=== PATIENT | male | born 1950 | race Caucasian/White ===

== ENCOUNTER → 2016-08-29 | Outpatient (CLI) | payer MEDICARE | END | disposition home or self-care (01) | LOC: MW.CHFP 08:54 | PROVIDERS: ATTEND Emergency Medicine | DX: Z51.81 Encounter for therapeutic drug level monitoring (principal); I73.9 Peripheral vascular disease, unspecified; Z79.01 Long term (current) use of anticoagulants | CPT/HCPCS: 36415; 85610 ==

== ENCOUNTER → 2016-08-31 | Outpatient (CLI) | payer MEDICARE | END | disposition home or self-care (01) | LOC: MW.CHFP 08:29 | PROVIDERS: ATTEND Emergency Medicine | DX: Z51.81 Encounter for therapeutic drug level monitoring (principal); I73.9 Peripheral vascular disease, unspecified; Z79.01 Long term (current) use of anticoagulants | CPT/HCPCS: 36415; 85610 ==

== ENCOUNTER → 2016-09-03 | Outpatient (CLI) | payer MEDICARE | END | disposition home or self-care (01) | LOC: MW.CHFP 08:58 | PROVIDERS: ATTEND Emergency Medicine | DX: Z51.81 Encounter for therapeutic drug level monitoring (principal); I73.9 Peripheral vascular disease, unspecified; Z79.01 Long term (current) use of anticoagulants | CPT/HCPCS: 36415; 85610 ==

== ENCOUNTER → 2016-09-04 | Outpatient (CLI) | payer MEDICARE | LOC: MW.CHNEURO 08:00 | PROVIDERS: ATTEND Psychiatry & Neurology Neuromuscular Medicine | DX: G61.81 Chronic inflammatory demyelinating polyneuritis (principal) | CPT/HCPCS: 99205 ==

== ENCOUNTER → 2016-09-10 | Outpatient (CLI) | payer MEDICARE | END | disposition home or self-care (01) | LOC: MW.CHFP 08:32 | PROVIDERS: ATTEND Emergency Medicine | DX: Z51.81 Encounter for therapeutic drug level monitoring (principal); I73.9 Peripheral vascular disease, unspecified; Z79.01 Long term (current) use of anticoagulants | CPT/HCPCS: 36415; 85610 ==

== ENCOUNTER → 2016-09-14 | Outpatient (CLI) | payer MEDICARE | LOC: MW.CHFP 08:00 | PROVIDERS: ATTEND Emergency Medicine | DX: I10 Essential (primary) hypertension (principal); Z95.4 Presence of other heart-valve replacement | CPT/HCPCS: G0463 ==

== ENCOUNTER → 2016-09-27 | Outpatient (CLI) | payer MEDICARE | LOC: MW.CHFP 08:51 | PROVIDERS: ATTEND Emergency Medicine | DX: Z51.81 Encounter for therapeutic drug level monitoring (principal); I73.9 Peripheral vascular disease, unspecified; Z79.01 Long term (current) use of anticoagulants; Z95.4 Presence of other heart-valve replacement | CPT/HCPCS: 36415; 85610 ==

== ENCOUNTER → 2016-10-11 | Outpatient (CLI) | payer MEDICARE, OTHER | LOC: MW.CHFP 13:31 | PROVIDERS: ATTEND Emergency Medicine | DX: Z51.81 Encounter for therapeutic drug level monitoring (principal); I73.9 Peripheral vascular disease, unspecified; Z79.01 Long term (current) use of anticoagulants; Z95.4 Presence of other heart-valve replacement | CPT/HCPCS: 36415; 85610 ==

== ENCOUNTER → 2016-10-15 | Outpatient (CLI) | payer MEDICARE, OTHER ==
[2016-10-15 11:42] LABS: CHLORIDE,CL 106 mmol/L (98-110); SODIUM,NA 140 mmol/L (136-146)
== END ==
LOC: MW.CHFP 10:59
PROVIDERS: ATTEND Emergency Medicine
DX: I10 Essential (primary) hypertension (principal); Z79.01 Long term (current) use of anticoagulants; Z95.4 Presence of other heart-valve replacement; J34.89 Other specified disorders of nose and nasal sinuses
CPT/HCPCS: 36415; 80048; 85027; G0463

== ENCOUNTER 2016-10-28 16:15 | Emergency (ER) | payer MEDICARE, OTHER ==
[2016-10-28] MEDS ORDERED: Sodium Chloride 0.9% 1,000 ML IV ONE ×2 (16:33→19:30)
--- NOTE | 2016-10-28 16:41 | EDM.PDOC ---
ED HPI GENERAL MEDICAL PROBLEM - General Chief Complaint: Abdominal Pain Stated Complaint: PT HAS STOMACH PAINS Time Seen by Provider: 10/28/16 16:20 Source of Information: Reports: Patient History Limitations: Reports: No Limitations - History of Present Illness INITIAL COMMENTS - FREE TEXT/NARRATIVE: HISTORY AND PHYSICAL: History of present illness: [Patient comes to the emergency room complaining of lower abdominal pain. He has not had a bowel movement in 4 days and he feels constipated. He usually has a bowel movement daily. He took 2 Dulcolax last night and 2 ex-lax this morning with no results. His abdominal pain is across his entire low abdomen and right flank. He denies fever and chills. He's had no chest pain, shortness of breath or difficulty breathing. No vomiting but he feels nauseous from time to time. His abdomen feels full and crampy. Denies burning with urination and blood in his urine. Symptoms have gradually worsened over the past 24 hours. Has passed a small amount of gas this morning. Has a history of COPD, mitral valve replacement in August 2016 at [facility]. Follows regularly with Dr. Allen. Takes coumadin daily for valve replacement, but has not yet taken his dose today. ] Review of systems: As per history of present illness and below otherwise all systems reviewed and negative. Past medical history: As per history of present illness and as reviewed below otherwise noncontributory. Surgical history: As per history of present illness and as reviewed below otherwise noncontributory. Social history: No reported history of drug or alcohol abuse. Family history: As per history of present illness and as reviewed below otherwise noncontributory. Physical exam: HEENT: Atraumatic, normocephalic. Oral mucous membranes are pink and moist. Throat is clear. Neck is supple no lymphadenopathy. Lungs: Clear to auscultation, breath sounds equal bilaterally. Heart: S1S2, regular rate and rhythm. Abdomen: Bowel sounds are noromactive throughout. Abdomen is not distended, but feels hard. Generalized tenderness throughout, worse to R flank and low abdomen. Soft, nondistended, nontender. Negative for masses, guarding, rebound, organomegaly. Right flank is tender with percussion. Genitourinary: Deferred. Rectal: Deferred. Skin: Ashen and fernandez in color. Extremities: Atraumatic, negative for cyanosis and edema to feet or lower legs. Neurovascular unremarkable. Neuro: Awake, alert, oriented. Motor and sensory unremarkable throughout. Exam nonfocal. Diagnostics: [CBC, CMP, UA, abdominal x-ray, CT abd and pelvis, INR] Therapeutics: [1 L normal saline, Morphine 2mg IV] Impression: [small bowel obstruction] Plan: [Contacted Dr. Alba Ellis about small bowel obstruction noted on CT. She agrees to come to the emergency room and evaluate the patient. Due to patient's anti-coagulation status, Dr. Ellis recommends that patient be referred to [facility] for further evaluation and intervention. One episode of vomiting while in the ER. INR is therapeutic at 2.7. Dr. Mathis at [facility] agrees to accept patient in transfer. Patient is in agreement with today's plan. ] Definitive disposition and diagnosis as appropriate pending reevaluation and review of above. Abdominal Pain Score (Numeric/FACES): 10 - Related Data Allergies Allergy/AdvReac Type Severity Reaction Status Date / Time influenza virus vaccine, Allergy Muscle Verified 10/28/16 16:24 specific Weakness [Influenza Virus Vacc,Specific] Home Meds: Home Meds Albuterol Sulfate [Albuterol Sulfate HFA] 1 inhalation IH Q4H PRN 12/02/13 [ History] Aspirin [Sussy Chewable Aspirin] 81 mg PO DAILY 12/02/13 [History] traZODone 100 mg PO BEDTIME 12/02/13 [History] Tiotropium [Spiriva HandiHaler] 1 inhalation IH ASDIRECTED 03/01/14 [History] Bisacodyl [Dulcolax] 5 mg PO DAILY PRN 10/28/16 [History] Cholecalciferol (Vitamin D3) [D-2000] 2,000 unit PO DAILY 10/28/16 [History] Methadone 30 mg PO TID PRN 10/28/16 [History] Metoprolol Succinate 25 mg PO DAILY 10/28/16 [History] Minocycline [Minocin] 200 mg PO BIDAC 10/28/16 [History] Omeprazole 20 mg PO DAILY 10/28/16 [History] Sildenafil Citrate [Sildenafil] 20 mg PO ASDIRECTED 10/28/16 [History] Warfarin [Coumadin] 5 mg PO DAILY 10/28/16 [History] atorvaSTATin [Lipitor] 40 mg PO BEDTIME 10/28/16 [History] Past Medical History Cardiovascular History: Reports: Hypertension Respiratory History: Reports: COPD Other Respiratory History: Home oxygen at night at 2lp Other Gastrointestinal History: constipation Musculoskeletal History: Reports: Arthritis - Infectious Disease History Infectious Disease History: Reports: Chicken Pox - Past Surgical History Other Cardiovascular Surgeries/Procedures: Aortiv valve replacement Social & Family History - Family History Family Medical History: Noncontributory - Tobacco Use Smoking Status *Q: Former Smoker Years of Tobacco use: 40 Used Tobacco, but Quit: Yes Month Tobacco Last Used: "years ago" Second Hand Smoke Exposure: No - Caffeine Use Caffeine Use: Reports: Coffee Caffeine Use Comment: 1cup/day - Alcohol Use Days Per Week of Alcohol Use: 0 Number of Drinks Per Day: 0 Total Drinks Per Week: 0 - Recreational Drug Use Recreational Drug Use: No Drug Use in Last 12 Months: No ED ROS GENERAL - Review of Systems Review Of Systems: ROS reveals no pertinent complaints other than HPI. ED EXAM, GI/ABD - Physical Exam Exam: See Below Course - Vital Signs Last Recorded V/S: Last Vital Signs Temp 97.7 F 10/28/16 20:09 Pulse 74 10/28/16 20:09 Resp 18 10/28/16 20:09 BP 177/88 H 10/28/16 20:09 Pulse Ox 94 L 10/28/16 20:09 - Orders/Labs/Meds Labs: Laboratory Tests 10/28/16 10/28/16 10/28/16 Range/Units 16:40 16:40 16:40 WBC 9.74 (4.0-11.0) K/uL RBC 4.87 (4.50-5.90) M/uL Hgb 14.3 (13.0-17.0) g/dL Hct 43.4 (38.0-50.0) % MCV 89.1 (80.0-98.0) fL MCH 29.4 (27.0-32.0) pg MCHC 32.9 (31.0-37.0) g/dL RDW Std Deviation 44.3 (28.0-62.0) fl RDW Coeff of Yury 14 (11.0-15.0) % Plt Count 117 L (150-400) K/uL MPV 9.20 (7.40-12.00) fL Neut % (Auto) 71.1 (48.0-80.0) % Lymph % (Auto) 19.4 (16.0-40.0) % Eddy % (Auto) 8.3 (0.0-15.0) % Eos % (Auto) 1.1 (0.0-7.0) % Baso % (Auto) 0.1 (0.0-1.5) % Neut # (Auto) 6.9 H (1.4-5.7) K/uL Lymph # (Auto) 1.9 (0.6-2.4) K/uL Eddy # (Auto) 0.8 (0.0-0.8) K/uL Eos # (Auto) 0.1 (0.0-0.7) K/uL Baso # (Auto) 0.0 (0.0-0.1) K/uL Nucleated RBC % 0.0 /100WBC Nucleated RBCs # 0 K/uL INR (0.86-1.11) Lactate (0.20-2.00) mmol/L Sodium 138 (136-146) mmol/L Potassium 4.3 (3.5-5.1) mmol/L Chloride 103 (98-110) mmol/L Carbon Dioxide 26 (21-31) mmol/L BUN 25 H (6.0-23.0) mg/dL Creatinine 1.1 (0.6-1.5) mg/dL Est Cr Clr Drug Dosing 64.84 mL/min Estimated GFR (MDRD) > 60.0 ml/min Glucose 141 H (60-110) mg/dL Calcium 9.3 (8.8-10.8) mg/dL Total Bilirubin 0.4 (0.1-1.5) mg/dL AST 27 (5-40) IU/L ALT 26 (8-54) IU/L Alkaline Phosphatase 78 (40-150) Total Protein 6.4 (6.0-8.0) g/dL Albumin 3.7 (3.4-4.8) g/dL Globulin 2.7 (2.0-3.5) g/dL Albumin/Globulin Ratio 1.4 (1.3-2.8) Urine Color YELLOW Urine Appearance CLEAR Urine pH 5.5 (5.0-8.0) Ur Specific [place] 1.010 (1.001-1.035) Urine Protein NEGATIVE (NEGATIVE) mg/dL Urine Glucose (UA) NEGATIVE (NEGATIVE) mg/dL Urine Ketones NEGATIVE (NEGATIVE) mg/dL Urine Occult Blood SMALL H (NEGATIVE) Urine Nitrite NEGATIVE (NEGATIVE) Urine Bilirubin NEGATIVE (NEGATIVE) Urine Urobilinogen 0.2 (<2.0) EU/dL Ur Leukocyte Esterase NEGATIVE (NEGATIVE) Urine RBC 0-2 (0-2/HPF) Urine WBC 0-1 (0-5/HPF) Ur Epithelial Cells RARE (NONE-FEW) Urine Bacteria RARE (NEGATIVE) 10/28/16 10/28/16 Range/Units 16:40 18:36 WBC (4.0-11.0) K/uL RBC (4.50-5.90) M/uL Hgb (13.0-17.0) g/dL Hct (38.0-50.0) % MCV (80.0-98.0) fL MCH (27.0-32.0) pg MCHC (31.0-37.0) g/dL RDW Std Deviation (28.0-62.0) fl RDW Coeff of Yury (11.0-15.0) % Plt Count (150-400) K/uL MPV (7.40-12.00) fL Neut % (Auto) (48.0-80.0) % Lymph % (Auto) (16.0-40.0) % Eddy % (Auto) (0.0-15.0) % Eos % (Auto) (0.0-7.0) % Baso % (Auto) (0.0-1.5) % Neut # (Auto) (1.4-5.7) K/uL Lymph # (Auto) (0.6-2.4) K/uL Eddy # (Auto) (0.0-0.8) K/uL Eos # (Auto) (0.0-0.7) K/uL Baso # (Auto) (0.0-0.1) K/uL Nucleated RBC % /100WBC Nucleated RBCs # K/uL INR 2.70 H (0.86-1.11) Lactate 1.0 (0.20-2.00) mmol/L Sodium (136-146) mmol/L Potassium (3.5-5.1) mmol/L Chloride (98-110) mmol/L Carbon Dioxide (21-31) mmol/L BUN (6.0-23.0) mg/dL Creatinine (0.6-1.5) mg/dL Est Cr Clr Drug Dosing mL/min Estimated GFR (MDRD) ml/min Glucose (60-110) mg/dL Calcium (8.8-10.8) mg/dL Total Bilirubin (0.1-1.5) mg/dL AST (5-40) IU/L ALT (8-54) IU/L Alkaline Phosphatase (40-150) Total Protein (6.0-8.0) g/dL Albumin (3.4-4.8) g/dL Globulin (2.0-3.5) g/dL Albumin/Globulin Ratio (1.3-2.8) Urine Color Urine Appearance Urine pH (5.0-8.0) Ur Specific [place]iku (1.001-1.035) Urine Protein (NEGATIVE) mg/dL Urine Glucose (UA) (NEGATIVE) mg/dL Urine Ketones (NEGATIVE) mg/dL Urine Occult Blood (NEGATIVE) Urine Nitrite (NEGATIVE) Urine Bilirubin (NEGATIVE) Urine Urobilinogen (<2.0) EU/dL Ur Leukocyte Esterase (NEGATIVE) Urine RBC (0-2/HPF) Urine WBC (0-5/HPF) Ur Epithelial Cells (NONE-FEW) Urine Bacteria (NEGATIVE) Meds: Medications Discontinued Medications Generic Name Dose Route Start Last Admin Trade Name Freq PRN Reason Stop Dose Admin Sodium Chloride 1,000 mls @ 999 mls/hr 10/28/16 16:33 10/28/16 16:44 Normal Saline IV 10/28/16 17:33 999 mls/hr STAT ONE Administration Sodium Chloride 1,000 mls @ 125 mls/hr 10/28/16 19:30 10/28/16 19:48 Normal Saline IV 10/29/16 03:29 125 mls/hr STAT ONE Administration Morphine Sulfate 2 mg 10/28/16 17:35 10/28/16 17:43 Morphine IVPUSH 10/28/16 17:36 2 mg ONETIME ONE Administration Morphine Sulfate 4 mg 10/28/16 19:45 10/28/16 19:50 Morphine IVPUSH 10/28/16 19:46 4 mg ONETIME ONE Administration Departure - Departure Time of Disposition: 19:45 Disposition: DC/Tfer to Acute Hospital 02 Condition: fair Clinical Impression: Small bowel obstruction - Discharge Information Referrals: PCP,None [Primary Care Provider] - Forms: ED Department Discharge
[2016-10-28 17:11] LABS: CHLORIDE,CL 103 mmol/L (98-110); SODIUM,NA 138 mmol/L (136-146)
[2016-10-28] MEDS ORDERED: Morphine 2 MG/ML Syringe IVPUSH ONE ×2 (17:35→19:45)
--- NOTE | 2016-10-28 19:05 | PCM.CONS ---
H&P History of Present Illness - General Date of Service: 10/28/16 Admit Problem/Dx: small bowel obstruction Source of Information: Patient History Limitations: Reports: No Limitations - History of Present Illness Initial Comments - Free Text/Narative: Patient is a 66 yo male with COPD, mitral valve replacement 2 months ago currently on coumadin, open abdominal aorta replacement and multiple bypass procedures on the right leg that presents with four days of progressively worsening abdominal pain. Today he developed nausea and vomiting. He denies ever having an issue like this in the past. He denies fevers, chills. He hasnt had a BM in 4 days. He had a CT of the abdomen that shows a small bowel obstruction with a transition point in the mid-portion of the bowel. Associated Symptoms: Reports: Loss of Appetite, Malaise, Nausea/Vomiting, Shortness of Breath Abdominal Pain Score (Numeric/FACES): 10 - Related Data Allergies/Adverse Reactions: Allergies Allergy/AdvReac Type Severity Reaction Status Date / Time influenza virus vaccine, Allergy Muscle Verified 10/28/16 16:24 specific Weakness [Influenza Virus Vacc,Specific] Home Medications: Home Meds Albuterol Sulfate [Albuterol Sulfate HFA] 1 inhalation IH Q4H PRN 12/02/13 [ History] Aspirin [Sussy Chewable Aspirin] 81 mg PO DAILY 12/02/13 [History] traZODone 100 mg PO BEDTIME 12/02/13 [History] Tiotropium [Spiriva HandiHaler] 1 inhalation IH ASDIRECTED 03/01/14 [History] Bisacodyl [Dulcolax] 5 mg PO DAILY PRN 10/28/16 [History] Cholecalciferol (Vitamin D3) [D-2000] 2,000 unit PO DAILY 10/28/16 [History] Methadone 30 mg PO TID PRN 10/28/16 [History] Metoprolol Succinate 25 mg PO DAILY 10/28/16 [History] Minocycline [Minocin] 200 mg PO BIDAC 10/28/16 [History] Omeprazole 20 mg PO DAILY 10/28/16 [History] Sildenafil Citrate [Sildenafil] 20 mg PO ASDIRECTED 10/28/16 [History] Warfarin [Coumadin] 5 mg PO DAILY 10/28/16 [History] atorvaSTATin [Lipitor] 40 mg PO BEDTIME 05/14/17 [History] Past Medical History HEENT History: Reports: None Cardiovascular History: Reports: Bypass, Heart Valve Replacement, Hypertension Respiratory History: Reports: COPD, Pneumothorax Other Respiratory History: Home oxygen at night at 2lp Gastrointestinal History: Reports: GERD Other Gastrointestinal History: constipation Musculoskeletal History: Reports: Arthritis Other Musculoskeletal History: 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 Neurological History: Reports: None Hematologic History: Reports: Anticoagulation Therapy - Infectious Disease History Infectious Disease History: Reports: Chicken Pox - Past Surgical History Cardiovascular Surgical History: Reports: AAA repair, Valve Replacement, Vascular Surgery Other Cardiovascular Surgeries/Procedures: Aortic valve replacement Social & Family History - Family History Family Medical History: Noncontributory - Tobacco Use Smoking Status *Q: Former Smoker Years of Tobacco use: 40 Used Tobacco, but Quit: Yes Month Tobacco Last Used: "years ago" Second Hand Smoke Exposure: No - Caffeine Use Caffeine Use: Reports: Coffee Caffeine Use Comment: 1cup/day - Alcohol Use Days Per Week of Alcohol Use: 0 Number of Drinks Per Day: 0 Total Drinks Per Week: 0 - Recreational Drug Use Recreational Drug Use: No Drug Use in Last 12 Months: No H&P Review of Systems - Review of Systems: Review Of Systems: See Below General: Reports: Malaise, Weakness, Fatigue, Decreased Appetite HEENT: Reports: No Symptoms Pulmonary: Reports: Shortness of Breath Cardiovascular: Reports: No Symptoms Gastrointestinal: Reports: Abdominal Pain, Anorexia, Decreased Appetite, Nausea , Vomiting Genitourinary: Reports: No Symptoms Musculoskeletal: Reports: No Symptoms Skin: Reports: No Symptoms Psychiatric: Reports: No Symptoms Neurological: Reports: No Symptoms Exam - Exam Exam: See Below - Vital Signs Vital Signs: Last Vital Signs Temp 36.7 C 10/28/16 16:20 Pulse 79 10/28/16 16:20 Resp 21 H 10/28/16 16:20 BP 170/79 H 10/28/16 16:20 Pulse Ox 95 10/28/16 16:20 Weight: 69.4 kg - Exam General: Alert, Oriented, Mild Distress, Other (Patient appears ashen ) HEENT: Conjunctiva Clear, Hearing Intact, Mucosa Moist & [place], Nares Patent, Pupils Equal, Pupils Reactive Lungs: Clear to Auscultation, Normal Respiratory Effort Cardiovascular: Regular Rate, Regular Rhythm Abdomen: Soft, Distention (mild-moderate), Other (No abdominal pain with palpation. Well healed midline incision from previous abdominal aortic replacement and bypasses) Skin: Warm, Dry, Intact Neurological: Cranial Nerves Intact Neuro Extensive - Mental Status: Alert, Oriented x3, Normal Mood/Affect Psychiatric: Alert, Normal Affect, Normal Mood - Patient Data Lab Results last 24 hrs: Laboratory Results - last 24 hr 10/28/16 10/28/16 10/28/16 Range/Units 16:40 16:40 16:40 WBC 9.74 (4.0-11.0) K/uL RBC 4.87 (4.50-5.90) M/uL Hgb 14.3 (13.0-17.0) g/dL Hct 43.4 (38.0-50.0) % MCV 89.1 (80.0-98.0) fL MCH 29.4 (27.0-32.0) pg MCHC 32.9 (31.0-37.0) g/dL RDW Std Deviation 44.3 (28.0-62.0) fl RDW Coeff of Yury 14 (11.0-15.0) % Plt Count 117 L (150-400) K/uL MPV 9.20 (7.40-12.00) fL Neut % (Auto) 71.1 (48.0-80.0) % Lymph % (Auto) 19.4 (16.0-40.0) % [place] % (Auto) 8.3 (0.0-15.0) % Eos % (Auto) 1.1 (0.0-7.0) % Baso % (Auto) 0.1 (0.0-1.5) % Neut # (Auto) 6.9 H (1.4-5.7) K/uL Lymph # (Auto) 1.9 (0.6-2.4) K/uL [place] # (Auto) 0.8 (0.0-0.8) K/uL Eos # (Auto) 0.1 (0.0-0.7) K/uL Baso # (Auto) 0.0 (0.0-0.1) K/uL Nucleated RBC % 0.0 /100WBC Nucleated RBCs # 0 K/uL Lactate (0.20-2.00) mmol/L Sodium 138 (136-146) mmol/L Potassium 4.3 (3.5-5.1) mmol/L Chloride 103 (98-110) mmol/L Carbon Dioxide 26 (21-31) mmol/L BUN 25 H (6.0-23.0) mg/dL Creatinine 1.1 (0.6-1.5) mg/dL Est Cr Clr Drug Dosing 64.84 mL/min Estimated GFR (MDRD) > 60.0 ml/min Glucose 141 H (60-110) mg/dL Calcium 9.3 (8.8-10.8) mg/dL Total Bilirubin 0.4 (0.1-1.5) mg/dL AST 27 (5-40) IU/L ALT 26 (8-54) IU/L Alkaline Phosphatase 78 (40-150) Total Protein 6.4 (6.0-8.0) g/dL Albumin 3.7 (3.4-4.8) g/dL Globulin 2.7 (2.0-3.5) g/dL Albumin/Globulin Ratio 1.4 (1.3-2.8) Urine Color YELLOW Urine Appearance CLEAR Urine pH 5.5 (5.0-8.0) Ur Specific [place] 1.010 (1.001-1.035) Urine Protein NEGATIVE (NEGATIVE) mg/dL Urine Glucose (UA) NEGATIVE (NEGATIVE) mg/dL Urine Ketones NEGATIVE (NEGATIVE) mg/dL Urine Occult Blood SMALL H (NEGATIVE) Urine Nitrite NEGATIVE (NEGATIVE) Urine Bilirubin NEGATIVE (NEGATIVE) Urine Urobilinogen 0.2 (<2.0) EU/dL Ur Leukocyte Esterase NEGATIVE (NEGATIVE) Urine RBC 0-2 (0-2/HPF) Urine WBC 0-1 (0-5/HPF) Ur Epithelial Cells RARE (NONE-FEW) Urine Bacteria RARE (NEGATIVE) 10/28/16 Range/Units 18:36 WBC (4.0-11.0) K/uL RBC (4.50-5.90) M/uL Hgb (13.0-17.0) g/dL Hct (38.0-50.0) % MCV (80.0-98.0) fL MCH (27.0-32.0) pg MCHC (31.0-37.0) g/dL RDW Std Deviation (28.0-62.0) fl RDW Coeff of Yury (11.0-15.0) % Plt Count (150-400) K/uL MPV (7.40-12.00) fL Neut % (Auto) (48.0-80.0) % Lymph % (Auto) (16.0-40.0) % [place] % (Auto) (0.0-15.0) % Eos % (Auto) (0.0-7.0) % Baso % (Auto) (0.0-1.5) % Neut # (Auto) (1.4-5.7) K/uL Lymph # (Auto) (0.6-2.4) K/uL [place] # (Auto) (0.0-0.8) K/uL Eos # (Auto) (0.0-0.7) K/uL Baso # (Auto) (0.0-0.1) K/uL Nucleated RBC % /100WBC Nucleated RBCs # K/uL Lactate 1.0 (0.20-2.00) mmol/L Sodium (136-146) mmol/L Potassium (3.5-5.1) mmol/L Chloride (98-110) mmol/L Carbon Dioxide (21-31) mmol/L BUN (6.0-23.0) mg/dL Creatinine (0.6-1.5) mg/dL Est Cr Clr Drug Dosing mL/min Estimated GFR (MDRD) ml/min Glucose (60-110) mg/dL Calcium (8.8-10.8) mg/dL Total Bilirubin (0.1-1.5) mg/dL AST (5-40) IU/L ALT (8-54) IU/L Alkaline Phosphatase (40-150) Total Protein (6.0-8.0) g/dL Albumin (3.4-4.8) g/dL Globulin (2.0-3.5) g/dL Albumin/Globulin Ratio (1.3-2.8) Urine Color Urine Appearance Urine pH (5.0-8.0) Ur Specific [place] (1.001-1.035) Urine Protein (NEGATIVE) mg/dL Urine Glucose (UA) (NEGATIVE) mg/dL Urine Ketones (NEGATIVE) mg/dL Urine Occult Blood (NEGATIVE) Urine Nitrite (NEGATIVE) Urine Bilirubin (NEGATIVE) Urine Urobilinogen (<2.0) EU/dL Ur Leukocyte Esterase (NEGATIVE) Urine RBC (0-2/HPF) Urine WBC (0-5/HPF) Ur Epithelial Cells (NONE-FEW) Urine Bacteria (NEGATIVE) Result Diagrams: 10/28/16 16:40 10/28/16 16:40 Consult PN Assessment/Plan Procedures: Procedures ASSAY OF CREATININE (06/08/15) CARDIAC REHAB/MONITOR (10/12/16) CHEST X-RAY 2VW FRONTAL&LATL (05/21/16) CINE/VID X-RAY THROAT/ESOPH (02/01/14) COMPLETE CBC AUTOMATED (05/21/16) COMPLETE CBC W/AUTO DIFF WBC (11/09/15) CT ANGIO ABDOMINAL ARTERIES (11/11/15) CT THORAX W/O DYE (01/06/16) EGD BIOPSY SINGLE/MULTIPLE (03/03/14) ELECTRICAL STIMULATION (11/02/13) ELECTROCARDIOGRAM TRACING (11/17/13) EVALUATION OF WHEEZING (02/08/15) EXTREMITY STUDY (11/09/15) LIPID PANEL (08/02/14) LOWER EXTREMITY STUDY (11/09/15) METABOLIC PANEL TOTAL CA (11/09/15) MOTION FLUOROSCOPY/SWALLOW (02/01/14) MRI JOINT UPR EXTREM W/O DYE (01/05/14) MRI NECK SPINE W/O DYE (09/16/13) OFFICE/OUTPATIENT VISIT EST (01/13/15) OFFICE/OUTPATIENT VISIT EST (03/15/14) OFFICE/OUTPATIENT VISIT EST (10/22/13) PPSV23 VACC 2 YRS+ SUBQ/IM (01/13/15) PROTHROMBIN TIME (10/11/16) PT EVALUATION (11/02/13) RBC SED RATE AUTOMATED (05/21/16) ROUTINE VENIPUNCTURE (10/11/16) SHOULDER ARTHROSCOPY/SURGERY (12/03/13) THERAPEUTIC EXERCISES (11/02/13) TISSUE EXAM BY PATHOLOGIST (03/03/14) URINALYSIS AUTO W/SCOPE (11/17/13) URINALYSIS NONAUTO W/SCOPE (12/16/14) X-RAY EXAM OF SHOULDER (12/16/13) (1) Small bowel obstruction SNOMED Code(s): 353687697 Code(s): K56.69 - OTHER INTESTINAL OBSTRUCTION Current Visit: Yes Problem List Initiated/Reviewed/Updated: Yes Plan: The patient needs to be transferred to a facility with more resources given his recent valve replacement, anticoagulation therapy and moderate COPD for close monitoring and possible surgery. Should he need surgery he will need to have his coumadin reversed and may need ICU services afterwards given his multiple medical issues. In the meantime, he should have an NG tube placed for gastric decompression, be NPO, and be resuscitated with IV fluids. I discussed this with the patient and his . He does have a history of abdominal surgery and may have intra-abdominal adhesions which could be the cause of his bowel obstruction. He may be able to be managed non-operatively but given the complexity of his medical issues, he should be monitored and managed at a facility that would be able to perform his surgery.
[2016-10-28 20:11] VITALS: BP 177/88
--- NOTE | 2016-10-29 17:56 | CR ---
EXAM DATE: 10/28/16 PATIENT'S AGE: 66 Patient: ISRAEL BATRES Facility: [place], [place] Site . Site : 1950 Study: XRay Abdomen [id number] 4:59:33 PM Ordering Physician: Doctor Avila Final Report: INDICATION: Abdominal pain. TECHNIQUE: Upright and supine views of the abdomen IMPRESSION : Dilated small bowel loops with air-fluid levels on the upright view. Bowel obstruction should be considered. CT scan of the abdomen pelvis is suggested for further evaluation. Moderate to large amount of stool in the right colon. The colon appears decompressed. No free intraperitoneal air. TAVR prosthesis. Lumbar disc degeneration. Dictated by Nick Thompson MD @ Oct 28 2016 5:28PM (Electronic Signature) Report Signed by Proxy. HESHAM
--- NOTE | 2016-10-29 17:58 | CT ---
EXAM DATE: 10/28/16 PATIENT'S AGE: 66 Patient: ISRAEL BATRES Facility: [place], [place] Site . Site : 1950 Study: CT Abdomen/Pelvis [id number]/2017 5:59:46 PM Ordering Physician: Doctor Avila Final Report: INDICATION: Abdominal pain TECHNIQUE: IV contrast-enhanced CT abdomen and pelvis. COMPARISON: Abdomen x-ray same date. FINDINGS: Dilated fluid-filled small bowel with transition point in the mid abdomen image 42 of series 203, consistent with small bowel obstruction. Small amount of free fluid. No free air. Liver, spleen, pancreas and are normal. There are bilateral adrenal nodules measuring 1.9 cm on the right and 0.9 cm on the left. While these do not technically meet the density criteria on this contrast-enhanced exam, they are most likely adenomas. There is mild diverticulosis without diverticulitis. Numerous bilateral nonobstructing renal stones. Aortobifemoral grafts. IMPRESSION: 1. Small-bowel obstruction. 2. Bilateral nephrolithiasis. 3. Bilateral adrenal nodules, probably adenomas. Consider adrenal protocol CT for confirmation. PLEASE NOTE THAT ALL CT SCANS AT THIS FACILITY USE DOSE MODULATION, ITERATIVE RECONSTRUCTION, AND/OR WEIGHT-BASED DOSING WHEN APPROPRIATE TO REDUCE RADIATION TO LOW REASONABLY ACHIEVABLE. Dictated by Ariel Dick MD @ 10/28/2016 6:25:43 PM Dictated by: Ariel Dick MD @ 10/28/2016 18:25:56 (Electronic Signature) Report Signed by Proxy. HESHAM
== END 2016-10-28 20:10 ==
LOC: MW.ED 16:15
DX: K56.69 Other intestinal obstruction (principal); I10 Essential (primary) hypertension; J44.9 Chronic obstructive pulmonary disease, unspecified; K59.00 Constipation, unspecified; Z88.8 Allergy status to other drugs, medicaments and biological substances; Z79.82 Long term (current) use of aspirin; Z79.01 Long term (current) use of anticoagulants; Z79.899 Other long term (current) drug therapy; M19.90 Unspecified osteoarthritis, unspecified site; Z87.891 Personal history of nicotine dependence
CPT/HCPCS: 36415; 74020; 74177; 80053; 81001; 83605; 85025; 85610; 96361; 96374; 96376; 99285; J2270; J7040

== ENCOUNTER → 2016-11-08 | Outpatient (CLI) | payer MEDICARE, OTHER | LOC: MW.CHFP 08:00 | PROVIDERS: ATTEND Student in an Organized Health Care Education/Training Program | DX: Z51.81 Encounter for therapeutic drug level monitoring (principal); Z79.01 Long term (current) use of anticoagulants; Z95.2 Presence of prosthetic heart valve | CPT/HCPCS: 85610; 99211 ==

== ENCOUNTER 2017-10-09 07:22 | Emergency (ER) | payer MEDICARE, OTHER ==
[2017-10-09] MEDS ORDERED: Sodium Chloride 0.9% 10 ML Syringe FLUSH PRN (07:42)
[2017-10-09] MEDS ORDERED: Ketorolac 30 MG/ML SDV IVPUSH ONE (07:42)
[2017-10-09] MEDS ORDERED: Sodium Chloride 0.9% 2.5 ML Syringe FLUSH PRN (07:42)
--- NOTE | 2017-10-09 07:47 | EDM.PDOC ---
ED HPI GENERAL MEDICAL PROBLEM - General Chief Complaint: Neck Problem Stated Complaint: SEVERE NECK PAIN Time Seen by Provider: 10/09/17 07:31 - History of Present Illness INITIAL COMMENTS - FREE TEXT/NARRATIVE: HISTORY AND PHYSICAL: History of present illness: The patient is a 67-year-old male who follows in our family practice clinic and has a long-standing history of chronic neck pain due to injury many years ago from trauma and underwent surgery at that time and follows with Dr. Allen for pain management for which she takes methadone, and who presents this morning with onset of right-sided neck pain and deltoid pain that started last evening. Patient said he did not do anything strenuous or different but that the pain started last evening and he placed heat on it but did not take any new medications for the pain. The patient put the heat on it but said it did not make it better and only and the patient thinks that this is more muscular but it has accelerated and it is not getting better. He is taken nonsteroidals in the past but nothing recently and he has no numbness or weakness in his right upper extremity but says that the pain originates in the back of his neck and radiates to the right deltoid area. The patient says he feels like his shoulders rise without his control due to the discomfort. He has no upper back pain no left-sided shoulder pain and no headache per se the pain is worse with movements and there is no chest pain shortness of breath or other systemic complaints. He has no diminished use of his right upper extremity. The patient has a harsh cough in the ED which he states is not new or different and that it is secondary to his COPD Review of systems: As per history of present illness and below otherwise all systems reviewed and negative. Past medical history: As per history of present illness and as reviewed below otherwise noncontributory. Surgical history: As per history of present illness and as reviewed below otherwise noncontributory. Social history: No reported history of drug or alcohol abuse. Family history: As per history of present illness and as reviewed below otherwise noncontributory. Physical exam: General: Well-developed well-nourished man who looks older than stated age and vital signs were noted by me HEENT: Atraumatic, normocephalic, negative for conjunctival pallor or scleral icterus, mucous membranes moist, throat clear, neck supple, nontender, trachea midline. Lungs: Coarse breath sounds throughout without work of breathing breath sounds equal bilaterally, chest nontender. Heart: S1S2, regular, rate and rhythm no overt murmurs Abdomen: Soft, nondistended, nontender. NABS Negative for costovertebral tenderness. Pelvis: Stable nontender. Genitourinary: Deferred. Rectal: Deferred. Extremities: Atraumatic, negative for cords or calf pain. Neurovascular unremarkable. Full range of motion without defects or deficits. There is tenderness when I palpate the need of the deltoid muscle on the right but there is no soft tissue swelling. Neuro: Awake, alert, oriented. Cranial nerves II through XII unremarkable. Cerebellum unremarkable. Motor and sensory unremarkable throughout. Exam nonfocal. 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 Neck and back: There are no midline step-offs tenderness or defects of the bony mid back but there is reproducible tenderness in the strap muscles of the neck bilaterally right greater than left and the patient tends to pull his shoulders up and punched in last I encouraged him to relax. There is no specific trapezius tenderness. Diagnostics: CT scan of the C-spine Therapeutics: Toradol Norflex Patient's repeat blood pressure was 131/53. He is drowsy and resting comfortably and he says he did not sleep much last night so he is pleased with this. At 8:55 AM I did discuss this case with Dr. Allen his primary care physician. He recommends putting the patient on an anti-inflammatory as well as oxycodone 10 mg every 6 hrs when necessary and a Medrol pack after we review the CT scan. He said he will follow him in the clinic and refer him further if the pain persists. Patient and are aware of this discussion and are comfortable with this care plan. I've advised him on reasons to return to the ED. Impression: Acute neck pain with history of chronic neck pain, multilevel disc disease and chronic bony changes Definitive disposition and diagnosis as appropriate pending reevaluation and review of above. neck Pain Score (Numeric/FACES): 10 - Related Data Allergies Allergy/AdvReac Type Severity Reaction Status Date / Time influenza virus vaccine, Allergy Muscle Verified 10/09/17 07:27 specific Weakness [Influenza Virus Vacc,Specific] Home Meds: Home Meds Albuterol Sulfate [Albuterol Sulfate HFA] 1 inhalation IH Q4H PRN 12/02/13 [ History] Aspirin [Sussy Chewable Aspirin] 81 mg PO DAILY 12/02/13 [History] traZODone 100 mg PO BEDTIME 12/02/13 [History] Tiotropium [Spiriva HandiHaler] 1 inhalation IH ASDIRECTED 03/01/14 [History] Cholecalciferol (Vitamin D3) [D-2000] 2,000 unit PO DAILY 10/28/16 [History] Methadone 30 mg PO TID PRN 10/28/16 [History] Metoprolol Succinate 25 mg PO DAILY 10/28/16 [History] Sildenafil Citrate [Sildenafil] 20 mg PO ASDIRECTED 10/28/16 [History] atorvaSTATin [Lipitor] 40 mg PO BEDTIME 10/28/16 [History] Apixaban [Eliquis] 5 mg PO DAILY 10/09/17 [History] Past Medical History HEENT History: Reports: None Cardiovascular History: Reports: Hypertension Respiratory History: Reports: COPD Other Respiratory History: Home oxygen at night at 2lp Gastrointestinal History: Reports: GERD Other Gastrointestinal History: constipation Musculoskeletal History: Reports: Arthritis Other Musculoskeletal History: 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 Neurological History: Reports: None Hematologic History: Reports: Anticoagulation Therapy - Infectious Disease History Infectious Disease History: Reports: Chicken Pox - Past Surgical History Cardiovascular Surgical History: Reports: AAA Repair, Valve Replacement, Vascular Surgery Social & Family History - Family History Family Medical History: Noncontributory - Tobacco Use Smoking Status *Q: Never Smoker Years of Tobacco use: 40 Used Tobacco, but Quit: Yes Month/Year Tobacco Last Used: "years ago" Second Hand Smoke Exposure: No - Caffeine Use Caffeine Use: Reports: Coffee Caffeine Use Comment: 1cup/day - Alcohol Use Days Per Week of Alcohol Use: 0 Number of Drinks Per Day: 0 Total Drinks Per Week: 0 - Recreational Drug Use Recreational Drug Use: No Drug Use in Last 12 Months: No ED ROS GENERAL - Review of Systems Review Of Systems: ROS reveals no pertinent complaints other than HPI. ED EXAM, GENERAL - Physical Exam Exam: See Below (See dictation) Course - Vital Signs Last Recorded V/S: Last Vital Signs Temp 36.8 C 10/09/17 07:25 Pulse 88 10/09/17 07:25 Resp 20 10/09/17 07:25 BP 187/132 H 10/09/17 07:25 Pulse Ox 93 L 10/09/17 07:25 - Orders/Labs/Meds Orders: Active Orders 24 hr Category Date Time Status Cervical Spine wo Cont [CT] Stat Exams 10/09/17 07:42 Taken Sodium Chloride 0.9% [Saline Flush] Med 10/09/17 07:42 Active 10 ml FLUSH ASDIRECTED PRN Sodium Chloride 0.9% [Saline Flush] Med 10/09/17 07:42 Active 2.5 ml FLUSH ASDIRECTED PRN Saline Lock Insert [OM.PC] Stat Oth 10/09/17 07:42 Ordered Medication Orders Sodium Chloride (Saline Flush) 10 ml FLUSH ASDIRECTED PRN PRN Reason: Keep Vein Open Sodium Chloride (Saline Flush) 2.5 ml FLUSH ASDIRECTED PRN PRN Reason: Keep Vein Open Meds: Medications Generic Name Dose Route Start Last Admin Trade Name Freq PRN Reason Stop Dose Admin Sodium Chloride 10 ml 10/09/17 07:42 Saline Flush FLUSH ASDIRECTED PRN Keep Vein Open Sodium Chloride 2.5 ml 10/09/17 07:42 Saline Flush FLUSH ASDIRECTED PRN Keep Vein Open Discontinued Medications Generic Name Dose Route Start Last Admin Trade Name Freq PRN Reason Stop Dose Admin Ketorolac Tromethamine 30 mg 10/09/17 07:42 10/09/17 07:50 Toradol IVPUSH 10/09/17 07:43 30 mg ONETIME ONE Administration Orphenadrine Citrate 60 mg 10/09/17 07:42 10/09/17 07:51 Norflex IM 10/09/17 07:43 60 mg ONETIME ONE Administration Departure - Departure Time of Disposition: 09:08 Disposition: Home, Self-Care 01 Condition: Good Clinical Impression: Acute neck pain, Cervical disc disease - Discharge Information Referrals: Blake Allen MD [Primary Care Provider] - Forms: ED Department Discharge Additional Instructions: The following information is given to patients seen in the emergency department who are being discharged to home. This information is to outline your options for follow-up care. We provide all patients seen in our emergency department with a follow-up referral. The need for follow-up, as well as the timing and circumstances, are variable depending upon the specifics of your emergency department visit. If you don't have a primary care physician on staff, we will provide you with a referral. We always advise you to contact your personal physician following an emergency department visit to inform them of the circumstance of the visit and for follow-up with them and/or the need for any referrals to a consulting specialist. The emergency department will also refer you to a specialist when appropriate. This referral assures that you have the opportunity for followup care with a specialist. All of these measure are taken in an effort to provide you with optimal care, which includes your followup. Under all circumstances we always encourage you to contact your private physician who remains a resource for coordinating your care. When calling for followup care, please make the office aware that this follow-up is from your recent emergency room visit. If for any reason you are refused follow-up, please contact the [facility] emergency department at and ask to speak to the emergency department charge nurse. [facility] Primary care- [place] [address] Rest and take all medications as prescribed. Please contact Dr. Allen in the clinic and schedule a follow-up appointment as we discussed and return to ER as needed and as discussed - My Orders Last 24 Hours: My Active Orders 10/09/17 07:42 Cervical Spine wo Cont [CT] Stat Sodium Chloride 0.9% [Saline Flush] 10 ml FLUSH ASDIRECTED PRN Sodium Chloride 0.9% [Saline Flush] 2.5 ml FLUSH ASDIRECTED PRN Saline Lock Insert [OM.PC] Stat - Assessment/Plan Last 24 Hours: My Active Orders 10/09/17 07:42 Cervical Spine wo Cont [CT] Stat Sodium Chloride 0.9% [Saline Flush] 10 ml FLUSH ASDIRECTED PRN Sodium Chloride 0.9% [Saline Flush] 2.5 ml FLUSH ASDIRECTED PRN Saline Lock Insert [OM.PC] Stat
[2017-10-09] MEDS ORDERED: methylPREDNISolone Sodium Succinate 125 MG/2 ML SDV IVPUSH ONE (09:10)
[2017-10-09 09:11] VITALS: BP 131/53
--- NOTE | 2017-10-09 12:49 | CT ---
EXAM DATE: 10/09/17 PATIENT'S AGE: 67 Patient: ISRAEL BATRES Facility: [place], [place] Site . Site : 1950 Study: CT Spine Cervical [id number] 8:13:49 AM Ordering Physician: Joe Palmer Final Report: Indication: Neck pain, prior neck injury/surgery. Denies recent treatment. Technique: Noncontrast axial CT of the cervical spine with coronal and sagittal reformats are provided. Comparison: No prior studies available for comparison at this institution. Findings: Cervical lordosis is maintained. There is 3 mm retrolisthesis of C4 on C5. Anterior plate and screws are noted at C4 -C7. Mature osseous fusion at C5-6 and potential mature osseous bridging at C6-7. Lucency adjacent to the right C4 anterior screw is concerning for loosening. There is pseudoarthrosis of C4-5 with endplate sclerotic changes. No evidence of hardware fracture. No prevertebral or paraspinal soft tissue swelling. There is a prominent anterior osteophyte at C2-C3 and at C4 anterior to the hardware. C2-3: Mild disc bulge. Mild left facet arthropathy. No spinal canal stenosis or neural foraminal narrowing. C3-4: Mild disc bulge with discal calcifications. Moderate left facet arthropathy results in severe narrowing of the left neural foramen with possible impingement of the left C4 nerve. The right neural foramen is patent. C4-5: Severe disc height loss, endplate sclerotic changes, right greater than left, and retrolisthesis with endplate ridging result in no significant spinal canal stenosis. Mild right neural foramen narrowing. C5-6: Postsurgical changes. No spinal canal stenosis or neural foramina narrowing. C6-7: Postoperative changes. No spinal canal stenosis or neural from narrowing. C7-T1: No spinal canal stenosis or neural foramina narrowing. T1-2: No spinal canal stenosis or neural foraminal narrowing. Bilateral emphysema. Carotid and vertebrobasilar atherosclerosis. Mild mucosal thickening in the right maxillary sinus. The mastoid air cells are clear. Impression: 1. Postsurgical changes consistent with C4-C7 ACDF. Mature osseous fusion at C5- 6 and potential mature osseous bridging at C6-7. Lucency adjacent to the right C4 anterior screw is concerning for loosening. There is pseudoarthrosis of C4- 5. 2. Severe left neural foraminal narrowing with probable impingement of the left C4 nerve due to predominantly facet osteophytes. 4. Bilateral emphysema. Carotid and vertebrobasilar atherosclerosis. Please note that all CT scans at this facility use dose modulation, iterative reconstruction, and/or weight-based dosing when appropriate to reduce radiation dose to as low as reasonably achievable. Dictated by Abraham Boyd MD @ Oct 09 2017 8:25AM (Electronic Signature) Report Signed by Proxy. MTDD
== END 2017-10-09 09:28 | disposition home or self-care (01) ==
LOC: MW.ED 07:22
DX: M50.90 Cervical disc disorder, unspecified, unspecified cervical region (principal); I10 Essential (primary) hypertension; Z88.7 Allergy status to serum and vaccine; Z79.82 Long term (current) use of aspirin; Z79.899 Other long term (current) drug therapy; Z87.891 Personal history of nicotine dependence
CPT/HCPCS: 72125; 96372; 96374; 96375; 99284; J1885; J2360; J2930; 99283

== ENCOUNTER 2018-10-29 17:20 | Observation (INO) | payer MEDICARE ==
[2018-10-29] MEDS ORDERED: Albuterol/Ipratropium 3.0-0.5 MG/3 ML Neb Soln ONE (17:23)
[2018-10-29] MEDS ORDERED: methylPREDNISolone Sodium Succinate 125 MG/2 ML SDV IVPUSH ONE (17:24)
[2018-10-29] MEDS ORDERED: Albuterol/Ipratropium 3.0-0.5 MG/3 ML Neb Soln NEB ONE ×2 (17:24→17:25)
--- NOTE | 2018-10-29 17:31 | EDM.PDOC ---
ED HPI GENERAL MEDICAL PROBLEM - General Chief Complaint: Respiratory Problem Stated Complaint: TROUBLE BREATHING Time Seen by Provider: 10/29/18 17:23 Source of Information: Reports: Patient History Limitations: Reports: No Limitations - History of Present Illness INITIAL COMMENTS - FREE TEXT/NARRATIVE: HISTORY AND PHYSICAL: History of present illness: Patient is a 68-year-old male who presents to the emergency room with complaints of shortness of breath. He does have a long-standing history of COPD and does use home oxygen as needed. He states this morning he had increased shortness of breath did not feel that his oxygen was alleviating his symptoms. Patient denies any fever, chills, headache, change in vision, syncope or near syncope. Denies any chest pain, back pain or cough. Denies any abdominal pain, nausea, vomiting, diarrhea, constipation or dysuria. Has not noted any blood in urine or stool. Patient has been eating and drinking appropriately. Review of systems: As per history of present illness and below otherwise all systems reviewed and negative. Past medical history: As per history of present illness and as reviewed below otherwise noncontributory. Surgical history: As per history of present illness and as reviewed below otherwise noncontributory. Social history: See social history for further information Family history: As per history of present illness and as reviewed below otherwise noncontributory. Physical exam: General: Well-developed and well-nourished 68-year-old male. Alert and oriented. Nontoxic appearing with mild respiratory distress. HEENT: Atraumatic, normocephalic, pupils equal and reactive bilaterally, negative for conjunctival pallor or scleral icterus, mucous membranes moist, TMs normal bilaterally, throat clear, neck supple, nontender, trachea midline. No drooling or trismus noted. No meningeal signs. No hot potato voice noted. Lungs: Labored breathing. Coarse rhonchi anterior upper lobes bilaterally, poor air exchange and diminished in bases bilaterally, breath sounds equal bilaterally, chest nontender. Heart: S1S2, regular rate and rhythm without overt murmur, tachycardic Abdomen: Soft, nondistended, nontender. Negative for masses or hepatosplenomegaly. Negative for costovertebral tenderness. Pelvis: Stable nontender. Genitourinary: Deferred. Rectal: Deferred. Skin: Intact, warm, dry. No lesions or rashes noted. Extremities: Atraumatic, moves all extremities per self without difficulty or deficits, negative for cords or calf pain. Neurovascular unremarkable. Neuro: Awake, alert, oriented. Cranial nerves II through XII unremarkable. Cerebellum unremarkable. Motor and sensory unremarkable throughout. Exam nonfocal. Notes: Upon arrival the patient's oxygen saturation was 75-78% on room air. He states he was using oxygen approximately one hour prior to arrival. RT at bedside giving duo nebs and supplemental oxygenation Oxygen saturation is now up to 89-91% on 3 L per nasal cannula. Lung sounds appears that they have opened up after the duo nebs. We'll continue to monitor. Patient was placed on BiPAP help improve her respiratory status. He is tolerating this well and feels comfort with this. Oxygen sat is 96%. Chest x-ray shows stable mild pulmonary fibroids consistent with history of COPD. due to the patient's oxygen saturation, low-grade temperature and lung sounds are did give him Rocephin. Patient is agreeable to admission. Dr. Chandra was consulted on this patient. He is agreeable to keeping this patient for observation and further management. Diagnostics: CBC, CMP, chest x-ray, EKG, blood cultures 2, lactate, ABG, BNP Therapeutics: Duo Neb, Solu-Medrol Impression: COPD exacerbation Plan: Observation admission with telemetry Definitive disposition and diagnosis as appropriate pending reevaluation and review of above. headache Pain Score (Numeric/FACES): 10 - Related Data Allergies Allergy/AdvReac Type Severity Reaction Status Date / Time influenza virus vaccine, Allergy Muscle Verified 10/09/17 07:27 specific Weakness [Influenza Virus Vacc,Specific] Home Meds: Home Meds Albuterol Sulfate [Albuterol Sulfate HFA] 1 inhalation IH Q4H PRN 12/02/13 [ History] Aspirin [Sussy Chewable Aspirin] 81 mg PO DAILY 12/02/13 [History] traZODone 100 mg PO BEDTIME 12/02/13 [History] Tiotropium [Spiriva HandiHaler] 1 inhalation IH ASDIRECTED 03/01/14 [History] Cholecalciferol (Vitamin D3) [D-2000] 2,000 unit PO DAILY 10/28/16 [History] Methadone 40 mg PO TID PRN 10/28/16 [History] Metoprolol Succinate 25 mg PO DAILY 10/28/16 [History] Sildenafil Citrate [Sildenafil] 20 mg PO ASDIRECTED 10/28/16 [History] atorvaSTATin [Lipitor] 40 mg PO BEDTIME 10/28/16 [History] Past Medical History HEENT History: Reports: None Cardiovascular History: Reports: Hypertension Respiratory History: Reports: COPD Other Respiratory History: Home oxygen at night at 2lp Gastrointestinal History: Reports: GERD Other Gastrointestinal History: constipation Musculoskeletal History: Reports: Arthritis Other Musculoskeletal History: 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 Neurological History: Reports: None Hematologic History: Reports: Anticoagulation Therapy - Infectious Disease History Infectious Disease History: Reports: Chicken Pox - Past Surgical History Cardiovascular Surgical History: Reports: AAA Repair, Valve Replacement, Vascular Surgery Social & Family History - Family History Family Medical History: Noncontributory - Caffeine Use Caffeine Use: Reports: Coffee Caffeine Use Comment: 1cup/day ED ROS GENERAL - Review of Systems Review Of Systems: ROS reveals no pertinent complaints other than HPI. ED EXAM, GENERAL - Physical Exam Exam: See Below (See dictation) Course - Vital Signs Last Recorded V/S: Last Vital Signs Temp 99.6 F 10/29/18 17:28 Pulse 113 H 10/29/18 17:28 Resp 26 H 10/29/18 17:28 BP 179/90 H 10/29/18 17:28 Pulse Ox 78 L 10/29/18 17:28 - Orders/Labs/Meds Orders: Active Orders 24 hr Category Date Time Status Admission Status [Patient Status] [ADT] Stat ADT 10/29/18 18:34 Active EKG Documentation Completion [RC] STAT Care 10/29/18 17:24 Active RT Aerosol Therapy [RC] ASDIRECTED Care 10/29/18 17:24 Active RT Aerosol Therapy [RC] ASDIRECTED Care 10/29/18 17:25 Active B-TYPE NATRIURETIC PEPTIDE,BNP [CHEM] Stat Lab 10/29/18 17:24 Received CULTURE BLOOD [BC] Stat Lab 10/29/18 17:33 Received CULTURE BLOOD [BC] Stat Lab 10/29/18 17:45 Received Blood Culture x2 Reflex Set [OM.PC] Stat Oth 10/29/18 17:24 Ordered Labs: Laboratory Tests 10/29/18 10/29/18 10/29/18 Range/Units 17:24 17:24 17:24 WBC 15.69 H (4.0-11.0) K/uL RBC 5.78 (4.50-5.90) M/uL Hgb 16.5 (13.0-17.0) g/dL Hct 50.3 H (38.0-50.0) % MCV 87.0 (80.0-98.0) fL MCH 28.5 (27.0-32.0) pg MCHC 32.8 (31.0-37.0) g/dL RDW Std Deviation 48.4 (28.0-62.0) fl RDW Coeff of [place] 15 (11.0-15.0) % Plt Count 119 L (150-400) K/uL MPV 9.10 (7.40-12.00) fL Neut % (Auto) 81.3 H (48.0-80.0) % Lymph % (Auto) 12.8 L (16.0-40.0) % [place] % (Auto) 5.0 (0.0-15.0) % Eos % (Auto) 0.8 (0.0-7.0) % Baso % (Auto) 0.1 (0.0-1.5) % Neut # (Auto) 12.8 H (1.4-5.7) K/uL Lymph # (Auto) 2.0 (0.6-2.4) K/uL [place] # (Auto) 0.8 (0.0-0.8) K/uL Eos # (Auto) 0.1 (0.0-0.7) K/uL Baso # (Auto) 0.0 (0.0-0.1) K/uL Nucleated RBC % 0.0 /100WBC Nucleated RBCs # 0 K/uL ABG pH (7.35-7.45) ABG pCO2 (35-45) mmHG ABG pO2 (75-100) mmHG ABG HCO3 (22-26) mEq/L ABG Total CO2 ABG Base Excess (-2.0-2.0) Lactate 1.9 (0.20-2.00) mmol/L Sodium 140 (136-148) mmol/L Potassium 4.4 (3.5-5.1) mmol/L Chloride 101 (98-107) mmol/L Carbon Dioxide 28.2 (21.0-32.0) mmol/L BUN 22 H (7.0-18.0) mg/dL Creatinine 1.1 (0.8-1.3) mg/dL Est Cr Clr Drug Dosing 65.56 mL/min Estimated GFR (MDRD) > 60.0 ml/min Glucose 145 H (74-106) mg/dL Calcium 8.5 (8.5-10.1) mg/dL Total Bilirubin 0.6 (0.2-1.0) mg/dL AST 21 (15-37) IU/L ALT 35 (14-63) IU/L Alkaline Phosphatase 86 (46-116) U/L Total Protein 7.0 (6.4-8.2) g/dL Albumin 4.0 (3.4-5.0) g/dL Globulin 3.0 (2.6-4.0) g/dL Albumin/Globulin Ratio 1.3 (0.9-1.6) 10/29/18 Range/Units 17:40 WBC (4.0-11.0) K/uL RBC (4.50-5.90) M/uL Hgb (13.0-17.0) g/dL Hct (38.0-50.0) % MCV (80.0-98.0) fL MCH (27.0-32.0) pg MCHC (31.0-37.0) g/dL RDW Std Deviation (28.0-62.0) fl RDW Coeff of [place] (11.0-15.0) % Plt Count (150-400) K/uL MPV (7.40-12.00) fL Neut % (Auto) (48.0-80.0) % Lymph % (Auto) (16.0-40.0) % [place] % (Auto) (0.0-15.0) % Eos % (Auto) (0.0-7.0) % Baso % (Auto) (0.0-1.5) % Neut # (Auto) (1.4-5.7) K/uL Lymph # (Auto) (0.6-2.4) K/uL [place] # (Auto) (0.0-0.8) K/uL Eos # (Auto) (0.0-0.7) K/uL Baso # (Auto) (0.0-0.1) K/uL Nucleated RBC % /100WBC Nucleated RBCs # K/uL ABG pH 7.394 (7.35-7.45) ABG pCO2 44 (35-45) mmHG ABG pO2 68 L (75-100) mmHG ABG HCO3 27 H (22-26) mEq/L ABG Total CO2 23.6 ABG Base Excess 1.6 (-2.0-2.0) Lactate (0.20-2.00) mmol/L Sodium (136-148) mmol/L Potassium (3.5-5.1) mmol/L Chloride (98-107) mmol/L Carbon Dioxide (21.0-32.0) mmol/L BUN (7.0-18.0) mg/dL Creatinine (0.8-1.3) mg/dL Est Cr Clr Drug Dosing mL/min Estimated GFR (MDRD) ml/min Glucose (74-106) mg/dL Calcium (8.5-10.1) mg/dL Total Bilirubin (0.2-1.0) mg/dL AST (15-37) IU/L ALT (14-63) IU/L Alkaline Phosphatase (46-116) U/L Total Protein (6.4-8.2) g/dL Albumin (3.4-5.0) g/dL Globulin (2.6-4.0) g/dL Albumin/Globulin Ratio (0.9-1.6) Meds: Medications Discontinued Medications Generic Name Dose Route Start Last Admin Trade Name Freq PRN Reason Stop Dose Admin Albuterol/Ipratropium 3 ml 10/29/18 17:24 10/29/18 17:32 Duoneb 3.0-0.5 Mg/3 Ml NEB 10/29/18 17:25 3 ml ONETIME ONE Administration Albuterol/Ipratropium 3 ml 10/29/18 17:25 10/29/18 17:32 Duoneb 3.0-0.5 Mg/3 Ml NEB 10/29/18 17:26 3 ml ONETIME ONE Administration Albuterol/Ipratropium Confirm 10/29/18 17:23 10/29/18 17:32 Duoneb 3.0-0.5 Mg/3 Ml Administered 10/29/18 17:24 Not Given Dose 3 ml .ROUTE .STK-MED ONE Ceftriaxone Sodium/Dextrose 1 50 mls @ 100 mls/hr 10/29/18 17:46 10/29/18 18: 01 gm/ Premix IV 10/29/18 18:15 100 mls/hr ONETIME ONE Administration Methylprednisolone Sodium Succinate 125 mg 10/29/18 17:24 10/29/18 17:32 Solu-Medrol IVPUSH 10/29/18 17:25 125 mg ONETIME ONE Administration Departure - Departure Time of Disposition: 18:34 Disposition: Refer to Observation Clinical Impression: COPD with acute exacerbation - Discharge Information Referrals: PCP,Unknown [Primary Care Provider] - Forms: ED Department Discharge - My Orders Last 24 Hours: My Active Orders 10/29/18 17:24 EKG Documentation Completion [RC] STAT RT Aerosol Therapy [RC] ASDIRECTED B-TYPE NATRIURETIC PEPTIDE,BNP [CHEM] Stat Blood Culture x2 Reflex Set [OM.PC] Stat 10/29/18 17:25 RT Aerosol Therapy [RC] ASDIRECTED 10/29/18 17:33 CULTURE BLOOD [BC] Stat 10/29/18 17:45 CULTURE BLOOD [BC] Stat 10/29/18 18:34 Admission Status [Patient Status] [ADT] Stat - Assessment/Plan Last 24 Hours: My Active Orders 10/29/18 17:24 EKG Documentation Completion [RC] STAT RT Aerosol Therapy [RC] ASDIRECTED B-TYPE NATRIURETIC PEPTIDE,BNP [CHEM] Stat Blood Culture x2 Reflex Set [OM.PC] Stat 10/29/18 17:25 RT Aerosol Therapy [RC] ASDIRECTED 10/29/18 17:33 CULTURE BLOOD [BC] Stat 10/29/18 17:45 CULTURE BLOOD [BC] Stat 10/29/18 18:34 Admission Status [Patient Status] [ADT] Stat
[2018-10-29] MEDS ORDERED: cefTRIAXone 1 GM in Premix Bag 1 BAG IV ONE (17:46)
[2018-10-29 18:23] LABS: CHLORIDE,CL 101 mmol/L (98-107); SODIUM,NA 140 mmol/L (136-148)
--- NOTE | 2018-10-29 18:32 | CR ---
HISTORY: Shortness of breath. History of COPD. COMPARISON: 07/28/2018 FINDINGS: A portable erect AP view of the chest was obtained at 1803 hours. There continues to be mild prominence of interstitial markings consistent with mild pulmonary fibrosis consistent with the history of COPD. The heart remains normal in size. The T AVR is again seen. The mediastinum is normal in appearance. There is no change in a metallic plate from anterior cervical fusion. IMPRESSION: No active disease seen in the chest. Stable mild pulmonary fibrosis consistent with history of COPD. Dictated by Rob Lane MD @ Oct 29 2018 6:29PM Signed by Dr. Rob Lane @ Oct 29 2018 6:31PM
[2018-10-29] MEDS ORDERED: Methadone 10 MG Tab PO PRN (18:50)
[2018-10-29] MEDS ORDERED: Temazepam 15 MG Cap PO PRN (18:51)
[2018-10-29] MEDS ORDERED: Morphine 10 MG/ML Syringe IVPUSH PRN (18:51)
[2018-10-29] MEDS ORDERED: Acetaminophen 325 MG Tab PO PRN (18:51)
[2018-10-29] MEDS ORDERED: Docusate Sodium 100 MG Cap PO PRN (18:51)
[2018-10-29] MEDS ORDERED: Albuterol/Ipratropium 3.0-0.5 MG/3 ML Neb Soln NEB PRN (18:51)
--- NOTE | 2018-10-29 18:59 | PCM.HP ---
H&P History of Present Illness - General Date of Service: 10/29/18 Admit Problem/Dx: Admission Diagnosis/Problem Admission Diagnosis/Problem Chronic obstructive pulmonary disease Source of Information: Patient, Family History Limitations: Reports: No Limitations - History of Present Illness Initial Comments - Free Text/Narative: The patient is a 68-year-old gentleman who presented to the emergency department primarily concerned with severe shortness of breath. Patient has a known history of COPD and he had been found home walking around when suddenly he felt like he was in respiratory distress. The patient said that he felt somewhat feverish earlier but this is resolved. Patient has denied any sputum production with his cough. He is also denied any chest pain. The patient had been well up until today. Patient has been hospitalized previously for respiratory issues. Onset of Symptoms: Reports: Sudden Duration of Symptoms: Reports: Hour(s):, Getting Worse Quality: Reports: Dull Severity: Moderate Improves with: Reports: None Worsens with: Reports: None Context: Denies: Sick Contact Associated Symptoms: Reports: Shortness of Breath headache Pain Score (Numeric/FACES): 10 - Related Data Allergies/Adverse Reactions: Allergies Allergy/AdvReac Type Severity Reaction Status Date / Time influenza virus vaccine, Allergy Muscle Verified 10/09/17 07:27 specific Weakness [Influenza Virus Vacc,Specific] Home Medications: Home Meds Albuterol Sulfate [Albuterol Sulfate HFA] 1 inhalation IH Q4H PRN 12/02/13 [ History] Aspirin [Sussy Chewable Aspirin] 81 mg PO DAILY 12/02/13 [History] traZODone 100 mg PO BEDTIME 12/02/13 [History] Tiotropium [Spiriva HandiHaler] 1 inhalation IH ASDIRECTED 03/01/14 [History] Cholecalciferol (Vitamin D3) [D-2000] 2,000 unit PO DAILY 10/28/16 [History] Methadone 40 mg PO TID PRN 10/28/16 [History] Metoprolol Succinate 25 mg PO DAILY 10/28/16 [History] Sildenafil Citrate [Sildenafil] 20 mg PO ASDIRECTED 10/28/16 [History] atorvaSTATin [Lipitor] 40 mg PO BEDTIME 10/28/16 [History] Past Medical History HEENT History: Reports: None Cardiovascular History: Reports: Hypertension Respiratory History: Reports: COPD Other Respiratory History: Home oxygen at night at 2lp Gastrointestinal History: Reports: GERD Other Gastrointestinal History: constipation Genitourinary History: Reports: None Musculoskeletal History: Reports: Arthritis Other Musculoskeletal History: 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) Psychiatric History: Reports: None Endocrine/Metabolic History: Reports: None Hematologic History: Reports: Anticoagulation Therapy Immunologic History: Reports: None - Infectious Disease History Infectious Disease History: Reports: Chicken Pox - Past Surgical History Cardiovascular Surgical History: Reports: AAA Repair, Valve Replacement, Vascular Surgery Social & Family History - Family History Family Medical History: Noncontributory - Tobacco Use Smoking Status *Q: Never Smoker - Caffeine Use Caffeine Use: Reports: Coffee Caffeine Use Comment: 1cup/day - Recreational Drug Use Recreational Drug Use: No - Living Situation & Occupation Living situation: Reports: , with Spouse Occupation: Retired H&P Review of Systems - Review of Systems: Review Of Systems: See Below General: Reports: No Symptoms HEENT: Reports: No Symptoms Pulmonary: Reports: Shortness of Breath, Wheezing Cardiovascular: Reports: No Symptoms Gastrointestinal: Reports: No Symptoms Genitourinary: Reports: No Symptoms Musculoskeletal: Reports: No Symptoms Skin: Reports: No Symptoms Psychiatric: Reports: No Symptoms Neurological: Reports: No Symptoms Hematologic/Lymphatic: Reports: No Symptoms Immunologic: Reports: No Symptoms Exam - Exam Exam: See Below - Vital Signs Vital Signs: Last Vital Signs Temp 37.6 C 10/29/18 17:28 Pulse 113 H 10/29/18 17:28 Resp 26 H 10/29/18 17:28 BP 179/90 H 10/29/18 17:28 Pulse Ox 78 L 10/29/18 17:28 Weight: 72.121 kg - Exam Quality Assessment: Supplemental Oxygen General: Alert, Oriented, Cooperative, Mild Distress HEENT: Conjunctiva Clear, EACs Clear, EOMI, Nares Patent, Pupils Equal, PERRLA. No: Mucosa Moist & [place] (dry) Neck: Supple, Trachea Midline Lungs: Decreased Breath Sounds, Crackles. No: Normal Respiratory Effort Cardiovascular: Regular Rate, Regular Rhythm GI/Abdominal Exam: Normal Bowel Sounds, Soft, No Distention Back Exam: Normal Inspection Extremities: Normal Inspection, Normal Range of Motion Skin: Warm, Dry, Intact Neurological: No: Strength Equal Bilateral (Weak lower extremities) Neuro Extensive - Mental Status: Alert, Oriented x3 Psychiatric: Alert, Normal Affect, Normal Mood - Patient Data Lab Results Last 24 hrs: Laboratory Results - last 24 hr 10/29/18 10/29/18 10/29/18 Range/Units 17:24 17:24 17:24 WBC 15.69 H (4.0-11.0) K/uL RBC 5.78 (4.50-5.90) M/uL Hgb 16.5 (13.0-17.0) g/dL Hct 50.3 H (38.0-50.0) % MCV 87.0 (80.0-98.0) fL MCH 28.5 (27.0-32.0) pg MCHC 32.8 (31.0-37.0) g/dL RDW Std Deviation 48.4 (28.0-62.0) fl RDW Coeff of Yury 15 (11.0-15.0) % Plt Count 119 L (150-400) K/uL MPV 9.10 (7.40-12.00) fL Neut % (Auto) 81.3 H (48.0-80.0) % Lymph % (Auto) 12.8 L (16.0-40.0) % [place] % (Auto) 5.0 (0.0-15.0) % Eos % (Auto) 0.8 (0.0-7.0) % Baso % (Auto) 0.1 (0.0-1.5) % Neut # (Auto) 12.8 H (1.4-5.7) K/uL Lymph # (Auto) 2.0 (0.6-2.4) K/uL [place] # (Auto) 0.8 (0.0-0.8) K/uL Eos # (Auto) 0.1 (0.0-0.7) K/uL Baso # (Auto) 0.0 (0.0-0.1) K/uL Nucleated RBC % 0.0 /100WBC Nucleated RBCs # 0 K/uL ABG pH (7.35-7.45) ABG pCO2 (35-45) mmHG ABG pO2 (75-100) mmHG ABG HCO3 (22-26) mEq/L ABG Total CO2 ABG Base Excess (-2.0-2.0) Lactate 1.9 (0.20-2.00) mmol/L Sodium 140 (136-148) mmol/L Potassium 4.4 (3.5-5.1) mmol/L Chloride 101 (98-107) mmol/L Carbon Dioxide 28.2 (21.0-32.0) mmol/L BUN 22 H (7.0-18.0) mg/dL Creatinine 1.1 (0.8-1.3) mg/dL Est Cr Clr Drug Dosing 65.56 mL/min Estimated GFR (MDRD) > 60.0 ml/min Glucose 145 H (74-106) mg/dL Calcium 8.5 (8.5-10.1) mg/dL Total Bilirubin 0.6 (0.2-1.0) mg/dL AST 21 (15-37) IU/L ALT 35 (14-63) IU/L Alkaline Phosphatase 86 (46-116) U/L B-Natriuretic Peptide (<100) PG/ML Total Protein 7.0 (6.4-8.2) g/dL Albumin 4.0 (3.4-5.0) g/dL Globulin 3.0 (2.6-4.0) g/dL Albumin/Globulin Ratio 1.3 (0.9-1.6) 10/29/18 10/29/18 Range/Units 17:24 17:40 WBC (4.0-11.0) K/uL RBC (4.50-5.90) M/uL Hgb (13.0-17.0) g/dL Hct (38.0-50.0) % MCV (80.0-98.0) fL MCH (27.0-32.0) pg MCHC (31.0-37.0) g/dL RDW Std Deviation (28.0-62.0) fl RDW Coeff of Yury (11.0-15.0) % Plt Count (150-400) K/uL MPV (7.40-12.00) fL Neut % (Auto) (48.0-80.0) % Lymph % (Auto) (16.0-40.0) % [place] % (Auto) (0.0-15.0) % Eos % (Auto) (0.0-7.0) % Baso % (Auto) (0.0-1.5) % Neut # (Auto) (1.4-5.7) K/uL Lymph # (Auto) (0.6-2.4) K/uL [place] # (Auto) (0.0-0.8) K/uL Eos # (Auto) (0.0-0.7) K/uL Baso # (Auto) (0.0-0.1) K/uL Nucleated RBC % /100WBC Nucleated RBCs # K/uL ABG pH 7.394 (7.35-7.45) ABG pCO2 44 (35-45) mmHG ABG pO2 68 L (75-100) mmHG ABG HCO3 27 H (22-26) mEq/L ABG Total CO2 23.6 ABG Base Excess 1.6 (-2.0-2.0) Lactate (0.20-2.00) mmol/L Sodium (136-148) mmol/L Potassium (3.5-5.1) mmol/L Chloride (98-107) mmol/L Carbon Dioxide (21.0-32.0) mmol/L BUN (7.0-18.0) mg/dL Creatinine (0.8-1.3) mg/dL Est Cr Clr Drug Dosing mL/min Estimated GFR (MDRD) ml/min Glucose (74-106) mg/dL Calcium (8.5-10.1) mg/dL Total Bilirubin (0.2-1.0) mg/dL AST (15-37) IU/L ALT (14-63) IU/L Alkaline Phosphatase (46-116) U/L B-Natriuretic Peptide 23 (<100) PG/ML Total Protein (6.4-8.2) g/dL Albumin (3.4-5.0) g/dL Globulin (2.6-4.0) g/dL Albumin/Globulin Ratio (0.9-1.6) Result Diagrams: 10/30/18 05:37 10/30/18 05:37 - Problem List (1) Acute and chronic respiratory failure SNOMED Code(s): 42713750 ICD Code: J96.20 - ACUTE AND CHR RESP FAILURE, UNSP W HYPOXIA OR HYPERCAPNIA Status: Acute Priority: High Current Visit: Yes Qualifiers: Respiratory failure complication: hypoxia Qualified Code(s): J96.21 - Acute and chronic respiratory failure with hypoxia (2) COPD with acute exacerbation SNOMED Code(s): 757639323 ICD Code: J44.1 - CHRONIC OBSTRUCTIVE PULMONARY DISEASE W (ACUTE) EXACERBATION Status: Acute Priority: High Current Visit: Yes (3) Hypoxemia SNOMED Code(s): 623478971 ICD Code: R09.02 - HYPOXEMIA Status: Acute Priority: High Current Visit : Yes (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 Priority: Medium Current Visit: Yes Problem List Initiated/Reviewed/Updated: Yes Orders Last 24hrs: Active Orders 24 hr Category Date Time Status Admission Status [Patient Status] [ADT] Stat ADT 10/29/18 18:34 Active EKG Documentation Completion [RC] STAT Care 10/29/18 17:24 Active Oxygen Therapy [RC] PRN Care 10/29/18 18:52 Active RT Aerosol Therapy [RC] ASDIRECTED Care 10/29/18 17:24 Active RT Aerosol Therapy [RC] ASDIRECTED Care 10/29/18 17:25 Active RT Aerosol Therapy [RC] ASDIRECTED Care 10/29/18 18:54 Active Up ad Dariela [RC] ASDIRECTED Care 10/29/18 18:51 Active VTE/DVT Education [RC] PER UNIT ROUTINE Care 10/29/18 18:52 Active Vital Signs [RC] Q4H Care 10/29/18 18:52 Active Heart Healthy Diet [DIET] Diet 10/29/18 Breakfast Active CBC WITH AUTO DIFF [HEME] AM Lab 10/30/18 05:11 Ordered COMPREHENSIVE METABOLIC PN,CMP [CHEM] AM Lab 10/30/18 05:11 Ordered CULTURE BLOOD [BC] Stat Lab 10/29/18 17:33 Received CULTURE BLOOD [BC] Stat Lab 10/29/18 17:45 Received Acetaminophen [Tylenol] Med 10/29/18 18:51 Active 650 mg PO Q4H PRN Albuterol/Ipratropium [DuoNeb 3.0-0.5 MG/3 ML] Med 10/29/18 18:51 Active 3 ml NEB Q4HRRT PRN Azithromycin [Zithromax] 500 mg Med 10/30/18 09:00 Active Sodium Chloride 0.9% [Normal Saline] 250 ml IV Q24H Docusate Sodium [Colace] Med 10/29/18 18:51 Active 100 mg PO BID PRN Enoxaparin [Lovenox] Med 10/29/18 19:00 Active 30 mg SUBCUT Q24H Methadone Med 10/29/18 18:50 Active 40 mg PO TID PRN Metoprolol Succinate [Toprol XL] Med 10/30/18 09:00 Active 25 mg PO DAILY Morphine Med 10/29/18 18:51 Active 2 mg IVPUSH Q2H PRN Temazepam [Restoril] Med 10/29/18 18:51 Active 15 mg PO BEDTIME PRN Tiotropium [Spiriva HandiHaler] Med 10/29/18 19:00 Pending DOSE mcg INH ASDIRECTED atorvaSTATin [Lipitor] Med 10/29/18 21:00 Active 40 mg PO BEDTIME methylPREDNISolone Sod Succ [Solu-MEDROL] Med 10/30/18 02:00 Active 125 mg IVPUSH Q8H traZODone HCl [Trazodone HCl] Med 10/29/18 21:00 Active 100 mg PO BEDTIME Blood Culture x2 Reflex Set [OM.PC] Stat Oth 10/29/18 17:24 Ordered Resuscitation Status Routine Resus Stat 10/29/18 18:51 Ordered Medication Orders Acetaminophen (Tylenol) 650 mg PO Q4H PRN PRN Reason: Pain (Mild 1-3)/fever Albuterol/Ipratropium (Duoneb 3.0-0.5 Mg/3 Ml) 3 ml NEB Q4HRRT PRN PRN Reason: Shortness Of Breath/wheezing Atorvastatin Calcium (Lipitor) 40 mg PO BEDTIME KEVIN Docusate Sodium (Colace) 100 mg PO BID PRN PRN Reason: Constipation Enoxaparin Sodium (Lovenox) 30 mg SUBCUT Q24H KEVIN Azithromycin 500 mg/ Sodium (Chloride) 250 mls @ 250 mls/hr IV Q24H KEVIN Methadone HCl (Methadone) 40 mg PO TID PRN PRN Reason: Pain Methylprednisolone Sodium Succinate (Solu-Medrol) 125 mg IVPUSH Q8H KEVIN Metoprolol Succinate (Toprol Xl) 25 mg PO DAILY KEVIN Morphine Sulfate (Morphine) 2 mg IVPUSH Q2H PRN PRN Reason: Pain (severe 7-10) Stop: 10/30/18 18:53 Temazepam (Restoril) 15 mg PO BEDTIME PRN PRN Reason: Sleep Tiotropium [place] (Spiriva Handihaler) mcg INH ASDIRECTED KEVIN Trazodone HCl (Trazodone Hcl) 100 mg PO BEDTIME [facility] Assessment/Plan Comment:: The patient is a 68-year-old gentleman who had been admitted to hospital under observation secondary to respiratory distress. The patient initially had been on BiPAP however his oxygen saturations were around 99% and this was discontinued in favor of a nasal cannula. I recommended that the patient be kept on oxygen support to help keep his oxygen saturations between 90 and 92%. I have also ordered SVNs every 4 hours when necessary shortness of breath as per respiratory therapy. Also, the patient will be provided azithromycin 500 mg IV daily and Solu-Medrol 125 mg IV every 8 hours. The patient also has a long- standing history of Guillain-Salas however, he is able to ambulate with assistance. He'll be kept on DVT prophylaxis with the use of Lovenox 30 mg subcutaneous every 24 hours. Patient will also have a heart healthy diet as tolerated. The patient will be kept on telemetry for now. The patient should be appropriate for discharge in 1-2 days.
[2018-10-29] MEDS ORDERED: TIOTROPIUM 18 MCG INH SCH (19:00)
[2018-10-29] MEDS ORDERED: Enoxaparin 30 MG/0.3 ML Syringe SUBCUT SCH (19:00)
[2018-10-29] MEDS ORDERED: atorvaSTATin 40 MG Tab PO SCH (21:00)
[2018-10-29] MEDS ORDERED: traZODone 50 MG Tab PO SCH (21:00)
[2018-10-30] MEDS: methylPREDNISolone Sodium Succinate 125 MG/2 ML SDV IVPUSH SCH ×2 (02:56→10:14)
[2018-10-30 06:10] LABS: CHLORIDE,CL 102 mmol/L (98-107); SODIUM,NA 137 mmol/L (136-148)
[2018-10-30] MEDS ORDERED: Metoprolol Succinate 25 MG Tab.ER PO SCH (09:00)
[2018-10-30] MEDS ORDERED: Azithromycin 500 MG in Sodium Chloride 0.9% 250 ML IV SCH ×4 (09:00)
--- NOTE | 2018-10-30 11:18 | PCM.DCSUM1 ---
<Ambrosio Iyer - Last Filed: 10/30/18 11:14> Discharge Summary - Hospital Course Free Text/Narrative:: Admission date: 10/29/2018 Discharge date: 10/30/2018 Admission diagnosis: #1. COPD exacerbation #2. Acute hypoxic respiratory failure #3. History of COPD, chronic pain, Guillain-Berkeley Discharge diagnosis: #1. COPD exacerbation #2. Acute hypoxic respiratory failure #3. History of COPD, chronic pain, Guillain-Berkeley Hospital course: 68M presented to the ER with severe shortness of breath and the history above admitted for management of COPD exacerbation. He was initially on BiPAP which was titrated off quickly and back to o2 via NC. He felt comfortable at the time of discharge. Will go home on Prednisone, Azithromycin, and Protonix for GI Prophylaxis given high risk of bleed. Follow up with PCP. - Discharge Data Discharge Date: 10/30/18 Discharge Disposition: Home, Self-Care 01 Condition: Stable - Patient Instructions Diet: Usual Diet as Tolerated Activity: As Tolerated Notify Provider of: Fever, Increased Pain, Nausea and/or Vomiting - Discharge Plan Prescriptions/Med Rec: Azithromycin 500 mg PO DAILY 3 Days #3 tablet Pantoprazole Sodium [Protonix] 40 mg PO DAILY 4 Days #4 tablet. predniSONE [Prednisone] 40 mg PO DAILY 4 Days #8 tablet Home Medications: Home Meds Albuterol Sulfate [Albuterol Sulfate HFA] 1 inhalation IH Q4H PRN 12/02/13 [ History] Aspirin [Sussy Chewable Aspirin] 81 mg PO DAILY 12/02/13 [History] traZODone 100 mg PO BEDTIME 12/02/13 [History] Tiotropium [Spiriva HandiHaler] 1 inhalation IH ASDIRECTED 03/01/14 [History] Cholecalciferol (Vitamin D3) [D3-2000] 2,000 unit PO DAILY 10/28/16 [History] Methadone 40 mg PO TID PRN 10/28/16 [History] Metoprolol Succinate 25 mg PO DAILY 10/28/16 [History] Sildenafil Citrate [Sildenafil] 20 mg PO ASDIRECTED 10/28/16 [History] atorvaSTATin [Lipitor] 40 mg PO BEDTIME 10/28/16 [History] Azithromycin 500 mg PO DAILY 3 Days #3 tablet 10/30/18 [Rx] Pantoprazole Sodium [Protonix] 40 mg PO DAILY 4 Days #4 tablet. 10/30/18 [Rx] predniSONE [Prednisone] 40 mg PO DAILY 4 Days #8 tablet 10/30/18 [Rx] Patient Handouts: Chronic Obstructive Pulmonary Disease Exacerbation, Easy-to- Read, Azithromycin tablets, Pantoprazole tablets, Prednisone tablets Referrals: Blake Allen MD [Physician] - 11/17/18 2:45 pm PCP,Unknown [Primary Care Provider] - - Discharge Summary/Plan Comment DC Time >30 min.: No - Patient Data Vitals - Most Recent: Last Vital Signs Temp 36.3 C 10/30/18 07:37 Pulse 91 10/30/18 08:44 Resp 18 10/30/18 07:37 BP 159/61 H 10/30/18 08:44 Pulse Ox 95 10/30/18 07:37 Weight - Most Recent: 72.121 kg I&O - Last 24 hours: Intake & Output 10/29/18 10/30/18 10/30/18 22:59 06:59 14:59 Intake Total 400 250 Output Total 225 Balance 175 250 Lab Results - Last 24 hrs: Laboratory Results - last 24 hr 10/29/18 10/29/18 10/29/18 Range/Units 17:24 17:24 17:24 WBC 15.69 H (4.0-11.0) K/uL RBC 5.78 (4.50-5.90) M/uL Hgb 16.5 (13.0-17.0) g/dL Hct 50.3 H (38.0-50.0) % MCV 87.0 (80.0-98.0) fL MCH 28.5 (27.0-32.0) pg MCHC 32.8 (31.0-37.0) g/dL RDW Std Deviation 48.4 (28.0-62.0) fl RDW Coeff of Yury 15 (11.0-15.0) % Plt Count 119 L (150-400) K/uL MPV 9.10 (7.40-12.00) fL Neut % (Auto) 81.3 H (48.0-80.0) % Lymph % (Auto) 12.8 L (16.0-40.0) % [place] % (Auto) 5.0 (0.0-15.0) % Eos % (Auto) 0.8 (0.0-7.0) % Baso % (Auto) 0.1 (0.0-1.5) % Neut # (Auto) 12.8 H (1.4-5.7) K/uL Lymph # (Auto) 2.0 (0.6-2.4) K/uL [place] # (Auto) 0.8 (0.0-0.8) K/uL Eos # (Auto) 0.1 (0.0-0.7) K/uL Baso # (Auto) 0.0 (0.0-0.1) K/uL Nucleated RBC % 0.0 /100WBC Nucleated RBCs # 0 K/uL ABG pH (7.35-7.45) ABG pCO2 (35-45) mmHG ABG pO2 (75-100) mmHG ABG HCO3 (22-26) mEq/L ABG Total CO2 ABG Base Excess (-2.0-2.0) Lactate 1.9 (0.20-2.00) mmol/L Sodium 140 (136-148) mmol/L Potassium 4.4 (3.5-5.1) mmol/L Chloride 101 (98-107) mmol/L Carbon Dioxide 28.2 (21.0-32.0) mmol/L BUN 22 H (7.0-18.0) mg/dL Creatinine 1.1 (0.8-1.3) mg/dL Est Cr Clr Drug Dosing 65.56 mL/min Estimated GFR (MDRD) > 60.0 ml/min Glucose 145 H (74-106) mg/dL Calcium 8.5 (8.5-10.1) mg/dL Total Bilirubin 0.6 (0.2-1.0) mg/dL AST 21 (15-37) IU/L ALT 35 (14-63) IU/L Alkaline Phosphatase 86 (46-116) U/L B-Natriuretic Peptide (<100) PG/ML Total Protein 7.0 (6.4-8.2) g/dL Albumin 4.0 (3.4-5.0) g/dL Globulin 3.0 (2.6-4.0) g/dL Albumin/Globulin Ratio 1.3 (0.9-1.6) 0510/29/18 10/30/18 Range/Units 17:24 17:40 05:37 WBC 18.60 H (4.0-11.0) K/uL RBC 4.90 (4.50-5.90) M/uL Hgb 14.5 (13.0-17.0) g/dL Hct 42.2 (38.0-50.0) % MCV 86.1 (80.0-98.0) fL MCH 29.6 (27.0-32.0) pg MCHC 34.4 (31.0-37.0) g/dL RDW Std Deviation 47.4 (28.0-62.0) fl RDW Coeff of Yury 15 (11.0-15.0) % Plt Count 104 L (150-400) K/uL MPV 8.90 (7.40-12.00) fL Neut % (Auto) 94.3 H (48.0-80.0) % Lymph % (Auto) 3.2 L (16.0-40.0) % [place] % (Auto) 2.4 (0.0-15.0) % Eos % (Auto) 0.0 (0.0-7.0) % Baso % (Auto) 0.1 (0.0-1.5) % Neut # (Auto) 17.6 H (1.4-5.7) K/uL Lymph # (Auto) 0.6 (0.6-2.4) K/uL [place] # (Auto) 0.4 (0.0-0.8) K/uL Eos # (Auto) 0.0 (0.0-0.7) K/uL Baso # (Auto) 0.0 (0.0-0.1) K/uL Nucleated RBC % 0.0 /100WBC Nucleated RBCs # 0 K/uL ABG pH 7.394 (7.35-7.45) ABG pCO2 44 (35-45) mmHG ABG pO2 68 L (75-100) mmHG ABG HCO3 27 H (22-26) mEq/L ABG Total CO2 23.6 ABG Base Excess 1.6 (-2.0-2.0) Lactate (0.20-2.00) mmol/L Sodium (136-148) mmol/L Potassium (3.5-5.1) mmol/L Chloride (98-107) mmol/L Carbon Dioxide (21.0-32.0) mmol/L BUN (7.0-18.0) mg/dL Creatinine (0.8-1.3) mg/dL Est Cr Clr Drug Dosing mL/min Estimated GFR (MDRD) ml/min Glucose (74-106) mg/dL Calcium (8.5-10.1) mg/dL Total Bilirubin (0.2-1.0) mg/dL AST (15-37) IU/L ALT (14-63) IU/L Alkaline Phosphatase (46-116) U/L B-Natriuretic Peptide 23 (<100) PG/ML Total Protein (6.4-8.2) g/dL Albumin (3.4-5.0) g/dL Globulin (2.6-4.0) g/dL Albumin/Globulin Ratio (0.9-1.6) /16/19 Range/Units 05:37 WBC (4.0-11.0) K/uL RBC (4.50-5.90) M/uL Hgb (13.0-17.0) g/dL Hct (38.0-50.0) % MCV (80.0-98.0) fL MCH (27.0-32.0) pg MCHC (31.0-37.0) g/dL RDW Std Deviation (28.0-62.0) fl RDW Coeff of Yury (11.0-15.0) % Plt Count (150-400) K/uL MPV (7.40-12.00) fL Neut % (Auto) (48.0-80.0) % Lymph % (Auto) (16.0-40.0) % [place] % (Auto) (0.0-15.0) % Eos % (Auto) (0.0-7.0) % Baso % (Auto) (0.0-1.5) % Neut # (Auto) (1.4-5.7) K/uL Lymph # (Auto) (0.6-2.4) K/uL [place] # (Auto) (0.0-0.8) K/uL Eos # (Auto) (0.0-0.7) K/uL Baso # (Auto) (0.0-0.1) K/uL Nucleated RBC % /100WBC Nucleated RBCs # K/uL ABG pH (7.35-7.45) ABG pCO2 (35-45) mmHG ABG pO2 (75-100) mmHG ABG HCO3 (22-26) mEq/L ABG Total CO2 ABG Base Excess (-2.0-2.0) Lactate (0.20-2.00) mmol/L Sodium 137 (136-148) mmol/L Potassium 4.2 (3.5-5.1) mmol/L Chloride 102 (98-107) mmol/L Carbon Dioxide 27.4 (21.0-32.0) mmol/L BUN 28 H (7.0-18.0) mg/dL Creatinine 1.2 (0.8-1.3) mg/dL Est Cr Clr Drug Dosing 59.50 mL/min Estimated GFR (MDRD) > 60.0 ml/min Glucose 173 H (74-106) mg/dL Calcium 8.3 L (8.5-10.1) mg/dL Total Bilirubin 0.8 (0.2-1.0) mg/dL AST 13 L (15-37) IU/L ALT 25 (14-63) IU/L Alkaline Phosphatase 56 (46-116) U/L B-Natriuretic Peptide (<100) PG/ML Total Protein 6.5 (6.4-8.2) g/dL Albumin 3.3 L (3.4-5.0) g/dL Globulin 3.2 (2.6-4.0) g/dL Albumin/Globulin Ratio 1.0 (0.9-1.6) Med Orders - Current: Current Medications Acetaminophen (Tylenol) 650 mg PO Q4H PRN PRN Reason: Pain (Mild 1-3)/fever Albuterol/Ipratropium (Duoneb 3.0-0.5 Mg/3 Ml) 3 ml NEB Q4HRRT PRN PRN Reason: Shortness Of Breath/wheezing Atorvastatin Calcium (Lipitor) 40 mg PO BEDTIME [facility] Last Admin: 10/29/18 20:20 Dose: 40 mg Docusate Sodium (Colace) 100 mg PO BID PRN PRN Reason: Constipation Enoxaparin Sodium (Lovenox) 30 mg SUBCUT Q24H [facility] Last Admin: 10/29/18 20:00 Dose: 30 mg Azithromycin 500 mg/ Sodium (Chloride) 250 mls @ 250 mls/hr IV Q24H [facility] Last Admin: 10/30/18 10:14 Dose: 250 mls/hr Methadone HCl (Methadone) 20 mg PO DAILY [facility] Methylprednisolone Sodium Succinate (Solu-Medrol) 125 mg IVPUSH Q8H [facility] Last Admin: 10/30/18 10:14 Dose: 125 mg Metoprolol Succinate (Toprol Xl) 25 mg PO DAILY [facility] Last Admin: 10/30/18 08:44 Dose: 25 mg Morphine Sulfate (Morphine) 2 mg IVPUSH Q2H PRN PRN Reason: Pain (severe 7-10) Stop: 10/30/18 18:53 Last Admin: 10/29/18 21:35 Dose: 2 mg Tiotropium Inhaler (18 Mcg [Spiriva]) 2 each INH ASDIRECTED [facility] Temazepam (Restoril) 15 mg PO BEDTIME PRN PRN Reason: Sleep Trazodone HCl (Trazodone) 100 mg PO BEDTIME [facility] Last Admin: 10/29/18 20:21 Dose: 100 mg Discontinued Medications Albuterol/Ipratropium (Duoneb 3.0-0.5 Mg/3 Ml) 3 ml NEB ONETIME ONE Stop: 10/29/18 17:25 Last Admin: 10/29/18 17:32 Dose: 3 ml Albuterol/Ipratropium (Duoneb 3.0-0.5 Mg/3 Ml) 3 ml NEB ONETIME ONE Stop: 10/29/18 17:26 Last Admin: 10/29/18 17:32 Dose: 3 ml Albuterol/Ipratropium (Duoneb 3.0-0.5 Mg/3 Ml) Confirm Administered Dose 3 ml .ROUTE .STK-MED ONE Stop: 10/29/18 17:24 Last Admin: 10/29/18 17:32 Dose: Not Given Ceftriaxone Sodium/Dextrose 1 (gm/ Premix) 50 mls @ 100 mls/hr IV ONETIME ONE Stop: 10/29/18 18:15 Last Admin: 10/29/18 18:01 Dose: 100 mls/hr Azithromycin 500 mg/ Sodium (Chloride) 250 mls @ 250 mls/hr IV Q24H [facility] Methadone HCl (Methadone) 40 mg PO TID PRN PRN Reason: Pain Last Admin: 10/30/18 07:42 Dose: 20 mg Methylprednisolone Sodium Succinate (Solu-Medrol) 125 mg IVPUSH ONETIME ONE Stop: 10/29/18 17:25 Last Admin: 10/29/18 17:32 Dose: 125 mg <Brennon Chandra - Last Filed: 10/30/18 16:59> Discharge Summary - Hospital Course HPI Initial Comments: I have seen and examined to patient independently of veterinary medical officer, Ambrosio Iyer MD. I have discussed the case for care of this patient with him. I have reviewed and approve of the plan of care as outlined by veterinary medical officer.. Please see orders. - Discharge Diagnosis/Problem(s) (1) Acute and chronic respiratory failure SNOMED Code(s): 81833760 ICD Code: J96.20 - ACUTE AND CHR RESP FAILURE, UNSP W HYPOXIA OR HYPERCAPNIA Status: Acute Priority: High Qualifiers: Respiratory failure complication: hypoxia Qualified Code(s): J96.21 - Acute and chronic respiratory failure with hypoxia (2) COPD with acute exacerbation SNOMED Code(s): 641972292 ICD Code: J44.1 - CHRONIC OBSTRUCTIVE PULMONARY DISEASE W (ACUTE) EXACERBATION Status: Acute Priority: High (3) Hypoxemia SNOMED Code(s): 394613407 ICD Code: R09.02 - HYPOXEMIA Status: Acute Priority: High (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 Priority: Medium - Patient Data Vitals - Most Recent: Last Vital Signs Temp 36.6 C 10/30/18 11:37 Pulse 89 10/30/18 11:37 Resp 18 10/30/18 11:37 BP 139/50 L 10/30/18 11:37 Pulse Ox 94 L 10/30/18 11:37 I&O - Last 24 hours: Intake & Output 10/30/18 10/30/18 10/30/18 06:59 14:59 22:59 Intake Total 400 1630 Output Total 225 350 Balance 175 1280 Lab Results - Last 24 hrs: Laboratory Results - last 24 hr 10/29/18 10/29/18 10/29/18 Range/Units 17:24 17:24 17:24 WBC 15.69 H (4.0-11.0) K/uL RBC 5.78 (4.50-5.90) M/uL Hgb 16.5 (13.0-17.0) g/dL Hct 50.3 H (38.0-50.0) % MCV 87.0 (80.0-98.0) fL MCH 28.5 (27.0-32.0) pg MCHC 32.8 (31.0-37.0) g/dL RDW Std Deviation 48.4 (28.0-62.0) fl RDW Coeff of Yury 15 (11.0-15.0) % Plt Count 119 L (150-400) K/uL MPV 9.10 (7.40-12.00) fL Neut % (Auto) 81.3 H (48.0-80.0) % Lymph % (Auto) 12.8 L (16.0-40.0) % [place] % (Auto) 5.0 (0.0-15.0) % Eos % (Auto) 0.8 (0.0-7.0) % Baso % (Auto) 0.1 (0.0-1.5) % Neut # (Auto) 12.8 H (1.4-5.7) K/uL Lymph # (Auto) 2.0 (0.6-2.4) K/uL [place] # (Auto) 0.8 (0.0-0.8) K/uL Eos # (Auto) 0.1 (0.0-0.7) K/uL Baso # (Auto) 0.0 (0.0-0.1) K/uL Nucleated RBC % 0.0 /100WBC Nucleated RBCs # 0 K/uL ABG pH (7.35-7.45) ABG pCO2 (35-45) mmHG ABG pO2 (75-100) mmHG ABG HCO3 (22-26) mEq/L ABG Total CO2 ABG Base Excess (-2.0-2.0) Lactate 1.9 (0.20-2.00) mmol/L Sodium 140 (136-148) mmol/L Potassium 4.4 (3.5-5.1) mmol/L Chloride 101 (98-107) mmol/L Carbon Dioxide 28.2 (21.0-32.0) mmol/L BUN 22 H (7.0-18.0) mg/dL Creatinine 1.1 (0.8-1.3) mg/dL Est Cr Clr Drug Dosing 65.56 mL/min Estimated GFR (MDRD) > 60.0 ml/min Glucose 145 H (74-106) mg/dL Calcium 8.5 (8.5-10.1) mg/dL Total Bilirubin 0.6 (0.2-1.0) mg/dL AST 21 (15-37) IU/L ALT 35 (14-63) IU/L Alkaline Phosphatase 86 (46-116) U/L B-Natriuretic Peptide (<100) PG/ML Total Protein 7.0 (6.4-8.2) g/dL Albumin 4.0 (3.4-5.0) g/dL Globulin 3.0 (2.6-4.0) g/dL Albumin/Globulin Ratio 1.3 (0.9-1.6) 10/29/18 10/29/18 10/30/18 Range/Units 17:24 17:40 05:37 WBC 18.60 H (4.0-11.0) K/uL RBC 4.90 (4.50-5.90) M/uL Hgb 14.5 (13.0-17.0) g/dL Hct 42.2 (38.0-50.0) % MCV 86.1 (80.0-98.0) fL MCH 29.6 (27.0-32.0) pg MCHC 34.4 (31.0-37.0) g/dL RDW Std Deviation 47.4 (28.0-62.0) fl RDW Coeff of Yury 15 (11.0-15.0) % Plt Count 104 L (150-400) K/uL MPV 8.90 (7.40-12.00) fL Neut % (Auto) 94.3 H (48.0-80.0) % Lymph % (Auto) 3.2 L (16.0-40.0) % [place] % (Auto) 2.4 (0.0-15.0) % Eos % (Auto) 0.0 (0.0-7.0) % Baso % (Auto) 0.1 (0.0-1.5) % Neut # (Auto) 17.6 H (1.4-5.7) K/uL Lymph # (Auto) 0.6 (0.6-2.4) K/uL [place] # (Auto) 0.4 (0.0-0.8) K/uL Eos # (Auto) 0.0 (0.0-0.7) K/uL Baso # (Auto) 0.0 (0.0-0.1) K/uL Nucleated RBC % 0.0 /100WBC Nucleated RBCs # 0 K/uL ABG pH 7.394 (7.35-7.45) ABG pCO2 44 (35-45) mmHG ABG pO2 68 L (75-100) mmHG ABG HCO3 27 H (22-26) mEq/L ABG Total CO2 23.6 ABG Base Excess 1.6 (-2.0-2.0) Lactate (0.20-2.00) mmol/L Sodium (136-148) mmol/L Potassium (3.5-5.1) mmol/L Chloride (98-107) mmol/L Carbon Dioxide (21.0-32.0) mmol/L BUN (7.0-18.0) mg/dL Creatinine (0.8-1.3) mg/dL Est Cr Clr Drug Dosing mL/min Estimated GFR (MDRD) ml/min Glucose (74-106) mg/dL Calcium (8.5-10.1) mg/dL Total Bilirubin (0.2-1.0) mg/dL AST (15-37) IU/L ALT (14-63) IU/L Alkaline Phosphatase (46-116) U/L B-Natriuretic Peptide 23 (<100) PG/ML Total Protein (6.4-8.2) g/dL Albumin (3.4-5.0) g/dL Globulin (2.6-4.0) g/dL Albumin/Globulin Ratio (0.9-1.6) 10/30/18 Range/Units 05:37 WBC (4.0-11.0) K/uL RBC (4.50-5.90) M/uL Hgb (13.0-17.0) g/dL Hct (38.0-50.0) % MCV (80.0-98.0) fL MCH (27.0-32.0) pg MCHC (31.0-37.0) g/dL RDW Std Deviation (28.0-62.0) fl RDW Coeff of Yury (11.0-15.0) % Plt Count (150-400) K/uL MPV (7.40-12.00) fL Neut % (Auto) (48.0-80.0) % Lymph % (Auto) (16.0-40.0) % [place] % (Auto) (0.0-15.0) % Eos % (Auto) (0.0-7.0) % Baso % (Auto) (0.0-1.5) % Neut # (Auto) (1.4-5.7) K/uL Lymph # (Auto) (0.6-2.4) K/uL [place] # (Auto) (0.0-0.8) K/uL Eos # (Auto) (0.0-0.7) K/uL Baso # (Auto) (0.0-0.1) K/uL Nucleated RBC % /100WBC Nucleated RBCs # K/uL ABG pH (7.35-7.45) ABG pCO2 (35-45) mmHG ABG pO2 (75-100) mmHG ABG HCO3 (22-26) mEq/L ABG Total CO2 ABG Base Excess (-2.0-2.0) Lactate (0.20-2.00) mmol/L Sodium 137 (136-148) mmol/L Potassium 4.2 (3.5-5.1) mmol/L Chloride 102 (98-107) mmol/L Carbon Dioxide 27.4 (21.0-32.0) mmol/L BUN 28 H (7.0-18.0) mg/dL Creatinine 1.2 (0.8-1.3) mg/dL Est Cr Clr Drug Dosing 59.50 mL/min Estimated GFR (MDRD) > 60.0 ml/min Glucose 173 H (74-106) mg/dL Calcium 8.3 L (8.5-10.1) mg/dL Total Bilirubin 0.8 (0.2-1.0) mg/dL AST 13 L (15-37) IU/L ALT 25 (14-63) IU/L Alkaline Phosphatase 56 (46-116) U/L B-Natriuretic Peptide (<100) PG/ML Total Protein 6.5 (6.4-8.2) g/dL Albumin 3.3 L (3.4-5.0) g/dL Globulin 3.2 (2.6-4.0) g/dL Albumin/Globulin Ratio 1.0 (0.9-1.6) Med Orders - Current: Current Medications Discontinued Medications Acetaminophen (Tylenol) 650 mg PO Q4H PRN PRN Reason: Pain (Mild 1-3)/fever Albuterol/Ipratropium (Duoneb 3.0-0.5 Mg/3 Ml) 3 ml NEB ONETIME ONE Stop: 10/29/18 17:25 Last Admin: 10/29/18 17:32 Dose: 3 ml Albuterol/Ipratropium (Duoneb 3.0-0.5 Mg/3 Ml) 3 ml NEB ONETIME ONE Stop: 10/29/18 17:26 Last Admin: 10/29/18 17:32 Dose: 3 ml Albuterol/Ipratropium (Duoneb 3.0-0.5 Mg/3 Ml) Confirm Administered Dose 3 ml .ROUTE .STK-MED ONE Stop: 10/29/18 17:24 Last Admin: 10/29/18 17:32 Dose: Not Given Albuterol/Ipratropium (Duoneb 3.0-0.5 Mg/3 Ml) 3 ml NEB Q4HRRT PRN PRN Reason: Shortness Of Breath/wheezing Atorvastatin Calcium (Lipitor) 40 mg PO BEDTIME [facility] Last Admin: 10/29/18 20:20 Dose: 40 mg Docusate Sodium (Colace) 100 mg PO BID PRN PRN Reason: Constipation Enoxaparin Sodium (Lovenox) 30 mg SUBCUT Q24H [facility] Last Admin: 10/29/18 20:00 Dose: 30 mg Ceftriaxone Sodium/Dextrose 1 (gm/ Premix) 50 mls @ 100 mls/hr IV ONETIME ONE Stop: 10/29/18 18:15 Last Admin: 10/29/18 18:01 Dose: 100 mls/hr Azithromycin 500 mg/ Sodium (Chloride) 250 mls @ 250 mls/hr IV Q24H [facility] Azithromycin 500 mg/ Sodium (Chloride) 250 mls @ 250 mls/hr IV Q24H [facility] Last Admin: 10/30/18 10:14 Dose: 250 mls/hr Methadone HCl (Methadone) 40 mg PO TID PRN PRN Reason: Pain Last Admin: 10/30/18 07:42 Dose: 20 mg Methadone HCl (Methadone) 20 mg PO DAILY [facility] Methadone HCl (Methadone) 10 mg PO BID@1200,2100 [facility] Last Admin: 10/30/18 12:07 Dose: Not Given Methylprednisolone Sodium Succinate (Solu-Medrol) 125 mg IVPUSH ONETIME ONE Stop: 10/29/18 17:25 Last Admin: 10/29/18 17:32 Dose: 125 mg Methylprednisolone Sodium Succinate (Solu-Medrol) 125 mg IVPUSH Q8H [facility] Last Admin: 10/30/18 10:14 Dose: 125 mg Metoprolol Succinate (Toprol Xl) 25 mg PO DAILY [facility] Last Admin: 10/30/18 08:44 Dose: 25 mg Morphine Sulfate (Morphine) 2 mg IVPUSH Q2H PRN PRN Reason: Pain (severe 7-10) Stop: 10/30/18 18:53 Last Admin: 10/29/18 21:35 Dose: 2 mg Tiotropium Inhaler (18 Mcg [Spiriva]) 2 each INH ASDIRECTED [facility] Temazepam (Restoril) 15 mg PO BEDTIME PRN PRN Reason: Sleep Trazodone HCl (Trazodone) 100 mg PO BEDTIME [facility] Last Admin: 10/29/18 20:21 Dose: 100 mg
[2018-10-30] MEDS: Methadone 10 MG Tab PO SCH ×2 (11:51→12:07)
[2018-10-30 12:49] VITALS: BP 139/50
--- NOTE | 2018-10-30 14:14 | CR ---
EXAMINATION: Abdomen HISTORY: Pain COMPARISON: CT dated 02/18/2018 TECHNIQUE: AP and upright views of the abdomen FINDINGS: There is no free air under the diaphragm. Mild infiltrate noted within the left lung base. There is a small amount of stool and gas within the colon without evidence of obstruction. Small calcifications project over the kidneys. No organomegaly. Degenerative changes noted within the lumbar spine. IMPRESSION: 1. Mild left basilar infiltrate. 2. Nonobstructing nephrolithiasis.
[2018-10-31] MEDS ORDERED: Methadone 10 MG Tab PO SCH (09:00)
== END 2018-10-30 12:50 | disposition home or self-care (01) ==
LOC: MW.ED 17:20 → MW.MS 19:02
PROVIDERS: ADMIT Internal Medicine; ATTEND Internal Medicine
DX: J44.1 Chronic obstructive pulmonary disease with (acute) exacerbation (principal); J96.21 Acute and chronic respiratory failure with hypoxia; I10 Essential (primary) hypertension; G61.0 Guillain-Barre syndrome; Z88.7 Allergy status to serum and vaccine; Z99.81 Dependence on supplemental oxygen; Z79.82 Long term (current) use of aspirin; Z79.899 Other long term (current) drug therapy
CPT/HCPCS: 36415; 36600; 71045; 74019; 80053; 82803; 83605; 83880; 85025; 87040; 93005; 96365; 96375; 99285; A4217; A9270; J0456; J0696; J1650; J2270; J2930; J7050; 96372; 96376; 99284; G0378; J7620-GY

== ENCOUNTER 2018-12-20 23:35 | Inpatient (IN) | payer MEDICARE ==
[2018-12-20] MEDS ORDERED: Albuterol/Ipratropium 3.0-0.5 MG/3 ML Neb Soln ONE ×2 (23:38→23:48)
[2018-12-20] MEDS ORDERED: methylPREDNISolone Sodium Succinate 125 MG/2 ML SDV ONE (23:39)
[2018-12-20] MEDS ORDERED: Sodium Chloride 0.9% 500 ML IV SCH (23:45)
[2018-12-20] MEDS ORDERED: Albuterol/Ipratropium 3.0-0.5 MG/3 ML Neb Soln NEB ONE ×2 (23:47→23:48)
[2018-12-20] MEDS ORDERED: Sodium Chloride 0.9% 2.5 ML Syringe FLUSH PRN (23:47)
[2018-12-20] MEDS ORDERED: methylPREDNISolone Sodium Succinate 125 MG/2 ML SDV IVPUSH ONE (23:47)
[2018-12-20] MEDS ORDERED: Sodium Chloride 0.9% 10 ML Syringe FLUSH PRN (23:47)
--- NOTE | 2018-12-20 23:53 | EDM.PDOC ---
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 He was treated with Zithromax steroids and nebulizer treatments and went home and according to the he was on antibiotics for at least 3 weeks and he was not improving so his primary care physician Dr. Allen has just recently changed his antibiotics. It sounds as if he was discharged from the hospital in October on Zithromax and then changed to Levaquin and is now on a cephalosporin that the cannot recall the name of. Today the patient had a good day and went to [place] with his to do some errands and visit family and had a completely normal day without any new shortness of breath cough or fevers. This evening he had some more muscle twitching and cramping, which she has on a routine basis due to his chronic pain and chronic E Lillian a sequela and this evening he exacerbated his shortness of breath. EMS was called and they did not give a nebulizer treatment but they did note an axillary temperature of 101.2. No meds were given. Says he was unaware that he had a fever. 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 He also has a history of a bowel obstruction and abdominal surgeries. According to the Dr. Allen has been working with him to wean him off his chronic pain meds and he is currently on methadone for that. The patient underwent an outpatient CT of the chest on December 12 which I reviewed which revealed diffuse emphysematous changes but multi-focal airspace opacities consistent with pneumonia seen in the lingular segment the left lung base and the right lung base.. The patient presents to me grunting and making noises saying that his chronic pain has been activated and he also feels short of breath. He was unaware that he had a fever. Earlier today he drank normally and has no abdominal complaints such as pain nausea or vomiting and no diarrhea. He says that he has a cough but it is not necessarily productive. He does not have chest pain per se but says that he has pain all over. The patient has a long-standing history of smoking and still continues to smoke Review of systems: As per history of present illness and below otherwise all systems reviewed and negative. Past medical history: As per history of present illness and as reviewed below otherwise noncontributory. Surgical history: As per history of present illness and as reviewed below otherwise noncontributory. Social history: No reported history of drug or alcohol abuse. Family history: As per history of present illness and as reviewed below otherwise noncontributory. Physical exam: General: Well-developed well-nourished thin man who is nontoxic and is grunting but able to answer questions in short shallow breaths. Vital signs are noted by me including a temperature of 104.1 rectally. Please note that the O2 sat of 89 % was on room air and not on his usual 3 L of oxygen. HEENT: Atraumatic, normocephalic, pupils reactive, negative for conjunctival pallor or scleral icterus, mucous membranes tacky, throat clear, neck supple, nontender, trachea midline. Lungs: Coarse breath sounds and rhonchi throughout with wheezing and diminished breath sounds at the bases with visible work of breathing and breathlessness, breath sounds equal bilaterally, chest nontender. Heart: S1S2, regular rhythm and tachycardic rate of my evaluation and a murmur cannot be appreciated but due to the pulmonary sounds it is difficult to appreciate on my exam Abdomen: Soft, nondistended, nontender. There is some tympany but no rebound or guarding and bowel sounds are slightly hypoactive Negative for masses or hepatosplenomegaly. Negative for costovertebral tenderness. Pelvis: Stable nontender. Genitourinary: Deferred. Rectal: Deferred. Extremities: Atraumatic, negative for cords or calf pain. Neurovascular unremarkable. No pedal edema or leg asymmetry Neuro: Awake, alert, oriented. Cranial nerves II through XII unremarkable. Cerebellum unremarkable. Motor and sensory unremarkable throughout. Exam nonfocal. Skin: No overt rashes or lesions and turgor is normal, there is no diaphoresis and patient's overall color looks good and he is not pale Diagnostics: EKG chest x-ray CBC CMP lactic acid UA urine culture blood cultures Therapeutics: IV O2 monitor IV fluids Tylenol per rectum duo neb Solu-Medrol morphine BiPAP Toradol Ativan The CT scan of the chest that was performed on December 12 was reviewed by me and results are as above. There was a small nonloculated left pleural effusion and there was no evidence of any central pulmonary emboli. There is scarring present in the left upper lobe and right middle lobe and there was some debris in the intrathoracic trachea. 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 There was some mediastinal adenopathy as well. After the second duo neb the patient is still quite agitated and worked up about his respiratory situation although he is moving air better and even says he feels like he is moving air better but his chronic pain is kicking and as it is unclear if the pain for the shortness of breath is what is most concerning to him. We will place him on BiPAP and respiratory therapy is now at bedside and I will give him some morphine. 0030: Patient currently is on BiPAP and is not doing very well with tolerating it and is very anxious but is communicating more and much more talkative than on arrival. He was on BiPAP on his last admission and seemed to do well per the notes. I've given him some morphine and I will now give him Ativan. I discussed with the and the patient that if he cannot relax enough to let us continue to titrate medications to get him to a comfortable place that we will need to intubate him and transfer him and both he and the says that they do not want that to happen. The patient is a full code. Case was discussed with Dr. Johnson who would like the patient to receive vancomycin and Zosyn and is aware that if the patient continues to not tolerate the BiPAP we will perform an ABG to evaluate need for intubation. He has been tachycardic with his level of agitation which started with the straight catheter for the urinalysis. He is able to be redirected and says that he does have issues with anxiety and pain control. We will continue to work with him to get him comfortable on the BiPAP and plan on ICU admission. 0045: After the Ativan the patient is relaxing significantly and is able to tolerate the BiPAP. He has been appropriate and conversational and answering questions appropriately throughout his entire ED stay and is mentating well. At this point I will not do an ABG as he is tolerating the BiPAP well ,has diminished work of breathing and is continuing to mentate and hold his sats. Critical care time excluding procedures:31min Impression: Acute on chronic respiratory distress, COPD exacerbation, persistent multilobar pneumonia Definitive disposition and diagnosis as appropriate pending reevaluation and review of above. generalized body ache Pain Score (Numeric/FACES): 10 - Related Data Allergies Allergy/AdvReac Type Severity Reaction Status Date / Time influenza virus vaccine, Allergy Muscle Verified 12/20/18 23:53 specific Weakness [Influenza Virus Vacc,Specific] Home Meds: Home Meds Albuterol Sulfate [Albuterol Sulfate HFA] 1 inhalation IH Q4H PRN 12/02/13 [ History] Aspirin [Sussy Chewable Aspirin] 81 mg PO DAILY 12/02/13 [History] traZODone 100 mg PO BEDTIME 12/02/13 [History] Tiotropium [Spiriva HandiHaler] 1 inhalation IH ASDIRECTED 03/01/14 [History] Methadone 30 mg PO TID PRN 10/28/16 [History] Metoprolol Succinate 25 mg PO DAILY 10/28/16 [History] Sildenafil Citrate [Sildenafil] 20 mg PO ASDIRECTED 10/28/16 [History] atorvaSTATin [Lipitor] 40 mg PO BEDTIME 10/28/16 [History] predniSONE [Prednisone] 40 mg PO DAILY 4 Days #8 tablet 10/30/18 [Rx] Past Medical History HEENT History: Reports: None Cardiovascular History: Reports: Hypertension Respiratory History: Reports: COPD Other Respiratory History: Home oxygen at night at 2lp Gastrointestinal History: Reports: GERD Other Gastrointestinal History: constipation Genitourinary History: Reports: None Musculoskeletal History: Reports: Arthritis Other Musculoskeletal History: 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 Neurological History: Reports: Other (See Below) (Guillain-Alton) Psychiatric History: Reports: None Endocrine/Metabolic History: Reports: None Hematologic History: Reports: Anticoagulation Therapy Immunologic History: Reports: None - Infectious Disease History Infectious Disease History: Reports: Chicken Pox - Past Surgical History Cardiovascular Surgical History: Reports: AAA Repair, Valve Replacement, Vascular Surgery Social & Family History - Family History Family Medical History: Noncontributory - Caffeine Use Caffeine Use: Reports: Coffee Caffeine Use Comment: 1cup/day - Living Situation & Occupation Living situation: Reports: , with Spouse Occupation: Retired ED ROS GENERAL - Review of Systems Review Of Systems: ROS reveals no pertinent complaints other than HPI. ED EXAM, GENERAL - Physical Exam Exam: See Below (See dictation) Course - Vital Signs Last Recorded V/S: Last Vital Signs Temp 40.1 C H 12/20/18 23:58 Pulse 150 H 12/21/18 00:26 Resp 34 H 12/20/18 23:35 BP 170/109 H 12/21/18 00:26 Pulse Ox 96 12/21/18 00:26 - Orders/Labs/Meds Orders: Active Orders 24 hr Category Date Time Status Patient Status [ADT] Stat ADT 12/21/18 00:39 Active Cardiac Monitoring [RC] . DIRECTED Care 12/20/18 23:46 Active EKG Documentation Completion [RC] STAT Care 12/20/18 23:46 Active Oxygen Therapy, ED [RC] ASDIRECTED Care 12/20/18 23:46 Active Pulse Oximetry [RC] ASDIRECTED Care 12/20/18 23:46 Active RT Aerosol Therapy [RC] ASDIRECTED Care 12/20/18 23:47 Active RT Aerosol Therapy [RC] ASDIRECTED Care 12/20/18 23:48 Active RT BiPAP/CPAP [RC] ASDIRECTED Care 12/21/18 00:01 Active CULTURE BLOOD [BC] Stat Lab 12/20/18 23:43 Received CULTURE BLOOD [BC] Stat Lab 12/20/18 23:49 Received CULTURE URINE [RM] Stat Lab 12/20/18 00:13 Received Piperacillin/Tazobactam [Piperacil-Tazobact] 3.375 gm Med 12/21/18 00:33 Active Sodium Chloride 0.9% [Normal Saline] 50 ml IV ONETIME Sodium Chloride 0.9% [Normal Saline] 500 ml Med 12/20/18 23:45 Active IV STAT Sodium Chloride 0.9% [Saline Flush] Med 12/20/18 23:47 Active 10 ml FLUSH ASDIRECTED PRN Sodium Chloride 0.9% [Saline Flush] Med 12/20/18 23:47 Active 2.5 ml FLUSH ASDIRECTED PRN Vancomycin [Vancocin] 1 gm Med 12/21/18 00:33 Active Sodium Chloride 0.9% [Normal Saline] 250 ml IV ONETIME Blood Culture x2 Reflex Set [OM.PC] Stat Ot 12/20/18 23:47 Ordered Saline Lock Insert [OM.PC] Stat Ot 12/20/18 23:46 Ordered Medication Orders Sodium Chloride (Normal Saline) 500 mls @ 999 mls/hr IV STAT [facility] Last Admin: 12/20/18 23:56 Dose: 999 mls/hr Piperacillin Sod/Tazobactam (Sod 3.375 gm/ Sodium Chloride) 50 mls @ 100 mls/ hr IV ONETIME ONE Stop: 12/21/18 01:02 Last Admin: 12/21/18 00:39 Dose: 100 mls/hr Vancomycin HCl 1 gm/ Sodium (Chloride) 250 mls @ 250 mls/hr IV ONETIME ONE Stop: 12/21/18 01:32 Sodium Chloride (Saline Flush) 10 ml FLUSH ASDIRECTED PRN PRN Reason: Keep Vein Open Sodium Chloride (Saline Flush) 2.5 ml FLUSH ASDIRECTED PRN PRN Reason: Keep Vein Open Labs: Laboratory Tests 12/20/18 12/20/18 12/20/18 Range/Units 00:13 23:43 23:43 WBC 13.96 H (4.0-11.0) K/uL RBC 5.71 (4.50-5.90) M/uL Hgb 15.1 (13.0-17.0) g/dL Hct 47.2 (38.0-50.0) % MCV 82.7 (80.0-98.0) fL MCH 26.4 L (27.0-32.0) pg MCHC 32.0 (31.0-37.0) g/dL RDW Std Deviation 44.8 (28.0-62.0) fl RDW Coeff of Yury 15 (11.0-15.0) % Plt Count 174 (150-400) K/uL MPV 8.90 (7.40-12.00) fL Neut % (Auto) 89.4 H (48.0-80.0) % Lymph % (Auto) 5.7 L (16.0-40.0) % [place] % (Auto) 4.3 (0.0-15.0) % Eos % (Auto) 0.5 (0.0-7.0) % Baso % (Auto) 0.1 (0.0-1.5) % Neut # (Auto) 12.5 H (1.4-5.7) K/uL Lymph # (Auto) 0.8 (0.6-2.4) K/uL [place] # (Auto) 0.6 (0.0-0.8) K/uL Eos # (Auto) 0.1 (0.0-0.7) K/uL Baso # (Auto) 0.0 (0.0-0.1) K/uL Nucleated RBC % 0.0 /100WBC Nucleated RBCs # 0 K/uL Lactate (0.20-2.00) mmol/L Sodium 135 L (136-148) mmol/L Potassium 4.2 (3.5-5.1) mmol/L Chloride 102 (98-107) mmol/L Carbon Dioxide 27.9 (21.0-32.0) mmol/L BUN 14 (7.0-18.0) mg/dL Creatinine 1.1 (0.8-1.3) mg/dL Est Cr Clr Drug Dosing TNP Estimated GFR (MDRD) > 60.0 ml/min Glucose 101 (74-106) mg/dL Calcium 8.1 L (8.5-10.1) mg/dL Total Bilirubin 0.4 (0.2-1.0) mg/dL AST 35 (15-37) IU/L ALT 33 (14-63) IU/L Alkaline Phosphatase 69 (46-116) U/L Total Protein 6.9 (6.4-8.2) g/dL Albumin 3.4 (3.4-5.0) g/dL Globulin 3.5 (2.6-4.0) g/dL Albumin/Globulin Ratio 1.0 (0.9-1.6) Urine Color YELLOW Urine Appearance CLEAR Urine pH 6.0 (5.0-8.0) Ur Specific Sunflower 1.020 (1.001-1.035) Urine Protein NEGATIVE (NEGATIVE) mg/dL Urine Glucose (UA) NEGATIVE (NEGATIVE) mg/dL Urine Ketones NEGATIVE (NEGATIVE) mg/dL Urine Occult Blood NEGATIVE (NEGATIVE) Urine Nitrite NEGATIVE (NEGATIVE) Urine Bilirubin NEGATIVE (NEGATIVE) Urine Urobilinogen 0.2 (<2.0) EU/dL Ur Leukocyte Esterase NEGATIVE (NEGATIVE) Urine RBC 0-1 (0-2/HPF) Urine WBC 0-1 (0-5/HPF) Ur Epithelial Cells RARE (NONE-FEW) Urine Bacteria RARE (NEGATIVE) 12/20/18 Range/Units 23:43 WBC (4.0-11.0) K/uL RBC (4.50-5.90) M/uL Hgb (13.0-17.0) g/dL Hct (38.0-50.0) % MCV (80.0-98.0) fL MCH (27.0-32.0) pg MCHC (31.0-37.0) g/dL RDW Std Deviation (28.0-62.0) fl RDW Coeff of Yury (11.0-15.0) % Plt Count (150-400) K/uL MPV (7.40-12.00) fL Neut % (Auto) (48.0-80.0) % Lymph % (Auto) (16.0-40.0) % [place] % (Auto) (0.0-15.0) % Eos % (Auto) (0.0-7.0) % Baso % (Auto) (0.0-1.5) % Neut # (Auto) (1.4-5.7) K/uL Lymph # (Auto) (0.6-2.4) K/uL [place] # (Auto) (0.0-0.8) K/uL Eos # (Auto) (0.0-0.7) K/uL Baso # (Auto) (0.0-0.1) K/uL Nucleated RBC % /100WBC Nucleated RBCs # K/uL Lactate 1.1 (0.20-2.00) mmol/L Sodium (136-148) mmol/L Potassium (3.5-5.1) mmol/L Chloride (98-107) mmol/L Carbon Dioxide (21.0-32.0) mmol/L BUN (7.0-18.0) mg/dL Creatinine (0.8-1.3) mg/dL Est Cr Clr Drug Dosing Estimated GFR (MDRD) ml/min Glucose (74-106) mg/dL Calcium (8.5-10.1) mg/dL Total Bilirubin (0.2-1.0) mg/dL AST (15-37) IU/L ALT (14-63) IU/L Alkaline Phosphatase (46-116) U/L Total Protein (6.4-8.2) g/dL Albumin (3.4-5.0) g/dL Globulin (2.6-4.0) g/dL Albumin/Globulin Ratio (0.9-1.6) Urine Color Urine Appearance Urine pH (5.0-8.0) Ur Specific Sunflower (1.001-1.035) Urine Protein (NEGATIVE) mg/dL Urine Glucose (UA) (NEGATIVE) mg/dL Urine Ketones (NEGATIVE) mg/dL Urine Occult Blood (NEGATIVE) Urine Nitrite (NEGATIVE) Urine Bilirubin (NEGATIVE) Urine Urobilinogen (<2.0) EU/dL Ur Leukocyte Esterase (NEGATIVE) Urine RBC (0-2/HPF) Urine WBC (0-5/HPF) Ur Epithelial Cells (NONE-FEW) Urine Bacteria (NEGATIVE) Meds: Medications Generic Name Dose Route Start Last Admin Trade Name Freq PRN Reason Stop Dose Admin Sodium Chloride 500 mls @ 999 mls/hr 12/20/18 23:45 12/20/18 23:56 Normal Saline IV 999 mls/hr STAT KEVIN Administration Piperacillin Sod/Tazobactam 50 mls @ 100 mls/hr 12/21/18 00:33 12/21/18 00:39 Sod 3.375 gm/ Sodium Chloride IV 12/21/18 01:02 100 mls/hr ONETIME ONE Administration Vancomycin HCl 1 gm/ Sodium 250 mls @ 250 mls/hr 12/21/18 00:33 Chloride IV 12/21/18 01:32 ONETIME ONE Sodium Chloride 10 ml 12/20/18 23:47 Saline Flush FLUSH ASDIRECTED PRN Keep Vein Open Sodium Chloride 2.5 ml 12/20/18 23:47 Saline Flush FLUSH ASDIRECTED PRN Keep Vein Open Discontinued Medications Generic Name Dose Route Start Last Admin Trade Name Freq PRN Reason Stop Dose Admin Acetaminophen Confirm 12/20/18 23:54 12/21/18 00:05 Tylenol Administered 12/20/18 23:55 Not Given Dose 1,300 mg .ROUTE .STK-MED ONE Acetaminophen 1,000 mg 12/20/18 23:54 12/20/18 23:58 Tylenol RECTAL 12/20/18 23:55 1,000 mg NOW ONE Administration Albuterol/Ipratropium Confirm 12/20/18 23:38 12/20/18 23:59 Duoneb 3.0-0.5 Mg/3 Ml Administered 12/20/18 23:39 Not Given Dose 3 ml .ROUTE .STK-MED ONE Albuterol/Ipratropium 3 ml 12/20/18 23:47 12/20/18 23:40 Duoneb 3.0-0.5 Mg/3 Ml NEB 12/20/18 23:48 3 ml ONETIME ONE Administration Albuterol/Ipratropium 3 ml 12/20/18 23:48 12/20/18 23:35 Duoneb 3.0-0.5 Mg/3 Ml NEB 12/20/18 23:49 3 ml ONETIME ONE Administration Albuterol/Ipratropium Confirm 12/20/18 23:48 12/21/18 00:00 Duoneb 3.0-0.5 Mg/3 Ml Administered 12/20/18 23:49 Not Given Dose 3 ml .ROUTE .STK-MED ONE Ketorolac Tromethamine 30 mg 12/21/18 00:01 12/21/18 00:04 Toradol IVPUSH 12/21/18 00:02 30 mg ONETIME ONE Administration Ketorolac Tromethamine Confirm 12/21/18 00:02 12/21/18 00:05 Toradol Administered 12/21/18 00:03 Not Given Dose 30 mg .ROUTE .STK-MED ONE Lorazepam 1 mg 12/21/18 00:32 12/21/18 00:36 Ativan IVPUSH 12/21/18 00:33 1 mg ONETIME ONE Administration Methylprednisolone Sodium Succinate Confirm 12/20/18 23:39 12/20/18 23:59 Solu-Medrol Administered 12/20/18 23:40 Not Given Dose 125 mg .ROUTE .STK-MED ONE Methylprednisolone Sodium Succinate 125 mg 12/20/18 23:47 12/20/18 23:56 Solu-Medrol IVPUSH 12/20/18 23:48 125 mg ONETIME ONE Administration Morphine Sulfate 2 mg 12/21/18 00:15 12/21/18 00:19 Morphine IVPUSH 12/21/18 00:16 2 mg ONETIME ONE Administration Departure - Departure Time of Disposition: 00:42 Disposition: Admitted As Inpatient 66 Condition: Fair Clinical Impression: Acute respiratory distress, COPD with acute exacerbation Pneumonia Qualifiers: Pneumonia type: due to unspecified organism Laterality: unspecified laterality Lung location: unspecified part of lung Qualified Code(s): J18.9 - Pneumonia, unspecified organism - Discharge Information Referrals: Blake Allen MD [Primary Care Provider] - Forms: ED Department Discharge - My Orders Last 24 Hours: My Active Orders 12/20/18 00:13 CULTURE URINE [RM] Stat 12/20/18 23:43 CULTURE BLOOD [BC] Stat 12/20/18 23:45 Sodium Chloride 0.9% [Normal Saline] 500 ml IV STAT 12/20/18 23:46 Cardiac Monitoring [RC] . DIRECTED EKG Documentation Completion [RC] STAT Oxygen Therapy, ED [RC] ASDIRECTED Pulse Oximetry [RC] ASDIRECTED Saline Lock Insert [OM.PC] Stat 12/20/18 23:47 RT Aerosol Therapy [RC] ASDIRECTED Sodium Chloride 0.9% [Saline Flush] 10 ml FLUSH ASDIRECTED PRN Sodium Chloride 0.9% [Saline Flush] 2.5 ml FLUSH ASDIRECTED PRN Blood Culture x2 Reflex Set [OM.PC] Stat 12/20/18 23:48 RT Aerosol Therapy [RC] ASDIRECTED 12/20/18 23:49 CULTURE BLOOD [BC] Stat 12/21/18 00:01 RT BiPAP/CPAP [RC] ASDIRECTED 12/21/18 00:33 Piperacillin/Tazobactam [Piperacil-Tazobact] 3.375 gm Sodium Chloride 0.9% [ Normal Saline] 50 ml IV ONETIME Vancomycin [Vancocin] 1 gm Sodium Chloride 0.9% [Normal Saline] 250 ml IV ONETIME 12/21/18 00:39 Patient Status [ADT] Stat - Assessment/Plan Last 24 Hours: My Active Orders 12/20/18 00:13 CULTURE URINE [RM] Stat 12/20/18 23:43 CULTURE BLOOD [BC] Stat 12/20/18 23:45 Sodium Chloride 0.9% [Normal Saline] 500 ml IV STAT 12/20/18 23:46 Cardiac Monitoring [RC] . DIRECTED EKG Documentation Completion [RC] STAT Oxygen Therapy, ED [RC] ASDIRECTED Pulse Oximetry [RC] ASDIRECTED Saline Lock Insert [OM.PC] Stat 12/20/18 23:47 RT Aerosol Therapy [RC] ASDIRECTED Sodium Chloride 0.9% [Saline Flush] 10 ml FLUSH ASDIRECTED PRN Sodium Chloride 0.9% [Saline Flush] 2.5 ml FLUSH ASDIRECTED PRN Blood Culture x2 Reflex Set [OM.PC] Stat 12/20/18 23:48 RT Aerosol Therapy [RC] ASDIRECTED 12/20/18 23:49 CULTURE BLOOD [BC] Stat 12/21/18 00:01 RT BiPAP/CPAP [RC] ASDIRECTED 12/21/18 00:33 Piperacillin/Tazobactam [Piperacil-Tazobact] 3.375 gm Sodium Chloride 0.9% [ Normal Saline] 50 ml IV ONETIME Vancomycin [Vancocin] 1 gm Sodium Chloride 0.9% [Normal Saline] 250 ml IV ONETIME 12/21/18 00:39 Patient Status [ADT] Stat
[2018-12-20] MEDS ORDERED: Acetaminophen 650 MG Supp ONE (23:54)
[2018-12-20] MEDS ORDERED: Acetaminophen 650 MG Supp RECTAL ONE (23:54)
[2018-12-21] MEDS ORDERED: Ketorolac 30 MG/ML SDV IVPUSH ONE (00:01)
[2018-12-21] MEDS ORDERED: Ketorolac 30 MG/ML SDV ONE (00:02)
[2018-12-21] MEDS ORDERED: Morphine 2 MG/ML Syringe IVPUSH ONE (00:15)
[2018-12-21] MEDS ORDERED: LORazepam 2 MG/ML SDV IVPUSH ONE (00:32)
[2018-12-21 00:33] LABS: CHLORIDE,CL 102 mmol/L (98-107); SODIUM,NA 135 mmol/L (136-148)
[2018-12-21] MEDS ORDERED: Piperacillin/Tazobactam 3.375 GM in Sodium Chloride 0.9% 50 ML IV ONE (00:33)
--- NOTE | 2018-12-21 00:37 | CR ---
Indication: Shortness of breath, fever Technique: Chest 1 view Comparison: December 10, 2018 Findings/Impression: Stable cardiac size. Persistent patchy opacities at the bilateral lung bases, left greater than right, concerning for infection. Emphysema. No pneumothorax or significant effusion. No acute osseous abnormality. Dictated by Berenice Santoro MD @ Dec 21 2018 12:34AM Signed by Dr. Berenice Santoro @ Dec 21 2018 12:36AM
[2018-12-21] MEDS ORDERED: Albuterol/Ipratropium 3.0-0.5 MG/3 ML Neb Soln NEB PRN (03:22)
[2018-12-21] MEDS ORDERED: Pantoprazole 40 MG Vial IV SCH (03:30)
--- NOTE | 2018-12-21 03:31 | PCM.HP ---
H&P History of Present Illness - General Date of Service: 12/21/18 Admit Problem/Dx: Admission Diagnosis/Problem Admission Diagnosis/Problem Acute respiratory distress - History of Present Illness Initial Comments - Free Text/Narative: 68 yo male with pmh of oxygen dependent COPD, Guillain-Sipsey, on methadone for chronic pain who present to the ED with complaints of fever and increasing muscle pain. Patient was admitted in October for multilobar pneumonia and has been on multiple courses of antibiotics since for treatment of bacterial pneumonia. He reports a persistent productive cough. He was noted to have a temp of 101 at home. In the ED he was noted to be in distress and satting 89% on RA. CXR reported bibasilar pneumonia. It was uncertain if his distress was coming from shortness of breath or pain. He was placed on BIPAP and given Solumedrol, duonebs, ativan and morphine. generalized body ache Pain Score (Numeric/FACES): 10 - Related Data Allergies/Adverse Reactions: Allergies Allergy/AdvReac Type Severity Reaction Status Date / Time influenza virus vaccine, Allergy Muscle Verified 12/21/18 07:09 specific Weakness [Influenza Virus Vacc,Specific] Home Medications: Home Meds Albuterol Sulfate [Albuterol Sulfate HFA] 1 inhalation IH Q4H PRN 12/02/13 [ History] Aspirin [Sussy Chewable Aspirin] 81 mg PO DAILY 12/02/13 [History] traZODone 100 mg PO BEDTIME 12/02/13 [History] Tiotropium [Spiriva HandiHaler] 1 inhalation IH ASDIRECTED 03/01/14 [History] Methadone 10 mg PO TID PRN MDD 40 10/28/16 [History] Metoprolol Succinate 25 mg PO DAILY 10/28/16 [History] Sildenafil Citrate [Sildenafil] 20 mg PO ASDIRECTED 10/28/16 [History] atorvaSTATin [Lipitor] 40 mg PO BEDTIME 10/28/16 [History] predniSONE [Prednisone] 40 mg PO DAILY 4 Days #8 tablet 10/30/18 [Rx] Cefdinir [Omnicef] 300 mg PO BID 12/21/18 [History] Cholecalciferol (Vitamin D3) [Vitamin D3] 2,000 unit PO DAILY 12/21/18 [History] Patient's Own Medication [Ptom] 1 each PO BID 12/21/18 [History] Past Medical History HEENT History: Reports: None Cardiovascular History: Reports: Hypertension Respiratory History: Reports: COPD Other Respiratory History: Home oxygen at night at 3lpm Gastrointestinal History: Reports: GERD Other Gastrointestinal History: constipation Genitourinary History: Reports: None Musculoskeletal History: Reports: Arthritis Other Musculoskeletal History: 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 Neurological History: Reports: Other (See Below) Psychiatric History: Reports: None Endocrine/Metabolic History: Reports: None Hematologic History: Reports: Anticoagulation Therapy Immunologic History: Reports: None - Infectious Disease History Infectious Disease History: Reports: Chicken Pox - Past Surgical History Cardiovascular Surgical History: Reports: AAA Repair, Valve Replacement, Vascular Surgery Social & Family History - Family History Family Medical History: Noncontributory - Tobacco Use Smoking Status *Q: Never Smoker Used Tobacco, but Quit: Yes Month/Year Tobacco Last Used: 7 - Caffeine Use Caffeine Use: Reports: Coffee Caffeine Use Comment: 1cup/day - Recreational Drug Use Recreational Drug Use: No - Living Situation & Occupation Living situation: Reports: , with Spouse Occupation: Retired H&P Review of Systems - Review of Systems: Review Of Systems: ROS reveals no pertinent complaints other than HPI. Exam - Exam Exam: See Below - Vital Signs Vital Signs: Last Vital Signs Temp 38.6 C H 12/21/18 02:10 Pulse 108 H 12/21/18 02:10 Resp 12 12/21/18 02:10 BP 131/63 12/21/18 02:10 Pulse Ox 99 12/21/18 02:10 Weight: 68.266 kg - Exam General: Alert HEENT: Mucosa Moist & [place] Neck: Supple Lungs: Clear to Auscultation, Decreased Breath Sounds Cardiovascular: Regular Rate, Regular Rhythm GI/Abdominal Exam: Soft, Non-Tender Extremities: Non-Tender, No Pedal Edema Skin: Warm, Dry, Intact - Patient Data Lab Results Last 24 hrs: Laboratory Results - last 24 hr 12/20/18 12/20/18 12/20/18 Range/Units 00:13 23:43 23:43 WBC 13.96 H (4.0-11.0) K/uL RBC 5.71 (4.50-5.90) M/uL Hgb 15.1 (13.0-17.0) g/dL Hct 47.2 (38.0-50.0) % MCV 82.7 (80.0-98.0) fL MCH 26.4 L (27.0-32.0) pg MCHC 32.0 (31.0-37.0) g/dL RDW Std Deviation 44.8 (28.0-62.0) fl RDW Coeff of Yury 15 (11.0-15.0) % Plt Count 174 (150-400) K/uL MPV 8.90 (7.40-12.00) fL Neut % (Auto) 89.4 H (48.0-80.0) % Lymph % (Auto) 5.7 L (16.0-40.0) % [place] % (Auto) 4.3 (0.0-15.0) % Eos % (Auto) 0.5 (0.0-7.0) % Baso % (Auto) 0.1 (0.0-1.5) % Neut # (Auto) 12.5 H (1.4-5.7) K/uL Lymph # (Auto) 0.8 (0.6-2.4) K/uL [place] # (Auto) 0.6 (0.0-0.8) K/uL Eos # (Auto) 0.1 (0.0-0.7) K/uL Baso # (Auto) 0.0 (0.0-0.1) K/uL Nucleated RBC % 0.0 /100WBC Nucleated RBCs # 0 K/uL ABG pH (7.35-7.45) ABG pCO2 (35-45) mmHG ABG pO2 (75-100) mmHG ABG HCO3 (22-26) mEq/L ABG Total CO2 ABG Base Excess (-2.0-2.0) Lactate (0.20-2.00) mmol/L Sodium 135 L (136-148) mmol/L Potassium 4.2 (3.5-5.1) mmol/L Chloride 102 (98-107) mmol/L Carbon Dioxide 27.9 (21.0-32.0) mmol/L BUN 14 (7.0-18.0) mg/dL Creatinine 1.1 (0.8-1.3) mg/dL Est Cr Clr Drug Dosing TNP Estimated GFR (MDRD) > 60.0 ml/min Glucose 101 (74-106) mg/dL Calcium 8.1 L (8.5-10.1) mg/dL Total Bilirubin 0.4 (0.2-1.0) mg/dL AST 35 (15-37) IU/L ALT 33 (14-63) IU/L Alkaline Phosphatase 69 (46-116) U/L Total Protein 6.9 (6.4-8.2) g/dL Albumin 3.4 (3.4-5.0) g/dL Globulin 3.5 (2.6-4.0) g/dL Albumin/Globulin Ratio 1.0 (0.9-1.6) Urine Color YELLOW Urine Appearance CLEAR Urine pH 6.0 (5.0-8.0) Ur Specific [place] 1.020 (1.001-1.035) Urine Protein NEGATIVE (NEGATIVE) mg/dL Urine Glucose (UA) NEGATIVE (NEGATIVE) mg/dL Urine Ketones NEGATIVE (NEGATIVE) mg/dL Urine Occult Blood NEGATIVE (NEGATIVE) Urine Nitrite NEGATIVE (NEGATIVE) Urine Bilirubin NEGATIVE (NEGATIVE) Urine Urobilinogen 0.2 (<2.0) EU/dL Ur Leukocyte Esterase NEGATIVE (NEGATIVE) Urine RBC 0-1 (0-2/HPF) Urine WBC 0-1 (0-5/HPF) Ur Epithelial Cells RARE (NONE-FEW) Urine Bacteria RARE (NEGATIVE) 12/20/18 12/21/18 Range/Units 23:43 03:03 WBC (4.0-11.0) K/uL RBC (4.50-5.90) M/uL Hgb (13.0-17.0) g/dL Hct (38.0-50.0) % MCV (80.0-98.0) fL MCH (27.0-32.0) pg MCHC (31.0-37.0) g/dL RDW Std Deviation (28.0-62.0) fl RDW Coeff of [place]ury (11.0-15.0) % Plt Count (150-400) K/uL MPV (7.40-12.00) fL Neut % (Auto) (48.0-80.0) % Lymph % (Auto) (16.0-40.0) % [place] % (Auto) (0.0-15.0) % Eos % (Auto) (0.0-7.0) % Baso % (Auto) (0.0-1.5) % Neut # (Auto) (1.4-5.7) K/uL Lymph # (Auto) (0.6-2.4) K/uL [place] # (Auto) (0.0-0.8) K/uL Eos # (Auto) (0.0-0.7) K/uL Baso # (Auto) (0.0-0.1) K/uL Nucleated RBC % /100WBC Nucleated RBCs # K/uL ABG pH 7.405 (7.35-7.45) ABG pCO2 40 (35-45) mmHG ABG pO2 100 (75-100) mmHG ABG HCO3 25 (22-26) mEq/L ABG Total CO2 22.3 ABG Base Excess 0.4 (-2.0-2.0) Lactate 1.1 (0.20-2.00) mmol/L Sodium (136-148) mmol/L Potassium (3.5-5.1) mmol/L Chloride (98-107) mmol/L Carbon Dioxide (21.0-32.0) mmol/L BUN (7.0-18.0) mg/dL Creatinine (0.8-1.3) mg/dL Est Cr Clr Drug Dosing Estimated GFR (MDRD) ml/min Glucose (74-106) mg/dL Calcium (8.5-10.1) mg/dL Total Bilirubin (0.2-1.0) mg/dL AST (15-37) IU/L ALT (14-63) IU/L Alkaline Phosphatase (46-116) U/L Total Protein (6.4-8.2) g/dL Albumin (3.4-5.0) g/dL Globulin (2.6-4.0) g/dL Albumin/Globulin Ratio (0.9-1.6) Urine Color Urine Appearance Urine pH (5.0-8.0) Ur Specific [place] (1.001-1.035) Urine Protein (NEGATIVE) mg/dL Urine Glucose (UA) (NEGATIVE) mg/dL Urine Ketones (NEGATIVE) mg/dL Urine Occult Blood (NEGATIVE) Urine Nitrite (NEGATIVE) Urine Bilirubin (NEGATIVE) Urine Urobilinogen (<2.0) EU/dL Ur Leukocyte Esterase (NEGATIVE) Urine RBC (0-2/HPF) Urine WBC (0-5/HPF) Ur Epithelial Cells (NONE-FEW) Urine Bacteria (NEGATIVE) Result Diagrams: 12/21/18 05:47 12/21/18 05:47 Problem List Initiated/Reviewed/Updated: Yes Orders Last 24hrs: Active Orders 24 hr Category Date Time Status Patient Status [ADT] Stat ADT 12/21/18 00:39 Active Antiembolic Devices [RC] PER UNIT ROUTINE Care 12/21/18 03:26 Ordered EKG Documentation Completion [RC] STAT Care 12/20/18 23:46 Active Oxygen Therapy [RC] PRN Care 12/21/18 03:24 Ordered Oxygen Therapy, ED [RC] ASDIRECTED Care 12/20/18 23:46 Active Pulse Oximetry [RC] ASDIRECTED Care 12/20/18 23:46 Active RT Aerosol Therapy [RC] ASDIRECTED Care 12/20/18 23:47 Active RT Aerosol Therapy [RC] ASDIRECTED Care 12/20/18 23:48 Active RT Aerosol Therapy [RC] ASDIRECTED Care 12/21/18 03:22 Ordered RT BiPAP/CPAP [RC] ASDIRECTED Care 12/21/18 00:01 Active Up ad Dariela [RC] ASDIRECTED Care 12/21/18 03:24 Ordered VTE/DVT Education [RC] PER UNIT ROUTINE Care 12/21/18 03:24 Ordered Vital Signs [RC] Q4H Care 12/21/18 03:24 Ordered Regular Diet [DIET] Diet 12/21/18 Breakfast Ordered BASIC METABOLIC PANEL,BMP [CHEM] AM Lab 12/21/18 05:11 Ordered BASIC METABOLIC PANEL,BMP [CHEM] AM Lab 12/22/18 05:11 Ordered CBC WITH AUTO DIFF [HEME] AM Lab 12/21/18 05:11 Ordered CBC WITH AUTO DIFF [HEME] AM Lab 12/22/18 05:11 Ordered CULTURE BLOOD [BC] Stat Lab 12/20/18 23:43 Received CULTURE BLOOD [BC] Stat Lab 12/20/18 23:49 Received Albuterol/Ipratropium [DuoNeb 3.0-0.5 MG/3 ML] Med 12/21/18 03:22 Ordered 3 ml NEB Q2H PRN Albuterol/Ipratropium [DuoNeb 3.0-0.5 MG/3 ML] Med 12/21/18 06:00 Ordered 3 ml NEB Q6HRRT Aspirin Med 12/21/18 09:00 Ordered 81 mg PO DAILY Heparin Sodium Med 12/21/18 03:30 Ordered 5,000 units SUBCUT Q8H Levofloxacin/Dextrose 5%-Water [Levaquin in D5W 750 MG/ Med 12/21/18 03:30 Ordered 150 ML] 750 mg Premix Bag 1 bag IV Q24H Methadone Med 12/21/18 03:20 Ordered 10 mg PO TID PRN Metoprolol Succinate [Toprol XL] Med 12/21/18 09:00 Ordered 25 mg PO DAILY Pantoprazole [ProTONIX IV] Med 12/21/18 03:30 Ordered 40 mg IV Q24H Pharmacy to Dose - Vancomycin Med 12/21/18 03:30 Ordered 1 dose .XX ASDIRECTED Piperacillin/Tazobactam [Piperacil-Tazobact] 4.5 gm Med 12/21/18 07:00 Ordered Sodium Chloride 0.9% [Normal Saline] 100 ml IV Q6H Sodium Chloride 0.9% [Normal Saline] 500 ml Med 12/20/18 23:45 Active IV STAT Sodium Chloride 0.9% [Saline Flush] Med 12/20/18 23:47 Active 10 ml FLUSH ASDIRECTED PRN Sodium Chloride 0.9% [Saline Flush] Med 12/20/18 23:47 Active 2.5 ml FLUSH ASDIRECTED PRN atorvaSTATin [Lipitor] Med 12/21/18 21:00 Ordered 40 mg PO BEDTIME methylPREDNISolone Sod Succ [Solu-MEDROL] Med 12/21/18 08:00 Ordered 80 mg IVPUSH Q8H traZODone HCl [Trazodone HCl] Med 12/21/18 03:20 Ordered 100 mg PO BEDTIME Blood Culture x2 Reflex Set [OM.PC] Stat Oth 12/20/18 23:47 Ordered Saline Lock Insert [OM.PC] Stat Oth 12/20/18 23:46 Ordered Sequential Compression Device [OM.PC] Per Unit Routine Oth 12/21/18 03:25 Ordered Resuscitation Status Routine Resus Stat 12/21/18 03:24 Ordered Medication Orders Albuterol/Ipratropium (Duoneb 3.0-0.5 Mg/3 Ml) 3 ml NEB Q2H PRN PRN Reason: Wheezing Albuterol/Ipratropium (Duoneb 3.0-0.5 Mg/3 Ml) 3 ml NEB Q6HRRT KEVIN Aspirin (Aspirin) 81 mg PO DAILY KEVIN Atorvastatin Calcium (Lipitor) 40 mg PO BEDTIME KEVIN Sodium Chloride (Normal Saline) 500 mls @ 999 mls/hr IV STAT KEVIN Last Admin: 12/20/18 23:56 Dose: 999 mls/hr Levofloxacin/Dextrose 750 mg/ (Premix) 150 mls @ 100 mls/hr IV Q24H KEVIN Piperacillin Sod/Tazobactam (Sod 4.5 gm/ Sodium Chloride) 100 mls @ 100 mls/hr IV Q6H KEVIN Methadone HCl (Methadone) 10 mg PO TID PRN PRN Reason: Pain Methylprednisolone Sodium Succinate (Solu-Medrol) 80 mg IVPUSH Q8H KEVIN Metoprolol Succinate (Toprol Xl) 25 mg PO DAILY KEVIN Sodium Chloride (Saline Flush) 10 ml FLUSH ASDIRECTED PRN PRN Reason: Keep Vein Open Sodium Chloride (Saline Flush) 2.5 ml FLUSH ASDIRECTED PRN PRN Reason: Keep Vein Open Trazodone HCl (Trazodone Hcl) 100 mg PO BEDTIME KEVIN Vancomycin HCl (Pharmacy To Dose - Vancomycin) 1 dose .XX ASDIRECTED [facility] Assessment/Plan Comment:: 68 yo male admitted for acute respiratory failure and pneumonia Respiratory failure: will keep on BIPAP overnight Pneumonia: will treat for suspected gram negative shahida infection with broad spectrum antibiotics considering his multiple use of antibiotics without resolution. COPD: on solumedrol and duonebs Chronic pain: on methadone
[2018-12-21] MEDS ORDERED: Pantoprazole 40 MG in Sodium Chloride 0.9% 10 ML IVPUSH SCH (04:15)
[2018-12-21] MEDS: Levofloxacin/Dextrose 5%-Water 750 MG in Premix Bag 1 BAG IV SCH (04:32)
[2018-12-21] MEDS: Heparin Sodium 5,000 Units/ML Vial SUBCUT SCH ×3 (05:47→18:35)
[2018-12-21 06:23] LABS: CHLORIDE,CL 103 mmol/L (98-107); SODIUM,NA 137 mmol/L (136-148)
[2018-12-21] MEDS: Albuterol/Ipratropium 3.0-0.5 MG/3 ML Neb Soln NEB SCH ×4 (06:27→23:44)
[2018-12-21] MEDS: Piperacillin/Tazobactam 4.5 GM in Sodium Chloride 0.9% 100 ML IV SCH ×4 (07:14→23:46)
[2018-12-21] MEDS: Pantoprazole 40 MG in Sodium Chloride 0.9% 10 ML IVPUSH SCH (08:12)
[2018-12-21] MEDS: methylPREDNISolone Sodium Succinate 40 MG/1 ML SDV IVPUSH SCH ×3 (08:12→23:44)
[2018-12-21] MEDS: Aspirin 81 MG Tab.Chew PO SCH (08:13)
[2018-12-21] MEDS: Methadone 10 MG Tab PO PRN ×2 (08:13→18:08)
[2018-12-21] MEDS: Metoprolol Succinate 25 MG Tab.ER PO SCH (08:13)
[2018-12-21] MEDS ORDERED: Methadone 10 MG Tab PO ONE (09:27)
--- NOTE | 2018-12-21 11:24 | PCM.PN ---
- General Info Date of Service: 12/21/18 - Review of Systems Systems Review Comment:: has productive cough, feeling better, no fevers, - Patient Data Vitals - Most Recent: Last Vital Signs Temp 36.6 C 12/21/18 07:47 Pulse 73 12/21/18 11:00 Resp 9 L 12/21/18 11:00 BP 118/57 L 12/21/18 11:00 Pulse Ox 93 L 12/21/18 11:00 Weight - Most Recent: 68.266 kg I&O - Last 24 Hours: Intake & Output 12/20/18 12/21/18 12/21/18 22:59 06:59 14:59 Intake Total 400 450 Output Total 175 100 Balance 225 350 Lab Results Last 24 Hours: Laboratory Results - last 24 hr 12/20/18 12/20/18 12/20/18 Range/Units 00:13 23:43 23:43 WBC 13.96 H (4.0-11.0) K/uL RBC 5.71 (4.50-5.90) M/uL Hgb 15.1 (13.0-17.0) g/dL Hct 47.2 (38.0-50.0) % MCV 82.7 (80.0-98.0) fL MCH 26.4 L (27.0-32.0) pg MCHC 32.0 (31.0-37.0) g/dL RDW Std Deviation 44.8 (28.0-62.0) fl RDW Coeff of [place] 15 (11.0-15.0) % Plt Count 174 (150-400) K/uL MPV 8.90 (7.40-12.00) fL Neut % (Auto) 89.4 H (48.0-80.0) % Lymph % (Auto) 5.7 L (16.0-40.0) % [place] % (Auto) 4.3 (0.0-15.0) % Eos % (Auto) 0.5 (0.0-7.0) % Baso % (Auto) 0.1 (0.0-1.5) % Neut # (Auto) 12.5 H (1.4-5.7) K/uL Lymph # (Auto) 0.8 (0.6-2.4) K/uL [place] # (Auto) 0.6 (0.0-0.8) K/uL Eos # (Auto) 0.1 (0.0-0.7) K/uL Baso # (Auto) 0.0 (0.0-0.1) K/uL Nucleated RBC % 0.0 /100WBC Nucleated RBCs # 0 K/uL ABG pH (7.35-7.45) ABG pCO2 (35-45) mmHG ABG pO2 (75-100) mmHG ABG HCO3 (22-26) mEq/L ABG Total CO2 ABG Base Excess (-2.0-2.0) Lactate (0.20-2.00) mmol/L Sodium 135 L (136-148) mmol/L Potassium 4.2 (3.5-5.1) mmol/L Chloride 102 (98-107) mmol/L Carbon Dioxide 27.9 (21.0-32.0) mmol/L BUN 14 (7.0-18.0) mg/dL Creatinine 1.1 (0.8-1.3) mg/dL Est Cr Clr Drug Dosing TNP Estimated GFR (MDRD) > 60.0 ml/min Glucose 101 (74-106) mg/dL Calcium 8.1 L (8.5-10.1) mg/dL Total Bilirubin 0.4 (0.2-1.0) mg/dL AST 35 (15-37) IU/L ALT 33 (14-63) IU/L Alkaline Phosphatase 69 (46-116) U/L Total Protein 6.9 (6.4-8.2) g/dL Albumin 3.4 (3.4-5.0) g/dL Globulin 3.5 (2.6-4.0) g/dL Albumin/Globulin Ratio 1.0 (0.9-1.6) Urine Color YELLOW Urine Appearance CLEAR Urine pH 6.0 (5.0-8.0) Ur Specific [place] 1.020 (1.001-1.035) Urine Protein NEGATIVE (NEGATIVE) mg/dL Urine Glucose (UA) NEGATIVE (NEGATIVE) mg/dL Urine Ketones NEGATIVE (NEGATIVE) mg/dL Urine Occult Blood NEGATIVE (NEGATIVE) Urine Nitrite NEGATIVE (NEGATIVE) Urine Bilirubin NEGATIVE (NEGATIVE) Urine Urobilinogen 0.2 (<2.0) EU/dL Ur Leukocyte Esterase NEGATIVE (NEGATIVE) Urine RBC 0-1 (0-2/HPF) Urine WBC 0-1 (0-5/HPF) Ur Epithelial Cells RARE (NONE-FEW) Urine Bacteria RARE (NEGATIVE) 12/20/18 12/21/18 12/21/18 Range/Units 23:43 03:03 05:47 WBC 18.61 H (4.0-11.0) K/uL RBC 5.40 (4.50-5.90) M/uL Hgb 14.1 (13.0-17.0) g/dL Hct 44.6 (38.0-50.0) % MCV 82.6 (80.0-98.0) fL MCH 26.1 L (27.0-32.0) pg MCHC 31.6 (31.0-37.0) g/dL RDW Std Deviation 44.9 (28.0-62.0) fl RDW Coeff of [place] 15 (11.0-15.0) % Plt Count 159 (150-400) K/uL MPV 9.10 (7.40-12.00) fL Neut % (Auto) 95.3 H (48.0-80.0) % Lymph % (Auto) 1.9 L (16.0-40.0) % [place] % (Auto) 2.8 (0.0-15.0) % Eos % (Auto) 0.0 (0.0-7.0) % Baso % (Auto) 0.0 (0.0-1.5) % Neut # (Auto) 17.7 H (1.4-5.7) K/uL Lymph # (Auto) 0.4 L (0.6-2.4) K/uL [place] # (Auto) 0.5 (0.0-0.8) K/uL Eos # (Auto) 0.0 (0.0-0.7) K/uL Baso # (Auto) 0.0 (0.0-0.1) K/uL Nucleated RBC % 0.0 /100WBC Nucleated RBCs # 0 K/uL ABG pH 7.405 (7.35-7.45) ABG pCO2 40 (35-45) mmHG ABG pO2 100 (75-100) mmHG ABG HCO3 25 (22-26) mEq/L ABG Total CO2 22.3 ABG Base Excess 0.4 (-2.0-2.0) Lactate 1.1 (0.20-2.00) mmol/L Sodium (136-148) mmol/L Potassium (3.5-5.1) mmol/L Chloride (98-107) mmol/L Carbon Dioxide (21.0-32.0) mmol/L BUN (7.0-18.0) mg/dL Creatinine (0.8-1.3) mg/dL Est Cr Clr Drug Dosing Estimated GFR (MDRD) ml/min Glucose (74-106) mg/dL Calcium (8.5-10.1) mg/dL Total Bilirubin (0.2-1.0) mg/dL AST (15-37) IU/L ALT (14-63) IU/L Alkaline Phosphatase (46-116) U/L Total Protein (6.4-8.2) g/dL Albumin (3.4-5.0) g/dL Globulin (2.6-4.0) g/dL Albumin/Globulin Ratio (0.9-1.6) Urine Color Urine Appearance Urine pH (5.0-8.0) Ur Specific [place] (1.001-1.035) Urine Protein (NEGATIVE) mg/dL Urine Glucose (UA) (NEGATIVE) mg/dL Urine Ketones (NEGATIVE) mg/dL Urine Occult Blood (NEGATIVE) Urine Nitrite (NEGATIVE) Urine Bilirubin (NEGATIVE) Urine Urobilinogen (<2.0) EU/dL Ur Leukocyte Esterase (NEGATIVE) Urine RBC (0-2/HPF) Urine WBC (0-5/HPF) Ur Epithelial Cells (NONE-FEW) Urine Bacteria (NEGATIVE) 12/21/18 Range/Units 05:47 WBC (4.0-11.0) K/uL RBC (4.50-5.90) M/uL Hgb (13.0-17.0) g/dL Hct (38.0-50.0) % MCV (80.0-98.0) fL MCH (27.0-32.0) pg MCHC (31.0-37.0) g/dL RDW Std Deviation (28.0-62.0) fl RDW Coeff of [place] (11.0-15.0) % Plt Count (150-400) K/uL MPV (7.40-12.00) fL Neut % (Auto) (48.0-80.0) % Lymph % (Auto) (16.0-40.0) % [place] % (Auto) (0.0-15.0) % Eos % (Auto) (0.0-7.0) % Baso % (Auto) (0.0-1.5) % Neut # (Auto) (1.4-5.7) K/uL Lymph # (Auto) (0.6-2.4) K/uL [place] # (Auto) (0.0-0.8) K/uL Eos # (Auto) (0.0-0.7) K/uL Baso # (Auto) (0.0-0.1) K/uL Nucleated RBC % /100WBC Nucleated RBCs # K/uL ABG pH (7.35-7.45) ABG pCO2 (35-45) mmHG ABG pO2 (75-100) mmHG ABG HCO3 (22-26) mEq/L ABG Total CO2 ABG Base Excess (-2.0-2.0) Lactate (0.20-2.00) mmol/L Sodium 137 (136-148) mmol/L Potassium 4.3 (3.5-5.1) mmol/L Chloride 103 (98-107) mmol/L Carbon Dioxide 25.7 (21.0-32.0) mmol/L BUN 16 (7.0-18.0) mg/dL Creatinine 1.2 (0.8-1.3) mg/dL Est Cr Clr Drug Dosing 56.89 Estimated GFR (MDRD) > 60.0 ml/min Glucose 186 H (74-106) mg/dL Calcium 7.8 L (8.5-10.1) mg/dL Total Bilirubin (0.2-1.0) mg/dL AST (15-37) IU/L ALT (14-63) IU/L Alkaline Phosphatase (46-116) U/L Total Protein (6.4-8.2) g/dL Albumin (3.4-5.0) g/dL Globulin (2.6-4.0) g/dL Albumin/Globulin Ratio (0.9-1.6) Urine Color Urine Appearance Urine pH (5.0-8.0) Ur Specific [place] (1.001-1.035) Urine Protein (NEGATIVE) mg/dL Urine Glucose (UA) (NEGATIVE) mg/dL Urine Ketones (NEGATIVE) mg/dL Urine Occult Blood (NEGATIVE) Urine Nitrite (NEGATIVE) Urine Bilirubin (NEGATIVE) Urine Urobilinogen (<2.0) EU/dL Ur Leukocyte Esterase (NEGATIVE) Urine RBC (0-2/HPF) Urine WBC (0-5/HPF) Ur Epithelial Cells (NONE-FEW) Urine Bacteria (NEGATIVE) Med Orders - Current: Current Medications Albuterol/Ipratropium (Duoneb 3.0-0.5 Mg/3 Ml) 3 ml NEB Q2H PRN PRN Reason: Wheezing Albuterol/Ipratropium (Duoneb 3.0-0.5 Mg/3 Ml) 3 ml NEB Q6HRRT [facility] Last Admin: 12/21/18 06:27 Dose: 3 ml Aspirin (Aspirin) 81 mg PO DAILY [facility] Last Admin: 12/21/18 08:13 Dose: 81 mg Atorvastatin Calcium (Lipitor) 40 mg PO BEDTIME [facility] Heparin Sodium (Porcine) (Heparin Sodium) 5,000 units SUBCUT Q8H [facility] Last Admin: 12/21/18 11:22 Dose: 5,000 units Sodium Chloride (Normal Saline) 500 mls @ 999 mls/hr IV STAT [facility] Last Admin: 12/20/18 23:56 Dose: 999 mls/hr Levofloxacin/Dextrose 750 mg/ (Premix) 150 mls @ 100 mls/hr IV Q24H [facility] Last Admin: 12/21/18 04:32 Dose: 100 mls/hr Piperacillin Sod/Tazobactam (Sod 4.5 gm/ Sodium Chloride) 100 mls @ 100 mls/hr IV Q6H [facility] Last Admin: 12/21/18 11:22 Dose: 100 mls/hr Pantoprazole Sodium 40 mg/ (Sodium Chloride) 10 mls @ 1 mls/hr IVPUSH Q24H [facility] Last Admin: 12/21/18 08:12 Dose: 1 mls/hr Vancomycin HCl 1 gm/ Sodium (Chloride) 250 mls @ 166.667 mls/hr IV Q12H [facility] Methadone HCl (Methadone) 10 mg PO TID PRN PRN Reason: Pain Last Admin: 12/21/18 08:13 Dose: 10 mg Methylprednisolone Sodium Succinate (Solu-Medrol) 80 mg IVPUSH Q8H [facility] Last Admin: 12/21/18 08:12 Dose: 80 mg Metoprolol Succinate (Toprol Xl) 25 mg PO DAILY [facility] Last Admin: 12/21/18 08:13 Dose: 25 mg Sodium Chloride (Saline Flush) 10 ml FLUSH ASDIRECTED PRN PRN Reason: Keep Vein Open Sodium Chloride (Saline Flush) 2.5 ml FLUSH ASDIRECTED PRN PRN Reason: Keep Vein Open Trazodone HCl (Trazodone Hcl) 100 mg PO BEDTIME [facility] Last Admin: 12/21/18 04:38 Dose: Not Given Vancomycin HCl (Pharmacy To Dose - Vancomycin) 1 dose .XX ASDIRECTED [facility] Discontinued Medications Acetaminophen (Tylenol) Confirm Administered Dose 1,300 mg .ROUTE .STK-MED ONE Stop: 12/20/18 23:55 Last Admin: 12/21/18 00:05 Dose: Not Given Acetaminophen (Tylenol) 1,000 mg RECTAL NOW ONE Stop: 12/20/18 23:55 Last Admin: 12/20/18 23:58 Dose: 1,000 mg Albuterol/Ipratropium (Duoneb 3.0-0.5 Mg/3 Ml) Confirm Administered Dose 3 ml .ROUTE .STK-MED ONE Stop: 12/20/18 23:39 Last Admin: 12/20/18 23:59 Dose: Not Given Albuterol/Ipratropium (Duoneb 3.0-0.5 Mg/3 Ml) 3 ml NEB ONETIME ONE Stop: 12/20/18 23:48 Last Admin: 12/20/18 23:40 Dose: 3 ml Albuterol/Ipratropium (Duoneb 3.0-0.5 Mg/3 Ml) 3 ml NEB ONETIME ONE Stop: 12/20/18 23:49 Last Admin: 12/20/18 23:35 Dose: 3 ml Albuterol/Ipratropium (Duoneb 3.0-0.5 Mg/3 Ml) Confirm Administered Dose 3 ml .ROUTE .STK-MED ONE Stop: 12/20/18 23:49 Last Admin: 12/21/18 00:00 Dose: Not Given Piperacillin Sod/Tazobactam (Sod 3.375 gm/ Sodium Chloride) 50 mls @ 100 mls/ hr IV ONETIME ONE Stop: 12/21/18 01:02 Last Admin: 12/21/18 00:39 Dose: 100 mls/hr Vancomycin HCl 1 gm/ Sodium (Chloride) 250 mls @ 250 mls/hr IV ONETIME ONE Stop: 12/21/18 01:32 Last Admin: 12/21/18 01:33 Dose: 250 mls/hr Pantoprazole Sodium 40 mg/ (Sodium Chloride) 10 mls @ 1 mls/hr IVPUSH Q24H [facility] Last Admin: 12/21/18 05:31 Dose: Not Given Ketorolac Tromethamine (Toradol) 30 mg IVPUSH ONETIME ONE Stop: 12/21/18 00:02 Last Admin: 12/21/18 00:04 Dose: 30 mg Ketorolac Tromethamine (Toradol) Confirm Administered Dose 30 mg .ROUTE .STK- MED ONE Stop: 12/21/18 00:03 Last Admin: 12/21/18 00:05 Dose: Not Given Lorazepam (Ativan) 1 mg IVPUSH ONETIME ONE Stop: 12/21/18 00:33 Last Admin: 12/21/18 00:36 Dose: 1 mg Methadone HCl (Methadone) 10 mg PO NOW ONE Stop: 12/21/18 09:28 Last Admin: 12/21/18 09:36 Dose: 10 mg Methylprednisolone Sodium Succinate (Solu-Medrol) Confirm Administered Dose 125 mg .ROUTE .STK-MED ONE Stop: 12/20/18 23:40 Last Admin: 12/20/18 23:59 Dose: Not Given Methylprednisolone Sodium Succinate (Solu-Medrol) 125 mg IVPUSH ONETIME ONE Stop: 12/20/18 23:48 Last Admin: 12/20/18 23:56 Dose: 125 mg Morphine Sulfate (Morphine) 2 mg IVPUSH ONETIME ONE Stop: 12/21/18 00:16 Last Admin: 12/21/18 00:19 Dose: 2 mg - Exam General: Alert, Oriented Neck: Supple Lungs: Normal Respiratory Effort, Rhonchi GI/Abdominal Exam: Normal Bowel Sounds, Soft, Non-Tender Extremities: No Pedal Edema Skin: Warm, Dry, Intact Neurological: No New Focal Deficit - Problem List Review Problem List Initiated/Reviewed/Updated: Yes - My Orders Last 24 Hours: My Active Orders 12/21/18 03:20 Methadone 10 mg PO TID PRN traZODone HCl [Trazodone HCl] 100 mg PO BEDTIME 12/21/18 03:22 Albuterol/Ipratropium [DuoNeb 3.0-0.5 MG/3 ML] 3 ml NEB Q2H PRN 12/21/18 03:24 Oxygen Therapy [RC] PRN Up ad Dariela [RC] ASDIRECTED VTE/DVT Education [RC] PER UNIT ROUTINE Vital Signs [RC] Q1H Resuscitation Status Routine 12/21/18 03:25 Sequential Compression Device [OM.PC] Per Unit Routine 12/21/18 03:26 Antiembolic Devices [RC] PER UNIT ROUTINE 12/21/18 03:30 Heparin Sodium 5,000 units SUBCUT Q8H Pharmacy to Dose - Vancomycin 1 dose .XX ASDIRECTED 12/21/18 04:00 Levofloxacin/Dextrose 5%-Water [Levaquin in D5W 750 MG/150 ML] 750 mg Premix Bag 1 bag IV Q24H 12/21/18 06:00 Albuterol/Ipratropium [DuoNeb 3.0-0.5 MG/3 ML] 3 ml NEB Q6HRRT Piperacillin/Tazobactam [Piperacil-Tazobact] 4.5 gm Sodium Chloride 0.9% [ Normal Saline] 100 ml IV Q6H 12/21/18 08:00 Pantoprazole [ProTONIX IV] 40 mg Sodium Chloride 0.9% [Normal Saline] 10 ml IVPUSH Q24H methylPREDNISolone Sod Succ [Solu-MEDROL] 80 mg IVPUSH Q8H 12/21/18 09:00 Aspirin 81 mg PO DAILY Metoprolol Succinate [Toprol XL] 25 mg PO DAILY 12/21/18 11:05 CULTURE SPUTUM + SMEAR [RM] Routine 12/21/18 13:00 Vancomycin 1 gm Sodium Chloride 0.9% [Normal Saline] 250 ml IV Q12H 12/21/18 21:00 atorvaSTATin [Lipitor] 40 mg PO BEDTIME 12/21/18 Breakfast Regular Diet [DIET] 12/22/18 05:11 BASIC METABOLIC PANEL,BMP [CHEM] AM CBC WITH AUTO DIFF [HEME] AM - Plan Plan:: 68 yo male admitted for acute respiratory failure and pneumonia Respiratory failure: weaned off bipap, no on NC Pneumonia: continue vancomycin, zosyn, levaquin COPD: on solumedrol and duonebs Chronic pain: on methadone
[2018-12-21] MEDS ORDERED: Vancomycin 1 GM SDV ONE (12:33)
[2018-12-21] MEDS ORDERED: Methadone Oral Concentrate 10 MG/1 ML ML 30 ML Bottle PO PRN (19:00)
[2018-12-21] MEDS: atorvaSTATin 40 MG Tab PO SCH (22:03)
[2018-12-21] MEDS: traZODone 50 MG Tab PO SCH (22:16)
[2018-12-22] MEDS: Levofloxacin/Dextrose 5%-Water 750 MG in Premix Bag 1 BAG IV SCH (04:48)
[2018-12-22] MEDS: Heparin Sodium 5,000 Units/ML Vial SUBCUT SCH ×3 (04:56→19:15)
[2018-12-22] MEDS: Albuterol/Ipratropium 3.0-0.5 MG/3 ML Neb Soln NEB SCH ×3 (05:44→18:24)
[2018-12-22 06:13] LABS: CHLORIDE,CL 106 mmol/L (98-107); SODIUM,NA 140 mmol/L (136-148)
[2018-12-22] MEDS: Piperacillin/Tazobactam 4.5 GM in Sodium Chloride 0.9% 100 ML IV SCH ×3 (06:32→18:10)
[2018-12-22] MEDS: Aspirin 81 MG Tab.Chew PO SCH (08:04)
[2018-12-22] MEDS: Pantoprazole 40 MG in Sodium Chloride 0.9% 10 ML IVPUSH SCH (08:04)
[2018-12-22] MEDS: Metoprolol Succinate 25 MG Tab.ER PO SCH (08:04)
[2018-12-22] MEDS: methylPREDNISolone Sodium Succinate 40 MG/1 ML SDV IVPUSH SCH (08:04)
[2018-12-22] MEDS: Methadone 10 MG Tab PO SCH (08:05)
[2018-12-22] MEDS ORDERED: Sodium Chloride 0.9% Inhalation Soln 3 ML Neb INH PRN (08:11)
--- NOTE | 2018-12-22 08:16 | PCM.PN ---
- General Info Date of Service: 12/22/18 - Review of Systems Systems Review Comment:: feeling a little better, reports thick mucous that is difficult to cough up - Patient Data Vitals - Most Recent: Last Vital Signs Temp 36.3 C 12/22/18 04:00 Pulse 89 12/22/18 08:04 Resp 11 L 12/22/18 07:00 BP 125/54 L 12/22/18 08:04 Pulse Ox 88 L 12/22/18 07:00 Weight - Most Recent: 68.266 kg I&O - Last 24 Hours: Intake & Output 12/21/18 12/22/18 12/22/18 22:59 06:59 14:59 Intake Total 350 Output Total 1350 Balance 350 -1350 Lab Results Last 24 Hours: Laboratory Results - last 24 hr 12/22/18 12/22/18 Range/Units 05:45 05:45 WBC 13.82 H (4.0-11.0) K/uL RBC 5.07 (4.50-5.90) M/uL Hgb 13.3 (13.0-17.0) g/dL Hct 41.7 (38.0-50.0) % MCV 82.2 (80.0-98.0) fL MCH 26.2 L (27.0-32.0) pg MCHC 31.9 (31.0-37.0) g/dL RDW Std Deviation 45.1 (28.0-62.0) fl RDW Coeff of [place] 15 (11.0-15.0) % Plt Count 153 (150-400) K/uL MPV 9.50 (7.40-12.00) fL Neut % (Auto) 94.4 H (48.0-80.0) % Lymph % (Auto) 3.8 L (16.0-40.0) % [place] % (Auto) 1.8 (0.0-15.0) % Eos % (Auto) 0.0 (0.0-7.0) % Baso % (Auto) 0.0 (0.0-1.5) % Neut # (Auto) 13.0 H (1.4-5.7) K/uL Lymph # (Auto) 0.5 L (0.6-2.4) K/uL [place] # (Auto) 0.3 (0.0-0.8) K/uL Eos # (Auto) 0.0 (0.0-0.7) K/uL Baso # (Auto) 0.0 (0.0-0.1) K/uL Nucleated RBC % 0.0 /100WBC Nucleated RBCs # 0 K/uL Sodium 140 (136-148) mmol/L Potassium 4.0 (3.5-5.1) mmol/L Chloride 106 (98-107) mmol/L Carbon Dioxide 24.8 (21.0-32.0) mmol/L BUN 21 H (7.0-18.0) mg/dL Creatinine 1.0 (0.8-1.3) mg/dL Est Cr Clr Drug Dosing 68.27 mL/min Estimated GFR (MDRD) > 60.0 ml/min Glucose 178 H (74-106) mg/dL Calcium 8.5 (8.5-10.1) mg/dL Jose Daniel Results Last 24 Hours: Microbiology 12/20/18 23:49 Aerobic Blood Culture - Preliminary Blood - Venous - Lab Draw NO GROWTH AFTER 1 DAY Anaerobic Blood Culture - Preliminary NO GROWTH AFTER 1 DAY 12/20/18 23:43 Aerobic Blood Culture - Preliminary Blood - Venous NO GROWTH AFTER 1 DAY Anaerobic Blood Culture - Preliminary NO GROWTH AFTER 1 DAY 12/21/18 11:05 Gram Stain - Preliminary Sputum - Expectorated Med Orders - Current: Current Medications Albuterol/Ipratropium (Duoneb 3.0-0.5 Mg/3 Ml) 3 ml NEB Q2H PRN PRN Reason: Wheezing Albuterol/Ipratropium (Duoneb 3.0-0.5 Mg/3 Ml) 3 ml NEB Q6HRRT [facility] Last Admin: 12/22/18 05:44 Dose: 3 ml Aspirin (Aspirin) 81 mg PO DAILY [facility] Last Admin: 12/22/18 08:04 Dose: 81 mg Atorvastatin Calcium (Lipitor) 40 mg PO BEDTIME [facility] Last Admin: 12/21/18 22:03 Dose: 40 mg Heparin Sodium (Porcine) (Heparin Sodium) 5,000 units SUBCUT Q8H [facility] Last Admin: 12/22/18 04:56 Dose: 5,000 units Sodium Chloride (Normal Saline) 500 mls @ 999 mls/hr IV STAT [facility] Last Admin: 12/20/18 23:56 Dose: 999 mls/hr Levofloxacin/Dextrose 750 mg/ (Premix) 150 mls @ 100 mls/hr IV Q24H [facility] Last Admin: 12/22/18 04:48 Dose: 100 mls/hr Piperacillin Sod/Tazobactam (Sod 4.5 gm/ Sodium Chloride) 100 mls @ 100 mls/hr IV Q6H [facility] Last Admin: 12/22/18 06:32 Dose: 100 mls/hr Pantoprazole Sodium 40 mg/ (Sodium Chloride) 10 mls @ 1 mls/hr IVPUSH Q24H [facility] Last Admin: 12/22/18 08:04 Dose: 1 mls/hr Vancomycin HCl 1 gm/ Sodium (Chloride) 250 mls @ 166.667 mls/hr IV Q12H [facility] Last Admin: 12/22/18 00:53 Dose: 166.667 mls/hr Methadone HCl (Methadone Intensol) 10 mg PO BID PRN PRN Reason: Pain Methadone HCl (Methadone) 20 mg PO DAILY [facility] Last Admin: 12/22/18 08:05 Dose: 20 mg Methylprednisolone Sodium Succinate (Solu-Medrol) 80 mg IVPUSH DAILY [facility] Metoprolol Succinate (Toprol Xl) 25 mg PO DAILY [facility] Last Admin: 12/22/18 08:04 Dose: 25 mg Non-Formulary Medication (Patient's Own Medication) 1 each PO BID [facility] Sodium Chloride (Saline Flush) 10 ml FLUSH ASDIRECTED PRN PRN Reason: Keep Vein Open Sodium Chloride (Saline Flush) 2.5 ml FLUSH ASDIRECTED PRN PRN Reason: Keep Vein Open Sodium Chloride (Sodium Chloride 0.9%) 3 ml INH ASDIRECTED PRN PRN Reason: Shortness of Breath Trazodone HCl (Trazodone) 100 mg PO BEDTIME [facility] Last Admin: 12/21/18 22:16 Dose: 100 mg Vancomycin HCl (Pharmacy To Dose - Vancomycin) 1 dose .XX ASDIRECTED [facility] Discontinued Medications Acetaminophen (Tylenol) Confirm Administered Dose 1,300 mg .ROUTE .STK-MED ONE Stop: 12/20/18 23:55 Last Admin: 12/21/18 00:05 Dose: Not Given Acetaminophen (Tylenol) 1,000 mg RECTAL NOW ONE Stop: 12/20/18 23:55 Last Admin: 12/20/18 23:58 Dose: 1,000 mg Albuterol/Ipratropium (Duoneb 3.0-0.5 Mg/3 Ml) Confirm Administered Dose 3 ml .ROUTE .STK-MED ONE Stop: 12/20/18 23:39 Last Admin: 12/20/18 23:59 Dose: Not Given Albuterol/Ipratropium (Duoneb 3.0-0.5 Mg/3 Ml) 3 ml NEB ONETIME ONE Stop: 12/20/18 23:48 Last Admin: 12/20/18 23:40 Dose: 3 ml Albuterol/Ipratropium (Duoneb 3.0-0.5 Mg/3 Ml) 3 ml NEB ONETIME ONE Stop: 12/20/18 23:49 Last Admin: 12/20/18 23:35 Dose: 3 ml Albuterol/Ipratropium (Duoneb 3.0-0.5 Mg/3 Ml) Confirm Administered Dose 3 ml .ROUTE .STK-MED ONE Stop: 12/20/18 23:49 Last Admin: 12/21/18 00:00 Dose: Not Given Piperacillin Sod/Tazobactam (Sod 3.375 gm/ Sodium Chloride) 50 mls @ 100 mls/ hr IV ONETIME ONE Stop: 12/21/18 01:02 Last Admin: 12/21/18 00:39 Dose: 100 mls/hr Vancomycin HCl 1 gm/ Sodium (Chloride) 250 mls @ 250 mls/hr IV ONETIME ONE Stop: 12/21/18 01:32 Last Admin: 12/21/18 01:33 Dose: 250 mls/hr Pantoprazole Sodium 40 mg/ (Sodium Chloride) 10 mls @ 1 mls/hr IVPUSH Q24H [facility] Last Admin: 12/21/18 05:31 Dose: Not Given Vancomycin HCl 1 gm/ Sodium (Chloride) 250 mls @ 166.667 mls/hr IV Q12H [facility] Ketorolac Tromethamine (Toradol) 30 mg IVPUSH ONETIME ONE Stop: 12/21/18 00:02 Last Admin: 12/21/18 00:04 Dose: 30 mg Ketorolac Tromethamine (Toradol) Confirm Administered Dose 30 mg .ROUTE .STK- MED ONE Stop: 12/21/18 00:03 Last Admin: 12/21/18 00:05 Dose: Not Given Lorazepam (Ativan) 1 mg IVPUSH ONETIME ONE Stop: 12/21/18 00:33 Last Admin: 12/21/18 00:36 Dose: 1 mg Methadone HCl (Methadone) 10 mg PO TID PRN PRN Reason: Pain Last Admin: 12/21/18 18:08 Dose: 10 mg Methadone HCl (Methadone) 10 mg PO NOW ONE Stop: 12/21/18 09:28 Last Admin: 12/21/18 09:36 Dose: 10 mg Methylprednisolone Sodium Succinate (Solu-Medrol) Confirm Administered Dose 125 mg .ROUTE .STK-MED ONE Stop: 12/20/18 23:40 Last Admin: 12/20/18 23:59 Dose: Not Given Methylprednisolone Sodium Succinate (Solu-Medrol) 125 mg IVPUSH ONETIME ONE Stop: 12/20/18 23:48 Last Admin: 12/20/18 23:56 Dose: 125 mg Methylprednisolone Sodium Succinate (Solu-Medrol) 80 mg IVPUSH Q8H [facility] Last Admin: 12/22/18 08:04 Dose: 80 mg Morphine Sulfate (Morphine) 2 mg IVPUSH ONETIME ONE Stop: 12/21/18 00:16 Last Admin: 12/21/18 00:19 Dose: 2 mg Trazodone HCl (Trazodone Hcl) 100 mg PO BEDTIME [facility] Last Admin: 12/21/18 22:34 Dose: Not Given Trazodone HCl (Trazodone) 100 mg PO BEDTIME [facility]EVIN Vancomycin HCl (Vancomycin) Confirm Administered Dose 1 gm .ROUTE .STK-MED ONE Stop: 12/21/18 12:34 Last Admin: 12/21/18 13:07 Dose: Not Given - Exam General: Alert, Oriented Neck: Supple Lungs: Rhonchi, Wheezing Cardiovascular: Regular Rate, Regular Rhythm GI/Abdominal Exam: Soft, Non-Tender, No Distention Extremities: Non-Tender, No Pedal Edema Skin: Warm, Dry, Intact - Problem List Review Problem List Initiated/Reviewed/Updated: Yes - My Orders Last 24 Hours: My Active Orders 12/21/18 08:00 Pantoprazole [ProTONIX IV] 40 mg Sodium Chloride 0.9% [Normal Saline] 10 ml IVPUSH Q24H 12/21/18 09:00 Aspirin 81 mg PO DAILY Metoprolol Succinate [Toprol XL] 25 mg PO DAILY 12/21/18 11:05 CULTURE SPUTUM + SMEAR [RM] Routine 12/21/18 13:00 Vancomycin 1 gm Sodium Chloride 0.9% [Normal Saline] 250 ml IV Q12H 12/21/18 19:00 Methadone [methadone Intensol] 10 mg PO BID PRN 12/21/18 21:00 Patient's Own Medication 1 each PO BID atorvaSTATin [Lipitor] 40 mg PO BEDTIME 12/21/18 22:00 traZODone 100 mg PO BEDTIME 12/22/18 08:11 Sodium Chloride 0.9% 3 ml INH ASDIRECTED PRN 12/22/18 08:12 Chest Physiotherapy [RT Chest Physiotherapy] [RC] ASDIRECTED 12/22/18 08:14 Transfer Patient (Change bed) [ADT] Routine 12/22/18 09:00 Methadone 20 mg PO DAILY methylPREDNISolone Sod Succ [Solu-MEDROL] 80 mg IVPUSH DAILY 12/23/18 05:11 BASIC METABOLIC PANEL,BMP [CHEM] AM CBC WITH AUTO DIFF [HEME] AM 12/24/18 05:11 BASIC METABOLIC PANEL,BMP [CHEM] AM CBC WITH AUTO DIFF [HEME] AM - Plan Plan:: 68 yo male admitted for acute respiratory failure and pneumonia Pneumonia: continue vancomycin, zosyn, levaquin, will place on saline nebs and chest PT COPD: on solumedrol 80 mg daily and duonebs Chronic pain: on methadone
[2018-12-22] MEDS ORDERED: Levofloxacin 500 MG Tab PO SCH (08:30)
[2018-12-22] MEDS ORDERED: methylPREDNISolone Sodium Succinate 40 MG/1 ML SDV IVPUSH SCH (09:00)
[2018-12-22] MEDS: PROBIOTICS PO SCH ×2 (10:19→21:13)
[2018-12-22] MEDS: Methadone 10 MG Tab PO PRN ×2 (12:52→23:03)
[2018-12-22] MEDS ORDERED: traZODone 50 MG Tab PO SCH (21:00)
[2018-12-22] MEDS: atorvaSTATin 40 MG Tab PO SCH (21:09)
[2018-12-22] MEDS: traZODone 50 MG Tab PO SCH (23:02)
[2018-12-23] MEDS: Piperacillin/Tazobactam 4.5 GM in Sodium Chloride 0.9% 100 ML IV SCH ×4 (00:09→18:20)
[2018-12-23] MEDS: Albuterol/Ipratropium 3.0-0.5 MG/3 ML Neb Soln NEB SCH ×4 (00:09→17:38)
[2018-12-23] MEDS: Heparin Sodium 5,000 Units/ML Vial SUBCUT SCH ×3 (04:39→19:43)
[2018-12-23] MEDS: Levofloxacin 500 MG Tab PO SCH (04:39)
[2018-12-23 06:29] LABS: CHLORIDE,CL 107 mmol/L (98-107); SODIUM,NA 142 mmol/L (136-148)
[2018-12-23] MEDS: predniSONE 20 MG Tab PO SCH (08:45)
[2018-12-23] MEDS: Methadone 10 MG Tab PO SCH (08:46)
[2018-12-23] MEDS: Aspirin 81 MG Tab.Chew PO SCH (08:49)
[2018-12-23] MEDS: PROBIOTICS PO SCH ×2 (08:49→20:48)
[2018-12-23] MEDS: Metoprolol Succinate 25 MG Tab.ER PO SCH (08:49)
[2018-12-23] MEDS: Pantoprazole 40 MG in Sodium Chloride 0.9% 10 ML IVPUSH SCH (08:51)
--- NOTE | 2018-12-23 11:35 | PCM.PN ---
- General Info Date of Service: 12/23/18 - Review of Systems Systems Review Comment:: feeling better, reports thick mucous - Patient Data Vitals - Most Recent: Last Vital Signs Temp 36.7 C 12/23/18 08:00 Pulse 83 12/23/18 08:49 Resp 14 12/23/18 08:00 BP 150/65 H 12/23/18 08:49 Pulse Ox 93 L 12/23/18 08:00 Weight - Most Recent: 68.266 kg I&O - Last 24 Hours: Intake & Output 12/22/18 12/23/18 12/23/18 22:59 06:59 14:59 Intake Total 480 600 480 Output Total 0 Balance 480 600 480 Lab Results Last 24 Hours: Laboratory Results - last 24 hr 12/22/18 12/23/18 12/23/18 Range/Units 12:34 05:50 05:50 WBC 15.57 H (4.0-11.0) K/uL RBC 5.00 (4.50-5.90) M/uL Hgb 12.8 L (13.0-17.0) g/dL Hct 41.8 (38.0-50.0) % MCV 83.6 (80.0-98.0) fL MCH 25.6 L (27.0-32.0) pg MCHC 30.6 L (31.0-37.0) g/dL RDW Std Deviation 46.5 (28.0-62.0) fl RDW Coeff of Yury 15 (11.0-15.0) % Plt Count 169 (150-400) K/uL MPV 9.20 (7.40-12.00) fL Neut % (Auto) 88.0 H (48.0-80.0) % Lymph % (Auto) 6.2 L (16.0-40.0) % [place] % (Auto) 5.8 (0.0-15.0) % Eos % (Auto) 0.0 (0.0-7.0) % Baso % (Auto) 0.0 (0.0-1.5) % Neut # (Auto) 13.7 H (1.4-5.7) K/uL Lymph # (Auto) 1.0 (0.6-2.4) K/uL [place] # (Auto) 0.9 H (0.0-0.8) K/uL Eos # (Auto) 0.0 (0.0-0.7) K/uL Baso # (Auto) 0.0 (0.0-0.1) K/uL Nucleated RBC % 0.0 /100WBC Nucleated RBCs # 0 K/uL Sodium 142 (136-148) mmol/L Potassium 4.6 (3.5-5.1) mmol/L Chloride 107 (98-107) mmol/L Carbon Dioxide 28.7 (21.0-32.0) mmol/L BUN 19 H (7.0-18.0) mg/dL Creatinine 1.0 (0.8-1.3) mg/dL Est Cr Clr Drug Dosing 68.27 mL/min Estimated GFR (MDRD) > 60.0 ml/min Glucose 130 H (74-106) mg/dL Calcium 8.5 (8.5-10.1) mg/dL Vancomycin Trough 8.1 (5.0-10.0) ug/mL Jose Daniel Results Last 24 Hours: Microbiology 12/20/18 00:13 Urine Culture - Final Urine, Clean Catch MIXED HAIR <1000 CFU/ML 12/20/18 23:49 Aerobic Blood Culture - Preliminary Blood - Venous - Lab Draw NO GROWTH AFTER 2 DAYS Anaerobic Blood Culture - Preliminary NO GROWTH AFTER 2 DAYS 12/20/18 23:43 Aerobic Blood Culture - Preliminary Blood - Venous NO GROWTH AFTER 2 DAYS Anaerobic Blood Culture - Preliminary NO GROWTH AFTER 2 DAYS 12/21/18 11:05 Gram Stain - Preliminary Sputum - Expectorated Med Orders - Current: Current Medications Albuterol/Ipratropium (Duoneb 3.0-0.5 Mg/3 Ml) 3 ml NEB Q2H PRN PRN Reason: Wheezing Albuterol/Ipratropium (Duoneb 3.0-0.5 Mg/3 Ml) 3 ml NEB Q6HRRT [facility] Last Admin: 12/23/18 11:08 Dose: 3 ml Aspirin (Aspirin) 81 mg PO DAILY [facility] Last Admin: 12/23/18 08:49 Dose: 81 mg Atorvastatin Calcium (Lipitor) 40 mg PO BEDTIME [facility] Last Admin: 12/22/18 21:09 Dose: 40 mg Heparin Sodium (Porcine) (Heparin Sodium) 5,000 units SUBCUT Q8H [facility] Last Admin: 12/23/18 04:39 Dose: 5,000 units Sodium Chloride (Normal Saline) 500 mls @ 999 mls/hr IV STAT [facility] Last Admin: 12/20/18 23:56 Dose: 999 mls/hr Piperacillin Sod/Tazobactam (Sod 4.5 gm/ Sodium Chloride) 100 mls @ 100 mls/hr IV Q6H [facility] Last Admin: 12/23/18 06:09 Dose: 100 mls/hr Pantoprazole Sodium 40 mg/ (Sodium Chloride) 10 mls @ 1 mls/hr IVPUSH Q24H [facility] Last Admin: 12/23/18 08:51 Dose: 1 mls/hr Vancomycin HCl 1 gm/ Sodium (Chloride) 250 mls @ 166.667 mls/hr IV Q8H [facility] Last Admin: 12/23/18 04:40 Dose: 166.667 mls/hr Levofloxacin (Levaquin) 500 mg PO Q24H [facility] Last Admin: 12/23/18 04:39 Dose: 500 mg Methadone HCl (Methadone) 20 mg PO DAILY [facility] Last Admin: 12/23/18 08:46 Dose: 20 mg Methadone HCl (Methadone) 10 mg PO BID PRN PRN Reason: Pain Last Admin: 12/22/18 23:03 Dose: 10 mg Metoprolol Succinate (Toprol Xl) 25 mg PO DAILY [facility] Last Admin: 12/23/18 08:49 Dose: 25 mg Probiotics 40 (Billion Cfu) 1 each PO DAILY [facility] Last Admin: 12/23/18 08:49 Dose: 1 each Probiotics 30 (Billion) 1 each PO BEDTIME [facility] Last Admin: 12/22/18 21:13 Dose: 1 each Prednisone (Prednisone) 40 mg PO WITHBREAKFAST [facility] Last Admin: 12/23/18 08:45 Dose: 40 mg Sodium Chloride (Saline Flush) 10 ml FLUSH ASDIRECTED PRN PRN Reason: Keep Vein Open Sodium Chloride (Saline Flush) 2.5 ml FLUSH ASDIRECTED PRN PRN Reason: Keep Vein Open Sodium Chloride (Sodium Chloride 0.9%) 3 ml INH ASDIRECTED PRN PRN Reason: Shortness of Breath Trazodone HCl (Trazodone) 100 mg PO BEDTIME [facility] Last Admin: 12/22/18 23:02 Dose: 100 mg Vancomycin HCl (Pharmacy To Dose - Vancomycin) 1 dose .XX ASDIRECTED KEVIN Discontinued Medications Acetaminophen (Tylenol) Confirm Administered Dose 1,300 mg .ROUTE .STK-MED ONE Stop: 12/20/18 23:55 Last Admin: 12/21/18 00:05 Dose: Not Given Acetaminophen (Tylenol) 1,000 mg RECTAL NOW ONE Stop: 12/20/18 23:55 Last Admin: 12/20/18 23:58 Dose: 1,000 mg Albuterol/Ipratropium (Duoneb 3.0-0.5 Mg/3 Ml) Confirm Administered Dose 3 ml .ROUTE .STK-MED ONE Stop: 12/20/18 23:39 Last Admin: 12/20/18 23:59 Dose: Not Given Albuterol/Ipratropium (Duoneb 3.0-0.5 Mg/3 Ml) 3 ml NEB ONETIME ONE Stop: 12/20/18 23:48 Last Admin: 12/20/18 23:40 Dose: 3 ml Albuterol/Ipratropium (Duoneb 3.0-0.5 Mg/3 Ml) 3 ml NEB ONETIME ONE Stop: 12/20/18 23:49 Last Admin: 12/20/18 23:35 Dose: 3 ml Albuterol/Ipratropium (Duoneb 3.0-0.5 Mg/3 Ml) Confirm Administered Dose 3 ml .ROUTE .STK-MED ONE Stop: 12/20/18 23:49 Last Admin: 12/21/18 00:00 Dose: Not Given Piperacillin Sod/Tazobactam (Sod 3.375 gm/ Sodium Chloride) 50 mls @ 100 mls/ hr IV ONETIME ONE Stop: 12/21/18 01:02 Last Admin: 12/21/18 00:39 Dose: 100 mls/hr Vancomycin HCl 1 gm/ Sodium (Chloride) 250 mls @ 250 mls/hr IV ONETIME ONE Stop: 12/21/18 01:32 Last Admin: 12/21/18 01:33 Dose: 250 mls/hr Levofloxacin/Dextrose 750 mg/ (Premix) 150 mls @ 100 mls/hr IV Q24H [facility] Last Admin: 12/22/18 04:48 Dose: 100 mls/hr Pantoprazole Sodium 40 mg/ (Sodium Chloride) 10 mls @ 1 mls/hr IVPUSH Q24H [facility] Last Admin: 12/21/18 05:31 Dose: Not Given Vancomycin HCl 1 gm/ Sodium (Chloride) 250 mls @ 166.667 mls/hr IV Q12H [facility] Vancomycin HCl 1 gm/ Sodium (Chloride) 250 mls @ 166.667 mls/hr IV Q12H [facility] Last Admin: 12/22/18 13:31 Dose: 166.667 mls/hr Ketorolac Tromethamine (Toradol) 30 mg IVPUSH ONETIME ONE Stop: 12/21/18 00:02 Last Admin: 12/21/18 00:04 Dose: 30 mg Ketorolac Tromethamine (Toradol) Confirm Administered Dose 30 mg .ROUTE .STK- MED ONE Stop: 12/21/18 00:03 Last Admin: 12/21/18 00:05 Dose: Not Given Levofloxacin (Levaquin) 500 mg PO Q24H [facility] Last Admin: 12/22/18 10:44 Dose: Not Given Lorazepam (Ativan) 1 mg IVPUSH ONETIME ONE Stop: 12/21/18 00:33 Last Admin: 12/21/18 00:36 Dose: 1 mg Methadone HCl (Methadone) 10 mg PO TID PRN PRN Reason: Pain Last Admin: 12/21/18 18:08 Dose: 10 mg Methadone HCl (Methadone) 10 mg PO NOW ONE Stop: 12/21/18 09:28 Last Admin: 12/21/18 09:36 Dose: 10 mg Methylprednisolone Sodium Succinate (Solu-Medrol) Confirm Administered Dose 125 mg .ROUTE .STK-MED ONE Stop: 12/20/18 23:40 Last Admin: 12/20/18 23:59 Dose: Not Given Methylprednisolone Sodium Succinate (Solu-Medrol) 125 mg IVPUSH ONETIME ONE Stop: 12/20/18 23:48 Last Admin: 12/20/18 23:56 Dose: 125 mg Methylprednisolone Sodium Succinate (Solu-Medrol) 80 mg IVPUSH Q8H [facility] Last Admin: 12/22/18 08:04 Dose: 80 mg Methylprednisolone Sodium Succinate (Solu-Medrol) 80 mg IVPUSH DAILY [facility] Morphine Sulfate (Morphine) 2 mg IVPUSH ONETIME ONE Stop: 12/21/18 00:16 Last Admin: 12/21/18 00:19 Dose: 2 mg Trazodone HCl (Trazodone Hcl) 100 mg PO BEDTIME [facility] Last Admin: 12/21/18 22:34 Dose: Not Given Trazodone HCl (Trazodone) 100 mg PO BEDTIME [facility] Vancomycin HCl (Vancomycin) Confirm Administered Dose 1 gm .ROUTE .STK-MED ONE Stop: 12/21/18 12:34 Last Admin: 12/21/18 13:07 Dose: Not Given - Problem List Review Problem List Initiated/Reviewed/Updated: Yes - My Orders Last 24 Hours: My Active Orders 12/22/18 11:45 Overnight Pulse Oximetry [RC] Click to Edit Pulse Oximetry Continuous Monitoring [OM.PC] Routine 12/22/18 12:29 Methadone 10 mg PO BID PRN 12/22/18 21:00 Vancomycin 1 gm Sodium Chloride 0.9% [Normal Saline] 250 ml IV Q8H 12/23/18 12:30 VANCOMYCIN TROUGH [CHEM] Routine 12/24/18 05:11 BASIC METABOLIC PANEL,BMP [CHEM] AM CBC WITH AUTO DIFF [HEME] AM - Plan Plan:: 68 yo male admitted for acute respiratory failure and pneumonia Pneumonia: on broad spectrum antibiotics due to failure of multiple antibiotics , on saline nebs and chest PT. awaiting culture results COPD: on prednisone and duonebs Chronic pain: on methadone
[2018-12-23] MEDS: Docusate Sodium 100 MG Cap PO PRN (12:52)
[2018-12-23] MEDS: Methadone 10 MG Tab PO PRN ×2 (14:27→22:28)
[2018-12-23] MEDS: atorvaSTATin 40 MG Tab PO SCH (20:48)
[2018-12-23] MEDS: traZODone 50 MG Tab PO SCH (22:27)
[2018-12-24] MEDS: Albuterol/Ipratropium 3.0-0.5 MG/3 ML Neb Soln NEB SCH ×4 (00:22→18:05)
[2018-12-24] MEDS: Piperacillin/Tazobactam 4.5 GM in Sodium Chloride 0.9% 100 ML IV SCH ×4 (00:22→18:48)
[2018-12-24] MEDS: Docusate Sodium 100 MG Cap PO PRN ×2 (00:28→20:39)
[2018-12-24] MEDS: Levofloxacin 500 MG Tab PO SCH (04:39)
[2018-12-24] MEDS: Heparin Sodium 5,000 Units/ML Vial SUBCUT SCH ×3 (04:40→18:50)
[2018-12-24 05:40] LABS: CHLORIDE,CL 105 mmol/L (98-107); SODIUM,NA 141 mmol/L (136-148)
[2018-12-24] MEDS: predniSONE 20 MG Tab PO SCH (08:34)
[2018-12-24] MEDS: Methadone 10 MG Tab PO SCH (08:35)
[2018-12-24] MEDS: Aspirin 81 MG Tab.Chew PO SCH (08:35)
[2018-12-24] MEDS: Metoprolol Succinate 25 MG Tab.ER PO SCH (09:08)
[2018-12-24] MEDS: PROBIOTICS PO SCH ×2 (09:09→20:40)
[2018-12-24] MEDS: Pantoprazole 40 MG in Sodium Chloride 0.9% 10 ML IVPUSH SCH (09:27)
--- NOTE | 2018-12-24 11:45 | PCM.PN ---
- General Info Date of Service: 12/24/18 - Review of Systems Systems Review Comment:: patient reports thick sticky sputum, he is having shortness of breath with walking, He desats with exertion. does not feel ready for discharge. - Patient Data Vitals - Most Recent: Last Vital Signs Temp 36.3 C 12/24/18 08:00 Pulse 78 12/24/18 09:08 Resp 13 12/24/18 08:00 BP 140/80 12/24/18 09:08 Pulse Ox 92 L 12/24/18 08:00 Weight - Most Recent: 68.266 kg I&O - Last 24 Hours: Intake & Output 12/23/18 12/24/18 12/24/18 22:59 06:59 14:59 Intake Total 2170 1640 360 Output Total 925 2125 Balance 1245 -485 360 Lab Results Last 24 Hours: Laboratory Results - last 24 hr 12/23/18 12/24/18 12/24/18 Range/Units 12:33 04:53 04:53 WBC 13.62 H (4.0-11.0) K/uL RBC 5.04 (4.50-5.90) M/uL Hgb 12.9 L (13.0-17.0) g/dL Hct 41.7 (38.0-50.0) % MCV 82.7 (80.0-98.0) fL MCH 25.6 L (27.0-32.0) pg MCHC 30.9 L (31.0-37.0) g/dL RDW Std Deviation 45.7 (28.0-62.0) fl RDW Coeff of Yury 15 (11.0-15.0) % Plt Count 183 (150-400) K/uL MPV 9.50 (7.40-12.00) fL Neut % (Auto) 80.9 H (48.0-80.0) % Lymph % (Auto) 12.3 L (16.0-40.0) % [place] % (Auto) 6.8 (0.0-15.0) % Eos % (Auto) 0.0 (0.0-7.0) % Baso % (Auto) 0.0 (0.0-1.5) % Neut # (Auto) 11.0 H (1.4-5.7) K/uL Lymph # (Auto) 1.7 (0.6-2.4) K/uL [place] # (Auto) 0.9 H (0.0-0.8) K/uL Eos # (Auto) 0.0 (0.0-0.7) K/uL Baso # (Auto) 0.0 (0.0-0.1) K/uL Nucleated RBC % 0.0 /100WBC Nucleated RBCs # 0 K/uL Sodium 141 (136-148) mmol/L Potassium 3.9 (3.5-5.1) mmol/L Chloride 105 (98-107) mmol/L Carbon Dioxide 30.5 (21.0-32.0) mmol/L BUN 19 H (7.0-18.0) mg/dL Creatinine 1.0 (0.8-1.3) mg/dL Est Cr Clr Drug Dosing 68.27 mL/min Estimated GFR (MDRD) > 60.0 ml/min Glucose 114 H (74-106) mg/dL Calcium 8.6 (8.5-10.1) mg/dL Vancomycin Trough 15.7 H (5.0-10.0) ug/mL Jose Daniel Results Last 24 Hours: Microbiology 12/20/18 23:49 Aerobic Blood Culture - Preliminary Blood - Venous - Lab Draw NO GROWTH AFTER 3 DAYS Anaerobic Blood Culture - Preliminary NO GROWTH AFTER 3 DAYS 12/20/18 23:43 Aerobic Blood Culture - Preliminary Blood - Venous NO GROWTH AFTER 3 DAYS Anaerobic Blood Culture - Preliminary NO GROWTH AFTER 3 DAYS 12/21/18 11:05 Gram Stain - Final Sputum - Expectorated Sputum Culture - Final Normal Respiratory Tayla Yeast 12/20/18 00:13 Urine Culture - Final Urine, Clean Catch MIXED TAYLA <1000 CFU/ML Med Orders - Current: Current Medications Albuterol/Ipratropium (Duoneb 3.0-0.5 Mg/3 Ml) 3 ml NEB Q2H PRN PRN Reason: Wheezing Albuterol/Ipratropium (Duoneb 3.0-0.5 Mg/3 Ml) 3 ml NEB Q6HRRT [facility] Last Admin: 12/24/18 11:28 Dose: 3 ml Aspirin (Aspirin) 81 mg PO DAILY [facility] Last Admin: 12/24/18 08:35 Dose: 81 mg Atorvastatin Calcium (Lipitor) 40 mg PO BEDTIME [facility] Last Admin: 12/23/18 20:48 Dose: 40 mg Docusate Sodium (Colace) 100 mg PO BID PRN PRN Reason: Constipation Last Admin: 12/24/18 00:28 Dose: 100 mg Heparin Sodium (Porcine) (Heparin Sodium) 5,000 units SUBCUT Q8H [facility] Last Admin: 12/24/18 04:40 Dose: 5,000 units Sodium Chloride (Normal Saline) 500 mls @ 999 mls/hr IV STAT [facility] Last Admin: 12/20/18 23:56 Dose: 999 mls/hr Piperacillin Sod/Tazobactam (Sod 4.5 gm/ Sodium Chloride) 100 mls @ 100 mls/hr IV Q6H [facility] Last Admin: 12/24/18 05:56 Dose: 100 mls/hr Pantoprazole Sodium 40 mg/ (Sodium Chloride) 10 mls @ 1 mls/hr IVPUSH Q24H [facility] Last Admin: 12/24/18 09:27 Dose: 1 mls/hr Levofloxacin (Levaquin) 500 mg PO Q24H [facility] Last Admin: 12/24/18 04:39 Dose: 500 mg Methadone HCl (Methadone) 20 mg PO DAILY [facility] Last Admin: 12/24/18 08:35 Dose: 20 mg Methadone HCl (Methadone) 10 mg PO BID PRN PRN Reason: Pain Last Admin: 12/23/18 22:28 Dose: 10 mg Metoprolol Succinate (Toprol Xl) 25 mg PO DAILY [facility] Last Admin: 12/24/18 09:08 Dose: 25 mg Probiotics 40 (Billion Cfu) 1 each PO DAILY [facility] Last Admin: 12/24/18 09:09 Dose: 1 each Probiotics 30 (Billion) 1 each PO BEDTIME [facility] Last Admin: 12/23/18 20:48 Dose: 1 each Prednisone (Prednisone) 40 mg PO WITHBREAKFAST [facility] Last Admin: 12/24/18 08:34 Dose: 40 mg Sodium Chloride (Saline Flush) 10 ml FLUSH ASDIRECTED PRN PRN Reason: Keep Vein Open Sodium Chloride (Saline Flush) 2.5 ml FLUSH ASDIRECTED PRN PRN Reason: Keep Vein Open Sodium Chloride (Sodium Chloride 0.9%) 3 ml INH ASDIRECTED PRN PRN Reason: Shortness of Breath Trazodone HCl (Trazodone) 100 mg PO BEDTIME [facility] Last Admin: 12/23/18 22:27 Dose: 100 mg Vancomycin HCl (Pharmacy To Dose - Vancomycin) 1 dose .XX ASDIRECTED [facility] Discontinued Medications Acetaminophen (Tylenol) Confirm Administered Dose 1,300 mg .ROUTE .STK-MED ONE Stop: 12/20/18 23:55 Last Admin: 12/21/18 00:05 Dose: Not Given Acetaminophen (Tylenol) 1,000 mg RECTAL NOW ONE Stop: 12/20/18 23:55 Last Admin: 12/20/18 23:58 Dose: 1,000 mg Albuterol/Ipratropium (Duoneb 3.0-0.5 Mg/3 Ml) Confirm Administered Dose 3 ml .ROUTE .STK-MED ONE Stop: 12/20/18 23:39 Last Admin: 12/20/18 23:59 Dose: Not Given Albuterol/Ipratropium (Duoneb 3.0-0.5 Mg/3 Ml) 3 ml NEB ONETIME ONE Stop: 12/20/18 23:48 Last Admin: 12/20/18 23:40 Dose: 3 ml Albuterol/Ipratropium (Duoneb 3.0-0.5 Mg/3 Ml) 3 ml NEB ONETIME ONE Stop: 12/20/18 23:49 Last Admin: 12/20/18 23:35 Dose: 3 ml Albuterol/Ipratropium (Duoneb 3.0-0.5 Mg/3 Ml) Confirm Administered Dose 3 ml .ROUTE .STK-MED ONE Stop: 12/20/18 23:49 Last Admin: 12/21/18 00:00 Dose: Not Given Piperacillin Sod/Tazobactam (Sod 3.375 gm/ Sodium Chloride) 50 mls @ 100 mls/ hr IV ONETIME ONE Stop: 12/21/18 01:02 Last Admin: 12/21/18 00:39 Dose: 100 mls/hr Vancomycin HCl 1 gm/ Sodium (Chloride) 250 mls @ 250 mls/hr IV ONETIME ONE Stop: 12/21/18 01:32 Last Admin: 12/21/18 01:33 Dose: 250 mls/hr Levofloxacin/Dextrose 750 mg/ (Premix) 150 mls @ 100 mls/hr IV Q24H [facility] Last Admin: 12/22/18 04:48 Dose: 100 mls/hr Pantoprazole Sodium 40 mg/ (Sodium Chloride) 10 mls @ 1 mls/hr IVPUSH Q24H [facility] Last Admin: 12/21/18 05:31 Dose: Not Given Vancomycin HCl 1 gm/ Sodium (Chloride) 250 mls @ 166.667 mls/hr IV Q12H [facility] Vancomycin HCl 1 gm/ Sodium (Chloride) 250 mls @ 166.667 mls/hr IV Q12H [facility] Last Admin: 12/22/18 13:31 Dose: 166.667 mls/hr Vancomycin HCl 1 gm/ Sodium (Chloride) 250 mls @ 166.667 mls/hr IV Q8H [facility] Last Admin: 12/24/18 04:39 Dose: 166.667 mls/hr Ketorolac Tromethamine (Toradol) 30 mg IVPUSH ONETIME ONE Stop: 12/21/18 00:02 Last Admin: 12/21/18 00:04 Dose: 30 mg Ketorolac Tromethamine (Toradol) Confirm Administered Dose 30 mg .ROUTE .STK- MED ONE Stop: 12/21/18 00:03 Last Admin: 12/21/18 00:05 Dose: Not Given Levofloxacin (Levaquin) 500 mg PO Q24H [facility] Last Admin: 12/22/18 10:44 Dose: Not Given Lorazepam (Ativan) 1 mg IVPUSH ONETIME ONE Stop: 12/21/18 00:33 Last Admin: 12/21/18 00:36 Dose: 1 mg Methadone HCl (Methadone) 10 mg PO TID PRN PRN Reason: Pain Last Admin: 12/21/18 18:08 Dose: 10 mg Methadone HCl (Methadone) 10 mg PO NOW ONE Stop: 12/21/18 09:28 Last Admin: 12/21/18 09:36 Dose: 10 mg Methylprednisolone Sodium Succinate (Solu-Medrol) Confirm Administered Dose 125 mg .ROUTE .STK-MED ONE Stop: 12/20/18 23:40 Last Admin: 12/20/18 23:59 Dose: Not Given Methylprednisolone Sodium Succinate (Solu-Medrol) 125 mg IVPUSH ONETIME ONE Stop: 12/20/18 23:48 Last Admin: 12/20/18 23:56 Dose: 125 mg Methylprednisolone Sodium Succinate (Solu-Medrol) 80 mg IVPUSH Q8H [facility] Last Admin: 12/22/18 08:04 Dose: 80 mg Methylprednisolone Sodium Succinate (Solu-Medrol) 80 mg IVPUSH DAILY [facility] Morphine Sulfate (Morphine) 2 mg IVPUSH ONETIME ONE Stop: 12/21/18 00:16 Last Admin: 12/21/18 00:19 Dose: 2 mg Trazodone HCl (Trazodone Hcl) 100 mg PO BEDTIME [facility] Last Admin: 12/21/18 22:34 Dose: Not Given Trazodone HCl (Trazodone) 100 mg PO BEDTIME [facility] Vancomycin HCl (Vancomycin) Confirm Administered Dose 1 gm .ROUTE .STK-MED ONE Stop: 12/21/18 12:34 Last Admin: 12/21/18 13:07 Dose: Not Given - Exam General: Alert, Oriented Lungs: Normal Respiratory Effort, Rhonchi Cardiovascular: Regular Rate, Regular Rhythm Extremities: Non-Tender, No Pedal Edema Skin: Warm, Dry, Intact - Problem List Review Problem List Initiated/Reviewed/Updated: Yes - My Orders Last 24 Hours: My Active Orders 12/23/18 11:41 Docusate Sodium [Colace] 100 mg PO BID PRN 12/25/18 05:11 BASIC METABOLIC PANEL,BMP [CHEM] AM CBC WITH AUTO DIFF [HEME] AM - Plan Plan:: 68 yo male admitted for acute respiratory failure and pneumonia Pneumonia: on broad spectrum antibiotics due to failure of multiple antibiotics , on saline nebs and chest PT. cultures growing normal respiratory tayla, will d/c vancomycin COPD: on prednisone and duonebs Chronic pain: on methadone
[2018-12-24] MEDS: atorvaSTATin 40 MG Tab PO SCH (20:39)
[2018-12-24] MEDS: Methadone 10 MG Tab PO PRN (21:33)
[2018-12-24] MEDS: traZODone 50 MG Tab PO SCH (21:34)
[2018-12-25] MEDS: Piperacillin/Tazobactam 4.5 GM in Sodium Chloride 0.9% 100 ML IV SCH ×3 (00:46→11:38)
[2018-12-25] MEDS: Albuterol/Ipratropium 3.0-0.5 MG/3 ML Neb Soln NEB SCH ×3 (00:46→11:44)
[2018-12-25] MEDS: Levofloxacin 500 MG Tab PO SCH (04:09)
[2018-12-25] MEDS: Heparin Sodium 5,000 Units/ML Vial SUBCUT SCH ×2 (04:09→11:48)
[2018-12-25 06:07] LABS: CHLORIDE,CL 103 mmol/L (98-107); SODIUM,NA 140 mmol/L (136-148)
[2018-12-25] MEDS: predniSONE 20 MG Tab PO SCH (08:15)
[2018-12-25] MEDS: Metoprolol Succinate 25 MG Tab.ER PO SCH (08:16)
[2018-12-25] MEDS: Methadone 10 MG Tab PO SCH (08:16)
[2018-12-25] MEDS: Aspirin 81 MG Tab.Chew PO SCH (08:20)
[2018-12-25] MEDS: PROBIOTICS PO SCH (08:21)
[2018-12-25] MEDS: Pantoprazole 40 MG in Sodium Chloride 0.9% 10 ML IVPUSH SCH (08:34)
--- NOTE | 2018-12-25 10:55 | PCM.DCSUM1 ---
Discharge Summary - Discharge Data Discharge Date: 12/25/18 Discharge Disposition: Home, Self-Care 01 Condition: Stable - Patient Summary/Data Hospital Course: 68 yo male with pmh of oxygen dependent COPD, [place], on methadone for chronic pain who was admitted for pneumonia. 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 He present to the ED with complaints of fever and increasing muscle pain. He was noted to have a temp of 101 at home. In the ED he was noted to be in distress and satting 89% on RA. CXR showed bibasilar pneumonia. It was uncertain if his distress was coming from shortness of breath or exacerbation of his pain. He was placed on BIPAP and given Solumedrol, duonebs, ativan and morphine. He was treated with broad spectrum antibiotics for treatment of possible gram negative [place] respiratory infection with Zosyn, Levaquin and vancomycin. He was given solumedrol and duonebs for COPD exacerbation. He was weaned off BIPAP after the first night. He continued IV antibiotics for five days. Sputum cultures grew out normal respiratory tayla. He was discharged home with Levaquin and prednisone taper. He is to follow up with Dr. Allen. - Discharge Plan Prescriptions/Med Rec: levoFLOXacin [Levaquin] 500 mg PO Q24H #7 tablet predniSONE See Taper PO WITHBREAKFAST #15 tablet Home Medications: Home Meds Albuterol Sulfate [Albuterol Sulfate HFA] 1 inhalation IH Q4H PRN 12/02/13 [ History] Aspirin [Sussy Chewable Aspirin] 81 mg PO DAILY 12/02/13 [History] traZODone 100 mg PO BEDTIME 12/02/13 [History] Tiotropium [Spiriva HandiHaler] 1 inhalation IH ASDIRECTED 03/01/14 [History] Methadone 10 mg PO TID PRN MDD 40 10/28/16 [History] Metoprolol Succinate 25 mg PO DAILY 10/28/16 [History] Sildenafil Citrate [Sildenafil] 20 mg PO ASDIRECTED 10/28/16 [History] atorvaSTATin [Lipitor] 40 mg PO BEDTIME 10/28/16 [History] Albuterol Sulfate [Albuterol Sulfate Hfa] 1 puff IH Q4H PRN 12/21/18 [History] Cefdinir [Omnicef] 300 mg PO BID 12/21/18 [History] Cholecalciferol (Vitamin D3) [Vitamin D3] 2,000 unit PO DAILY 12/21/18 [History] Patient's Own Medication [Ptom] 1 each PO BID 12/21/18 [History] Tiotropium [place] [Spiriva Respimat] 4 gm IH BID 12/21/18 [History] levoFLOXacin [Levaquin] 500 mg PO Q24H #7 tablet 12/25/18 [Rx] predniSONE See Taper PO WITHBREAKFAST #15 tablet 12/25/18 [Rx] Patient Handouts: Chronic Obstructive Pulmonary Disease Exacerbation, Acute Respiratory Distress Syndrome, Adult, Community-Acquired Pneumonia, Adult Referrals: [facility] [Outside] Blake Allen MD [Primary Care Provider] - 01/06/19 4:00 pm - Discharge Summary/Plan Comment DC Time >30 min.: No - Patient Data Vitals - Most Recent: Last Vital Signs Temp 36.8 C 12/25/18 08:00 Pulse 79 12/25/18 08:16 Resp 18 12/25/18 08:00 BP 165/83 H 12/25/18 08:16 Pulse Ox 90 L 12/25/18 07:23 Weight - Most Recent: 68.266 kg I&O - Last 24 hours: Intake & Output 12/24/18 12/25/18 12/25/18 22:59 06:59 14:59 Intake Total 1740 1100 Output Total 1225 1525 Balance 515 -425 Lab Results - Last 24 hrs: Laboratory Results - last 24 hr 12/25/18 12/25/18 Range/Units 05:15 05:15 WBC 11.00 (4.0-11.0) K/uL RBC 5.27 (4.50-5.90) M/uL Hgb 13.7 (13.0-17.0) g/dL Hct 42.9 (38.0-50.0) % MCV 81.4 (80.0-98.0) fL MCH 26.0 L (27.0-32.0) pg MCHC 31.9 (31.0-37.0) g/dL RDW Std Deviation 44.5 (28.0-62.0) fl RDW Coeff of [place]ury 15 (11.0-15.0) % Plt Count 179 (150-400) K/uL MPV 9.90 (7.40-12.00) fL Neut % (Auto) 71.1 (48.0-80.0) % Lymph % (Auto) 19.1 (16.0-40.0) % [place] % (Auto) 9.2 (0.0-15.0) % Eos % (Auto) 0.6 (0.0-7.0) % Baso % (Auto) 0.0 (0.0-1.5) % Neut # (Auto) 7.8 H (1.4-5.7) K/uL Lymph # (Auto) 2.1 (0.6-2.4) K/uL [place] # (Auto) 1.0 H (0.0-0.8) K/uL Eos # (Auto) 0.1 (0.0-0.7) K/uL Baso # (Auto) 0.0 (0.0-0.1) K/uL Nucleated RBC % 0.0 /100WBC Nucleated RBCs # 0 K/uL Sodium 140 (136-148) mmol/L Potassium 3.8 (3.5-5.1) mmol/L Chloride 103 (98-107) mmol/L Carbon Dioxide 31.5 (21.0-32.0) mmol/L BUN 19 H (7.0-18.0) mg/dL Creatinine 0.9 (0.8-1.3) mg/dL Est Cr Clr Drug Dosing 75.85 mL/min Estimated GFR (MDRD) > 60.0 ml/min Glucose 95 (74-106) mg/dL Calcium 8.5 (8.5-10.1) mg/dL PATIENCE Results - Last 24 hrs: Microbiology 12/20/18 23:49 Aerobic Blood Culture - Preliminary Blood - Venous - Lab Draw NO GROWTH AFTER 4 DAYS Anaerobic Blood Culture - Preliminary NO GROWTH AFTER 4 DAYS 12/20/18 23:43 Aerobic Blood Culture - Preliminary Blood - Venous NO GROWTH AFTER 4 DAYS Anaerobic Blood Culture - Preliminary NO GROWTH AFTER 4 DAYS Med Orders - Current: Current Medications Albuterol/Ipratropium (Duoneb 3.0-0.5 Mg/3 Ml) 3 ml NEB Q2H PRN PRN Reason: Wheezing Albuterol/Ipratropium (Duoneb 3.0-0.5 Mg/3 Ml) 3 ml NEB Q6HRRT [facility] Last Admin: 12/25/18 06:11 Dose: 3 ml Aspirin (Aspirin) 81 mg PO DAILY [facility] Last Admin: 12/25/18 08:20 Dose: 81 mg Atorvastatin Calcium (Lipitor) 40 mg PO BEDTIME [facility] Last Admin: 12/24/18 20:39 Dose: 40 mg Docusate Sodium (Colace) 100 mg PO BID PRN PRN Reason: Constipation Last Admin: 12/24/18 20:39 Dose: 100 mg Heparin Sodium (Porcine) (Heparin Sodium) 5,000 units SUBCUT Q8H [facility] Last Admin: 12/25/18 04:09 Dose: 5,000 units Sodium Chloride (Normal Saline) 500 mls @ 999 mls/hr IV STAT [facility] Last Admin: 12/20/18 23:56 Dose: 999 mls/hr Piperacillin Sod/Tazobactam (Sod 4.5 gm/ Sodium Chloride) 100 mls @ 100 mls/hr IV Q6H [facility] Last Admin: 12/25/18 05:51 Dose: 100 mls/hr Pantoprazole Sodium 40 mg/ (Sodium Chloride) 10 mls @ 1 mls/hr IVPUSH Q24H [facility] Last Admin: 12/25/18 08:34 Dose: 1 mls/hr Levofloxacin (Levaquin) 500 mg PO Q24H [facility] Last Admin: 12/25/18 04:09 Dose: 500 mg Methadone HCl (Methadone) 20 mg PO DAILY [facility] Last Admin: 12/25/18 08:16 Dose: 20 mg Methadone HCl (Methadone) 10 mg PO BID PRN PRN Reason: Pain Last Admin: 12/24/18 21:33 Dose: 10 mg Metoprolol Succinate (Toprol Xl) 25 mg PO DAILY [facility] Last Admin: 12/25/18 08:16 Dose: 25 mg Probiotics 40 (Billion Cfu) 1 each PO DAILY [facility] Last Admin: 12/25/18 08:21 Dose: 1 each Probiotics 30 (Billion) 1 each PO BEDTIME [facility] Last Admin: 12/24/18 20:40 Dose: 1 each Prednisone (Prednisone) 40 mg PO WITHBREAKFAST [facility] Last Admin: 12/25/18 08:15 Dose: 40 mg Sodium Chloride (Saline Flush) 10 ml FLUSH ASDIRECTED PRN PRN Reason: Keep Vein Open Sodium Chloride (Saline Flush) 2.5 ml FLUSH ASDIRECTED PRN PRN Reason: Keep Vein Open Sodium Chloride (Sodium Chloride 0.9%) 3 ml INH ASDIRECTED PRN PRN Reason: Shortness of Breath Trazodone HCl (Trazodone) 100 mg PO BEDTIME KEVIN Last Admin: 12/24/18 21:34 Dose: 100 mg Vancomycin HCl (Pharmacy To Dose - Vancomycin) 1 dose .XX ASDIRECTED KEVIN Discontinued Medications Acetaminophen (Tylenol) Confirm Administered Dose 1,300 mg .ROUTE .STK-MED ONE Stop: 12/20/18 23:55 Last Admin: 12/21/18 00:05 Dose: Not Given Acetaminophen (Tylenol) 1,000 mg RECTAL NOW ONE Stop: 12/20/18 23:55 Last Admin: 12/20/18 23:58 Dose: 1,000 mg Albuterol/Ipratropium (Duoneb 3.0-0.5 Mg/3 Ml) Confirm Administered Dose 3 ml .ROUTE .STK-MED ONE Stop: 12/20/18 23:39 Last Admin: 12/20/18 23:59 Dose: Not Given Albuterol/Ipratropium (Duoneb 3.0-0.5 Mg/3 Ml) 3 ml NEB ONETIME ONE Stop: 12/20/18 23:48 Last Admin: 12/20/18 23:40 Dose: 3 ml Albuterol/Ipratropium (Duoneb 3.0-0.5 Mg/3 Ml) 3 ml NEB ONETIME ONE Stop: 12/20/18 23:49 Last Admin: 12/20/18 23:35 Dose: 3 ml Albuterol/Ipratropium (Duoneb 3.0-0.5 Mg/3 Ml) Confirm Administered Dose 3 ml .ROUTE .STK-MED ONE Stop: 12/20/18 23:49 Last Admin: 12/21/18 00:00 Dose: Not Given Piperacillin Sod/Tazobactam (Sod 3.375 gm/ Sodium Chloride) 50 mls @ 100 mls/ hr IV ONETIME ONE Stop: 12/21/18 01:02 Last Admin: 12/21/18 00:39 Dose: 100 mls/hr Vancomycin HCl 1 gm/ Sodium (Chloride) 250 mls @ 250 mls/hr IV ONETIME ONE Stop: 12/21/18 01:32 Last Admin: 12/21/18 01:33 Dose: 250 mls/hr Levofloxacin/Dextrose 750 mg/ (Premix) 150 mls @ 100 mls/hr IV Q24H [facility] Last Admin: 12/22/18 04:48 Dose: 100 mls/hr Pantoprazole Sodium 40 mg/ (Sodium Chloride) 10 mls @ 1 mls/hr IVPUSH Q24H [facility] Last Admin: 12/21/18 05:31 Dose: Not Given Vancomycin HCl 1 gm/ Sodium (Chloride) 250 mls @ 166.667 mls/hr IV Q12H [facility] Vancomycin HCl 1 gm/ Sodium (Chloride) 250 mls @ 166.667 mls/hr IV Q12H [facility] Last Admin: 12/22/18 13:31 Dose: 166.667 mls/hr Vancomycin HCl 1 gm/ Sodium (Chloride) 250 mls @ 166.667 mls/hr IV Q8H [facility] Last Admin: 12/24/18 04:39 Dose: 166.667 mls/hr Ketorolac Tromethamine (Toradol) 30 mg IVPUSH ONETIME ONE Stop: 12/21/18 00:02 Last Admin: 12/21/18 00:04 Dose: 30 mg Ketorolac Tromethamine (Toradol) Confirm Administered Dose 30 mg .ROUTE .STK- MED ONE Stop: 12/21/18 00:03 Last Admin: 12/21/18 00:05 Dose: Not Given Levofloxacin (Levaquin) 500 mg PO Q24H [facility] Last Admin: 12/22/18 10:44 Dose: Not Given Lorazepam (Ativan) 1 mg IVPUSH ONETIME ONE Stop: 12/21/18 00:33 Last Admin: 12/21/18 00:36 Dose: 1 mg Methadone HCl (Methadone) 10 mg PO TID PRN PRN Reason: Pain Last Admin: 12/21/18 18:08 Dose: 10 mg Methadone HCl (Methadone) 10 mg PO NOW ONE Stop: 12/21/18 09:28 Last Admin: 12/21/18 09:36 Dose: 10 mg Methylprednisolone Sodium Succinate (Solu-Medrol) Confirm Administered Dose 125 mg .ROUTE .STK-MED ONE Stop: 12/20/18 23:40 Last Admin: 12/20/18 23:59 Dose: Not Given Methylprednisolone Sodium Succinate (Solu-Medrol) 125 mg IVPUSH ONETIME ONE Stop: 12/20/18 23:48 Last Admin: 12/20/18 23:56 Dose: 125 mg Methylprednisolone Sodium Succinate (Solu-Medrol) 80 mg IVPUSH Q8H [facility] Last Admin: 12/22/18 08:04 Dose: 80 mg Methylprednisolone Sodium Succinate (Solu-Medrol) 80 mg IVPUSH DAILY [facility] Morphine Sulfate (Morphine) 2 mg IVPUSH ONETIME ONE Stop: 12/21/18 00:16 Last Admin: 12/21/18 00:19 Dose: 2 mg Trazodone HCl (Trazodone Hcl) 100 mg PO BEDTIME [facility] Last Admin: 12/21/18 22:34 Dose: Not Given Trazodone HCl (Trazodone) 100 mg PO BEDTIME [facility] Vancomycin HCl (Vancomycin) Confirm Administered Dose 1 gm .ROUTE .STK-MED ONE Stop: 12/21/18 12:34 Last Admin: 12/21/18 13:07 Dose: Not Given
[2018-12-25 11:31] VITALS: BP 131/86
== END 2018-12-25 12:35 | disposition home or self-care (01) | DRG 193 ==
LOC: MW.ED 23:35 → MW.ICU 12-21 00:56 → MW.MS 12-22 13:13
PROVIDERS: ADMIT Internal Medicine; ATTEND Internal Medicine
PROC: 5A09357 Assistance with Respiratory Ventilation, Less than 24 Consecutive Hours, Continuous Positive Airway Pressure (ICD-10-PCS; principal; 2018-12-21)
DX: J18.9 Pneumonia, unspecified organism (principal); J96.00 Acute respiratory failure, unspecified whether with hypoxia or hypercapnia; J44.0 Chronic obstructive pulmonary disease with (acute) lower respiratory infection; J44.1 Chronic obstructive pulmonary disease with (acute) exacerbation; G89.29 Other chronic pain; Z87.01 Personal history of pneumonia (recurrent); K59.00 Constipation, unspecified; Z99.81 Dependence on supplemental oxygen; Z95.3 Presence of xenogenic heart valve; R06.03 Acute respiratory distress; I10 Essential (primary) hypertension; K21.9 Gastro-esophageal reflux disease without esophagitis; M19.90 Unspecified osteoarthritis, unspecified site; Z95.2 Presence of prosthetic heart valve; Z79.82 Long term (current) use of aspirin; Z79.899 Other long term (current) drug therapy; Z88.7 Allergy status to serum and vaccine
CPT/HCPCS: 36415; 71045; 80053; 81001; 83605; 85025; 87040 ×2; 87086; 93005; 94640; 96361; 96365; 96375 ×2; 99285; A9270; J1885; J2060; J2270; J2543; J2930; J7040; J7050; 36600; 80048; 80202; 82803; 87070; 87205; 94667; 94668; 99291; A4217; C9113; J1644; J1956; J2920; J3370; J7030; J7620-GY

== ENCOUNTER 2018-12-27 20:32 | Observation (INO) | payer MEDICARE ==
[2018-12-27] MEDS ORDERED: Sodium Chloride 0.9% 10 ML Syringe FLUSH PRN (20:57)
[2018-12-27] MEDS ORDERED: Sodium Chloride 0.9% 2.5 ML Syringe FLUSH PRN (20:57)
--- NOTE | 2018-12-27 21:02 | EDM.PDOC ---
ED HPI GENERAL MEDICAL PROBLEM - General Chief Complaint: Abdominal Pain Stated Complaint: PT HAS STOMACH PAINS Time Seen by Provider: 12/27/18 21:02 Source of Information: Reports: Patient History Limitations: Reports: No Limitations - History of Present Illness INITIAL COMMENTS - FREE TEXT/NARRATIVE: HISTORY AND PHYSICAL: History of present illness: Patient is a 68-year-old male here with complaint of abdominal pain. He was recently discharged 3 days ago from the hospital for pneumonia. He states it started at 3 this afternoon. He had a large nonbloody bowel movement this afternoon, prior to this he hadn't had a bowel movement for 1 week. He states he had a couple episodes of vomiting today. He denies fevers or chills. Patient states that he has a history of bowel obstruction 2 years ago after having surgery on his abdominal aorta. He states it feels similar to this. He is currently taking levaquin and cefdinir for pneumonia. Review of systems: As per history of present illness and below otherwise all systems reviewed and negative. Past medical history: As per history of present illness and as reviewed below otherwise noncontributory. Surgical history: As per history of present illness and as reviewed below otherwise noncontributory. Social history: No reported history of drug or alcohol abuse. Family history: As per history of present illness and as reviewed below otherwise noncontributory. Physical exam: General: Patient sitting comfortably in no acute distress and nontoxic appearing HEENT: Atraumatic, normocephalic, pupils reactive, negative for conjunctival pallor or scleral icterus, mucous membranes moist, throat clear, neck supple, nontender, trachea midline. No meningeal signs. Lungs: Clear to auscultation, breath sounds equal bilaterally, chest nontender. Heart: S1S2, regular, negative for clicks, rubs, or overt murmur. Abdomen: Mild diffuse abdominal tenderness to palpation, mostly epigastric. Soft , nondistended. Negative for masses or hepatosplenomegaly. Negative for costovertebral tenderness. No rigidity, rebound, guarding. Pelvis: Stable nontender. Genitourinary: Deferred. Rectal: Deferred. Extremities: Atraumatic, negative for cords or calf pain. Neurovascular unremarkable. Neuro: Awake, alert, oriented. Cranial nerves II through XII unremarkable. Cerebellum unremarkable. Motor and sensory unremarkable throughout. Exam nonfocal. Notes: Diagnostics: CBC, CMP, lactate, blood culture x 2, CT abdomen/pelvis Therapeutics: 1L NS IV 1g Vanc IV Prescriptions: Impression: Pneumonia Plan: Discussed with Dr. Johnson, patient will be admitted to observation Definitive disposition and diagnosis as appropriate pending reevaluation and review of above. Lower Abdomen Pain Score (Numeric/FACES): 9 - Related Data Allergies Allergy/AdvReac Type Severity Reaction Status Date / Time influenza virus vaccine, Allergy Muscle Verified 12/27/18 20:42 specific Weakness [Influenza Virus Vacc,Specific] Home Meds: Home Meds Albuterol Sulfate [Albuterol Sulfate HFA] 1 inhalation IH Q4H PRN 12/02/13 [ History] Aspirin [Sussy Chewable Aspirin] 81 mg PO DAILY 12/02/13 [History] traZODone 100 mg PO BEDTIME 12/02/13 [History] Tiotropium [Spiriva HandiHaler] 1 inhalation IH ASDIRECTED 03/01/14 [History] Methadone 10 mg PO TID PRN MDD 40 10/28/16 [History] Metoprolol Succinate 25 mg PO DAILY 10/28/16 [History] Sildenafil Citrate [Sildenafil] 20 mg PO ASDIRECTED 10/28/16 [History] atorvaSTATin [Lipitor] 40 mg PO BEDTIME 10/28/16 [History] Albuterol Sulfate [Albuterol Sulfate Hfa] 1 puff IH Q4H PRN 12/21/18 [History] Cefdinir [Omnicef] 300 mg PO BID 12/21/18 [History] Cholecalciferol (Vitamin D3) [Vitamin D3] 2,000 unit PO DAILY 12/21/18 [History] Patient's Own Medication [Ptom] 1 each PO BID 12/21/18 [History] Tiotropium [place] [Spiriva Respimat] 4 gm IH BID 12/21/18 [History] levoFLOXacin [Levaquin] 500 mg PO Q24H #7 tablet 12/25/18 [Rx] predniSONE See Taper PO WITHBREAKFAST #15 tablet 12/25/18 [Rx] Past Medical History HEENT History: Reports: None Cardiovascular History: Reports: Hypertension Respiratory History: Reports: COPD Other Respiratory History: Home oxygen at night at 3lpm Gastrointestinal History: Reports: Bowel Obstruction, GERD Other Gastrointestinal History: constipation Genitourinary History: Reports: None Musculoskeletal History: Reports: Arthritis Other Musculoskeletal History: 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 - Caffeine Use Caffeine Use: Reports: Coffee Caffeine Use Comment: 1cup/day - Recreational Drug Use Recreational Drug Use: No - Living Situation & Occupation Living situation: Reports: , with Spouse Occupation: Retired ED ROS GENERAL - Review of Systems Review Of Systems: ROS reveals no pertinent complaints other than HPI. ED EXAM, GI/ABD - Physical Exam Exam: See Below (see dictation) Course - Vital Signs Last Recorded V/S: Last Vital Signs Temp 96.9 F 12/27/18 20:36 Pulse 83 12/27/18 22:25 Resp 20 12/27/18 22:25 BP 132/72 12/27/18 22:25 Pulse Ox 94 L 12/27/18 22:25 - Orders/Labs/Meds Orders: Active Orders 24 hr Category Date Time Status Oxygen Therapy Adult [Oxygen Therapy, ED] [RC] Care 12/27/18 22:16 Active ASDIRECTED CULTURE BLOOD [BC] Stat Lab 12/27/18 21:18 Received CULTURE BLOOD [BC] Stat Lab 12/27/18 21:28 Received Sodium Chloride 0.9% [Saline Flush] Med 12/27/18 20:57 Active 10 ml FLUSH ASDIRECTED PRN Sodium Chloride 0.9% [Saline Flush] Med 12/27/18 20:57 Active 2.5 ml FLUSH ASDIRECTED PRN Blood Culture x2 Reflex Set [OM.PC] Stat Oth 12/27/18 21:10 Ordered Saline Lock Insert [OM.PC] Stat Oth 12/27/18 20:57 Ordered Medication Orders Sodium Chloride (Saline Flush) 10 ml FLUSH ASDIRECTED PRN PRN Reason: Keep Vein Open Sodium Chloride (Saline Flush) 2.5 ml FLUSH ASDIRECTED PRN PRN Reason: Keep Vein Open Labs: Laboratory Tests 12/27/18 12/27/18 12/27/18 Range/Units 20:55 20:55 20:55 WBC 20.35 H (4.0-11.0) K/uL RBC 6.36 H (4.50-5.90) M/uL Hgb 16.8 (13.0-17.0) g/dL Hct 51.1 H (38.0-50.0) % MCV 80.3 (80.0-98.0) fL MCH 26.4 L (27.0-32.0) pg MCHC 32.9 (31.0-37.0) g/dL RDW Std Deviation 43.9 (28.0-62.0) fl RDW Coeff of [place] 15 (11.0-15.0) % Plt Count 233 (150-400) K/uL MPV 9.50 (7.40-12.00) fL Neut % (Auto) 82.7 H (48.0-80.0) % Lymph % (Auto) 6.5 L (16.0-40.0) % [place] % (Auto) 9.6 (0.0-15.0) % Eos % (Auto) 1.2 (0.0-7.0) % Baso % (Auto) 0.0 (0.0-1.5) % Neut # (Auto) 16.8 H (1.4-5.7) K/uL Lymph # (Auto) 1.3 (0.6-2.4) K/uL [place] # (Auto) 2.0 H (0.0-0.8) K/uL Eos # (Auto) 0.2 (0.0-0.7) K/uL Baso # (Auto) 0.0 (0.0-0.1) K/uL Nucleated RBC % 0.0 /100WBC Nucleated RBCs # 0 K/uL Lactate 1.2 (0.20-2.00) mmol/L Sodium 137 (136-148) mmol/L Potassium 4.1 (3.5-5.1) mmol/L Chloride 101 (98-107) mmol/L Carbon Dioxide 23.1 (21.0-32.0) mmol/L BUN 28 H (7.0-18.0) mg/dL Creatinine 1.0 (0.8-1.3) mg/dL Est Cr Clr Drug Dosing 69.40 mL/min Estimated GFR (MDRD) > 60.0 ml/min Glucose 131 H (74-106) mg/dL Calcium 9.0 (8.5-10.1) mg/dL Total Bilirubin 0.5 (0.2-1.0) mg/dL AST 27 (15-37) IU/L ALT 55 (14-63) IU/L Alkaline Phosphatase 58 (46-116) U/L Total Protein 7.5 (6.4-8.2) g/dL Albumin 3.2 L (3.4-5.0) g/dL Globulin 4.3 H (2.6-4.0) g/dL Albumin/Globulin Ratio 0.7 L (0.9-1.6) Urine Color Urine Appearance Urine pH (5.0-8.0) Ur Specific [place] (1.001-1.035) Urine Protein (NEGATIVE) mg/dL Urine Glucose (UA) (NEGATIVE) mg/dL Urine Ketones (NEGATIVE) mg/dL Urine Occult Blood (NEGATIVE) Urine Nitrite (NEGATIVE) Urine Bilirubin (NEGATIVE) Urine Ictotest Urine Urobilinogen (<2.0) EU/dL Ur Leukocyte Esterase (NEGATIVE) Urine RBC (0-2/HPF) Urine WBC (0-5/HPF) Ur Epithelial Cells (NONE-FEW) Urine Bacteria (NEGATIVE) 12/27/18 Range/Units 21:05 WBC (4.0-11.0) K/uL RBC (4.50-5.90) M/uL Hgb (13.0-17.0) g/dL Hct (38.0-50.0) % MCV (80.0-98.0) fL MCH (27.0-32.0) pg MCHC (31.0-37.0) g/dL RDW Std Deviation (28.0-62.0) fl RDW Coeff of [place] (11.0-15.0) % Plt Count (150-400) K/uL MPV (7.40-12.00) fL Neut % (Auto) (48.0-80.0) % Lymph % (Auto) (16.0-40.0) % [place] % (Auto) (0.0-15.0) % Eos % (Auto) (0.0-7.0) % Baso % (Auto) (0.0-1.5) % Neut # (Auto) (1.4-5.7) K/uL Lymph # (Auto) (0.6-2.4) K/uL [place] # (Auto) (0.0-0.8) K/uL Eos # (Auto) (0.0-0.7) K/uL Baso # (Auto) (0.0-0.1) K/uL Nucleated RBC % /100WBC Nucleated RBCs # K/uL Lactate (0.20-2.00) mmol/L Sodium (136-148) mmol/L Potassium (3.5-5.1) mmol/L Chloride (98-107) mmol/L Carbon Dioxide (21.0-32.0) mmol/L BUN (7.0-18.0) mg/dL Creatinine (0.8-1.3) mg/dL Est Cr Clr Drug Dosing mL/min Estimated GFR (MDRD) ml/min Glucose (74-106) mg/dL Calcium (8.5-10.1) mg/dL Total Bilirubin (0.2-1.0) mg/dL AST (15-37) IU/L ALT (14-63) IU/L Alkaline Phosphatase (46-116) U/L Total Protein (6.4-8.2) g/dL Albumin (3.4-5.0) g/dL Globulin (2.6-4.0) g/dL Albumin/Globulin Ratio (0.9-1.6) Urine Color YELLOW Urine Appearance CLEAR Urine pH 5.5 (5.0-8.0) Ur Specific [place] >= 1.030 (1.001-1.035) Urine Protein TRACE H (NEGATIVE) mg/dL Urine Glucose (UA) NEGATIVE (NEGATIVE) mg/dL Urine Ketones NEGATIVE (NEGATIVE) mg/dL Urine Occult Blood NEGATIVE (NEGATIVE) Urine Nitrite NEGATIVE (NEGATIVE) Urine Bilirubin SMALL H (NEGATIVE) Urine Ictotest NEGATIVE Urine Urobilinogen 0.2 (<2.0) EU/dL Ur Leukocyte Esterase NEGATIVE (NEGATIVE) Urine RBC 0-1 (0-2/HPF) Urine WBC 0-1 (0-5/HPF) Ur Epithelial Cells RARE (NONE-FEW) Urine Bacteria RARE (NEGATIVE) Meds: Medications Generic Name Dose Route Start Last Admin Trade Name Freq PRN Reason Stop Dose Admin Sodium Chloride 10 ml 12/27/18 20:57 Saline Flush FLUSH ASDIRECTED PRN Keep Vein Open Sodium Chloride 2.5 ml 12/27/18 20:57 Saline Flush FLUSH ASDIRECTED PRN Keep Vein Open Discontinued Medications Generic Name Dose Route Start Last Admin Trade Name Freq PRN Reason Stop Dose Admin Sodium Chloride 1,000 mls @ 999 mls/hr 12/27/18 21:58 12/27/18 22:24 Normal Saline IV 12/27/18 22:58 999 mls/hr STAT ONE Administration Iopamidol 100 ml 12/27/18 22:00 12/27/18 22:10 [id number] (76%) IVPUSH 12/27/18 22:01 100 ml ONETIME ONE Administration Departure - Departure Time of Disposition: 23:23 Disposition: Home, Self-Care 01 Condition: Good Clinical Impression: Pneumonia Qualifiers: Pneumonia type: due to unspecified organism Laterality: unspecified laterality Lung location: unspecified part of lung Qualified Code(s): J18.9 - Pneumonia, unspecified organism - Discharge Information Referrals: PCP,None [Primary Care Provider] - Forms: ED Department Discharge - My Orders Last 24 Hours: My Active Orders 12/27/18 20:57 Sodium Chloride 0.9% [Saline Flush] 10 ml FLUSH ASDIRECTED PRN Sodium Chloride 0.9% [Saline Flush] 2.5 ml FLUSH ASDIRECTED PRN Saline Lock Insert [OM.PC] Stat 12/27/18 21:10 Blood Culture x2 Reflex Set [OM.PC] Stat 12/27/18 21:18 CULTURE BLOOD [BC] Stat 12/27/18 21:28 CULTURE BLOOD [BC] Stat 12/27/18 22:16 Oxygen Therapy Adult [Oxygen Therapy, ED] [RC] ASDIRECTED - Assessment/Plan Last 24 Hours: My Active Orders 12/27/18 20:57 Sodium Chloride 0.9% [Saline Flush] 10 ml FLUSH ASDIRECTED PRN Sodium Chloride 0.9% [Saline Flush] 2.5 ml FLUSH ASDIRECTED PRN Saline Lock Insert [OM.PC] Stat 12/27/18 21:10 Blood Culture x2 Reflex Set [OM.PC] Stat 12/27/18 21:18 CULTURE BLOOD [BC] Stat 12/27/18 21:28 CULTURE BLOOD [BC] Stat 12/27/18 22:16 Oxygen Therapy Adult [Oxygen Therapy, ED] [RC] ASDIRECTED
[2018-12-27 21:49] LABS: CHLORIDE,CL 101 mmol/L (98-107); SODIUM,NA 137 mmol/L (136-148)
[2018-12-27] MEDS ORDERED: Sodium Chloride 0.9% 1,000 ML IV ONE (21:58)
[2018-12-27] MEDS ORDERED: Iopamidol 755 Mg/ML 100 ML Bottle IVPUSH ONE (22:00)
--- NOTE | 2018-12-27 23:10 | CT ---
INDICATION: Abdominal pain. COMPARISON: 02/18/2018 TECHNIQUE: CT examination of the abdomen and pelvis was performed with the uneventful intravenous administration of 100 cc of Isovue 370 while 3 mm thick axial sections were obtained from the lung bases through the pubic symphysis. Oral contrast was not administered. Please note that all CT scans at this facility use dose modulation, iterative reconstruction, and/or weight-based dosing when appropriate to reduce radiation dose to as low as reasonably achievable. FINDINGS: In the abdomen, the liver, spleen, and pancreas are normal in appearance. There is no change in a low-density 2.1 x 1.4 centimeter right adrenal nodule consistent with an adrenal adenoma. There is no change in minimal nodular fullness of the medial limb of the left adrenal gland consistent with another adrenal adenoma. Again seen is a nonobstructive 5 millimeter calculus in the upper pole of the right kidney. Again seen are several linear calcifications in the left renal hilum which may be vascular calcifications. The gallbladder is normal in appearance. 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 There is no sign of retroperitoneal mass or adenopathy. The stomach, loops of small bowel, and colon in the abdomen are normal in appearance. There is a moderate amount of fluid in the right colon which is nonspecific. There is normally formed fecal material in the left colon. In the pelvis, the appendix is normal in appearance with no sign of inflammatory process. There is no change in mild sigmoid diverticulosis without evidence of diverticulitis. The loops of small bowel and colon in the pelvis are otherwise normal in appearance. The prostate is mildly enlarged, measuring 4.8 centimeters in diameter, slightly increased in size compared to the previous study where it measured 4.4 centimeters. The urinary bladder is normal in appearance. There is no sign of pelvic or inguinal mass or adenopathy. There is new moderate patchy infiltrate in the left lower lobe and the inferior left lingula, along with new mild patchy infiltrate in the posterior right lung base involving both the right middle and lower lobes. These could be areas of either pneumonia or aspiration. Atelectasis seems less likely. The osseous structures are normal in appearance for the patient`s age. IMPRESSION: New moderate patchy infiltrates in the left lower lobe and the inferior left lingula, as well as new mild patchy infiltrates in the inferior portions of the right middle and lower lobes. Findings suggestive of pneumonia versus aspiration. CT of the abdomen shows no change in mild nephrolithiasis. No change in right greater than left adrenal adenomas. CT of the pelvis shows no change in mild sigmoid diverticulosis with no sign of diverticulitis. Increased mild enlargement of the prostate. Please note that all CT scans at this facility use dose modulation, iterative reconstruction, and/or weight-based dosing when appropriate to reduce radiation dose to as low as reasonably achievable. Dictated by Rob Lane MD @ Dec 27 2018 10:52PM Signed by Dr. Rob Lane @ Dec 27 2018 11:08PM
[2018-12-27] MEDS ORDERED: Vancomycin 1 GM SDV ONE (23:48)
[2018-12-28] MEDS ORDERED: Methadone 10 MG Tab PO PRN ×2 (01:44→12:00)
[2018-12-28] MEDS: Piperacillin/Tazobactam 3.375 GM in Sodium Chloride 0.9% 50 ML IV SCH ×4 (03:59→22:55)
[2018-12-28] MEDS: Albuterol/Ipratropium 3.0-0.5 MG/3 ML Neb Soln NEB SCH ×4 (06:12→23:06)
[2018-12-28 06:30] LABS: CHLORIDE,CL 104 mmol/L (98-107); SODIUM,NA 137 mmol/L (136-148)
[2018-12-28] MEDS ORDERED: Methadone 10 MG Tab PO ONE ×2 (07:56→08:01)
[2018-12-28] MEDS ORDERED: Methadone 10 MG Tab PO SCH (09:00)
[2018-12-28] MEDS: Methadone 10 MG Tab PO SCH ×3 (10:07→20:56)
--- NOTE | 2018-12-28 10:08 | PCM.HP ---
H&P History of Present Illness - General Date of Service: 12/28/18 Admit Problem/Dx: Admission Diagnosis/Problem Admission Diagnosis/Problem Pneumonia - History of Present Illness Initial Comments - Free Text/Narative: 68 yo male with pmh of oxygen dependent COPD,vascular disease, with chronic pain on methadone who presented with 6 hours of abdominal pain. Patient reported he felt like he swallowed a hot foot ball. He felt bloated with a burning sensation of he epigastrium. At this time he also became short of breath and started to wheeze. In the ED they performed an CT scan of the abdomen which did not report any acute abdominal disease. The scan did report bilateral infiltrates. He was discharged three days ago after received five days of IV antibiotics for pneumonia with COPD exacerbation. He was discharged on Levaquin and Cefdinir as he has been struggling with productive cough since October and has been on several courses of antibiotics. He reported he was doing well until his shortness of breath came on suddenly with his abdominal pain. His abdominal pain and shortness of breath have resolved once arrival to medical floor. Lower Abdomen Pain Score (Numeric/FACES): 3 Generalized Pain Score (Numeric/FACES): 7 - Related Data Allergies/Adverse Reactions: Allergies Allergy/AdvReac Type Severity Reaction Status Date / Time influenza virus vaccine, Allergy Muscle Verified 12/28/18 01:03 specific Weakness [Influenza Virus Vacc,Specific] Home Medications: Home Meds Albuterol Sulfate [Albuterol Sulfate HFA] 1 inhalation IH Q4H PRN 12/02/13 [ History] Aspirin [Sussy Chewable Aspirin] 81 mg PO DAILY 12/02/13 [History] traZODone 100 mg PO BEDTIME 12/02/13 [History] Tiotropium [Spiriva HandiHaler] 1 inhalation IH ASDIRECTED PRN 03/01/14 [History ] Methadone 10 mg PO BID PRN MDD 40 10/28/16 [History] Metoprolol Succinate 25 mg PO DAILY 10/28/16 [History] Sildenafil Citrate [Sildenafil] 20 mg PO BEDTIME PRN 10/28/16 [History] atorvaSTATin [Lipitor] 40 mg PO BEDTIME 10/28/16 [History] Albuterol Sulfate [Albuterol Sulfate Hfa] 1 puff IH Q4H PRN 12/21/18 [History] Cholecalciferol (Vitamin D3) [Vitamin D3] 2,000 unit PO DAILY 12/21/18 [History] Patient's Own Medication [Ptom] 1 each PO BID 12/21/18 [History] Tiotropium [place] [Spiriva Respimat] 4 gm IH BID 12/21/18 [History] levoFLOXacin [Levaquin] 500 mg PO Q24H #7 tablet 12/25/18 [Rx] predniSONE See Taper PO WITHBREAKFAST #15 tablet 12/25/18 [Rx] Methadone 20 mg PO ACBREAKFAST PRN 12/28/18 [History] Amoxicillin/Potassium Clav [Augmentin 875-125 Tablet] 1 each PO BID #14 tablet 12/29/18 [Rx] Pantoprazole [ProTONIX] 40 mg PO DAILY #20 tab.cr 12/29/18 [Rx] Past Medical History HEENT History: Reports: None Cardiovascular History: Reports: Hypertension Respiratory History: Reports: COPD Other Respiratory History: Home oxygen at night at 2Lpm Gastrointestinal History: Reports: Bowel Obstruction, GERD Other Gastrointestinal History: constipation Genitourinary History: Reports: None Musculoskeletal History: Reports: Arthritis Other Musculoskeletal History: Multiple vascular bypass procedures on the RLE Neurological History: Reports: Other (See Below) Psychiatric History: Reports: None Endocrine/Metabolic History: Reports: None Hematologic History: Reports: Anticoagulation Therapy Immunologic History: Reports: None - Infectious Disease History Infectious Disease History: Reports: Chicken Pox, Measles, Mumps - Past Surgical History Cardiovascular Surgical History: Reports: AAA Repair, Valve Replacement, Vascular Surgery Other Neurological Surgeries/Procedures: Stacy Edward Syndrome Social & Family History - Family History Family Medical History: Noncontributory - Tobacco Use Smoking Status *Q: Former Smoker Years of Tobacco use: 40 Packs/Tins Daily: 1 Used Tobacco, but Quit: Yes Month/Year Tobacco Last Used: 10 Second Hand Smoke Exposure: No - Caffeine Use Caffeine Use: Reports: Coffee, Soda Caffeine Use Comment: 1cup/day - Recreational Drug Use Recreational Drug Use: No - Living Situation & Occupation Living situation: Reports: , with Spouse Occupation: Retired H&P Review of Systems - Review of Systems: Review Of Systems: ROS reveals no pertinent complaints other than HPI. Exam - Exam Exam: See Below - Vital Signs Vital Signs: Last Vital Signs Temp 36.6 C 12/28/18 08:00 Pulse 85 12/28/18 08:00 Resp 16 12/28/18 08:00 BP 172/69 H 12/28/18 08:00 Pulse Ox 90 L 12/28/18 08:00 Weight: 66.281 kg - Exam General: Alert, Oriented HEENT: Mucosa Moist & Moore Lungs: Clear to Auscultation, Normal Respiratory Effort Cardiovascular: Regular Rate, Regular Rhythm GI/Abdominal Exam: Soft, Non-Tender Extremities: No Pedal Edema Skin: Warm, Dry, Intact - Patient Data Lab Results Last 24 hrs: Laboratory Results - last 24 hr 12/27/18 12/27/18 12/27/18 Range/Units 20:55 20:55 20:55 WBC 20.35 H (4.0-11.0) K/uL RBC 6.36 H (4.50-5.90) M/uL Hgb 16.8 (13.0-17.0) g/dL Hct 51.1 H (38.0-50.0) % MCV 80.3 (80.0-98.0) fL MCH 26.4 L (27.0-32.0) pg MCHC 32.9 (31.0-37.0) g/dL RDW Std Deviation 43.9 (28.0-62.0) fl RDW Coeff of [place] 15 (11.0-15.0) % Plt Count 233 (150-400) K/uL MPV 9.50 (7.40-12.00) fL Neut % (Auto) 82.7 H (48.0-80.0) % Lymph % (Auto) 6.5 L (16.0-40.0) % [place] % (Auto) 9.6 (0.0-15.0) % Eos % (Auto) 1.2 (0.0-7.0) % Baso % (Auto) 0.0 (0.0-1.5) % Neut # (Auto) 16.8 H (1.4-5.7) K/uL Lymph # (Auto) 1.3 (0.6-2.4) K/uL [place] # (Auto) 2.0 H (0.0-0.8) K/uL Eos # (Auto) 0.2 (0.0-0.7) K/uL Baso # (Auto) 0.0 (0.0-0.1) K/uL Nucleated RBC % 0.0 /100WBC Nucleated RBCs # 0 K/uL Lactate 1.2 (0.20-2.00) mmol/L Sodium 137 (136-148) mmol/L Potassium 4.1 (3.5-5.1) mmol/L Chloride 101 (98-107) mmol/L Carbon Dioxide 23.1 (21.0-32.0) mmol/L BUN 28 H (7.0-18.0) mg/dL Creatinine 1.0 (0.8-1.3) mg/dL Est Cr Clr Drug Dosing 69.40 mL/min Estimated GFR (MDRD) > 60.0 ml/min Glucose 131 H (74-106) mg/dL Calcium 9.0 (8.5-10.1) mg/dL Total Bilirubin 0.5 (0.2-1.0) mg/dL AST 27 (15-37) IU/L ALT 55 (14-63) IU/L Alkaline Phosphatase 58 (46-116) U/L Total Protein 7.5 (6.4-8.2) g/dL Albumin 3.2 L (3.4-5.0) g/dL Globulin 4.3 H (2.6-4.0) g/dL Albumin/Globulin Ratio 0.7 L (0.9-1.6) Urine Color Urine Appearance Urine pH (5.0-8.0) Ur Specific [place] (1.001-1.035) Urine Protein (NEGATIVE) mg/dL Urine Glucose (UA) (NEGATIVE) mg/dL Urine Ketones (NEGATIVE) mg/dL Urine Occult Blood (NEGATIVE) Urine Nitrite (NEGATIVE) Urine Bilirubin (NEGATIVE) Urine Ictotest Urine Urobilinogen (<2.0) EU/dL Ur Leukocyte Esterase (NEGATIVE) Urine RBC (0-2/HPF) Urine WBC (0-5/HPF) Ur Epithelial Cells (NONE-FEW) Urine Bacteria (NEGATIVE) 12/27/18 12/28/18 12/28/18 Range/Units 21:05 05:55 05:55 WBC 10.41 (4.0-11.0) K/uL RBC 5.39 (4.50-5.90) M/uL Hgb 13.9 (13.0-17.0) g/dL Hct 43.7 (38.0-50.0) % MCV 81.1 (80.0-98.0) fL MCH 25.8 L (27.0-32.0) pg MCHC 31.8 (31.0-37.0) g/dL RDW Std Deviation 44.6 (28.0-62.0) fl RDW Coeff of [place] 15 (11.0-15.0) % Plt Count 199 (150-400) K/uL MPV 9.20 (7.40-12.00) fL Neut % (Auto) 89.3 H (48.0-80.0) % Lymph % (Auto) 7.8 L (16.0-40.0) % [place] % (Auto) 2.8 (0.0-15.0) % Eos % (Auto) 0.0 (0.0-7.0) % Baso % (Auto) 0.1 (0.0-1.5) % Neut # (Auto) 9.3 H (1.4-5.7) K/uL Lymph # (Auto) 0.8 (0.6-2.4) K/uL [place] # (Auto) 0.3 (0.0-0.8) K/uL Eos # (Auto) 0.0 (0.0-0.7) K/uL Baso # (Auto) 0.0 (0.0-0.1) K/uL Nucleated RBC % 0.0 /100WBC Nucleated RBCs # 0 K/uL Lactate (0.20-2.00) mmol/L Sodium 137 (136-148) mmol/L Potassium 4.2 (3.5-5.1) mmol/L Chloride 104 (98-107) mmol/L Carbon Dioxide 27.8 (21.0-32.0) mmol/L BUN 25 H (7.0-18.0) mg/dL Creatinine 0.9 (0.8-1.3) mg/dL Est Cr Clr Drug Dosing 73.65 mL/min Estimated GFR (MDRD) > 60.0 ml/min Glucose 136 H (74-106) mg/dL Calcium 7.6 L (8.5-10.1) mg/dL Total Bilirubin (0.2-1.0) mg/dL AST (15-37) IU/L ALT (14-63) IU/L Alkaline Phosphatase (46-116) U/L Total Protein (6.4-8.2) g/dL Albumin (3.4-5.0) g/dL Globulin (2.6-4.0) g/dL Albumin/Globulin Ratio (0.9-1.6) Urine Color YELLOW Urine Appearance CLEAR Urine pH 5.5 (5.0-8.0) Ur Specific [place] >= 1.030 (1.001-1.035) Urine Protein TRACE H (NEGATIVE) mg/dL Urine Glucose (UA) NEGATIVE (NEGATIVE) mg/dL Urine Ketones NEGATIVE (NEGATIVE) mg/dL Urine Occult Blood NEGATIVE (NEGATIVE) Urine Nitrite NEGATIVE (NEGATIVE) Urine Bilirubin SMALL H (NEGATIVE) Urine Ictotest NEGATIVE Urine Urobilinogen 0.2 (<2.0) EU/dL Ur Leukocyte Esterase NEGATIVE (NEGATIVE) Urine RBC 0-1 (0-2/HPF) Urine WBC 0-1 (0-5/HPF) Ur Epithelial Cells RARE (NONE-FEW) Urine Bacteria RARE (NEGATIVE) Result Diagrams: 12/29/18 06:12 12/29/18 06:12 Jose Daniel Results Last 24 hrs: Microbiology 12/28/18 01:05 Gram Stain - Preliminary Sputum - Expectorated Problem List Initiated/Reviewed/Updated: Yes Orders Last 24hrs: Active Orders 24 hr Category Date Time Status Admission Status [Patient Status] [ADT] Stat ADT 12/27/18 23:23 Active RT Aerosol Therapy [RC] ASDIRECTED Care 12/28/18 00:37 Active Consult to Speech Language Pathology [[facility] Evaluation Cons 12/28/18 10:04 Ordered and Treatment] [CONS] Routine Regular Diet [DIET] Diet 12/28/18 Breakfast Active CXR [Chest 2V] [CR] Routine Exams 12/28/18 09:57 Ordered CULTURE BLOOD [BC] Stat Lab 12/27/18 21:18 Received CULTURE BLOOD [BC] Stat Lab 12/27/18 21:28 Received CULTURE SPUTUM + SMEAR [RM] Routine Lab 12/28/18 01:05 Results VANCOMYCIN TROUGH [CHEM] Timed Lab 12/29/18 22:30 Ordered Albuterol/Ipratropium [DuoNeb 3.0-0.5 MG/3 ML] Med 12/28/18 06:00 Active 3 ml NEB Q6HRRT Aspirin Med 12/28/18 10:00 Active 81 mg PO DAILY Methadone Med 12/28/18 12:00 Active 10 mg PO BID@12,21 Methadone Med 12/28/18 09:00 Active 20 mg PO DAILY Metoprolol Succinate [Toprol XL] Med 12/29/18 09:00 Active 25 mg PO DAILY Pantoprazole [ProTONIX] Med 12/28/18 10:00 Active 40 mg PO DAILY Pharmacy to Dose - Vancomycin Med 12/28/18 01:00 Active 1 dose .XX NOW Piperacillin/Tazobactam [Piperacil-Tazobact] 3.375 gm Med 12/28/18 04:00 Active Sodium Chloride 0.9% [Normal Saline] 50 ml IV Q6H Sodium Chloride 0.9% [Saline Flush] Med 12/27/18 20:57 Active 10 ml FLUSH ASDIRECTED PRN Sodium Chloride 0.9% [Saline Flush] Med 12/27/18 20:57 Active 2.5 ml FLUSH ASDIRECTED PRN Vancomycin [Vancocin] 1 gm Med 12/28/18 11:30 Active Sodium Chloride 0.9% [Normal Saline] 250 ml IV Q12H atorvaSTATin [Lipitor] Med 12/28/18 21:00 Active 40 mg PO BEDTIME levoFLOXacin [Levaquin] Med 12/28/18 10:00 Active 500 mg PO Q24H methylPREDNISolone Sod Succ [Solu-MEDROL] Med 12/28/18 10:00 Ordered 125 mg IVPUSH DAILY traZODone HCl [Trazodone HCl] Med 12/28/18 21:00 Active 100 mg PO BEDTIME Blood Culture x2 Reflex Set [OM.PC] Stat Oth 12/27/18 21:10 Ordered Saline Lock Insert [OM.PC] Stat Oth 12/27/18 20:57 Ordered Medication Orders Albuterol/Ipratropium (Duoneb 3.0-0.5 Mg/3 Ml) 3 ml NEB Q6HRRT KEVIN Last Admin: 12/28/18 06:12 Dose: 3 ml Aspirin (Aspirin) 81 mg PO DAILY KEVIN Atorvastatin Calcium (Lipitor) 40 mg PO BEDTIME KEVIN Piperacillin Sod/Tazobactam (Sod 3.375 gm/ Sodium Chloride) 50 mls @ 100 mls/ hr IV Q6H KEVIN Last Admin: 12/28/18 09:55 Dose: 100 mls/hr Infusion: 12/28/18 04:29 Dose: 100 mls/hr Admin: 12/28/18 03:59 Dose: 100 mls/hr Vancomycin HCl 1 gm/ Sodium (Chloride) 250 mls @ 166 mls/hr IV Q12H [facility] Levofloxacin (Levaquin) 500 mg PO Q24H [facility] Methadone HCl (Methadone) 20 mg PO DAILY [facility] Methadone HCl (Methadone) 10 mg PO BID@12,21 [facility] Methylprednisolone Sodium Succinate (Solu-Medrol) 125 mg IVPUSH DAILY [facility] Metoprolol Succinate (Toprol Xl) 25 mg PO DAILY [facility] Pantoprazole Sodium (Protonix) 40 mg PO DAILY [facility] Sodium Chloride (Saline Flush) 10 ml FLUSH ASDIRECTED PRN PRN Reason: Keep Vein Open Sodium Chloride (Saline Flush) 2.5 ml FLUSH ASDIRECTED PRN PRN Reason: Keep Vein Open Trazodone HCl (Trazodone Hcl) 100 mg PO BEDTIME [facility] Vancomycin HCl (Pharmacy To Dose - Vancomycin) 1 dose .XX NOW [facility] Assessment/Plan Comment:: 68 yo male who presents with abdominal pain and shortness of breath. He was found to have a leukocytosis of 20,000. I suspect patient may have dyspepsia. We will treat with PPI. I will also place the patient back on vancomycin and Zosyn for the short term for his evolving pneumonia and repeat cultures. I will consult speech therapy for swallow eval. I will also give a dose of solumedrol this morning for a likely COPD exacerbation.
[2018-12-28] MEDS: Levofloxacin 500 MG Tab PO SCH (10:11)
[2018-12-28] MEDS: Pantoprazole 40 MG Tab.CR PO SCH (10:12)
[2018-12-28] MEDS: Aspirin 81 MG Tab.Chew PO SCH (10:12)
[2018-12-28] MEDS: methylPREDNISolone Sodium Succinate 125 MG/2 ML SDV IVPUSH SCH (10:43)
--- NOTE | 2018-12-28 12:29 | CR ---
Patient with pneumonia. Two-view chest x-ray. COMPARISON: Chest x-ray 12/21/2018. FINDINGS: Stable cardiac mediastinal silhouette. Lungs are hyperinflated. Aortic valve replacement. Left basilar interstitial opacities which have improved from the prior study. Possible tiny left effusion. Minimal basilar atelectasis. No pneumothorax. IMPRESSION: 1. Improved left basilar infiltrates. Recommend follow-up to ensure complete resolution. Dictated by Cassia Valerio MD @ Dec 28 2018 12:23PM Signed by Dr. Cassia Valerio @ Dec 28 2018 12:26PM
[2018-12-28] MEDS ORDERED: atorvaSTATin 40 MG Tab PO SCH (21:00)
[2018-12-29] MEDS: Piperacillin/Tazobactam 3.375 GM in Sodium Chloride 0.9% 50 ML IV SCH ×2 (04:55→09:19)
[2018-12-29] MEDS: Albuterol/Ipratropium 3.0-0.5 MG/3 ML Neb Soln NEB SCH ×2 (06:11→11:58)
[2018-12-29 06:36] LABS: CHLORIDE,CL 107 mmol/L (98-107); SODIUM,NA 139 mmol/L (136-148)
[2018-12-29] MEDS: Aspirin 81 MG Tab.Chew PO SCH (08:33)
[2018-12-29] MEDS: Pantoprazole 40 MG Tab.CR PO SCH (08:34)
[2018-12-29] MEDS: methylPREDNISolone Sodium Succinate 125 MG/2 ML SDV IVPUSH SCH (08:34)
[2018-12-29] MEDS: Methadone 10 MG Tab PO SCH ×2 (08:34→12:02)
[2018-12-29] MEDS ORDERED: Metoprolol Succinate 25 MG Tab.ER PO SCH (09:00)
[2018-12-29] MEDS ORDERED: Methadone 10 MG Tab PO SCH (09:00)
[2018-12-29] MEDS: Levofloxacin 500 MG Tab PO SCH (09:22)
--- NOTE | 2018-12-29 13:14 | PCM.DCSUM1 ---
Discharge Summary - Discharge Data Discharge Date: 12/29/18 Discharge Disposition: Home, Self-Care 01 Condition: Fair - Patient Summary/Data Consults: Consultations 12/28/18 10:04 Consult to Speech Language Pathology [DOUBLER HELPER Evaluation and Treatment] [CONS] Routine Hospital Course: 68 yo male with pmh of oxygen dependent COPD,vascular disease, with chronic pain on methadone who was admitted for gastritis and COPD exacerbation in the setting of recent pneumonia. He presented with 6 hour history of burning epigastric pain. At this time he also became short of breath and started to wheeze. He was noted to have a leukocytosis of 20,000. In the ED they performed an CT scan of the abdomen which did not report any acute abdominal disease. Chest x-ray reported improving left basilar infiltrates. His symptoms of abdominal pain resolved shortly after admission to medical floor. He was treated with IV fluids and Protonix for his gastritis. He received solumedrol , duonebs and IV antibiotics for his COPD exacerbation and possible pneumonia. His leukocytosis resolved and shortness of breath improved. He was discharged home to have follow up with Dr. Allen. - Discharge Plan Prescriptions/Med Rec: Amoxicillin/Potassium Clav [Augmentin 875-125 Tablet] 1 each PO BID #14 tablet Pantoprazole [ProTONIX] 40 mg PO DAILY #20 tab.cr Home Medications: Home Meds Albuterol Sulfate [Albuterol Sulfate HFA] 1 inhalation IH Q4H PRN 12/02/13 [ History] Aspirin [Sussy Chewable Aspirin] 81 mg PO DAILY 12/02/13 [History] traZODone 100 mg PO BEDTIME 12/02/13 [History] Tiotropium [Spiriva HandiHaler] 1 inhalation IH ASDIRECTED PRN 03/01/14 [History ] Methadone 10 mg PO BID PRN MDD 40 10/28/16 [History] Metoprolol Succinate 25 mg PO DAILY 10/28/16 [History] Sildenafil Citrate [Sildenafil] 20 mg PO BEDTIME PRN 10/28/16 [History] atorvaSTATin [Lipitor] 40 mg PO BEDTIME 10/28/16 [History] Albuterol Sulfate [Albuterol Sulfate Hfa] 1 puff IH Q4H PRN 12/21/18 [History] Cholecalciferol (Vitamin D3) [Vitamin D3] 2,000 unit PO DAILY 12/21/18 [History] Patient's Own Medication [Ptom] 1 each PO BID 12/21/18 [History] Tiotropium [place] [Spiriva Respimat] 4 gm IH BID 12/21/18 [History] levoFLOXacin [Levaquin] 500 mg PO Q24H #7 tablet 12/25/18 [Rx] predniSONE See Taper PO WITHBREAKFAST #15 tablet 12/25/18 [Rx] Methadone 20 mg PO ACBREAKFAST PRN 12/28/18 [History] Amoxicillin/Potassium Clav [Augmentin 875-125 Tablet] 1 each PO BID #14 tablet 12/29/18 [Rx] Pantoprazole [ProTONIX] 40 mg PO DAILY #20 tab.cr 12/29/18 [Rx] Patient Handouts: Amoxicillin; Clavulanic Acid tablets, Pantoprazole tablets, Community-Acquired Pneumonia, Adult, Sshz-ci-Jian Referrals: [facility] [Outside] Blake Allen MD [Physician] - 01/06/19 4:00 pm - Discharge Summary/Plan Comment DC Time >30 min.: No - Patient Data Vitals - Most Recent: Last Vital Signs Temp 36.3 C 12/29/18 07:32 Pulse 75 12/29/18 08:33 Resp 16 12/29/18 07:32 BP 160/71 H 12/29/18 08:33 Pulse Ox 93 L 12/29/18 07:32 Weight - Most Recent: 66.281 kg I&O - Last 24 hours: Intake & Output 12/28/18 12/29/18 12/29/18 22:59 06:59 14:59 Intake Total 2082 920 Output Total 1500 1240 Balance 582 -320 Lab Results - Last 24 hrs: Laboratory Results - last 24 hr 12/28/18 12/28/18 12/29/18 Range/Units 16:01 22:11 06:12 WBC 10.13 (4.0-11.0) K/uL RBC 5.09 (4.50-5.90) M/uL Hgb 12.9 L (13.0-17.0) g/dL Hct 40.9 (38.0-50.0) % MCV 80.4 (80.0-98.0) fL MCH 25.3 L (27.0-32.0) pg MCHC 31.5 (31.0-37.0) g/dL RDW Std Deviation 44.6 (28.0-62.0) fl RDW Coeff of Yury 15 (11.0-15.0) % Plt Count 188 (150-400) K/uL MPV 8.90 (7.40-12.00) fL Neut % (Auto) 72.6 (48.0-80.0) % Lymph % (Auto) 18.5 (16.0-40.0) % [place] % (Auto) 8.8 (0.0-15.0) % Eos % (Auto) 0.1 (0.0-7.0) % Baso % (Auto) 0.0 (0.0-1.5) % Neut # (Auto) 7.4 H (1.4-5.7) K/uL Lymph # (Auto) 1.9 (0.6-2.4) K/uL [place] # (Auto) 0.9 H (0.0-0.8) K/uL Eos # (Auto) 0.0 (0.0-0.7) K/uL Baso # (Auto) 0.0 (0.0-0.1) K/uL Nucleated RBC % 0.0 /100WBC Nucleated RBCs # 0 K/uL Sodium (136-148) mmol/L Potassium (3.5-5.1) mmol/L Chloride (98-107) mmol/L Carbon Dioxide (21.0-32.0) mmol/L BUN (7.0-18.0) mg/dL Creatinine (0.8-1.3) mg/dL Est Cr Clr Drug Dosing mL/min Estimated GFR (MDRD) ml/min Glucose (74-106) mg/dL Calcium (8.5-10.1) mg/dL Troponin I < 0.050 < 0.050 (0.000-0.056) ng/mL 12/29/18 Range/Units 06:12 WBC (4.0-11.0) K/uL RBC (4.50-5.90) M/uL Hgb (13.0-17.0) g/dL Hct (38.0-50.0) % MCV (80.0-98.0) fL MCH (27.0-32.0) pg MCHC (31.0-37.0) g/dL RDW Std Deviation (28.0-62.0) fl RDW Coeff of Yury (11.0-15.0) % Plt Count (150-400) K/uL MPV (7.40-12.00) fL Neut % (Auto) (48.0-80.0) % Lymph % (Auto) (16.0-40.0) % [place] % (Auto) (0.0-15.0) % Eos % (Auto) (0.0-7.0) % Baso % (Auto) (0.0-1.5) % Neut # (Auto) (1.4-5.7) K/uL Lymph # (Auto) (0.6-2.4) K/uL [place] # (Auto) (0.0-0.8) K/uL Eos # (Auto) (0.0-0.7) K/uL Baso # (Auto) (0.0-0.1) K/uL Nucleated RBC % /100WBC Nucleated RBCs # K/uL Sodium 139 (136-148) mmol/L Potassium 3.8 (3.5-5.1) mmol/L Chloride 107 (98-107) mmol/L Carbon Dioxide 26.3 (21.0-32.0) mmol/L BUN 26 H (7.0-18.0) mg/dL Creatinine 1.0 (0.8-1.3) mg/dL Est Cr Clr Drug Dosing 66.28 mL/min Estimated GFR (MDRD) > 60.0 ml/min Glucose 118 H (74-106) mg/dL Calcium 8.0 L (8.5-10.1) mg/dL Troponin I (0.000-0.056) ng/mL PATIENCE Results - Last 24 hrs: Microbiology 12/27/18 21:28 Aerobic Blood Culture - Preliminary Blood - Venous - Lab Draw NO GROWTH AFTER 1 DAY Anaerobic Blood Culture - Preliminary NO GROWTH AFTER 1 DAY 12/27/18 21:18 Aerobic Blood Culture - Preliminary Blood - Venous NO GROWTH AFTER 1 DAY Anaerobic Blood Culture - Preliminary NO GROWTH AFTER 1 DAY Med Orders - Current: Current Medications Albuterol/Ipratropium (Duoneb 3.0-0.5 Mg/3 Ml) 3 ml NEB Q6HRRT [facility] Last Admin: 12/29/18 11:58 Dose: 3 ml Aspirin (Aspirin) 81 mg PO DAILY [facility] Last Admin: 12/29/18 08:33 Dose: 81 mg Atorvastatin Calcium (Lipitor) 40 mg PO BEDTIME [facility] Last Admin: 12/28/18 20:56 Dose: 40 mg Piperacillin Sod/Tazobactam (Sod 3.375 gm/ Sodium Chloride) 50 mls @ 100 mls/ hr IV Q6H [facility] Last Admin: 12/29/18 09:19 Dose: 100 mls/hr Vancomycin HCl 1 gm/ Sodium (Chloride) 250 mls @ 166 mls/hr IV Q12H [facility] Last Admin: 12/29/18 00:43 Dose: 166 mls/hr Levofloxacin (Levaquin) 500 mg PO Q24H [facility] Last Admin: 12/29/18 09:22 Dose: 500 mg Methadone HCl (Methadone) 20 mg PO DAILY [facility] Last Admin: 12/29/18 08:34 Dose: 20 mg Methadone HCl (Methadone) 10 mg PO BID@12,21 [facility] Last Admin: 12/29/18 12:02 Dose: 10 mg Methylprednisolone Sodium Succinate (Solu-Medrol) 125 mg IVPUSH DAILY [facility] Last Admin: 12/29/18 08:34 Dose: 125 mg Metoprolol Succinate (Toprol Xl) 25 mg PO DAILY [facility] Last Admin: 12/29/18 08:33 Dose: 25 mg Pantoprazole Sodium (Protonix) 40 mg PO DAILY [facility] Last Admin: 12/29/18 08:34 Dose: 40 mg Sodium Chloride (Saline Flush) 10 ml FLUSH ASDIRECTED PRN PRN Reason: Keep Vein Open Sodium Chloride (Saline Flush) 2.5 ml FLUSH ASDIRECTED PRN PRN Reason: Keep Vein Open Trazodone HCl (Trazodone Hcl) 100 mg PO BEDTIME [facility] Last Admin: 12/28/18 20:55 Dose: 100 mg Vancomycin HCl (Pharmacy To Dose - Vancomycin) 1 dose .XX NOW [facility] Discontinued Medications Sodium Chloride (Normal Saline) 1,000 mls @ 999 mls/hr IV STAT ONE Stop: 12/27/18 22:58 Last Admin: 12/27/18 22:24 Dose: 999 mls/hr Vancomycin HCl 1 gm/ Sodium (Chloride) 250 mls @ 250 mls/hr IV ONETIME ONE Stop: 12/28/18 00:20 Last Admin: 12/27/18 23:58 Dose: 250 mls/hr Vancomycin HCl 1 gm/ Sodium (Chloride) 250 mls @ 166 mls/hr IV Q12H [facility] Last Admin: 12/28/18 12:28 Dose: Not Given Iopamidol (Isovue-370 (76%)) 100 ml IVPUSH ONETIME ONE Stop: 12/27/18 22:01 Last Admin: 12/27/18 22:10 Dose: 100 ml Methadone HCl (Methadone) 10 mg PO TID PRN PRN Reason: Pain Last Admin: 12/28/18 02:07 Dose: 10 mg Methadone HCl (Methadone) 20 mg PO DAILY [facility]IN Methadone HCl (Methadone) 10 mg PO STAT ONE Stop: 12/28/18 07:57 Last Admin: 12/28/18 08:01 Dose: Not Given Methadone HCl (Methadone) 10 mg PO BID KEVIN Methadone HCl (Methadone) 10 mg PO BID PRN PRN Reason: Pain (moderate 4-6) Methadone HCl (Methadone) 10 mg PO STAT ONE Stop: 12/28/18 08:02 Last Admin: 12/28/18 08:40 Dose: 10 mg Vancomycin HCl (Vancomycin) Confirm Administered Dose 1 gm .ROUTE .STK-MED ONE Stop: 12/27/18 23:49 Last Admin: 12/28/18 00:01 Dose: Not Given
[2018-12-29 16:07] VITALS: BP 160/62
== END 2018-12-29 16:00 | disposition home or self-care (01) ==
LOC: MW.ED 20:32 → MW.MS 23:23
PROVIDERS: ADMIT Internal Medicine; ATTEND Internal Medicine
DX: J18.9 Pneumonia, unspecified organism (principal); J44.9 Chronic obstructive pulmonary disease, unspecified; D72.829 Elevated white blood cell count, unspecified; R10.9 Unspecified abdominal pain; K21.9 Gastro-esophageal reflux disease without esophagitis; M19.90 Unspecified osteoarthritis, unspecified site; Z79.01 Long term (current) use of anticoagulants; Z79.82 Long term (current) use of aspirin; Z87.891 Personal history of nicotine dependence; Z88.7 Allergy status to serum and vaccine; Z99.81 Dependence on supplemental oxygen
CPT/HCPCS: 36415; 71046; 74177; 80048; 80053; 81001; 83605; 84484; 85025; 87040; 87070; 87205; 93005; 94640; 99284; A9270; J2543; J2930; J3370; J7040; J7050; Q9967; J7620-GY

== ENCOUNTER 2019-01-16 10:30 | Observation (INO) | payer MEDICARE ==
[2019-01-16] MEDS ORDERED: Albuterol/Ipratropium 3.0-0.5 MG/3 ML Neb Soln NEB ONE (10:44)
[2019-01-16] MEDS ORDERED: methylPREDNISolone Sodium Succinate 125 MG/2 ML SDV IVPUSH ONE (10:53)
[2019-01-16] MEDS ORDERED: Acetaminophen 500 MG Tab PO ONE (10:53)
[2019-01-16] MEDS ORDERED: Sodium Chloride 0.9% 1,000 ML IV ONE (10:53)
[2019-01-16] MEDS ORDERED: Sodium Chloride 0.9% 2.5 ML Syringe FLUSH PRN (10:54)
[2019-01-16] MEDS ORDERED: Sodium Chloride 0.9% 10 ML Syringe FLUSH PRN (10:54)
--- NOTE | 2019-01-16 11:01 | EDM.PDOC ---
ED HPI GENERAL MEDICAL PROBLEM - General Chief Complaint: Respiratory Problem Stated Complaint: TROUBLE BREATHING Time Seen by Provider: 01/16/19 10:45 - History of Present Illness INITIAL COMMENTS - FREE TEXT/NARRATIVE: HISTORY AND PHYSICAL: History of present illness: The patient is a 68-year-old male with a known history of oxygen dependent COPD , using 2 L on a regular basis, Cassidy Abdul with sequela of twitching and tremors and chronic pain for which she uses methadone was a history of multiple admissions here to our hospital recently for recurrent pneumonia; he currently presents today with complaints of shortness of breath fevers and chills and low oxygen saturation. He says that he just finished antibiotics 3 days or so ago and was doing okay and then recently worsened. According to my review of the medical record he was admitted here December 20 to December 25 by me for severe COPD exacerbation and hypoxia and bibasilar pneumonia. He received IV antibiotics and was sent home on Levaquin and prednisone. He re-presented 2 days later on December 27 and was admitted for 2 days for complaints of abdominal pain, for which the CT scan of the abdomen was negative, and recurrent COPD exacerbation and persistent pneumonia. He has since followed up with Dr. Allen in the clinic and had an outpatient chest x-ray on January 06 which revealed that the left lower lobe infiltrate that had persisted was always completely resolved. In the past he has had a CT scan of the chest done on December 12 but no repeat CTs have been performed. I reviewed all of his testing results. Currently on my evaluation the patient says he feels very short of breath and he feels fatigued. He says he is coughing but nonproductive and he is not sure if he has had a fever at home. He says he has some mild upper abdominal pain which again is not new or different and he has his chronic pain issues. He has no chest pain per se no lower extremity swelling or edema. He says he is eating and drinking. At home he is still only using 2 L of oxygen and says he has not turned it up. He says he has nebulizer treatments at home but on my last encounter with him it is unclear whether or not he does those properly or on any regular basis. Review of systems: As per history of present illness and below otherwise all systems reviewed and negative. Past medical history: As per history of present illness and as reviewed below otherwise noncontributory. Surgical history: As per history of present illness and as reviewed below otherwise noncontributory. Social history: No reported history of drug or alcohol abuse. Family history: As per history of present illness and as reviewed below otherwise noncontributory. Physical exam: General: Well-developed well-nourished thin man who is not breathless on my evaluation and has an overall look of fatigue but is nontoxic. Vital signs are noted by me including his initial O2 sat of 75% on room air and his temp of 101.7. On my evaluation he is on 4 L of oxygen and satting 92% without work of breathing. HEENT: Atraumatic, normocephalic, pupils reactive, negative for conjunctival pallor or scleral icterus, mucous membranes moist, throat clear, neck supple, nontender, trachea midline. Lungs: diminished breath sounds throughout all lung pena but worse at the left base and no overt wheezing or stridor and no worker breathing, breath sounds equal bilaterally, chest nontender. Heart: S1S2, regular rhythm slightly tachycardic rate on my evaluation, negative for clicks, rubs, or JVD. Abdomen: Soft, nondistended, nontender. Negative for masses or hepatosplenomegaly. Negative for costovertebral tenderness. Pelvis: Stable nontender. Genitourinary: Deferred. Rectal: Deferred. Extremities: Atraumatic, negative for cords or calf pain. Neurovascular unremarkable. No pedal edema Neuro: Awake, alert, oriented. Cranial nerves II through XII unremarkable. Cerebellum unremarkable. Motor and sensory unremarkable throughout. Exam nonfocal. Diagnostics: EKG chest x-ray CBC CMP UA with reflex lipase lactate blood cultures 2 Therapeutics: IV O2 monitor IV fluids duo nebs Solu-Medrol Levaquin Patient is feeling much improved and is holding his O2 sats with 3-4 L of oxygen. He is speaking clearly and is aware of all of the lab tests and x-ray findings. is also at bedside. He says to me that he has had several swallow test in the past and they have not yielded any results but his says that the last time the attempted at they did not have great success with it and his ability to tolerate it. I will mention this to Dr. Johnson. Due to his presenting symptoms of hypoxia fever and recurrent pneumonia again today on the x-ray will plan for admission 1255: Case was discussed with Dr. Johnson who would like Levaquin to be given 750 mg and would like the patient to be obstinate. Impression: Recurrent pneumonia with hypoxia, history of COPD Definitive disposition and diagnosis as appropriate pending reevaluation and review of above. - Related Data Allergies Allergy/AdvReac Type Severity Reaction Status Date / Time influenza virus vaccine, Allergy Muscle Verified 01/16/19 10:38 specific Weakness [Influenza Virus Vacc,Specific] Home Meds: Home Meds Albuterol Sulfate [Albuterol Sulfate HFA] 1 inhalation IH Q4H PRN 12/02/13 [ History] Aspirin [Sussy Chewable Aspirin] 81 mg PO DAILY 12/02/13 [History] traZODone 100 mg PO BEDTIME 12/02/13 [History] Tiotropium [Spiriva HandiHaler] 1 inhalation IH ASDIRECTED PRN 03/01/14 [History ] Methadone 10 mg PO BID PRN MDD 40 10/28/16 [History] Metoprolol Succinate 25 mg PO DAILY 10/28/16 [History] Sildenafil Citrate 20 mg PO BEDTIME PRN 10/28/16 [History] atorvaSTATin [Lipitor] 40 mg PO BEDTIME 10/28/16 [History] Albuterol Sulfate [Albuterol Sulfate Hfa] 1 puff IH Q4H PRN 12/21/18 [History] Cholecalciferol (Vitamin D3) [Vitamin D3] 2,000 unit PO DAILY 12/21/18 [History] Patient's Own Medication [Ptom] 1 each PO BID 12/21/18 [History] Tiotropium [place] [Spiriva Respimat] 4 gm IH BID 12/21/18 [History] levoFLOXacin [Levaquin] 500 mg PO Q24H #7 tablet 12/25/18 [Rx] predniSONE See Taper PO WITHBREAKFAST #15 tablet 12/25/18 [Rx] Methadone 20 mg PO ACBREAKFAST PRN 12/28/18 [History] Amoxicillin/Potassium Clav [Augmentin 875-125 Tablet] 1 each PO BID #14 tablet 12/29/18 [Rx] Pantoprazole [ProTONIX] 40 mg PO DAILY #20 tab.cr 12/29/18 [Rx] Past Medical History HEENT History: Reports: None Cardiovascular History: Reports: Hypertension Respiratory History: Reports: COPD Other Respiratory History: Home oxygen at night at 2Lpm Gastrointestinal History: Reports: Bowel Obstruction, GERD Other Gastrointestinal History: constipation Genitourinary History: Reports: None Musculoskeletal History: Reports: Arthritis Other Musculoskeletal History: Multiple vascular bypass procedures on the RLE Neurological History: Reports: Other (See Below) Psychiatric History: Reports: None Endocrine/Metabolic History: Reports: None Hematologic History: Reports: Anticoagulation Therapy Immunologic History: Reports: None - Infectious Disease History Infectious Disease History: Reports: Chicken Pox, Measles, Mumps - Past Surgical History Cardiovascular Surgical History: Reports: AAA Repair, Valve Replacement, Vascular Surgery Other Neurological Surgeries/Procedures: Stacy Edward Syndrome Social & Family History - Family History Family Medical History: Noncontributory - Tobacco Use Smoking Status *Q: Former Smoker Used Tobacco, but Quit: Yes Month/Year Tobacco Last Used: 10 - Caffeine Use Caffeine Use: Reports: Coffee, Soda Caffeine Use Comment: 1cup/day - Recreational Drug Use Recreational Drug Use: No - Living Situation & Occupation Living situation: Reports: , with Spouse Occupation: Retired ED ROS GENERAL - Review of Systems Review Of Systems: ROS reveals no pertinent complaints other than HPI. ED EXAM, GENERAL - Physical Exam Exam: See Below (See dictation) Course - Vital Signs Last Recorded V/S: Last Vital Signs Temp 37.9 C 01/16/19 12:00 Pulse 89 01/16/19 12:24 Resp 16 01/16/19 12:24 BP 120/58 L 01/16/19 12:24 Pulse Ox 98 01/16/19 12:24 - Orders/Labs/Meds Orders: Active Orders 24 hr Category Date Time Status Cardiac Monitoring [RC] . DIRECTED Care 01/16/19 10:54 Active EKG Documentation Completion [RC] STAT Care 01/16/19 10:54 Active Oxygen Therapy, ED [RC] ASDIRECTED Care 01/16/19 10:54 Active Pulse Oximetry [RC] ASDIRECTED Care 01/16/19 10:54 Active RT Aerosol Therapy [RC] ASDIRECTED Care 01/16/19 10:44 Active CULTURE BLOOD [BC] Stat Lab 01/16/19 10:40 Received CULTURE BLOOD [BC] Stat Lab 01/16/19 10:55 Ordered Sodium Chloride 0.9% [Normal Saline] 1,000 ml Med 01/16/19 12:45 Active IV ASDIRECTED Sodium Chloride 0.9% [Saline Flush] Med 01/16/19 10:54 Active 10 ml FLUSH ASDIRECTED PRN Sodium Chloride 0.9% [Saline Flush] Med 01/16/19 10:54 Active 2.5 ml FLUSH ASDIRECTED PRN Blood Culture x2 Reflex Set [OM.PC] Stat Ot 01/16/19 10:54 Ordered Saline Lock Insert [OM.PC] Stat Ot 01/16/19 10:54 Ordered Medication Orders Sodium Chloride (Normal Saline) 1,000 mls @ 75 mls/hr IV ASDIRECTED KEVIN Sodium Chloride (Saline Flush) 10 ml FLUSH ASDIRECTED PRN PRN Reason: Keep Vein Open Last Admin: 01/16/19 11:21 Dose: 10 ml Sodium Chloride (Saline Flush) 2.5 ml FLUSH ASDIRECTED PRN PRN Reason: Keep Vein Open Last Admin: 01/16/19 11:22 Dose: 2.5 ml Labs: Laboratory Tests 01/16/19 01/16/19 01/16/19 Range/Units 11:06 11:06 11:06 WBC 7.44 (4.0-11.0) K/uL RBC 5.68 (4.50-5.90) M/uL Hgb 14.8 (13.0-17.0) g/dL Hct 46.2 (38.0-50.0) % MCV 81.3 (80.0-98.0) fL MCH 26.1 L (27.0-32.0) pg MCHC 32.0 (31.0-37.0) g/dL RDW Std Deviation 49.0 (28.0-62.0) fl RDW Coeff of Yury 17 H (11.0-15.0) % Plt Count 98 L (150-400) K/uL MPV 9.70 (7.40-12.00) fL Neut % (Auto) 83.9 H (48.0-80.0) % Lymph % (Auto) 8.5 L (16.0-40.0) % [place] % (Auto) 7.1 (0.0-15.0) % Eos % (Auto) 0.4 (0.0-7.0) % Baso % (Auto) 0.1 (0.0-1.5) % Neut # (Auto) 6.2 H (1.4-5.7) K/uL Lymph # (Auto) 0.6 (0.6-2.4) K/uL [place] # (Auto) 0.5 (0.0-0.8) K/uL Eos # (Auto) 0.0 (0.0-0.7) K/uL Baso # (Auto) 0.0 (0.0-0.1) K/uL Nucleated RBC % 0.0 /100WBC Nucleated RBCs # 0 K/uL Lactate 1.9 (0.20-2.00) mmol/L Sodium 139 (136-148) mmol/L Potassium 4.2 (3.5-5.1) mmol/L Chloride 105 (98-107) mmol/L Carbon Dioxide 26.4 (21.0-32.0) mmol/L BUN 18 (7.0-18.0) mg/dL Creatinine 1.0 (0.8-1.3) mg/dL Est Cr Clr Drug Dosing 64.41 mL/min Estimated GFR (MDRD) > 60.0 ml/min Glucose 117 H (74-106) mg/dL Calcium 8.5 (8.5-10.1) mg/dL Total Bilirubin 0.7 (0.2-1.0) mg/dL AST 32 (15-37) IU/L ALT 46 (14-63) IU/L Alkaline Phosphatase 70 (46-116) U/L Total Protein 6.6 (6.4-8.2) g/dL Albumin 3.2 L (3.4-5.0) g/dL Globulin 3.4 (2.6-4.0) g/dL Albumin/Globulin Ratio 0.9 (0.9-1.6) Lipase 68 L (73-393) U/L Urine Color Urine Appearance Urine pH (5.0-8.0) Ur Specific [place] (1.001-1.035) Urine Protein (NEGATIVE) mg/dL Urine Glucose (UA) (NEGATIVE) mg/dL Urine Ketones (NEGATIVE) mg/dL Urine Occult Blood (NEGATIVE) Urine Nitrite (NEGATIVE) Urine Bilirubin (NEGATIVE) Urine Urobilinogen (<2.0) EU/dL Ur Leukocyte Esterase (NEGATIVE) 01/16/19 Range/Units 11:45 WBC (4.0-11.0) K/uL RBC (4.50-5.90) M/uL Hgb (13.0-17.0) g/dL Hct (38.0-50.0) % MCV (80.0-98.0) fL MCH (27.0-32.0) pg MCHC (31.0-37.0) g/dL RDW Std Deviation (28.0-62.0) fl RDW Coeff of [place] (11.0-15.0) % Plt Count (150-400) K/uL MPV (7.40-12.00) fL Neut % (Auto) (48.0-80.0) % Lymph % (Auto) (16.0-40.0) % [place] % (Auto) (0.0-15.0) % Eos % (Auto) (0.0-7.0) % Baso % (Auto) (0.0-1.5) % Neut # (Auto) (1.4-5.7) K/uL Lymph # (Auto) (0.6-2.4) K/uL [place] # (Auto) (0.0-0.8) K/uL Eos # (Auto) (0.0-0.7) K/uL Baso # (Auto) (0.0-0.1) K/uL Nucleated RBC % /100WBC Nucleated RBCs # K/uL Lactate (0.20-2.00) mmol/L Sodium (136-148) mmol/L Potassium (3.5-5.1) mmol/L Chloride (98-107) mmol/L Carbon Dioxide (21.0-32.0) mmol/L BUN (7.0-18.0) mg/dL Creatinine (0.8-1.3) mg/dL Est Cr Clr Drug Dosing mL/min Estimated GFR (MDRD) ml/min Glucose (74-106) mg/dL Calcium (8.5-10.1) mg/dL Total Bilirubin (0.2-1.0) mg/dL AST (15-37) IU/L ALT (14-63) IU/L Alkaline Phosphatase (46-116) U/L Total Protein (6.4-8.2) g/dL Albumin (3.4-5.0) g/dL Globulin (2.6-4.0) g/dL Albumin/Globulin Ratio (0.9-1.6) Lipase (73-393) U/L Urine Color YELLOW Urine Appearance CLEAR Urine pH 5.5 (5.0-8.0) Ur Specific [place] 1.025 (1.001-1.035) Urine Protein NEGATIVE (NEGATIVE) mg/dL Urine Glucose (UA) NEGATIVE (NEGATIVE) mg/dL Urine Ketones NEGATIVE (NEGATIVE) mg/dL Urine Occult Blood NEGATIVE (NEGATIVE) Urine Nitrite NEGATIVE (NEGATIVE) Urine Bilirubin NEGATIVE (NEGATIVE) Urine Urobilinogen 0.2 (<2.0) EU/dL Ur Leukocyte Esterase NEGATIVE (NEGATIVE) Meds: Medications Generic Name Dose Route Start Last Admin Trade Name Freq PRN Reason Stop Dose Admin Sodium Chloride 1,000 mls @ 75 mls/hr 01/16/19 12:45 Normal Saline IV ASDIRECTED KEVIN Sodium Chloride 10 ml 01/16/19 10:54 01/16/19 11:21 Saline Flush FLUSH 10 ml ASDIRECTED PRN Administration Keep Vein Open Sodium Chloride 2.5 ml 01/16/19 10:54 01/16/19 11:22 Saline Flush FLUSH 2.5 ml ASDIRECTED PRN Administration Keep Vein Open Discontinued Medications Generic Name Dose Route Start Last Admin Trade Name Freq PRN Reason Stop Dose Admin Acetaminophen 1,000 mg 01/16/19 10:53 01/16/19 11:22 Tylenol Extra Strength PO 01/16/19 10:54 1,000 mg ONETIME ONE Administration Albuterol/Ipratropium 3 ml 01/16/19 10:44 01/16/19 10:49 Duoneb 3.0-0.5 Mg/3 Ml NEB 01/16/19 10:45 3 ml ONETIME ONE Administration Sodium Chloride 1,000 mls @ 999 mls/hr 01/16/19 10:53 01/16/19 11:20 Normal Saline IV 01/16/19 11:53 999 mls/hr STAT ONE Administration Methylprednisolone Sodium Succinate 125 mg 01/16/19 10:53 01/16/19 11:22 Solu-Medrol IVPUSH 01/16/19 10:54 125 mg ONETIME ONE Administration Departure - Departure Time of Disposition: 12:43 Disposition: Refer to Observation Condition: Good Clinical Impression: Recurrent pneumonia, Hypoxia - Discharge Information Referrals: PCP,Unknown [Primary Care Provider] - Forms: ED Department Discharge - My Orders Last 24 Hours: My Active Orders 01/16/19 10:40 CULTURE BLOOD [BC] Stat 01/16/19 10:44 RT Aerosol Therapy [RC] ASDIRECTED 01/16/19 10:54 Cardiac Monitoring [RC] . DIRECTED EKG Documentation Completion [RC] STAT Oxygen Therapy, ED [RC] ASDIRECTED Pulse Oximetry [RC] ASDIRECTED Sodium Chloride 0.9% [Saline Flush] 10 ml FLUSH ASDIRECTED PRN Sodium Chloride 0.9% [Saline Flush] 2.5 ml FLUSH ASDIRECTED PRN Blood Culture x2 Reflex Set [OM.PC] Stat Saline Lock Insert [OM.PC] Stat 01/16/19 10:55 CULTURE BLOOD [BC] Stat 01/16/19 12:45 Sodium Chloride 0.9% [Normal Saline] 1,000 ml IV ASDIRECTED - Assessment/Plan Last 24 Hours: My Active Orders 01/16/19 10:40 CULTURE BLOOD [BC] Stat 01/16/19 10:44 RT Aerosol Therapy [RC] ASDIRECTED 01/16/19 10:54 Cardiac Monitoring [RC] . DIRECTED EKG Documentation Completion [RC] STAT Oxygen Therapy, ED [RC] ASDIRECTED Pulse Oximetry [RC] ASDIRECTED Sodium Chloride 0.9% [Saline Flush] 10 ml FLUSH ASDIRECTED PRN Sodium Chloride 0.9% [Saline Flush] 2.5 ml FLUSH ASDIRECTED PRN Blood Culture x2 Reflex Set [OM.PC] Stat Saline Lock Insert [OM.PC] Stat 01/16/19 10:55 CULTURE BLOOD [BC] Stat 01/16/19 12:45 Sodium Chloride 0.9% [Normal Saline] 1,000 ml IV ASDIRECTED
[2019-01-16 11:45] LABS: BLOOD UREA NITROGEN,BUN 18 mg/dL (7.0-18.0); CARBON DIOXIDE,CO2 26.4 mmol/L (21.0-32.0); CHLORIDE,CL 105 mmol/L (98-107); GLUCOSE RANDOM 117 mg/dL (74-106); LIPASE 68 U/L (73-393); POTASSIUM,K 4.2 mmol/L (3.5-5.1); SODIUM,NA 139 mmol/L (136-148)
--- NOTE | 2019-01-16 12:07 | CR ---
INDICATION: Chest pain and shortness of breath TECHNIQUE: Chest 1 views COMPARISON: 01/06/2019 FINDINGS: Cardiovascular and mediastinum: Heart size and vasculature are normal in caliber and appearance. Lungs and pleural spaces: Ill-defined infiltrates are in both lower lobes and the basilar segment of the right upper lobe. Remainder of the lungs and pleural spaces are clear. Bones and soft tissues: No significant findings. IMPRESSION: Pneumonia is present in both lower lobes and the basilar segment of the right upper lobe. This infiltrative pattern can be seen with aspiration. Dictated by Leoncio Cummings MD @ Jan 16 2019 12:03PM Signed by Dr. Leoncio Cummings @ Jan 16 2019 12:05PM
[2019-01-16] MEDS ORDERED: Levofloxacin/Dextrose 5%-Water 750 MG in Premix Bag 1 BAG IV ONE (12:58)
[2019-01-16] MEDS: Sodium Chloride 0.9% 1,000 ML IV SCH (13:07)
[2019-01-16] MEDS ORDERED: Methadone 10 MG Tab PO PRN (14:45)
[2019-01-16] MEDS: Enoxaparin 40 MG/0.4 ML Syringe SUBCUT SCH (15:43)
[2019-01-16] MEDS: Piperacillin/Tazobactam 4.5 GM in Sodium Chloride 0.9% 100 ML IV SCH (15:56)
[2019-01-16] MEDS: Albuterol/Ipratropium 3.0-0.5 MG/3 ML Neb Soln NEB SCH ×2 (17:36→21:34)
--- NOTE | 2019-01-16 20:10 | PCM.HP ---
H&P History of Present Illness - General Date of Service: 01/16/19 Admit Problem/Dx: Admission Diagnosis/Problem Admission Diagnosis/Problem Recurrent pneumonia - History of Present Illness Initial Comments - Free Text/Narative: Patient is a 68-year-old male who presented to [facility] with complaints of shortness of breath, chills, fevers, decreased oxygen saturation and productive cough. He has been admitted multiple times for recurrent pneumonia and COPD exacerbations the past 2 months. He was last seen by his PCP approximately one week ago and had a chest x-ray done which showed that his pneumonia was almost completely resolved from his most recent hospital admission. He also completed a course of antibiotics during this time. However, over the past 2 days he has noted that his symptoms had returned and this morning he had a lot of difficulty breathing. He then decided to come to the ER for further evaluation. Patient does have home oxygen, however, reports that he only requires it at nighttime when sleeping. Patient further reports that he has had difficulty swallowing for quite some time now. He reports that he often has to cough up food and liquids because they do not go down correctly. Patient has also had subjective fevers, increased cough, chronic pain in his left back and left upper quadrant of stomach, chronic tingling in his legs, muscle aches and spasms and history of easy bruising. In the ER, patient received a dose of IV steroids and DuoNeb breathing treatments, which significantly improved patient's breathing. A chest x-ray was done which showed pneumonia in both lower lobes and the right upper lobe, suspicious of aspiration pneumonia. - Related Data Allergies/Adverse Reactions: Allergies Allergy/AdvReac Type Severity Reaction Status Date / Time influenza virus vaccine, Allergy Muscle Verified 01/16/19 10:38 specific Weakness [Influenza Virus Vacc,Specific] Home Medications: Home Meds Albuterol Sulfate [Albuterol Sulfate HFA] 1 inhalation IH Q4H PRN 12/02/13 [ History] Aspirin [Sussy Chewable Aspirin] 81 mg PO BEDTIME 12/02/13 [History] traZODone 100 mg PO BEDTIME 12/02/13 [History] Tiotropium [Spiriva HandiHaler] 1 inhalation IH ASDIRECTED PRN 03/01/14 [History ] Methadone 10 mg PO BEDTIME MDD 40 10/28/16 [History] Metoprolol Succinate 25 mg PO DAILY 10/28/16 [History] Sildenafil Citrate 20 mg PO BEDTIME PRN 10/28/16 [History] atorvaSTATin [Lipitor] 40 mg PO BEDTIME 10/28/16 [History] Albuterol Sulfate [Albuterol Sulfate Hfa] 1 puff IH Q4H PRN 12/21/18 [History] Cholecalciferol (Vitamin D3) [Vitamin D3] 2,000 unit PO DAILY 12/21/18 [History] Patient's Own Medication [Ptom] 1 each PO BID 12/21/18 [History] Tiotropium [place] [Spiriva Respimat] 4 gm IH BID 12/21/18 [History] levoFLOXacin [Levaquin] 500 mg PO Q24H #7 tablet 12/25/18 [Rx] predniSONE See Taper PO WITHBREAKFAST #15 tablet 12/25/18 [Rx] Methadone 20 mg PO ACBREAKFAST 12/28/18 [History] Amoxicillin/Potassium Clav [Augmentin 875-125 Tablet] 1 each PO BID #14 tablet 12/29/18 [Rx] Pantoprazole [ProTONIX] 40 mg PO DAILY #20 tab.cr 12/29/18 [Rx] Budesonide/Formoterol Fumarate [Symbicort 80-4.5 Mcg Inhaler] 2 puff Q4HR PRN [History] Past Medical History HEENT History: Reports: None Cardiovascular History: Reports: Hypertension Respiratory History: Reports: COPD Other Respiratory History: Home oxygen at night at 2Lpm Gastrointestinal History: Reports: Bowel Obstruction, GERD Other Gastrointestinal History: constipation Genitourinary History: Reports: None Musculoskeletal History: Reports: Arthritis Other Musculoskeletal History: Multiple vascular bypass procedures on the RLE Neurological History: Reports: Other (See Below) Psychiatric History: Reports: None Endocrine/Metabolic History: Reports: None Hematologic History: Reports: Anticoagulation Therapy Immunologic History: Reports: None Other Oncologic History: As per the pt he had hx of skin cancer on his face, removed some skin quarter size of skin on the upper lip - Infectious Disease History Infectious Disease History: Reports: Chicken Pox, Measles, Mumps - Past Surgical History HEENT Surgical History: Reports: Cataract Surgery Cardiovascular Surgical History: Reports: AAA Repair, Valve Replacement, Vascular Surgery Other Neurological Surgeries/Procedures: Stacy Edward Syndrome Dermatological Surgical History: Reports: Other (See Below) Social & Family History - Family History Family Medical History: Noncontributory - Tobacco Use Smoking Status *Q: Former Smoker Packs/Tins Daily: 1 Used Tobacco, but Quit: Yes Month/Year Tobacco Last Used: 10 years ago Second Hand Smoke Exposure: No - Caffeine Use Caffeine Use: Reports: Coffee, Soda Caffeine Use Comment: 1cup/day - Recreational Drug Use Recreational Drug Use: No - Living Situation & Occupation Living situation: Reports: , with Spouse Occupation: Retired H&P Review of Systems - Review of Systems: Review Of Systems: ROS reveals no pertinent complaints other than HPI. Exam - Exam Exam: See Below - Vital Signs Vital Signs: Last Vital Signs Temp 97.9 F 01/16/19 15:44 Pulse 102 H 01/16/19 15:44 Resp 16 01/16/19 15:44 BP 112/76 01/16/19 15:44 Pulse Ox 93 L 01/16/19 15:44 Weight: 149 lb 3 oz - Exam General: Alert, Oriented, Cooperative, Mild Distress HEENT: Conjunctiva Clear, EOMI, Hearing Intact, Pupils Equal, Pupils Reactive, TMs Clear, Other (pharyngeal erythema, post-nasal drip) Neck: Supple, Trachea Midline. No: Lymphadenopathy Lungs: Other (mild expiratory wheeze in RUL and FRANCINE.) Cardiovascular: Regular Rate, Regular Rhythm GI/Abdominal Exam: Normal Bowel Sounds, Soft, Non-Tender, No Distention Extremities: Other (Scattered black spots over lower extremities.). No: No Pedal Edema Neurological: Cranial Nerves Intact, Other (3/5 strength in lower extremities bilaterally. 4/5 strengh in upper extremities bilaterally. CN 2-12 grossly intact.) Neuro Extensive - Mental Status: Alert, Oriented x3, Normal Mood/Affect Psychiatric: Alert, Normal Affect, Normal Mood - Patient Data Lab Results Last 24 hrs: Laboratory Results - last 24 hr 01/16/19 01/16/19 01/16/19 Range/Units 11:06 11:06 11:06 WBC 7.44 (4.0-11.0) K/uL RBC 5.68 (4.50-5.90) M/uL Hgb 14.8 (13.0-17.0) g/dL Hct 46.2 (38.0-50.0) % MCV 81.3 (80.0-98.0) fL MCH 26.1 L (27.0-32.0) pg MCHC 32.0 (31.0-37.0) g/dL RDW Std Deviation 49.0 (28.0-62.0) fl RDW Coeff of [place] 17 H (11.0-15.0) % Plt Count 98 L (150-400) K/uL MPV 9.70 (7.40-12.00) fL Neut % (Auto) 83.9 H (48.0-80.0) % Lymph % (Auto) 8.5 L (16.0-40.0) % [place] % (Auto) 7.1 (0.0-15.0) % Eos % (Auto) 0.4 (0.0-7.0) % Baso % (Auto) 0.1 (0.0-1.5) % Neut # (Auto) 6.2 H (1.4-5.7) K/uL Lymph # (Auto) 0.6 (0.6-2.4) K/uL [place] # (Auto) 0.5 (0.0-0.8) K/uL Eos # (Auto) 0.0 (0.0-0.7) K/uL Baso # (Auto) 0.0 (0.0-0.1) K/uL Nucleated RBC % 0.0 /100WBC Nucleated RBCs # 0 K/uL Lactate 1.9 (0.20-2.00) mmol/L Sodium 139 (136-148) mmol/L Potassium 4.2 (3.5-5.1) mmol/L Chloride 105 (98-107) mmol/L Carbon Dioxide 26.4 (21.0-32.0) mmol/L BUN 18 (7.0-18.0) mg/dL Creatinine 1.0 (0.8-1.3) mg/dL Est Cr Clr Drug Dosing 64.41 mL/min Estimated GFR (MDRD) > 60.0 ml/min Glucose 117 H (74-106) mg/dL Calcium 8.5 (8.5-10.1) mg/dL Total Bilirubin 0.7 (0.2-1.0) mg/dL AST 32 (15-37) IU/L ALT 46 (14-63) IU/L Alkaline Phosphatase 70 (46-116) U/L Total Protein 6.6 (6.4-8.2) g/dL Albumin 3.2 L (3.4-5.0) g/dL Globulin 3.4 (2.6-4.0) g/dL Albumin/Globulin Ratio 0.9 (0.9-1.6) Lipase 68 L (73-393) U/L Urine Color Urine Appearance Urine pH (5.0-8.0) Ur Specific [place] (1.001-1.035) Urine Protein (NEGATIVE) mg/dL Urine Glucose (UA) (NEGATIVE) mg/dL Urine Ketones (NEGATIVE) mg/dL Urine Occult Blood (NEGATIVE) Urine Nitrite (NEGATIVE) Urine Bilirubin (NEGATIVE) Urine Urobilinogen (<2.0) EU/dL Ur Leukocyte Esterase (NEGATIVE) 01/16/19 Range/Units 11:45 WBC (4.0-11.0) K/uL RBC (4.50-5.90) M/uL Hgb (13.0-17.0) g/dL Hct (38.0-50.0) % MCV (80.0-98.0) fL MCH (27.0-32.0) pg MCHC (31.0-37.0) g/dL RDW Std Deviation (28.0-62.0) fl RDW Coeff of [place]ury (11.0-15.0) % Plt Count (150-400) K/uL MPV (7.40-12.00) fL Neut % (Auto) (48.0-80.0) % Lymph % (Auto) (16.0-40.0) % [place] % (Auto) (0.0-15.0) % Eos % (Auto) (0.0-7.0) % Baso % (Auto) (0.0-1.5) % Neut # (Auto) (1.4-5.7) K/uL Lymph # (Auto) (0.6-2.4) K/uL [place] # (Auto) (0.0-0.8) K/uL Eos # (Auto) (0.0-0.7) K/uL Baso # (Auto) (0.0-0.1) K/uL Nucleated RBC % /100WBC Nucleated RBCs # K/uL Lactate (0.20-2.00) mmol/L Sodium (136-148) mmol/L Potassium (3.5-5.1) mmol/L Chloride (98-107) mmol/L Carbon Dioxide (21.0-32.0) mmol/L BUN (7.0-18.0) mg/dL Creatinine (0.8-1.3) mg/dL Est Cr Clr Drug Dosing mL/min Estimated GFR (MDRD) ml/min Glucose (74-106) mg/dL Calcium (8.5-10.1) mg/dL Total Bilirubin (0.2-1.0) mg/dL AST (15-37) IU/L ALT (14-63) IU/L Alkaline Phosphatase (46-116) U/L Total Protein (6.4-8.2) g/dL Albumin (3.4-5.0) g/dL Globulin (2.6-4.0) g/dL Albumin/Globulin Ratio (0.9-1.6) Lipase (73-393) U/L Urine Color YELLOW Urine Appearance CLEAR Urine pH 5.5 (5.0-8.0) Ur Specific [place] 1.025 (1.001-1.035) Urine Protein NEGATIVE (NEGATIVE) mg/dL Urine Glucose (UA) NEGATIVE (NEGATIVE) mg/dL Urine Ketones NEGATIVE (NEGATIVE) mg/dL Urine Occult Blood NEGATIVE (NEGATIVE) Urine Nitrite NEGATIVE (NEGATIVE) Urine Bilirubin NEGATIVE (NEGATIVE) Urine Urobilinogen 0.2 (<2.0) EU/dL Ur Leukocyte Esterase NEGATIVE (NEGATIVE) Result Diagrams: 01/16/19 11:06 01/16/19 11:06 Problem List Initiated/Reviewed/Updated: Yes Orders Last 24hrs: Active Orders 24 hr Category Date Time Status Patient Status [ADT] Stat ADT 01/16/19 12:58 Active Antiembolic Devices [RC] PER UNIT ROUTINE Care 01/16/19 15:44 Active Cardiac Monitoring [RC] . DIRECTED Care 01/16/19 10:54 Active EKG Documentation Completion [RC] STAT Care 01/16/19 10:54 Active Oxygen Therapy [RC] PRN Care 01/16/19 14:31 Active Oxygen Therapy, ED [RC] ASDIRECTED Care 01/16/19 10:54 Active Pulse Oximetry [RC] ASDIRECTED Care 01/16/19 10:54 Active RT Aerosol Therapy [RC] ASDIRECTED Care 01/16/19 10:44 Active RT Aerosol Therapy [RC] ASDIRECTED Care 01/16/19 14:37 Active Up ad Dariela [RC] ASDIRECTED Care 01/16/19 14:31 Active VTE/DVT Education [RC] PER UNIT ROUTINE Care 01/16/19 14:31 Active Vital Signs [RC] Q4H Care 01/16/19 14:31 Active Regular Diet [DIET] Diet 01/16/19 Dinner Active BASIC METABOLIC PANEL,BMP [CHEM] AM Lab 01/17/19 05:11 Ordered CBC WITH AUTO DIFF [HEME] AM Lab 01/17/19 05:11 Ordered CULTURE BLOOD [BC] Stat Lab 01/16/19 10:40 Received CULTURE BLOOD [BC] Stat Lab 01/16/19 10:55 Ordered CULTURE SPUTUM + SMEAR [RM] Stat Lab 01/16/19 15:55 Ordered Albuterol/Ipratropium [DuoNeb 3.0-0.5 MG/3 ML] Med 01/16/19 18:00 Active 3 ml NEB Q4HRRT Aspirin Med 01/17/19 09:00 Active 81 mg PO DAILY Enoxaparin [Lovenox] Med 01/16/19 14:45 Active 40 mg SUBCUT Q24H Levofloxacin/Dextrose 5%-Water [Levaquin in D5W 750 MG/ Med 01/17/19 14:45 Active 150 ML] 750 mg Premix Bag 1 bag IV Q24H Methadone Med 01/16/19 15:15 Active 10 mg PO ASDIRECTED PRN Methadone Med 01/16/19 14:45 Active 20 mg PO ACBREAKFAST PRN Metoprolol Succinate [Toprol XL] Med 01/17/19 09:00 Active 25 mg PO DAILY Pantoprazole [ProTONIX] Med 01/17/19 09:00 Active 40 mg PO DAILY Piperacillin/Tazobactam [Piperacil-Tazobact] 4.5 gm Med 01/16/19 14:45 Active Sodium Chloride 0.9% [Normal Saline] 100 ml IV Q8H Sodium Chloride 0.9% [Normal Saline] 1,000 ml Med 01/16/19 12:45 Active IV ASDIRECTED Sodium Chloride 0.9% [Saline Flush] Med 01/16/19 10:54 Active 10 ml FLUSH ASDIRECTED PRN Sodium Chloride 0.9% [Saline Flush] Med 01/16/19 10:54 Active 2.5 ml FLUSH ASDIRECTED PRN atorvaSTATin [Lipitor] Med 01/16/19 21:00 Active 40 mg PO BEDTIME methylPREDNISolone Sod Succ [Solu-MEDROL] Med 01/17/19 09:00 Active 125 mg IVPUSH DAILY traZODone Med 01/16/19 21:00 Active 100 mg PO BEDTIME Blood Culture x2 Reflex Set [OM.PC] Stat Ot 01/16/19 10:54 Ordered SCD [Sequential Compression Device] [OM.PC] Routine Ot 01/16/19 15:44 Ordered Saline Lock Insert [OM.PC] Stat Ot 01/16/19 10:54 Ordered Resuscitation Status Routine Resus Stat 01/16/19 14:31 Ordered Medication Orders Albuterol/Ipratropium (Duoneb 3.0-0.5 Mg/3 Ml) 3 ml NEB Q4HRRT [facility] Last Admin: 01/16/19 17:36 Dose: 3 ml Aspirin (Aspirin) 81 mg PO DAILY [facility] Atorvastatin Calcium (Lipitor) 40 mg PO BEDTIME [facility] Enoxaparin Sodium (Lovenox) 40 mg SUBCUT Q24H [facility] Last Admin: 01/16/19 15:43 Dose: Sodium Chloride (Normal Saline) 1,000 mls @ 75 mls/hr IV ASDIRECTED [facility] Last Admin: 01/16/19 13:07 Dose: 75 mls/hr Levofloxacin/Dextrose 750 mg/ (Premix) 150 mls @ 100 mls/hr IV Q24H [facility] Piperacillin Sod/Tazobactam (Sod 4.5 gm/ Sodium Chloride) 100 mls @ 100 mls/hr IV Q8H [facility] Last Admin: 01/16/19 15:56 Dose: 100 mls/hr Methadone HCl (Methadone) 20 mg PO ACBREAKFAST PRN PRN Reason: Pain Methadone HCl (Methadone) 10 mg PO ASDIRECTED PRN PRN Reason: Pain Methylprednisolone Sodium Succinate (Solu-Medrol) 125 mg IVPUSH DAILY [facility] Metoprolol Succinate (Toprol Xl) 25 mg PO DAILY [facility] Pantoprazole Sodium (Protonix) 40 mg PO DAILY [facility] Sodium Chloride (Saline Flush) 10 ml FLUSH ASDIRECTED PRN PRN Reason: Keep Vein Open Last Admin: 01/16/19 11:21 Dose: 10 ml Sodium Chloride (Saline Flush) 2.5 ml FLUSH ASDIRECTED PRN PRN Reason: Keep Vein Open Last Admin: 01/16/19 11:22 Dose: 2.5 ml Trazodone HCl (Trazodone) 100 mg PO BEDTIME KEVIN Assessment/Plan Comment:: Assessment: 1. Acute hypoxic respiratory failure secondary to aspiration pneumonia and COPD exacerbation. 2. Dysphagia. 3. Thrombocytopenia. 4. Past medical history of hypertension, Guillan-Greenwood syndrome, GERD and arthritis. Plan: 1. For acute hypoxic respiratory failure, patient is on supplemental oxygen and will continue to monitor oxygen saturation. Patient will receive DuoNeb treatment and IV Solu-Medrol daily. Patient started on IV Levaquin and IV Zosyn and IV fluids 75 mL per hour. Blood culture and sputum cultures pending. At baseline, patient requires oxygen only at nighttime during sleep and is not on supplemental oxygen during the day. 2. For dysphagia, will consider bedside swallow evaluation. 3. For thrombocytopenia, will monitor with next set of labs. For DVT prophylaxis , patient will have SCD's ordered. 4. For past medical history, will continue with home medications.
[2019-01-16] MEDS: atorvaSTATin 40 MG Tab PO SCH (20:54)
[2019-01-16] MEDS: traZODone 50 MG Tab PO SCH (20:54)
[2019-01-16] MEDS ORDERED: Non-Formulary Medication 1 Each (Patient's Own Medication 1 EACH) PO SCH (21:00)
[2019-01-16] MEDS: Methadone 10 MG Tab PO PRN (21:09)
[2019-01-17] MEDS: Piperacillin/Tazobactam 4.5 GM in Sodium Chloride 0.9% 100 ML IV SCH ×4 (00:12→21:53)
[2019-01-17] MEDS: Albuterol/Ipratropium 3.0-0.5 MG/3 ML Neb Soln NEB SCH ×7 (02:15→22:42)
[2019-01-17] MEDS: Sodium Chloride 0.9% 1,000 ML IV SCH (05:48)
[2019-01-17 06:32] LABS: BLOOD UREA NITROGEN,BUN 24 mg/dL (7.0-18.0); CARBON DIOXIDE,CO2 27.9 mmol/L (21.0-32.0); CHLORIDE,CL 106 mmol/L (98-107); GLUCOSE RANDOM 168 mg/dL (74-106); POTASSIUM,K 4.6 mmol/L (3.5-5.1); SODIUM,NA 141 mmol/L (136-148)
[2019-01-17] MEDS: Aspirin 81 MG Tab.Chew PO SCH (08:50)
[2019-01-17] MEDS: Pantoprazole 40 MG Tab.CR PO SCH (08:50)
[2019-01-17] MEDS: Metoprolol Succinate 25 MG Tab.ER PO SCH (08:50)
[2019-01-17] MEDS: Methadone 10 MG Tab PO PRN ×2 (08:58→21:02)
[2019-01-17] MEDS ORDERED: methylPREDNISolone Sodium Succinate 125 MG/2 ML SDV IVPUSH SCH (09:00)
--- NOTE | 2019-01-17 10:52 | PCM.PN ---
- General Info Date of Service: 01/17/19 - Review of Systems Systems Review Comment:: feeling better, shortness of breath is improving. - Patient Data Vitals - Most Recent: Last Vital Signs Temp 36 C 01/17/19 07:30 Pulse 85 01/17/19 08:50 Resp 12 01/17/19 07:30 BP 124/60 01/17/19 08:50 Pulse Ox 96 01/17/19 07:30 Weight - Most Recent: 67.67 kg I&O - Last 24 Hours: Intake & Output 01/16/19 01/17/19 01/17/19 22:59 06:59 14:59 Intake Total 100 1356 Output Total 140 1280 Balance -40 76 Lab Results Last 24 Hours: Laboratory Results - last 24 hr 01/16/19 01/16/19 01/16/19 Range/Units 11:06 11:06 11:06 WBC 7.44 (4.0-11.0) K/uL RBC 5.68 (4.50-5.90) M/uL Hgb 14.8 (13.0-17.0) g/dL Hct 46.2 (38.0-50.0) % MCV 81.3 (80.0-98.0) fL MCH 26.1 L (27.0-32.0) pg MCHC 32.0 (31.0-37.0) g/dL RDW Std Deviation 49.0 (28.0-62.0) fl RDW Coeff of Yury 17 H (11.0-15.0) % Plt Count 98 L (150-400) K/uL MPV 9.70 (7.40-12.00) fL Neut % (Auto) 83.9 H (48.0-80.0) % Lymph % (Auto) 8.5 L (16.0-40.0) % [place] % (Auto) 7.1 (0.0-15.0) % Eos % (Auto) 0.4 (0.0-7.0) % Baso % (Auto) 0.1 (0.0-1.5) % Neut # (Auto) 6.2 H (1.4-5.7) K/uL Lymph # (Auto) 0.6 (0.6-2.4) K/uL [place] # (Auto) 0.5 (0.0-0.8) K/uL Eos # (Auto) 0.0 (0.0-0.7) K/uL Baso # (Auto) 0.0 (0.0-0.1) K/uL Nucleated RBC % 0.0 /100WBC Nucleated RBCs # 0 K/uL Lactate 1.9 (0.20-2.00) mmol/L Sodium 139 (136-148) mmol/L Potassium 4.2 (3.5-5.1) mmol/L Chloride 105 (98-107) mmol/L Carbon Dioxide 26.4 (21.0-32.0) mmol/L BUN 18 (7.0-18.0) mg/dL Creatinine 1.0 (0.8-1.3) mg/dL Est Cr Clr Drug Dosing 64.41 mL/min Estimated GFR (MDRD) > 60.0 ml/min Glucose 117 H (74-106) mg/dL Calcium 8.5 (8.5-10.1) mg/dL Total Bilirubin 0.7 (0.2-1.0) mg/dL AST 32 (15-37) IU/L ALT 46 (14-63) IU/L Alkaline Phosphatase 70 (46-116) U/L Total Protein 6.6 (6.4-8.2) g/dL Albumin 3.2 L (3.4-5.0) g/dL Globulin 3.4 (2.6-4.0) g/dL Albumin/Globulin Ratio 0.9 (0.9-1.6) Lipase 68 L (73-393) U/L Urine Color Urine Appearance Urine pH (5.0-8.0) Ur Specific [place] (1.001-1.035) Urine Protein (NEGATIVE) mg/dL Urine Glucose (UA) (NEGATIVE) mg/dL Urine Ketones (NEGATIVE) mg/dL Urine Occult Blood (NEGATIVE) Urine Nitrite (NEGATIVE) Urine Bilirubin (NEGATIVE) Urine Urobilinogen (<2.0) EU/dL Ur Leukocyte Esterase (NEGATIVE) 01/16/19 01/17/19 01/17/19 Range/Units 11:45 05:53 05:53 WBC 8.35 (4.0-11.0) K/uL RBC 4.99 (4.50-5.90) M/uL Hgb 12.8 L (13.0-17.0) g/dL Hct 40.9 (38.0-50.0) % MCV 82.0 (80.0-98.0) fL MCH 25.7 L (27.0-32.0) pg MCHC 31.3 (31.0-37.0) g/dL RDW Std Deviation 50.2 (28.0-62.0) fl RDW Coeff of [place]ury 17 H (11.0-15.0) % Plt Count 96 L (150-400) K/uL MPV 9.30 (7.40-12.00) fL Neut % (Auto) 89.5 H (48.0-80.0) % Lymph % (Auto) 7.5 L (16.0-40.0) % [place] % (Auto) 3.0 (0.0-15.0) % Eos % (Auto) 0.0 (0.0-7.0) % Baso % (Auto) 0.0 (0.0-1.5) % Neut # (Auto) 7.5 H (1.4-5.7) K/uL Lymph # (Auto) 0.6 (0.6-2.4) K/uL [place] # (Auto) 0.3 (0.0-0.8) K/uL Eos # (Auto) 0.0 (0.0-0.7) K/uL Baso # (Auto) 0.0 (0.0-0.1) K/uL Nucleated RBC % 0.0 /100WBC Nucleated RBCs # 0 K/uL Lactate (0.20-2.00) mmol/L Sodium 141 (136-148) mmol/L Potassium 4.6 (3.5-5.1) mmol/L Chloride 106 (98-107) mmol/L Carbon Dioxide 27.9 (21.0-32.0) mmol/L BUN 24 H (7.0-18.0) mg/dL Creatinine 1.1 (0.8-1.3) mg/dL Est Cr Clr Drug Dosing 61.52 mL/min Estimated GFR (MDRD) > 60.0 ml/min Glucose 168 H (74-106) mg/dL Calcium 8.6 (8.5-10.1) mg/dL Total Bilirubin (0.2-1.0) mg/dL AST (15-37) IU/L ALT (14-63) IU/L Alkaline Phosphatase (46-116) U/L Total Protein (6.4-8.2) g/dL Albumin (3.4-5.0) g/dL Globulin (2.6-4.0) g/dL Albumin/Globulin Ratio (0.9-1.6) Lipase (73-393) U/L Urine Color YELLOW Urine Appearance CLEAR Urine pH 5.5 (5.0-8.0) Ur Specific [place] 1.025 (1.001-1.035) Urine Protein NEGATIVE (NEGATIVE) mg/dL Urine Glucose (UA) NEGATIVE (NEGATIVE) mg/dL Urine Ketones NEGATIVE (NEGATIVE) mg/dL Urine Occult Blood NEGATIVE (NEGATIVE) Urine Nitrite NEGATIVE (NEGATIVE) Urine Bilirubin NEGATIVE (NEGATIVE) Urine Urobilinogen 0.2 (<2.0) EU/dL Ur Leukocyte Esterase NEGATIVE (NEGATIVE) Jose Daniel Results Last 24 Hours: Microbiology 01/17/19 02:30 Gram Stain - Preliminary Sputum - Expectorated Med Orders - Current: Current Medications Albuterol/Ipratropium (Duoneb 3.0-0.5 Mg/3 Ml) 3 ml NEB Q4HRRT [facility] Last Admin: 01/17/19 09:49 Dose: 3 ml Aspirin (Aspirin) 81 mg PO DAILY [facility] Last Admin: 01/17/19 08:50 Dose: 81 mg Atorvastatin Calcium (Lipitor) 40 mg PO BEDTIME [facility] Last Admin: 01/16/19 20:54 Dose: 40 mg Enoxaparin Sodium (Lovenox) 40 mg SUBCUT Q24H [facility] Last Admin: 01/16/19 15:43 Dose: Not Given Piperacillin Sod/Tazobactam (Sod 4.5 gm/ Sodium Chloride) 100 mls @ 100 mls/hr IV Q8H [facility] Last Admin: 01/17/19 05:49 Dose: 100 mls/hr Methadone HCl (Methadone) 20 mg PO ACBREAKFAST PRN PRN Reason: Pain Last Admin: 01/17/19 08:58 Dose: 20 mg Methadone HCl (Methadone) 10 mg PO ASDIRECTED PRN PRN Reason: Pain Last Admin: 01/16/19 21:09 Dose: 10 mg Metoprolol Succinate (Toprol Xl) 25 mg PO DAILY [facility] Last Admin: 01/17/19 08:50 Dose: 25 mg Pantoprazole Sodium (Protonix) 40 mg PO DAILY [facility] Last Admin: 01/17/19 08:50 Dose: 40 mg Sodium Chloride (Saline Flush) 10 ml FLUSH ASDIRECTED PRN PRN Reason: Keep Vein Open Last Admin: 01/16/19 11:21 Dose: 10 ml Sodium Chloride (Saline Flush) 2.5 ml FLUSH ASDIRECTED PRN PRN Reason: Keep Vein Open Last Admin: 01/16/19 11:22 Dose: 2.5 ml Trazodone HCl (Trazodone) 100 mg PO BEDTIME [facility] Last Admin: 01/16/19 20:54 Dose: 100 mg Discontinued Medications Acetaminophen (Tylenol Extra Strength) 1,000 mg PO ONETIME ONE Stop: 01/16/19 10:54 Last Admin: 01/16/19 11:22 Dose: 1,000 mg Albuterol/Ipratropium (Duoneb 3.0-0.5 Mg/3 Ml) 3 ml NEB ONETIME ONE Stop: 01/16/19 10:45 Last Admin: 01/16/19 10:49 Dose: 3 ml Sodium Chloride (Normal Saline) 1,000 mls @ 999 mls/hr IV STAT ONE Stop: 01/16/19 11:53 Last Admin: 01/16/19 11:20 Dose: 999 mls/hr Sodium Chloride (Normal Saline) 1,000 mls @ 75 mls/hr IV ASDIRECTED [facility] Last Admin: 01/17/19 05:48 Dose: 75 mls/hr Levofloxacin/Dextrose 750 mg/ (Premix) 150 mls @ 100 mls/hr IV ONETIME ONE Stop: 01/16/19 14:27 Last Admin: 01/16/19 13:07 Dose: 100 mls/hr Levofloxacin/Dextrose 750 mg/ (Premix) 150 mls @ 100 mls/hr IV Q24H [facility] Methadone HCl (Methadone) 10 mg PO BID PRN PRN Reason: Pain Methylprednisolone Sodium Succinate (Solu-Medrol) 125 mg IVPUSH ONETIME ONE Stop: 01/16/19 10:54 Last Admin: 01/16/19 11:22 Dose: 125 mg Methylprednisolone Sodium Succinate (Solu-Medrol) 125 mg IVPUSH DAILY [facility] Last Admin: 01/17/19 08:52 Dose: 125 mg Non-Formulary Medication (Patient's Own Medication) 1 each PO BID KEVIN - Exam General: Alert, Oriented Lungs: Clear to Auscultation, Normal Respiratory Effort Cardiovascular: Regular Rate, Regular Rhythm GI/Abdominal Exam: Soft, Non-Tender Extremities: Non-Tender, No Pedal Edema Skin: Warm, Dry, Intact Neurological: No New Focal Deficit - Problem List Review Problem List Initiated/Reviewed/Updated: Yes - My Orders Last 24 Hours: My Active Orders 01/18/19 05:11 BASIC METABOLIC PANEL,BMP [CHEM] AM CBC WITH AUTO DIFF [HEME] AM 01/19/19 05:11 BASIC METABOLIC PANEL,BMP [CHEM] AM CBC WITH AUTO DIFF [HEME] AM - Plan Plan:: 68 yo male admitted for pneumonia. Pneumonia: will continue Zosyn. There is concern for aspiration as patient reports difficulty swallowing. he will need swallow evaluation. He has had them done several years ago. We don't have the ability to do swallow studies currently in [place] but he does have plans on following up with Dr. Allen next week.
[2019-01-17] MEDS: L.Acidoph,Paracasei, B.Lactis [Probiotic] PO SCH ×2 (12:50→21:03)
[2019-01-17] MEDS: Enoxaparin 40 MG/0.4 ML Syringe SUBCUT SCH (14:41)
[2019-01-17] MEDS ORDERED: Levofloxacin/Dextrose 5%-Water 750 MG in Premix Bag 1 BAG IV SCH (14:45)
[2019-01-17] MEDS: traZODone 50 MG Tab PO SCH (21:01)
[2019-01-17] MEDS: atorvaSTATin 40 MG Tab PO SCH (21:03)
[2019-01-18] MEDS: Albuterol/Ipratropium 3.0-0.5 MG/3 ML Neb Soln NEB SCH ×3 (02:16→09:45)
[2019-01-18] MEDS: Piperacillin/Tazobactam 4.5 GM in Sodium Chloride 0.9% 100 ML IV SCH (06:04)
[2019-01-18 06:37] LABS: BLOOD UREA NITROGEN,BUN 20 mg/dL (7.0-18.0); CARBON DIOXIDE,CO2 29.9 mmol/L (21.0-32.0); CHLORIDE,CL 106 mmol/L (98-107); GLUCOSE RANDOM 149 mg/dL (74-106); SODIUM,NA 142 mmol/L (136-148)
[2019-01-18 08:06] VITALS: BP 147/78; PULSE 79
[2019-01-18] MEDS: L.Acidoph,Paracasei, B.Lactis [Probiotic] PO SCH (08:50)
[2019-01-18] MEDS: Metoprolol Succinate 25 MG Tab.ER PO SCH (08:51)
[2019-01-18] MEDS: Aspirin 81 MG Tab.Chew PO SCH (08:51)
[2019-01-18] MEDS: Pantoprazole 40 MG Tab.CR PO SCH (08:51)
[2019-01-18] MEDS: Methadone 10 MG Tab PO PRN (08:58)
--- NOTE | 2019-01-18 10:34 | PCM.DCSUM1 ---
<Gerardo Joiner - Last Filed: 01/18/19 10:29> Discharge Summary - Hospital Course Free Text/Narrative:: Patient is a 68-year-old male who was admitted for pneumonia likely secondary to aspiration. He has a history of recurrent pneumonia and has been admitted to the hospital multiple times over the past 2 months for pneumonia and COPD exacerbations. Patient required supplemental O2 and treated with albuterol and IV zosyn during his hospital stay. Blood cultures were negative. CXR showed pneumonia in both lower lobes and basilar segment of the RUL. Patient's respiratory status improved during the course of hospitalization and reported feeling almost back to his baseline. He was discharged on augmentin 875 bid x 5 days. Patient would benefit from swallow study for dysphagia in the outpatient setting. - Discharge Data Discharge Date: 01/18/19 Discharge Disposition: Home, Self-Care 01 Condition: Stable - Patient Instructions Diet: Heart Healthy Diet Activity: As Tolerated Notify Provider of: Fever, Increased Pain, Swelling and Redness, Drainage, Nausea and/or Vomiting - Discharge Plan *PRESCRIPTION DRUG MONITORING PROGRAM REVIEWED*: Not Applicable *COPY OF PRESCRIPTION DRUG MONITORING REPORT IN PATIENT SOURAV: Not Applicable Prescriptions/Med Rec: Amoxicillin/Potassium Clav [Augmentin 875-125 Tablet] 1 each PO BID 5 Days #10 tablet Pantoprazole Sodium [Protonix] 40 mg PO DAILY 30 Days #30 tablet.dr [place] Medications: Home Meds Albuterol Sulfate [Albuterol Sulfate HFA] 1 inhalation IH Q4H PRN 12/02/13 [ History] Aspirin [Sussy Chewable Aspirin] 81 mg PO BEDTIME 12/02/13 [History] traZODone 100 mg PO BEDTIME 12/02/13 [History] Tiotropium [Spiriva HandiHaler] 1 inhalation IH ASDIRECTED PRN 03/01/14 [History ] Methadone 10 mg PO BEDTIME MDD 40 10/28/16 [History] Metoprolol Succinate 25 mg PO DAILY 10/28/16 [History] Sildenafil Citrate 20 mg PO BEDTIME PRN 10/28/16 [History] atorvaSTATin [Lipitor] 40 mg PO BEDTIME 10/28/16 [History] Albuterol Sulfate [Albuterol Sulfate Hfa] 1 puff IH Q4H PRN 12/21/18 [History] Cholecalciferol (Vitamin D3) [Vitamin D3] 2,000 unit PO DAILY 12/21/18 [History] Patient's Own Medication [Ptom] 1 each PO BID 12/21/18 [History] Tiotropium [place] [Spiriva Respimat] 4 gm IH BID 12/21/18 [History] predniSONE See Taper PO WITHBREAKFAST #15 tablet 12/25/18 [Rx] Methadone 20 mg PO ACBREAKFAST 12/28/18 [History] Pantoprazole [ProTONIX] 40 mg PO DAILY #20 tab.cr 12/29/18 [Rx] Budesonide/Formoterol Fumarate [Symbicort 80-4.5 Mcg Inhaler] 2 puff Q4HR PRN [History] L.acidoph,Paracasei, B.lactis [Probiotic] 1 each PO BID 01/17/19 [History] Amoxicillin/Potassium Clav [Augmentin 875-125 Tablet] 1 each PO BID 5 Days #10 tablet 01/18/19 [Rx] Pantoprazole Sodium [Protonix] 40 mg PO DAILY 30 Days #30 tablet. 01/18/19 [Rx ] Patient Handouts: Amoxicillin; Clavulanic Acid tablets, Community-Acquired Pneumonia, Adult, Waal-[id number] Referrals: Blake Allen MD [Physician] - (Please call tomorrow for a follow up after 1 week. ) - Discharge Summary/Plan Comment DC Time >30 min.: No - Patient Data Vitals - Most Recent: Last Vital Signs Temp 96.8 F 01/18/19 07:40 Pulse 79 01/18/19 08:51 Resp 14 01/18/19 07:40 BP 147/78 H 01/18/19 08:51 Pulse Ox 92 L 01/18/19 07:40 Weight - Most Recent: 67.67 kg I&O - Last 24 hours: Intake & Output 01/17/19 01/18/19 01/18/19 22:59 06:59 14:59 Intake Total 1887 790 Output Total 900 1300 Balance 987 -510 Lab Results - Last 24 hrs: Laboratory Results - last 24 hr 01/18/19 01/18/19 Range/Units 05:57 05:57 WBC 9.74 (4.0-11.0) K/uL RBC 4.99 (4.50-5.90) M/uL Hgb 12.8 L (13.0-17.0) g/dL Hct 40.8 (38.0-50.0) % MCV 81.8 (80.0-98.0) fL MCH 25.7 L (27.0-32.0) pg MCHC 31.4 (31.0-37.0) g/dL RDW Std Deviation 51.3 (28.0-62.0) fl RDW Coeff of Yury 18 H (11.0-15.0) % Plt Count 101 L (150-400) K/uL MPV 9.30 (7.40-12.00) fL Neut % (Auto) 81.0 H (48.0-80.0) % Lymph % (Auto) 11.0 L (16.0-40.0) % [place] % (Auto) 8.0 (0.0-15.0) % Eos % (Auto) 0.0 (0.0-7.0) % Baso % (Auto) 0.0 (0.0-1.5) % Neut # (Auto) 7.9 H (1.4-5.7) K/uL Lymph # (Auto) 1.1 (0.6-2.4) K/uL [place] # (Auto) 0.8 (0.0-0.8) K/uL Eos # (Auto) 0.0 (0.0-0.7) K/uL Baso # (Auto) 0.0 (0.0-0.1) K/uL Nucleated RBC % 0.0 /100WBC Nucleated RBCs # 0 K/uL Sodium 142 (136-148) mmol/L Potassium 5.0 (3.5-5.1) mmol/L Chloride 106 (98-107) mmol/L Carbon Dioxide 29.9 (21.0-32.0) mmol/L BUN 20 H (7.0-18.0) mg/dL Creatinine 0.9 (0.8-1.3) mg/dL Est Cr Clr Drug Dosing 75.19 mL/min Estimated GFR (MDRD) > 60.0 ml/min Glucose 149 H (74-106) mg/dL Calcium 9.1 (8.5-10.1) mg/dL PATIENCE Results - Last 24 hrs: Microbiology 01/16/19 10:40 Aerobic Blood Culture - Preliminary Blood - Venous - Lab Draw NO GROWTH AFTER 1 DAY Anaerobic Blood Culture - Preliminary NO GROWTH AFTER 1 DAY 01/17/19 02:30 Gram Stain - Preliminary Sputum - Expectorated Med Orders - Current: Current Medications Albuterol/Ipratropium (Duoneb 3.0-0.5 Mg/3 Ml) 3 ml NEB Q4HRRT [facility] Last Admin: 01/18/19 09:45 Dose: 3 ml Aspirin (Aspirin) 81 mg PO DAILY [facility] Last Admin: 01/18/19 08:51 Dose: 81 mg Atorvastatin Calcium (Lipitor) 40 mg PO BEDTIME [facility] Last Admin: 01/17/19 21:03 Dose: 40 mg Enoxaparin Sodium (Lovenox) 40 mg SUBCUT Q24H [facility] Last Admin: 01/17/19 14:41 Dose: Not Given Piperacillin Sod/Tazobactam (Sod 4.5 gm/ Sodium Chloride) 100 mls @ 100 mls/hr IV Q8H [facility] Last Admin: 01/18/19 06:04 Dose: 100 mls/hr Methadone HCl (Methadone) 20 mg PO ACBREAKFAST PRN PRN Reason: Pain Last Admin: 01/18/19 08:58 Dose: 20 mg Methadone HCl (Methadone) 10 mg PO ASDIRECTED PRN PRN Reason: Pain Last Admin: 01/17/19 21:02 Dose: 10 mg Metoprolol Succinate (Toprol Xl) 25 mg PO DAILY [facility] Last Admin: 01/18/19 08:51 Dose: 25 mg Pantoprazole Sodium (Protonix) 40 mg PO DAILY [facility] Last Admin: 01/18/19 08:51 Dose: 40 mg L.Acidoph,Paracasei, B.Lactis [Probiotic ] 1 each PO BID [facility] Last Admin: 01/18/19 08:50 Dose: 1 each Sodium Chloride (Saline Flush) 10 ml FLUSH ASDIRECTED PRN PRN Reason: Keep Vein Open Last Admin: 01/16/19 11:21 Dose: 10 ml Sodium Chloride (Saline Flush) 2.5 ml FLUSH ASDIRECTED PRN PRN Reason: Keep Vein Open Last Admin: 01/16/19 11:22 Dose: 2.5 ml Trazodone HCl (Trazodone) 100 mg PO BEDTIME [facility] Last Admin: 01/17/19 21:01 Dose: 100 mg Discontinued Medications Acetaminophen (Tylenol Extra Strength) 1,000 mg PO ONETIME ONE Stop: 01/16/19 10:54 Last Admin: 01/16/19 11:22 Dose: 1,000 mg Albuterol/Ipratropium (Duoneb 3.0-0.5 Mg/3 Ml) 3 ml NEB ONETIME ONE Stop: 01/16/19 10:45 Last Admin: 01/16/19 10:49 Dose: 3 ml Sodium Chloride (Normal Saline) 1,000 mls @ 999 mls/hr IV STAT ONE Stop: 01/16/19 11:53 Last Admin: 01/16/19 11:20 Dose: 999 mls/hr Sodium Chloride (Normal Saline) 1,000 mls @ 75 mls/hr IV ASDIRECTED [facility] Last Admin: 01/17/19 05:48 Dose: 75 mls/hr Levofloxacin/Dextrose 750 mg/ (Premix) 150 mls @ 100 mls/hr IV ONETIME ONE Stop: 01/16/19 14:27 Last Admin: 01/16/19 13:07 Dose: 100 mls/hr Levofloxacin/Dextrose 750 mg/ (Premix) 150 mls @ 100 mls/hr IV Q24H [facility] Methadone HCl (Methadone) 10 mg PO BID PRN PRN Reason: Pain Methylprednisolone Sodium Succinate (Solu-Medrol) 125 mg IVPUSH ONETIME ONE Stop: 01/16/19 10:54 Last Admin: 01/16/19 11:22 Dose: 125 mg Methylprednisolone Sodium Succinate (Solu-Medrol) 125 mg IVPUSH DAILY [facility] Last Admin: 01/17/19 08:52 Dose: 125 mg Non-Formulary Medication (Patient's Own Medication) 1 each PO BID [facility] <Hakeem Johnson J - Last Filed: 01/19/19 19:51> - Patient Data Vitals - Most Recent: Last Vital Signs Temp 36 C 01/18/19 07:40 Pulse 79 01/18/19 08:51 Resp 14 01/18/19 07:40 BP 147/78 H 01/18/19 08:51 Pulse Ox 92 L 01/18/19 07:40 PATIENCE Results - Last 24 hrs: Microbiology 01/16/19 10:40 Aerobic Blood Culture - Preliminary Blood - Venous - Lab Draw NO GROWTH AFTER 3 DAYS Anaerobic Blood Culture - Preliminary NO GROWTH AFTER 3 DAYS Med Orders - Current: Current Medications Discontinued Medications Acetaminophen (Tylenol Extra Strength) 1,000 mg PO ONETIME ONE Stop: 01/16/19 10:54 Last Admin: 01/16/19 11:22 Dose: 1,000 mg Albuterol/Ipratropium (Duoneb 3.0-0.5 Mg/3 Ml) 3 ml NEB ONETIME ONE Stop: 01/16/19 10:45 Last Admin: 01/16/19 10:49 Dose: 3 ml Albuterol/Ipratropium (Duoneb 3.0-0.5 Mg/3 Ml) 3 ml NEB Q4HRRT [facility] Last Admin: 01/18/19 09:45 Dose: 3 ml Aspirin (Aspirin) 81 mg PO DAILY [facility] Last Admin: 01/18/19 08:51 Dose: 81 mg Atorvastatin Calcium (Lipitor) 40 mg PO BEDTIME [facility] Last Admin: 01/17/19 21:03 Dose: 40 mg Enoxaparin Sodium (Lovenox) 40 mg SUBCUT Q24H [facility] Last Admin: 01/17/19 14:41 Dose: Not Given Sodium Chloride (Normal Saline) 1,000 mls @ 999 mls/hr IV STAT ONE Stop: 01/16/19 11:53 Last Admin: 01/16/19 11:20 Dose: 999 mls/hr Sodium Chloride (Normal Saline) 1,000 mls @ 75 mls/hr IV ASDIRECTED [facility] Last Admin: 01/17/19 05:48 Dose: 75 mls/hr Levofloxacin/Dextrose 750 mg/ (Premix) 150 mls @ 100 mls/hr IV ONETIME ONE Stop: 01/16/19 14:27 Last Admin: 01/16/19 13:07 Dose: 100 mls/hr Levofloxacin/Dextrose 750 mg/ (Premix) 150 mls @ 100 mls/hr IV Q24H [facility] Piperacillin Sod/Tazobactam (Sod 4.5 gm/ Sodium Chloride) 100 mls @ 100 mls/hr IV Q8H [facility] Last Admin: 01/18/19 06:04 Dose: 100 mls/hr Methadone HCl (Methadone) 10 mg PO BID PRN PRN Reason: Pain Methadone HCl (Methadone) 20 mg PO ACBREAKFAST PRN PRN Reason: Pain Last Admin: 01/18/19 08:58 Dose: 20 mg Methadone HCl (Methadone) 10 mg PO ASDIRECTED PRN PRN Reason: Pain Last Admin: 01/17/19 21:02 Dose: 10 mg Methylprednisolone Sodium Succinate (Solu-Medrol) 125 mg IVPUSH ONETIME ONE Stop: 01/16/19 10:54 Last Admin: 01/16/19 11:22 Dose: 125 mg Methylprednisolone Sodium Succinate (Solu-Medrol) 125 mg IVPUSH DAILY [facility] Last Admin: 01/17/19 08:52 Dose: 125 mg Metoprolol Succinate (Toprol Xl) 25 mg PO DAILY [facility] Last Admin: 01/18/19 08:51 Dose: 25 mg Non-Formulary Medication (Patient's Own Medication) 1 each PO BID [facility] Pantoprazole Sodium (Protonix) 40 mg PO DAILY [facility] Last Admin: 01/18/19 08:51 Dose: 40 mg L.Acidoph,Paracasei, B.Lactis [Probiotic ] 1 each PO BID [facility] Last Admin: 01/18/19 08:50 Dose: 1 each Sodium Chloride (Saline Flush) 10 ml FLUSH ASDIRECTED PRN PRN Reason: Keep Vein Open Last Admin: 01/16/19 11:21 Dose: 10 ml Sodium Chloride (Saline Flush) 2.5 ml FLUSH ASDIRECTED PRN PRN Reason: Keep Vein Open Last Admin: 01/16/19 11:22 Dose: 2.5 ml Trazodone HCl (Trazodone) 100 mg PO BEDTIME [facility] Last Admin: 01/17/19 21:01 Dose: 100 mg - Free Text/Narrative Note: I have evaluated the patient. I have discussed findings and treatment plan with resident. I agree with the assessment and plan outlined in the following note.
== END 2019-01-18 12:30 | disposition home or self-care (01) ==
LOC: MW.ED 10:30 → MW.MS 13:19
PROVIDERS: ADMIT Internal Medicine; ATTEND Internal Medicine
DX: J69.0 Pneumonitis due to inhalation of food and vomit (principal); J44.1 Chronic obstructive pulmonary disease with (acute) exacerbation; J96.01 Acute respiratory failure with hypoxia; D69.6 Thrombocytopenia, unspecified; I10 Essential (primary) hypertension; K21.9 Gastro-esophageal reflux disease without esophagitis; M19.90 Unspecified osteoarthritis, unspecified site; Z88.7 Allergy status to serum and vaccine; Z99.81 Dependence on supplemental oxygen; Z87.891 Personal history of nicotine dependence; Z87.01 Personal history of pneumonia (recurrent); Z79.82 Long term (current) use of aspirin; Z79.51 Long term (current) use of inhaled steroids; Z79.52 Long term (current) use of systemic steroids; Z79.899 Other long term (current) drug therapy
CPT/HCPCS: 36415; 71045; 80048; 80053; 81003; 83605; 83690; 85025; 87040; 87070; 87205; 93005; 94640; 96361; 96365; 96375; 99285; A9270; J1956; J2543; J2930; J7030; J7040; 96366; 96367; 96376; G0378; J7620-GY

== ENCOUNTER 2020-09-06 08:45 | Emergency (ER) | payer MEDICARE ==
--- NOTE | 2020-09-06 09:16 | EDM.PDOC ---
ED HPI GENERAL MEDICAL PROBLEM - General Chief Complaint: Gastrointestinal Problem Stated Complaint: abstucted bowel Time Seen by Provider: 09/06/20 09:03 Source of Information: Reports: Patient History Limitations: Reports: No Limitations - History of Present Illness INITIAL COMMENTS - FREE TEXT/NARRATIVE: Is a 70-year-old male who presents today for not having a bowel movement for the past few days. When asked patient reports that he is having watery bowel movements nothing solid without some concern. Patient states he has abdominal pain on and off does not seem to make the better or worse. Patient denies any nausea vomiting decreased p.o. intake. Patient denies any other medical complaints. Abdominal Pain Pain Score (Numeric/FACES): 5 - Related Data Allergies Allergy/AdvReac Type Severity Reaction Status Date / Time influenza virus vaccine, Allergy Muscle Verified 09/06/20 08:51 specific Weakness [Influenza Virus Vacc,Specific] ketamine Allergy Hallucinati Verified 09/06/20 08:51 ons Home Meds: Home Meds Aspirin [Sussy Chewable Aspirin] 81 mg PO BEDTIME 12/02/13 [History] traZODone 100 mg PO BEDTIME 12/02/13 [History] Tiotropium [Spiriva HandiHaler] 1 inhalation IH ASDIRECTED PRN 03/01/14 [History] Methadone 20 mg PO BEDTIME MDD 40 10/28/16 [History] Metoprolol Succinate 25 mg PO DAILY 10/28/16 [History] atorvaSTATin [Lipitor] 40 mg PO BEDTIME 10/28/16 [History] Albuterol Sulfate [Albuterol Sulfate Hfa] 1 puff IH Q4H PRN 12/21/18 [History] Tiotropium [place] [Spiriva Respimat] 4 gm IH BID 12/21/18 [History] Methadone 20 mg PO ACBREAKFAST 12/28/18 [History] Budesonide/Formoterol Fumarate [Symbicort 80-4.5 MCG] 2 puff Q4HR PRN 01/16/19 [History] Amoxicillin/Clavulanate K [Augmentin 875-125 MG] 1 tab PO BID 10 Days #20 tablet 09/06/20 [Rx] Past Medical History HEENT History: Reports: None Cardiovascular History: Reports: Hypertension Respiratory History: Reports: COPD Other Respiratory History: Home oxygen at night at 2Lpm Gastrointestinal History: Reports: Bowel Obstruction, GERD Other Gastrointestinal History: constipation Genitourinary History: Reports: None Musculoskeletal History: Reports: Arthritis Other Musculoskeletal History: Multiple vascular bypass procedures on the RLE Neurological History: Reports: Other (See Below) Psychiatric History: Reports: None Endocrine/Metabolic History: Reports: None Hematologic History: Reports: Anticoagulation Therapy Immunologic History: Reports: None Other Oncologic History: As per the pt he had hx of skin cancer on his face, removed some skin quarter size of skin on the upper lip - Infectious Disease History Infectious Disease History: Reports: Chicken Pox, Measles, Mumps - Past Surgical History HEENT Surgical History: Reports: Cataract Surgery Cardiovascular Surgical History: Reports: AAA Repair, Valve Replacement, Vascular Surgery 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 Dermatological Surgical History: Reports: Other (See Below) Social & Family History - Family History Family Medical History: No Pertinent Family History - Tobacco Use Tobacco Use Status *Q: Never Tobacco User - Caffeine Use Caffeine Use: Reports: Coffee, Soda Caffeine Use Comment: 1cup/day - Recreational Drug Use Recreational Drug Use: No - Living Situation & Occupation Living situation: Reports: , with Spouse Occupation: Retired ED ROS GENERAL - Review of Systems Review Of Systems: See Below Constitutional: Reports: No Symptoms HEENT: Reports: No Symptoms Respiratory: Reports: No Symptoms Cardiovascular: Reports: No Symptoms Endocrine: Reports: No Symptoms GI/Abdominal: Reports: Constipation : Reports: No Symptoms Musculoskeletal: Reports: No Symptoms Skin: Reports: No Symptoms Neurological: Reports: No Symptoms Psychiatric: Reports: No Symptoms Hematologic/Lymphatic: Reports: No Symptoms Immunologic: Reports: No Symptoms ED EXAM, GI/ABD - Physical Exam Exam: See Below Exam Limited By: No Limitations General Appearance: Alert, WD/WN, No Apparent Distress Head: Atraumatic Respiratory/Chest: No Respiratory Distress, Lungs Clear, Normal Breath Sounds Cardiovascular: Normal Peripheral Pulses, Regular Rate, Rhythm GI/Abdominal Exam: Normal Bowel Sounds, Soft, Non-Tender Extremities: Normal Inspection Neurological: Alert, Oriented, CN II-XII Intact, Normal Cognition, Normal Gait Course - Vital Signs Last Recorded V/S: Last Vital Signs Temp 98.3 F 09/06/20 08:54 Pulse 83 09/06/20 10:55 Resp 17 09/06/20 10:55 BP 137/75 09/06/20 10:55 Pulse Ox 94 L 09/06/20 10:55 - Orders/Labs/Meds Orders: Active Orders 24 hr Category Date Time Status Communication Order [RC] STAT Care 09/06/20 10:58 Active Labs: Laboratory Tests 09/06/20 09/06/20 Range/Units 08:58 08:58 WBC 7.93 (4.0-11.0) K/uL RBC 4.84 (4.50-5.90) M/uL Hgb 15.3 (13.0-17.0) g/dL Hct 43.2 (38.0-50.0) % MCV 89.3 (80.0-98.0) fL MCH 31.6 (27.0-32.0) pg MCHC 35.4 (31.0-37.0) g/dL RDW Std Deviation 40.7 (28.0-62.0) fl RDW Coeff of Yury 13 (11.0-15.0) % Plt Count 138 L (150-400) K/uL MPV 9.30 (7.40-12.00) fL Neut % (Auto) 57.2 (48.0-80.0) % Lymph % (Auto) 33.3 (16.0-40.0) % Garza % (Auto) 6.4 (0.0-15.0) % Eos % (Auto) 3.0 (0.0-7.0) % Baso % (Auto) 0.1 (0.0-1.5) % Neut # (Auto) 4.5 (1.4-5.7) K/uL Lymph # (Auto) 2.6 H (0.6-2.4) K/uL Garza # (Auto) 0.5 (0.0-0.8) K/uL Eos # (Auto) 0.2 (0.0-0.7) K/uL Baso # (Auto) 0.0 (0.0-0.1) K/uL Nucleated RBC % 0.0 /100WBC Nucleated RBCs # 0 K/uL Sodium 138 (136-148) mmol/L Potassium 4.4 (3.5-5.1) mmol/L Chloride 101 (98-107) mmol/L Carbon Dioxide 28.8 (21.0-32.0) mmol/L BUN 23 H (7.0-18.0) mg/dL Creatinine 1.1 (0.8-1.3) mg/dL Est Cr Clr Drug Dosing 62.54 mL/min Estimated GFR (MDRD) > 60.0 ml/min Glucose 105 (74-106) mg/dL Calcium 8.8 (8.5-10.1) mg/dL Total Bilirubin 0.7 (0.2-1.0) mg/dL AST 28 (15-37) IU/L ALT 51 (14-63) IU/L Alkaline Phosphatase 85 (46-116) U/L Total Protein 7.4 (6.4-8.2) g/dL Albumin 3.9 (3.4-5.0) g/dL Globulin 3.5 (2.6-4.0) g/dL Albumin/Globulin Ratio 1.1 (0.9-1.6) Lipase 128 (73-393) U/L Meds: Medications Discontinued Medications Generic Name Dose Route Start Last Admin Trade Name Benjiq PRN Reason Stop Dose Admin Iopamidol 100 ml 09/06/20 09:51 09/06/20 10:53 Iopamidol 755 Mg/Ml 500 Ml Multipack Bottle IVPUSH 09/06/20 09:52 100 ml ONETIME STA Administration - Re-Assessments/Exams Free Text/Narrative Re-Assessment/Exam: 09/06/20 11:[address] scan done showed possible chronic or acute colitis. Patient will be sent home with amoxicillin twice daily. Patient already has enemas at home and CT scan do not show any constipation.. Departure - Departure Time of Disposition: 11:14 Disposition: Home, Self-Care 01 Condition: Good Clinical Impression: Colitis - Discharge Information *PRESCRIPTION DRUG MONITORING PROGRAM REVIEWED*: Not Applicable *COPY OF PRESCRIPTION DRUG MONITORING REPORT IN PATIENT SOURAV: Not Applicable Prescriptions: Amoxicillin/Clavulanate K [Augmentin 875-125 MG] 1 tab PO BID 10 Days #20 tablet Instructions: Colitis Forms: ED Department Discharge Additional Instructions: The following information is given to patients seen in the emergency department who are being discharged to home. This information is to outline your options for follow-up care. We provide all patients seen in our emergency department with a follow-up referral. The need for follow-up, as well as the timing and circumstances, are variable depending upon the specifics of your emergency department visit. If you don't have a primary care physician on staff, we will provide you with a referral. We always advise you to contact your personal physician following an emergency department visit to inform them of the circumstance of the visit and for follow-up with them and/or the need for any referrals to a consulting specialist. The emergency department will also refer you to a specialist when appropriate. This referral assures that you have the opportunity for follow-up care with a specialist. All of these measure are taken in an effort to provide you with optimal care, which includes your follow-up. Under all circumstances we always encourage you to contact your private darci mcgovern who remains a resource for coordinating your care. When calling for follow-up care, please make the office aware that this follow-up is from your recent emergency room visit. If for any reason you are refused follow-up, please contact the [facility] Emergency Department at and asked to speak to the emergency department charge nurse. Please follow up with your primary care physician. If you do not have a primary care physician, see below: [facility] [address] [place] [id number] My [facility] [address] [place] [id number] We performed a CAT scan did not show any constipation however did show possible colitis. We will send him home with a course of antibiotics. If you have any increase abdominal pain increased diarrhea or fever chills please return to the ED immediately septic and antibiotics. Have any questions or concerns please feel free to call us. Sepsis Event Note (ED) - Evaluation Sepsis Screening Result: No Definite Risk - Focused Exam Vital Signs: Vital Signs Temp Pulse Resp BP Pulse Ox 09/06/20 10:55 83 17 137/75 94 L 09/06/20 10:23 80 17 119/66 94 L 09/06/20 09:20 81 140/74 94 L 09/06/20 08:54 98.3 F 88 17 148/82 H 94 L - My Orders Last 24 Hours: My Active Orders 09/06/20 10:58 Communication Order [RC] STAT - Assessment/Plan Last 24 Hours: My Active Orders 09/06/20 10:58 Communication Order [RC] STAT Plan: Patient is a 70-year-old male who presents today for not having any solid bowel movement for the past few days and abdominal pain. Will obtain CAT scan labs and reassess
[2020-09-06 09:33] LABS: BLOOD UREA NITROGEN,BUN 23 mg/dL (7.0-18.0); CARBON DIOXIDE,CO2 28.8 mmol/L (21.0-32.0); CHLORIDE,CL 101 mmol/L (98-107); GLUCOSE RANDOM 105 mg/dL (74-106); LIPASE 128 U/L (73-393); POTASSIUM,K 4.4 mmol/L (3.5-5.1); SODIUM,NA 138 mmol/L (136-148)
[2020-09-06] MEDS ORDERED: Iopamidol 755 MG/ML 500 ML Multipack Bottle IVPUSH STA (09:51)
--- NOTE | 2020-09-06 10:53 | CT ---
INDICATION: Constipation and abdominal pain. TECHNIQUE: CT abdomen and pelvis acquired with 100 cc Isovue 370 IV contrast. COMPARISON: None. FINDINGS: Lower chest: Unremarkable. Liver: Unremarkable. Normal in size and attenuation. No masses. Gallbladder and bile ducts: Unremarkable. No stones or inflammation. No biliary dilatation. Pancreas: Unremarkable. No mass or inflammation. Spleen: Unremarkable. Normal in size. No masses. Adrenal glands: A right adrenal nodule measures 1.5 cm. A left adrenal nodule measures 0.8 cm. Kidneys: Unremarkable. No masses, stones, or hydronephrosis. GI tract: There is mild wall thickening amongst multiple diverticula in the sigmoid colon and rectum. Remainder of the GI tract is normal in caliber and appearance. Normal appendix. Vasculature: Diffuse atherosclerosis. Abdominal aorta is normal in caliber. Mesenteric arteries are patent. Aortobifemoral bypass graft is patent. Lymph nodes: No lymphadenopathy. Omentum/Peritoneum/Abdominal Wall: Unremarkable. No sign of mass or infiltration. No free air or significant free fluid. Pelvis: Unremarkable. Bones: Unremarkable for age. IMPRESSION: 1. Mild nonspecific wall thickening amongst diverticula in the sigmoid colon and rectum. Acute or chronic colitis is possible. Remainder of the GI tract is unremarkable. No sign of constipation. 2. No other finding to explain abdominal pain. Please note that all CT scans at this facility use dose modulation, iterative reconstruction, and/or weight-based dosing when appropriate to reduce radiation dose to as low as reasonably achievable. Dictated by Leoncio Cummings MD @ Sep 06 2020 10:39AM Signed by Dr. Leoncio Cummings @ Sep 06 2020 10:51AM
[2020-09-06 11:05] VITALS: BP 137/75; PULSE 83
== END 2020-09-06 11:19 | disposition home or self-care (01) ==
LOC: MW.ED 08:45
DX: K52.9 Noninfective gastroenteritis and colitis, unspecified (principal); I10 Essential (primary) hypertension; J44.9 Chronic obstructive pulmonary disease, unspecified; Z88.7 Allergy status to serum and vaccine; Z88.4 Allergy status to anesthetic agent; Z79.82 Long term (current) use of aspirin; Z79.899 Other long term (current) drug therapy
CPT/HCPCS: 74177; 80053; 83690; 85025; 99284; Q9967; 99283

== ENCOUNTER 2020-12-14 09:31 | Observation (INO) | payer MEDICARE ==
[2020-12-14] MEDS ORDERED: Sodium Chloride 0.9% 10 ML Syringe FLUSH PRN (10:09)
[2020-12-14] MEDS ORDERED: Sodium Chloride 0.9% 2.5 ML Syringe FLUSH PRN (10:09)
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
[2020-12-14 10:41] LABS: BLOOD UREA NITROGEN,BUN 19 mg/dL (7.0-18.0); CARBON DIOXIDE,CO2 27.1 mmol/L (21.0-32.0); CHLORIDE,CL 107 mmol/L (98-107); GLUCOSE RANDOM 111 mg/dL (74-106); POTASSIUM,K 4.4 mmol/L (3.5-5.1); SODIUM,NA 143 mmol/L (136-148)
--- NOTE | 2020-12-14 10:42 | CR ---
INDICATION: Chest pain COMPARISON: July 20, 2020 TECHNIQUE: Single-view portable chest radiograph FINDINGS: TUBES AND LINES: None. HEART AND MEDIASTINUM: The heart size is normal. The mediastinal contour appears normal for patient age. LUNGS AND PLEURAL SPACES: Hyperinflated lungs. 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 Linear opacities especially in the left upper lobe laterally unchanged likely fibrotic. No definite acute finding regarding the lungs and pleural spaces OSSEOUS STRUCTURES: Age-appropriate appearance. No acute focal finding. IMPRESSION: COPD pattern. No acute focal finding when compared to July 20, 2020 Dictated by Tremayne Felix MD @ 12/14/2020 10:41:[address] Tremayne Felix @ Dec 14 2020 10:41AM
[2020-12-14] MEDS ORDERED: Methadone 10 MG Tab PO STA (11:49)
--- NOTE | 2020-12-14 11:58 | CT ---
INDICATION: Visual changes COMPARISON: None TECHNIQUE: CT examination of the head was performed as axial sections without intravenous contrast. Images were obtained from the vertex of the skull through the skull base. Please note that all CT scans at this facility use dose modulation, iterative reconstruction, and/or weight-based dosing when appropriate to reduce radiation dose to as low as reasonably achievable. FINDINGS: The brain shows no sign of mass lesion, mass effect, hemorrhage, or edema. There are involutional changes. There is mild cortical atrophy and there is mild white matter disease. There is no hydrocephalus. The visualized portions of the orbits are normal in appearance. The osseous structures are normal in appearance with no sign of abnormality in the skull base or calvarium. IMPRESSION: Involutional changes. No acute-appearing findings. No visible etiology for visual changes. Please note that all CT scans at this facility use dose modulation, iterative reconstruction, and/or weight-based dosing when appropriate to reduce radiation dose to as low as reasonably achievable. Dictated by Tremayne Felix MD @ 12/14/2020 11:56:[address] Tremayne Felix @ Dec 14 2020 11:56AM
--- NOTE | 2020-12-14 15:32 | PCM.HP.2 ---
H&P History of Present Illness - General Date of Service: 12/14/20 Admit Problem/Dx: Admission Diagnosis/Problem Admission Diagnosis/Problem Acute coronary syndrome - History of Present Illness Initial Comments - Free Text/Narative: 70 yo with pmh of COPD and vascular disease who presents with floater is right eye. Patient reports having abdominal aortic repair and grafts in his legs. 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 He denies any history of coronary artery disease. He reports one day history of floaters in his eyes. He also reports several month history of shortness of breath on exertion with a sensation of burning in the chest that radiates to the jaw. ED physcian consulted Dr. Jennings and due to concerns of possible retinal detachment patient was sent to his clinic where he notice a small capillary bleed. Patient then came back to the ED where he was referred to observation for his chest pain. Generalized Pain Score (Numeric/FACES): 6 - Related Data Allergies/Adverse Reactions: Allergies Allergy/AdvReac Type Severity Reaction Status Date / Time influenza virus vaccine, Allergy Muscle Verified 12/14/20 15:41 specific Weakness [Influenza Virus Vacc,Specific] ketamine Allergy Hallucinati Verified 12/14/20 15:41 ons Home Medications: Home Meds Aspirin [Sussy Chewable Aspirin] 81 mg PO BEDTIME 12/02/13 [History] traZODone 150 mg PO BEDTIME 12/02/13 [History] Metoprolol Succinate 50 mg PO DAILY 10/28/16 [History] atorvaSTATin [Lipitor] 40 mg PO BEDTIME 10/28/16 [History] Albuterol Sulfate [Albuterol Sulfate Hfa] 1 puff IH Q4H PRN 12/21/18 [History] Tiotropium [place] [Spiriva Respimat] 2 puff IH DAILY 12/21/18 [History] Methadone 10 - 40 mg PO QID PRN 12/28/18 [History] Budesonide/Formoterol Fumarate [Symbicort 80-4.5 MCG] 2 puff INH BID 01/16/19 [History] Cholecalciferol (Vitamin D3) [Vitamin D3] 2,000 units PO DAILY 12/14/20 [History] Clopidogrel Bisulfate [Plavix] 75 mg PO DAILY 12/14/20 [History] Sennosides [Senna] 8.6 mg PO DAILY 12/14/20 [History] polyethylene glycoL 3350 [MiraLAX] 17 gm PO DAILY 12/14/20 [History] Past Medical History HEENT History: Reports: None Cardiovascular History: Reports: Hypertension, Other (See Below) Other Cardiovascular History: carotid stenosis 40% 2020 Respiratory History: Reports: COPD Other Respiratory History: Uses CPAP at night, sleep study done 3 weeks ago but has not gotten results; patient reports "both lungs collapsing" - one from an accident, the other from [facility] Gastrointestinal History: Reports: Bowel Obstruction, GERD Other Gastrointestinal History: constipation Genitourinary History: Reports: None Musculoskeletal History: Reports: Arthritis Other Musculoskeletal History: Multiple vascular bypass procedures on the RLE Neurological History: Reports: Other (See Below) Other Neuro History: [facility] [place] in 2009-has Chronic Inflammatory Demyelinating Polyneuropathy from that Psychiatric History: Reports: None Endocrine/Metabolic History: Reports: None Hematologic History: Reports: Anticoagulation Therapy Immunologic History: Reports: None Other Oncologic History: As per the pt he had hx of skin cancer on his face, removed some skin quarter size of skin on the upper lip - Infectious Disease History Infectious Disease History: Reports: Chicken Pox, Measles, Mumps, Shingles Other Infectious Disease History: Shingles Right Eye - Past Surgical History HEENT Surgical History: Reports: Cataract Surgery Cardiovascular Surgical History: Reports: AAA Repair, Valve Replacement, Vascular Surgery 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 Exam - Exam Exam: See Below - Vital Signs Vital Signs: Last Vital Signs Temp 37.0 C 12/14/20 10:00 Pulse 56 L 12/14/20 14:15 Resp 17 12/14/20 14:15 BP 166/54 H 12/14/20 14:15 Pulse Ox 95 12/14/20 14:15 Weight: 70.307 kg - Exam General: Alert, Oriented HEENT: Mucosa Moist & [place] Neck: Supple Lungs: Clear to Auscultation, Normal Respiratory Effort Cardiovascular: Regular Rate, Regular Rhythm GI/Abdominal Exam: Normal Bowel Sounds, Soft, Non-Tender Extremities: Non-Tender, No Pedal Edema Skin: Warm, Dry, Intact Neurological: Cranial Nerves Intact. No: Focal Deficit - Patient Data Lab Results Last 24 hrs: Laboratory Results - last 24 hr 12/14/20 12/14/20 12/14/20 Range/Units 09:58 09:58 09:58 WBC 5.46 (4.0-11.0) K/uL RBC 4.34 L (4.50-5.90) M/uL Hgb 13.1 (13.0-17.0) g/dL Hct 38.9 (38.0-50.0) % MCV 89.6 (80.0-98.0) fL MCH 30.2 (27.0-32.0) pg MCHC 33.7 (31.0-37.0) g/dL RDW Std Deviation 40.4 (28.0-62.0) fl RDW Coeff of Yury 12 (11.0-15.0) % Plt Count 148 L (150-400) K/uL MPV 9.20 (7.40-12.00) fL Neut % (Auto) 58.7 (48.0-80.0) % Lymph % (Auto) 31.9 (16.0-40.0) % Mathews % (Auto) 6.4 (0.0-15.0) % Eos % (Auto) 2.6 (0.0-7.0) % Baso % (Auto) 0.4 (0.0-1.5) % Neut # (Auto) 3.2 (1.4-5.7) K/uL Lymph # (Auto) 1.7 (0.6-2.4) K/uL Mathews # (Auto) 0.4 (0.0-0.8) K/uL Eos # (Auto) 0.1 (0.0-0.7) K/uL Baso # (Auto) 0.0 (0.0-0.1) K/uL Nucleated RBC % 0.0 /100WBC Nucleated RBCs # 0 K/uL ESR 9 (0-19) mm/hr INR APTT (18.6-31.3) SEC Sodium 143 (136-148) mmol/L Potassium 4.4 (3.5-5.1) mmol/L Chloride 107 (98-107) mmol/L Carbon Dioxide 27.1 (21.0-32.0) mmol/L BUN 19 H (7.0-18.0) mg/dL Creatinine 1.0 (0.8-1.3) mg/dL Est Cr Clr Drug Dosing TNP Estimated GFR (MDRD) > 60.0 ml/min Glucose 111 H (74-106) mg/dL Calcium 8.6 (8.5-10.1) mg/dL Magnesium 1.8 (1.8-2.4) mg/dL Total Bilirubin 0.5 (0.2-1.0) mg/dL AST 22 (15-37) IU/L ALT 28 (14-63) IU/L Alkaline Phosphatase 81 (46-116) U/L Troponin I < 0.050 (0.000-0.056) ng/mL Total Protein 6.3 L (6.4-8.2) g/dL Albumin 3.3 L (3.4-5.0) g/dL Globulin 3.0 (2.6-4.0) g/dL Albumin/Globulin Ratio 1.1 (0.9-1.6) 12/14/20 Range/Units 12:17 WBC (4.0-11.0) K/uL RBC (4.50-5.90) M/uL Hgb (13.0-17.0) g/dL Hct (38.0-50.0) % MCV (80.0-98.0) fL MCH (27.0-32.0) pg MCHC (31.0-37.0) g/dL RDW Std Deviation (28.0-62.0) fl RDW Coeff of Yury (11.0-15.0) % Plt Count (150-400) K/uL MPV (7.40-12.00) fL Neut % (Auto) (48.0-80.0) % Lymph % (Auto) (16.0-40.0) % Mathews % (Auto) (0.0-15.0) % Eos % (Auto) (0.0-7.0) % Baso % (Auto) (0.0-1.5) % Neut # (Auto) (1.4-5.7) K/uL Lymph # (Auto) (0.6-2.4) K/uL Mathews # (Auto) (0.0-0.8) K/uL Eos # (Auto) (0.0-0.7) K/uL Baso # (Auto) (0.0-0.1) K/uL Nucleated RBC % /100WBC Nucleated RBCs # K/uL ESR (0-19) mm/hr INR 0.98 APTT 21.7 (18.6-31.3) SEC Sodium (136-148) mmol/L Potassium (3.5-5.1) mmol/L Chloride (98-107) mmol/L Carbon Dioxide (21.0-32.0) mmol/L BUN (7.0-18.0) mg/dL Creatinine (0.8-1.3) mg/dL Est Cr Clr Drug Dosing Estimated GFR (MDRD) ml/min Glucose (74-106) mg/dL Calcium (8.5-10.1) mg/dL Magnesium (1.8-2.4) mg/dL Total Bilirubin (0.2-1.0) mg/dL AST (15-37) IU/L ALT (14-63) IU/L Alkaline Phosphatase (46-116) U/L Troponin I (0.000-0.056) ng/mL Total Protein (6.4-8.2) g/dL Albumin (3.4-5.0) g/dL Globulin (2.6-4.0) g/dL Albumin/Globulin Ratio (0.9-1.6) Result Diagrams: 12/14/20 09:58 12/14/20 09:58 Sepsis Event Note - Evaluation Sepsis Screening Result: No Definite Risk - Focused Exam Vital Signs: Vital Signs Temp Pulse Resp BP Pulse Ox 12/14/20 14:15 56 L 17 166/54 H 95 12/14/20 13:24 60 16 165/66 H 96 12/14/20 10:00 37.0 C 71 164/62 H 94 L Problem List Initiated/Reviewed/Updated: Yes Orders Last 24hrs: Active Orders 24 hr Category Date Time Status Patient Status [ADT] Routine ADT 12/14/20 12:05 Active Antiembolic Devices [RC] PER UNIT ROUTINE Care 12/14/20 15:23 Active Cardiac Monitoring [RC] . DIRECTED Care 12/14/20 10:09 Active EKG Documentation Completion [RC] AM Care 12/14/20 10:09 Active Oxygen Therapy [RC] PRN Care 12/14/20 15:23 Active Pulse Oximetry [RC] ASDIRECTED Care 12/14/20 10:09 Active Up ad Dariela [RC] ASDIRECTED Care 12/14/20 15:23 Active VTE/DVT Education [RC] PER UNIT ROUTINE Care 12/14/20 15:23 Active Visual Acuity [Vision Test] [RC] ASDIRECTED Care 12/14/20 11:21 Active Vital Signs [RC] Q4H Care 12/14/20 15:23 Active Heart Healthy Diet [DIET] Diet 12/14/20 Breakfast Active CORONAVIRUS COVID-19 CAITLYN [MOLEC] Stat Lab 12/14/20 10:09 Ordered TROPONIN I [CHEM] Q6H Lab 12/14/20 15:20 Ordered TROPONIN I [CHEM] Q6H Lab 12/14/20 21:20 Ordered Albuterol Med 12/14/20 15:20 Ordered 1 puff IH Q4H PRN Aspirin Med 12/14/20 21:00 Ordered 81 mg PO BEDTIME Clopidogrel [Plavix] Med 12/15/20 09:00 Ordered 75 mg PO DAILY Methadone Med 12/14/20 15:24 Ordered 10 mg PO TID PRN Metoprolol Succinate [Toprol XL] Med 12/15/20 09:00 Ordered 50 mg PO DAILY Sodium Chloride 0.9% [Saline Flush] Med 12/14/20 10:09 Active 10 ml FLUSH ASDIRECTED PRN Sodium Chloride 0.9% [Saline Flush] Med 12/14/20 10:09 Active 2.5 ml FLUSH ASDIRECTED PRN Tiotropium [place] Med 12/14/20 21:00 Ordered 4 gm IH BID atorvaSTATin [Lipitor] Med 12/14/20 21:00 Ordered 40 mg PO BEDTIME traZODone HCl Med 12/14/20 21:00 Ordered 150 mg PO BEDTIME Saline Lock Insert [OM.PC] Stat Oth 12/14/20 10:09 Ordered Sequential Compression Device [OM.PC] Per Unit Routine Oth 12/14/20 15:23 Ordered Resuscitation Status Routine Resus Stat 12/14/20 15:23 Ordered Medication Orders Aspirin (Aspirin 81 Mg Tab.Chew) 81 mg PO BEDTIME KEVIN Atorvastatin Calcium (Atorvastatin 40 Mg Tab) 40 mg PO BEDTIME KEVIN Clopidogrel Bisulfate (Clopidogrel 75 Mg Tab) 75 mg PO DAILY KEVIN Methadone HCl (Methadone 10 Mg Tab) 10 mg PO TID PRN PRN Reason: pain Metoprolol Succinate (Metoprolol Succinate 25 Mg Tab.Er) 50 mg PO DAILY KEVIN Non-Formulary Medication (Albuterol) 1 puff IH Q4H PRN PRN Reason: wheezing/SOB Non-Formulary Medication (Tiotropium [place]) 4 gm IH BID KEVIN Sodium Chloride (Sodium Chloride 0.9% 10 Ml Syringe) 10 ml FLUSH ASDIRECTED PRN PRN Reason: Keep Vein Open Last Admin: 12/14/20 12:19 Dose: 10 ml Documented by: THEODORE Sodium Chloride (Sodium Chloride 0.9% 2.5 Ml Syringe) 2.5 ml FLUSH ASDIRECTED P RN PRN Reason: Keep Vein Open Last Admin: 12/14/20 12:19 Dose: 2.5 ml Documented by: THEODORE Trazodone HCl (Trazodone Hcl 100 Mg Tab) 150 mg PO BEDTIME [facility] Assessment/Plan Comment:: 70 yo male admitted for chest pain. We will monitor overnight and trend cardiac enzymes
[2020-12-14] MEDS ORDERED: Albuterol 8 GM Inhaler INH PRN (15:33)
[2020-12-14] MEDS: Methadone 10 MG Tab PO PRN (20:32)
[2020-12-14] MEDS ORDERED: traZODone 50 MG Tab PO SCH (21:00)
[2020-12-14] MEDS ORDERED: Aspirin 81 MG Tab.Chew PO SCH (21:00)
[2020-12-14] MEDS ORDERED: atorvaSTATin 40 MG Tab PO SCH (21:00)
[2020-12-15] MEDS: Methadone 10 MG Tab PO PRN (04:28)
[2020-12-15 08:00] VITALS: BP 128/98
[2020-12-15 08:13] VITALS: PULSE 64
[2020-12-15] MEDS ORDERED: Clopidogrel 75 MG Tab PO SCH (09:00)
[2020-12-15] MEDS ORDERED: Metoprolol Succinate 50 MG Tab.ER PO SCH (09:00)
[2020-12-15] MEDS ORDERED: TIOTROPIUM BROMIDE 4 GM INH SCH (09:00)
[2020-12-15] MEDS ORDERED: MIST INHAL INH SCH (09:00)
--- NOTE | 2020-12-15 10:38 | PCM.DCSUM1 ---
Discharge Summary - Discharge Data Discharge Date: 12/15/20 Discharge Disposition: Home, Self-Care 01 Condition: Stable - Referral to Home Health Primary Care Physician: Blake Allen MD - Patient Summary/Data Hospital Course: 70 yo with pmh of COPD and vascular disease who initially presented to the ED with complaints of floaters in his right eye. He did mention exertional chest pain and shortness of breath for past three months. He was sent to Dr. Jennings's clinic due to concerns of need for emergent laser therapy for detached retina but on exam patient had a small capillary bleed so patient was then sent back to the ED and then admitted for evaluation of his chest pain. Patient was monitored overnight and ruled out for acute coronary syndrome with serial negative cardiac enzymes and EKGs. He was discharged home to have follow up with his PCP and a referral to exercise stress testing. - Patient Instructions Diet: Heart Healthy Diet Activity: No Strenuous Activities Notify Provider of: Increased Pain - Discharge Plan Home Medications: Home Meds Aspirin [Sussy Chewable Aspirin] 81 mg PO BEDTIME 12/02/13 [History] traZODone 150 mg PO BEDTIME 12/02/13 [History] Metoprolol Succinate 50 mg PO DAILY 10/28/16 [History] atorvaSTATin [Lipitor] 40 mg PO BEDTIME 10/28/16 [History] Albuterol Sulfate [Albuterol Sulfate Hfa] 1 puff IH Q4H PRN 12/21/18 [History] Tiotropium [place] [Spiriva Respimat] 2 puff IH DAILY 12/21/18 [History] Methadone 10 - 40 mg PO QID PRN 12/28/18 [History] Budesonide/Formoterol Fumarate [Symbicort 80-4.5 MCG] 2 puff INH BID 01/16/19 [History] Cholecalciferol (Vitamin D3) [Vitamin D3] 2,000 units PO DAILY 12/14/20 [History] Clopidogrel Bisulfate [Plavix] 75 mg PO DAILY 12/14/20 [History] Sennosides [Senna] 8.6 mg PO DAILY 12/14/20 [History] polyethylene glycoL 3350 [MiraLAX] 17 gm PO DAILY 12/14/20 [History] Forms: ED Department Discharge Referrals: Blake Allen MD [Primary Care Provider] - - Discharge Summary/Plan Comment DC Time >30 min.: No - Patient Data Vitals - Most Recent: Last Vital Signs Temp 35.6 C L 12/15/20 07:59 Pulse 64 12/15/20 08:11 Resp 22 H 12/15/20 07:59 BP 128/98 H 12/15/20 08:11 Pulse Ox 91 L 12/15/20 07:59 Weight - Most Recent: 69.717 kg I&O - Last 24 hours: Intake & Output 12/14/20 12/15/20 12/15/20 22:59 06:59 14:59 Intake Total 300 Output Total 900 Balance -600 Lab Results - Last 24 hrs: Laboratory Results - last 24 hr 12/14/20 12/14/20 12/14/20 Range/Units 09:58 09:58 09:58 WBC 5.46 (4.0-11.0) K/uL RBC 4.34 L (4.50-5.90) M/uL Hgb 13.1 (13.0-17.0) g/dL Hct 38.9 (38.0-50.0) % MCV 89.6 (80.0-98.0) fL MCH 30.2 (27.0-32.0) pg MCHC 33.7 (31.0-37.0) g/dL RDW Std Deviation 40.4 (28.0-62.0) fl RDW Coeff of Yury 12 (11.0-15.0) % Plt Count 148 L (150-400) K/uL MPV 9.20 (7.40-12.00) fL Neut % (Auto) 58.7 (48.0-80.0) % Lymph % (Auto) 31.9 (16.0-40.0) % [place] % (Auto) 6.4 (0.0-15.0) % Eos % (Auto) 2.6 (0.0-7.0) % Baso % (Auto) 0.4 (0.0-1.5) % Neut # (Auto) 3.2 (1.4-5.7) K/uL Lymph # (Auto) 1.7 (0.6-2.4) K/uL [place] # (Auto) 0.4 (0.0-0.8) K/uL Eos # (Auto) 0.1 (0.0-0.7) K/uL Baso # (Auto) 0.0 (0.0-0.1) K/uL Nucleated RBC % 0.0 /100WBC Nucleated RBCs # 0 K/uL ESR 9 (0-19) mm/hr INR APTT (18.6-31.3) SEC Sodium 143 (136-148) mmol/L Potassium 4.4 (3.5-5.1) mmol/L Chloride 107 (98-107) mmol/L Carbon Dioxide 27.1 (21.0-32.0) mmol/L BUN 19 H (7.0-18.0) mg/dL Creatinine 1.0 (0.8-1.3) mg/dL Est Cr Clr Drug Dosing TNP Estimated GFR (MDRD) > 60.0 ml/min Glucose 111 H (74-106) mg/dL Calcium 8.6 (8.5-10.1) mg/dL Magnesium 1.8 (1.8-2.4) mg/dL Total Bilirubin 0.5 (0.2-1.0) mg/dL AST 22 (15-37) IU/L ALT 28 (14-63) IU/L Alkaline Phosphatase 81 (46-116) U/L Troponin I < 0.050 (0.000-0.056) ng/mL Total Protein 6.3 L (6.4-8.2) g/dL Albumin 3.3 L (3.4-5.0) g/dL Globulin 3.0 (2.6-4.0) g/dL Albumin/Globulin Ratio 1.1 (0.9-1.6) 12/14/20 12/14/20 12/14/20 Range/Units 12:17 15:29 21:20 WBC (4.0-11.0) K/uL RBC (4.50-5.90) M/uL Hgb (13.0-17.0) g/dL Hct (38.0-50.0) % MCV (80.0-98.0) fL MCH (27.0-32.0) pg MCHC (31.0-37.0) g/dL RDW Std Deviation (28.0-62.0) fl RDW Coeff of Yury (11.0-15.0) % Plt Count (150-400) K/uL MPV (7.40-12.00) fL Neut % (Auto) (48.0-80.0) % Lymph % (Auto) (16.0-40.0) % [place] % (Auto) (0.0-15.0) % Eos % (Auto) (0.0-7.0) % Baso % (Auto) (0.0-1.5) % Neut # (Auto) (1.4-5.7) K/uL Lymph # (Auto) (0.6-2.4) K/uL [place] # (Auto) (0.0-0.8) K/uL Eos # (Auto) (0.0-0.7) K/uL Baso # (Auto) (0.0-0.1) K/uL Nucleated RBC % /100WBC Nucleated RBCs # K/uL ESR (0-19) mm/hr INR 0.98 APTT 21.7 (18.6-31.3) SEC Sodium (136-148) mmol/L Potassium (3.5-5.1) mmol/L Chloride (98-107) mmol/L Carbon Dioxide (21.0-32.0) mmol/L BUN (7.0-18.0) mg/dL Creatinine (0.8-1.3) mg/dL Est Cr Clr Drug Dosing Estimated GFR (MDRD) ml/min Glucose (74-106) mg/dL Calcium (8.5-10.1) mg/dL Magnesium (1.8-2.4) mg/dL Total Bilirubin (0.2-1.0) mg/dL AST (15-37) IU/L ALT (14-63) IU/L Alkaline Phosphatase (46-116) U/L Troponin I < 0.050 < 0.050 (0.000-0.056) ng/mL Total Protein (6.4-8.2) g/dL Albumin (3.4-5.0) g/dL Globulin (2.6-4.0) g/dL Albumin/Globulin Ratio (0.9-1.6) Med Orders - Current: Current Medications Albuterol (Albuterol 8 Gm Inhaler) 0 gm INH Q4H PRN PRN Reason: wheezing/SOB Aspirin (Aspirin 81 Mg Tab.Chew) 81 mg PO BEDTIME [facility] Last Admin: 12/14/20 20:17 Dose: 81 mg Documented by: Atorvastatin Calcium (Atorvastatin 40 Mg Tab) 40 mg PO BEDTIME [facility] Last Admin: 12/14/20 20:17 Dose: 40 mg Documented by: Clopidogrel Bisulfate (Clopidogrel 75 Mg Tab) 75 mg PO DAILY [facility] Last Admin: 12/15/20 08:11 Dose: 75 mg Documented by: Methadone HCl (Methadone 10 Mg Tab) 10 mg PO TID PRN PRN Reason: pain Last Admin: 12/15/20 04:28 Dose: 10 mg Documented by: Metoprolol Succinate (Metoprolol Succinate 50 Mg Tab.Er) 50 mg PO DAILY [facility] Last Admin: 12/15/20 08:11 Dose: 50 mg Documented by: Tiotropium [place] 4 (Gm Mist.Inhal) 2 each INH DAILY [facility] Last Admin: 12/15/20 08:11 Dose: Not Given Documented by: Sodium Chloride (Sodium Chloride 0.9% 10 Ml Syringe) 10 ml FLUSH ASDIRECTED PRN PRN Reason: Keep Vein Open Last Admin: 12/14/20 12:19 Dose: 10 ml Documented by: Sodium Chloride (Sodium Chloride 0.9% 2.5 Ml Syringe) 2.5 ml FLUSH ASDIRECTED PRN PRN Reason: Keep Vein Open Last Admin: 12/14/20 12:19 Dose: 2.5 ml Documented by: Trazodone HCl (Trazodone 50 Mg Tab) 150 mg PO BEDTIME [facility] Last Admin: 12/14/20 20:17 Dose: 150 mg Documented by: Discontinued Medications Methadone HCl (Methadone 10 Mg Tab) 10 mg PO BID STA Stop: 12/14/20 11:50 Last Admin: 12/14/20 12:16 Dose: 10 mg Documented by: #1 Interpretation EKG Date: 12/15/20 Time: 09:46 Rhythm: NSR Rate (Beats/Min): 52 P-Wave: Present QRS: Normal ST-T: Normal
== END 2020-12-15 11:20 | disposition home or self-care (01) ==
LOC: MW.ED 09:31 → MW.MS 12:05 → UNDOADMOB 14:29
PROVIDERS: ADMIT Internal Medicine; ATTEND Internal Medicine
DX: R07.9 Chest pain, unspecified (principal); J44.9 Chronic obstructive pulmonary disease, unspecified; I10 Essential (primary) hypertension; G61.0 Guillain-Barre syndrome; H43.393 Other vitreous opacities, bilateral; H33.313 Horseshoe tear of retina without detachment, bilateral; Z88.7 Allergy status to serum and vaccine; Z86.16 Personal history of COVID-19; Z88.8 Allergy status to other drugs, medicaments and biological substances; Z99.81 Dependence on supplemental oxygen; Z79.82 Long term (current) use of aspirin; Z79.899 Other long term (current) drug therapy
CPT/HCPCS: 36415; 70450; 71045; 80053; 83735; 84484; 85025; 85610; 85652; 85730; 93005; 99285; A9270; G0378; 93010; 99284

== ENCOUNTER 2021-05-08 14:27 | Inpatient (IN) | payer MEDICARE ==
[2021-05-08] MEDS ORDERED: Sodium Chloride 0.9% 2.5 ML Syringe FLUSH PRN (14:34)
[2021-05-08] MEDS ORDERED: Sodium Chloride 0.9% 10 ML Syringe FLUSH PRN (14:34)
[2021-05-08] MEDS ORDERED: Albuterol/Ipratropium 3.0-0.5 MG/3 ML Neb Soln NEB ONE ×2 (15:02→15:03)
[2021-05-08] MEDS ORDERED: methylPREDNISolone Sodium Succinate 125 MG/2 ML SDV IVPUSH ONE (15:03)
[2021-05-08] MEDS ORDERED: Albuterol/Ipratropium 3.0-0.5 MG/3 ML Neb Soln ONE (15:07)
[2021-05-08 15:08] LABS: BLOOD UREA NITROGEN,BUN 19 mg/dL (7.0-18.0); CHLORIDE,CL 102 mmol/L (98-107); GLUCOSE RANDOM 115 mg/dL (74-106); POTASSIUM,K 4.1 mmol/L (3.5-5.1); SODIUM,NA 140 mmol/L (136-148)
--- NOTE | 2021-05-08 15:37 | CR ---
Indication: Pain and shortness of breath Comparison: Single-view chest December 14, 2020 Technique: Single AP view chest Findings: There is hyperinflation and chronic interstitial change. There is no focal consolidation, effusion, or pneumothorax. The cardiomediastinal silhouette is within normal limits. The bony thorax is grossly intact. Impression: There is hyperinflation and chronic interstitial change without dense consolidation. Dictated by Con Nur MD @ 05/08/2021 3:35:57 PM (Electronically Signed)
[2021-05-08] MEDS ORDERED: Sodium Chloride 0.9% 1,000 ML IV ONE (16:19)
[2021-05-08] MEDS ORDERED: Iopamidol 755 MG/ML 500 ML Multipack Bottle IVPUSH STA (16:26)
--- NOTE | 2021-05-08 16:50 | CT ---
INDICATION: Chest pain. History of collapsed lung. COPD. Rule out pulmonary embolism. TECHNIQUE: Volumetric helical scanning of the thorax was performed during infusion of 100 cc of Isovue 370 contrast material IV, timing optimized for pulmonary arterial opacification. Coronal and sagittal reconstructions were obtained. COMPARISON: Today`s chest x-ray. FINDINGS: The images are of acceptable quality and demonstrate uniform vascular enhancement within the pulmonary arteries. No pulmonary arterial filling defect is identified. The heart size is normal. An aortic valve stent is demonstrated. Calcified coronary arterial plaque is demonstrated. Emphysema is demonstrated as well as small subpleural infiltrates in the posterior aspects of both lower lobes. A left upper lobe scar is noted. No significant airway abnormality is demonstrated. No pleural effusion is noted. Mild subcarinal lymphadenopathy is noted. No other mediastinal or hilar lymphadenopathy is demonstrated. Images of the upper abdomen demonstrate a nonspecific 2.0 cm right adrenal nodule as well as a nonspecific 1.3 cm left adrenal nodule. IMPRESSION: 1. Negative for pulmonary embolism. 2. Emphysema and small subpleural infiltrates in the posterior aspect of both lower lobes. 3. Post TAVR. 4. Nonspecific 2.0 cm right adrenal nodule and 1.3 cm left adrenal nodule. Comparison with any prior exam recommended. Otherwise, CT scanning utilizing an adrenal abnormal protocol is recommended. Please note that all CT scans at this facility use dose modulation, iterative reconstruction, and/or weight-based dosing when appropriate to reduce radiation dose to as low as reasonably achievable. Dictated by Bryan Amaral MD @ 05/08/2021 4:48:54 PM (Electronically Signed)
[2021-05-08 16:54] LABS: CORONAVIRUS COVID-19 NAA NEGATIVE (NEGATIVE); INFLUENZA A NAA NEGATIVE (NEGATIVE); INFLUENZA B NAA NEGATIVE (NEGATIVE)
[2021-05-08] MEDS ORDERED: Ampicillin/Sulbactam Na 3 GM in Sodium Chloride 0.9% 100 ML IV ONE ×2 (16:59→17:26)
[2021-05-08] MEDS ORDERED: Doxycycline 100 MG in Sodium Chloride 0.9% 100 ML IV STA (17:00)
[2021-05-08] MEDS ORDERED: Ketorolac 30 MG/ML SDV IVPUSH ONE (17:22)
[2021-05-08] MEDS ORDERED: Acetaminophen 500 MG Tab PO ONE (17:22)
--- NOTE | 2021-05-08 17:23 | EDM.PDOC ---
ED HPI GENERAL MEDICAL PROBLEM - General Chief Complaint: Respiratory Problem Stated Complaint: SOB Time Seen by Provider: 05/08/21 14:33 Source of Information: Reports: Patient History Limitations: Reports: No Limitations - History of Present Illness INITIAL COMMENTS - FREE TEXT/NARRATIVE: HISTORY AND PHYSICAL: History of present illness: Patient is a 71-year-old male who presents emergency room today with concern of shortness of breath and left-sided "lung pain "that he woke up with this morning. Patient states that he does have a history of COPD and in general has had a worsening productive cough over the past several weeks. Patient states he does have oxygen at home as needed but states he has not used this in several years. Patient states he also began having fevers and left-sided lung pain and states that he has had his lung collapse in the past and thought that his left lung had possibly collapsed. Patient states he has not taken anything for his symptoms. Patient denies any abdominal pain. Patient does have a history of hypertension, COPD, AAA repair, and aortic valve repair. Patient denies headache, neck stiff ness, change in vision, syncope, or near syncope. Denies nausea, vomiting, abdominal pain, diarrhea, constipation, or dysuria. Has not noted any blood in urine or stool. Patient has been eating and drinking appropriately. Review of systems: As per history of present illness and below otherwise all systems reviewed and negative. Past medical history: As per history of present illness and as reviewed below otherwise noncontributor y. Surgical history: As per history of present illness and as reviewed below otherwise noncontributory. Social history: See social history for further information Family history: As per history of present illness and as reviewed below otherwise noncontributory. Physical exam: General: Patient is alert, oriented, and in no acute distress. Patient sitting comfortably on exam table. Patient is hypoxic 83% on room air and tachycardic 115's on exam. Patient is also febrile 101.5. Otherwise, vitally stable and reviewed by me. HEENT: Atraumatic, normocephalic, pupils equal and reactive bilaterally, negative for conjunctival pallor or scleral icterus, mucous membranes moist, throat clear, neck supple, nontender, trachea midline. No drooling or trismus noted. No meningeal signs. No hot potato voice noted. Lungs: Clear to auscultation, breath sounds equal bilaterally, chest nontender. Patient speaking clearly without breathlessness, no wheezing or stridor, no accessory muscle use or respiratory distress. Heart: S1S2, regular rate and rhythm without overt murmur Abdomen: Soft, nondistended, nontender. Negative for masses or hepatosplenomegaly. Negative for costovertebral tenderness. Pelvis: Stable nontender. Genitourinary: Deferred. Rectal: Deferred. Skin: Intact, warm, dry. No lesions or rashes noted. Extremities: Atraumatic, negative for cords or calf pain. Neurovascular un remarkable. Neuro: Awake, alert, oriented. Cranial nerves II through XII unremarkable. Cerebellum unremarkable. Motor and sensory unremarkable throughout. Exam nonfocal. Medical Decision Making: Patient is a 71-year-old male with a medical history of hypertension, COPD, AAA repair, and aortic valve repair who presents emergency room today with concern of shortness of breath" left-sided lung pain" that he describes as a "prior lung collapse ". Upon arrival to the ED, patient is hypoxic 83% on room air and was quickly transitioned to 4 L nasal cannula and at 90 to 92%. He is tachycardic 115's on exam and febrile at 101.5, is otherwise breathing comfortably on exam without signs of acute respiratory distress and is able to speak clear sentences despite hypoxemia. Will obtain cardiac evaluation, quick 1 view chest x-ray to assess for possible pneumothorax, provide DuoNeb and Solu-Medrol given underlying COPD and reassess patient. Dr. Barcenas's dictation for specific EKG interpretation. Otherwise, sinus tachycardia without STEMI. CBC does show leukocytosis at 13.13, lactate is within normal limits. Patient was also mildly thrombocytopenic with platelets at 130. Otherwise mild de rangements of CBC unremarkable. INR is within normal limits. CMP mild derangements unremarkable. Troponin negative. Covid and influenza negative. Chest x-ray shows hyperinflation and chronic interstitial change without dense consolidation. 2 blood cultures are pending. Angiography of the chest shows negative for pulmonary embolism. Emphysema and small subpleural infiltrate in the posterior aspect of the lower lobes. Post TAVR. Nonspecific 2 cm right adrenal nodule and 1.3 left adrenal nodule. All incidental findings of imaging today discussed with patient importance to have this followed up at a later date with a primary care provider Upon reevaluation of patient, he states that he does feel better following the DuoNeb treatment. He remains 90 to 92% on 4 L nasal cannula, his heart rate has improved to 100s, and otherwise vitally stable and comfortable. Patient was provided with antibiotics here in the emergency room for infiltrates concerning for pneumonia on angiography chest. Patient also expresses improvement of his left-sided "lung "pain following therapeutics. I did call and speak to the hospitalist on-call, Dr. Johnson, and thoroughly discussed patient's case. Will admit to inpatient on telemetry to Dr. Johnson. Voices understanding and is agreeable to plan of care. Denies any further questions or concerns at this time. Patient transferred to the floor in stable condition to Dr. Johnson's care. Diagnostics: EKG, CBC, CMP, PT/INR, lactic acid, blood cultures x2, troponin, influenza/COVID-19, chest x-ray 1 view, angiography chest Therapeutics: Normal saline, DuoNeb x3, Solu-Medrol, Toradol, Tylenol, azithromycin, Unasyn Impression: Community acquired pneumonia COPD exacerbation with hypoxia Plan: Admit to inpatient to Dr. Johnson on telemetry Definitive disposition and diagnosis as appropriate pending reevaluation and review of above. Left Middle Back Pain Score (Numeric/FACES): 2 - Related Data Allergies Allergy/AdvReac Type Severity Reaction Status Date / Time influenza virus vaccine, Allergy Muscle Verified 12/14/20 15:41 specific Weakness [Influenza Virus Vacc,Specific] ketamine Allergy Hallucinati Verified 12/14/20 15:41 ons Home Meds: Home Meds Aspirin [Sussy Chewable Aspirin] 81 mg PO BEDTIME 12/02/13 [History] traZODone 150 mg PO BEDTIME 12/02/13 [History] Metoprolol Succinate 50 mg PO DAILY 10/28/16 [History] atorvaSTATin [Lipitor] 40 mg PO BEDTIME 10/28/16 [History] Albuterol Sulfate [Albuterol Sulfate Hfa] 1 puff IH Q4H PRN 12/21/18 [History] Tiotropium [place] [Spiriva Respimat] 2 puff IH DAILY 12/21/18 [History] Methadone 10 - 40 mg PO QID PRN 12/28/18 [History] Budesonide/Formoterol Fumarate [Symbicort 80-4.5 MCG] 2 puff INH BID 01/16/19 [History] Cholecalciferol (Vitamin D3) [Vitamin D3] 2,000 units PO DAILY 12/14/20 [History] Clopidogrel Bisulfate [Plavix] 75 mg PO DAILY 12/14/20 [History] Sennosides [Senna] 8.6 mg PO DAILY 12/14/20 [History] polyethylene glycoL 3350 [MiraLAX] 17 gm PO DAILY 12/14/20 [History] Past Medical History HEENT History: Reports: None Cardiovascular History: Reports: Hypertension, Other (See Below) Other Cardiovascular History: carotid stenosis 40% 2020 Respiratory History: Reports: COPD Other Respiratory History: Uses CPAP at night, sleep study done 3 weeks ago but has not gotten results; patient reports "both lungs collapsing" - one from an accident, the other from [facility]y Gastrointestinal History: Reports: Bowel Obstruction, GERD Other Gastrointestinal History: constipation Genitourinary History: Reports: None Musculoskeletal History: Reports: Arthritis, Fracture Other Musculoskeletal History: Multiple vascular bypass procedures on the RLE Neurological History: Reports: Other (See Below) Other Neuro History: 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 Psychiatric History: Reports: None Endocrine/Metabolic History: Reports: None Hematologic History: Reports: Anticoagulation Therapy Immunologic History: Reports: None Other Oncologic History: As per the pt he had hx of skin cancer on his face, removed some skin quarter size of skin on the upper lip - Infectious Disease History Infectious Disease History: Reports: Chicken Pox, Measles, Mumps, Shingles Other Infectious Disease History: Shingles Right Eye - Past Surgical History HEENT Surgical History: Reports: Cataract Surgery Other HEENT Surgeries/Procedures: left eye retinal detachment Cardiovascular Surgical History: Reports: AAA Repair, Valve Replacement, Vascular Surgery Other Cardiovascular Surgeries/Procedures: Aortic valve replacement Neurological Surgical History: Reports: Other (See Below) Other Neurological Surgeries/Procedures: Stacy Edward Syndrome Musculoskeletal Surgical History: Reports: Other (See Below) Other Musculoskeletal Surgeries/Procedures:: plate in neck, fx jaw Dermatological Surgical History: Reports: Other (See Below) Social & Family History - Family History Family Medical History: No Pertinent Family History - Tobacco Use Tobacco Use Status *Q: Former Tobacco User Used Tobacco, but Quit: Yes Month/Year Tobacco Last Used: 06/2008 - Caffeine Use Caffeine Use: Reports: Coffee Caffeine Use Comment: 1cup/day - Recreational Drug Use Recreational Drug Use: No - Living Situation & Occupation Living situation: Reports: , with Spouse Occupation: Retired ED ROS GENERAL - Review of Systems Review Of Systems: Comprehensive ROS is negative, except as noted in HPI. ED EXAM, GENERAL - Physical Exam Exam: See Below (See dictation) Course - Vital Signs Last Recorded V/S: Last Vital Signs Temp 101.5 F H 05/08/21 14:33 Pulse 114 H 05/08/21 15:31 Resp 28 H 05/08/21 15:27 BP 169/82 H 05/08/21 15:31 Pulse Ox 91 L 05/08/21 15:31 - Orders/Labs/Meds Orders: Active Orders 24 hr Category Date Time Status RT Aerosol Therapy [RC] ASDIRECTED Care 05/08/21 15:03 Active RT Aerosol Therapy [RC] ASDIRECTED Care 05/08/21 15:03 Active CULTURE BLOOD [BC] Stat Lab 05/08/21 14:40 Received CULTURE BLOOD [BC] Stat Lab 05/08/21 14:53 Received Sodium Chloride 0.9% [Saline Flush] Med 05/08/21 14:34 Active 10 ml FLUSH ASDIRECTED PRN Sodium Chloride 0.9% [Saline Flush] Med 05/08/21 14:34 Active 2.5 ml FLUSH ASDIRECTED PRN Blood Culture x2 Reflex Set [OM.PC] Stat Oth 05/08/21 14:59 Ordered Saline Lock Insert [OM.PC] Stat Oth 05/08/21 14:34 Ordered Medication Orders Sodium Chloride (Sodium Chloride 0.9% 10 Ml Syringe) 10 ml FLUSH ASDIRECTED PRN PRN Reason: Keep Vein Open Last Admin: 05/08/21 15:13 Dose: 10 ml Documented by: THAI Sodium Chloride (Sodium Chloride 0.9% 2.5 Ml Syringe) 2.5 ml FLUSH ASDIRECTED PRN PRN Reason: Keep Vein Open Last Admin: 05/08/21 15:13 Dose: 2.5 ml Documented by: THAI Labs: Laboratory Tests 05/08/21 05/08/21 05/08/21 Range/Units 14:35 14:35 14:35 WBC 13.13 H (4.0-11.0) K/uL RBC 4.38 L (4.50-5.90) M/uL Hgb 13.5 (13.0-17.0) g/dL Hct 39.4 (38.0-50.0) % MCV 90.0 (80.0-98.0) fL MCH 30.8 (27.0-32.0) pg MCHC 34.3 (31.0-37.0) g/dL RDW Std Deviation 40.3 (28.0-62.0) fl RDW Coeff of [place] 12 (11.0-15.0) % Plt Count 130 L (150-400) K/uL MPV 9.10 (7.40-12.00) fL Neut % (Auto) 86.4 H (48.0-80.0) % Lymph % (Auto) 7.2 L (16.0-40.0) % [place] % (Auto) 6.2 (0.0-15.0) % Eos % (Auto) 0.1 (0.0-7.0) % Baso % (Auto) 0.1 (0.0-1.5) % Neut # (Auto) 11.3 H (1.4-5.7) K/uL Lymph # (Auto) 1.0 (0.6-2.4) K/uL [place] # (Auto) 0.8 (0.0-0.8) K/uL Eos # (Auto) 0.0 (0.0-0.7) K/uL Baso # (Auto) 0.0 (0.0-0.1) K/uL Nucleated RBC % 0.0 /100WBC Nucleated RBCs # 0 K/uL INR 1.02 Sodium 140 (136-148) mmol/L Potassium 4.1 (3.5-5.1) mmol/L Chloride 102 (98-107) mmol/L Carbon Dioxide 30.0 (21.0-32.0) mmol/L BUN 19 H (7.0-18.0) mg/dL Creatinine 1.0 (0.8-1.3) mg/dL Est Cr Clr Drug Dosing TNP Estimated GFR (MDRD) > 60.0 ml/min Glucose 115 H (74-106) mg/dL Lactic Acid (0.4-2.0) mmol/L Calcium 8.7 (8.5-10.1) mg/dL Total Bilirubin 0.8 (0.2-1.0) mg/dL AST 21 (15-37) IU/L ALT 36 (14-63) IU/L Alkaline Phosphatase 80 (46-116) U/L Troponin I < 0.050 (0.000-0.056) ng/mL Total Protein 7.3 (6.4-8.2) g/dL Albumin 3.7 (3.4-5.0) g/dL Globulin 3.6 (2.6-4.0) g/dL Albumin/Globulin Ratio 1.0 (0.9-1.6) Influenza Type A RNA (NEGATIVE) Influenza Type B RNA (NEGATIVE) SARS-CoV-2 RNA ([place]) (NEGATIVE) 05/08/21 05/08/21 Range/Units 14:40 15:36 WBC (4.0-11.0) K/uL RBC (4.50-5.90) M/uL Hgb (13.0-17.0) g/dL Hct (38.0-50.0) % MCV (80.0-98.0) fL MCH (27.0-32.0) pg MCHC (31.0-37.0) g/dL RDW Std Deviation (28.0-62.0) fl RDW Coeff of [place] (11.0-15.0) % Plt Count (150-400) K/uL MPV (7.40-12.00) fL Neut % (Auto) (48.0-80.0) % Lymph % (Auto) (16.0-40.0) % [place] % (Auto) (0.0-15.0) % Eos % (Auto) (0.0-7.0) % Baso % (Auto) (0.0-1.5) % Neut # (Auto) (1.4-5.7) K/uL Lymph # (Auto) (0.6-2.4) K/uL [place] # (Auto) (0.0-0.8) K/uL Eos # (Auto) (0.0-0.7) K/uL Baso # (Auto) (0.0-0.1) K/uL Nucleated RBC % /100WBC Nucleated RBCs # K/uL INR Sodium (136-148) mmol/L Potassium (3.5-5.1) mmol/L Chloride (98-107) mmol/L Carbon Dioxide (21.0-32.0) mmol/L BUN (7.0-18.0) mg/dL Creatinine (0.8-1.3) mg/dL Est Cr Clr Drug Dosing Estimated GFR (MDRD) ml/min Glucose (74-106) mg/dL Lactic Acid 1.4 (0.4-2.0) mmol/L Calcium (8.5-10.1) mg/dL Total Bilirubin (0.2-1.0) mg/dL AST (15-37) IU/L ALT (14-63) IU/L Alkaline Phosphatase (46-116) U/L Troponin I (0.000-0.056) ng/mL Total Protein (6.4-8.2) g/dL Albumin (3.4-5.0) g/dL Globulin (2.6-4.0) g/dL Albumin/Globulin Ratio (0.9-1.6) Influenza Type A RNA NEGATIVE (NEGATIVE) Influenza Type B RNA NEGATIVE (NEGATIVE) SARS-CoV-2 RNA ([place]) NEGATIVE (NEGATIVE) Meds: Medications Generic Name Dose Route Start Last Admin Trade Name Freq PRN Reason Stop Dose Admin Sodium Chloride 10 ml 05/08/21 14:34 05/08/21 15:13 Sodium Chloride 0.9% 10 Ml Syringe FLUSH 10 ml ASDIRECTED PRN Administration Keep Vein Open Sodium Chloride 2.5 ml 05/08/21 14:34 05/08/21 15:13 Sodium Chloride 0.9% 2.5 Ml Syringe FLUSH 2.5 ml ASDIRECTED PRN Administration Keep Vein Open Discontinued Medications Generic Name Dose Route Start Last Admin Trade Name Freq PRN Reason Stop Dose Admin Acetaminophen 1,000 mg 05/08/21 17:22 05/08/21 18:01 Acetaminophen 500 Mg Tab PO 05/08/21 17:23 1,000 mg ONETIME ONE Administration Albuterol/Ipratropium 3 ml 05/08/21 15:02 05/08/21 15:13 Albuterol/Ipratropium 3.0-0.5 Mg/3 Ml Neb Soln NEB 05/08/21 15:03 3 ml ONETIME ONE Administration Albuterol/Ipratropium 6 ml 05/08/21 15:03 05/08/21 15:16 Albuterol/Ipratropium 3.0-0.5 Mg/3 Ml Neb Soln NEB 05/08/21 15:04 6 ml ONETIME ONE Administration Albuterol/Ipratropium Confirm 05/08/21 15:07 05/08/21 15:16 Albuterol/Ipratropium 3.0-0.5 Mg/3 Ml Neb Soln Administered 05/08/21 15:08 Not Given Dose 3 ml .ROUTE .STK-MED ONE Sodium Chloride 1,000 mls @ 999 mls/hr 05/08/21 16:19 05/08/21 16:51 Normal Saline IV 05/08/21 17:19 999 mls/hr STAT ONE Administration Doxycycline Hyclate 100 mg/ 100 mls @ 100 mls/hr 05/08/21 17:00 05/08/21 18:03 Sodium Chloride IV 05/08/21 17:59 100 mls/hr NOW STA Administration Ampicillin Sodium/Sulbactam 100 mls @ 200 mls/hr 05/08/21 17:26 05/08/21 17:56 Sodium 3 gm/ Sodium Chloride IV 05/08/21 17:28 200 mls/hr ONETIME ONE Administration Iopamidol 100 ml 05/08/21 16:26 05/08/21 16:26 Iopamidol 755 Mg/Ml 500 Ml Multipack Bottle IVPUSH 05/08/21 16:27 100 ml ONETIME STA Administration Ketorolac Tromethamine 30 mg 05/08/21 17:22 05/08/21 18:00 Ketorolac 30 Mg/Ml Sdv IVPUSH 05/08/21 17:23 30 mg ONETIME ONE Administration Methylprednisolone Sodium Succinate 125 mg 05/08/21 15:03 05/08/21 15:17 Methylprednisolone Sodium Succinate 125 Mg/2 Ml Sdv IVPUSH 05/08/21 15:04 125 mg ONETIME ONE Administration Departure - Departure Time of Disposition: 17:22 Disposition: Admitted As Inpatient 66 Clinical Impression: COPD exacerbation Community acquired pneumonia Qualifiers: Laterality: unspecified laterality Qualified Code(s): J18.9 - Pneumonia, unspecified organism - Discharge Information Sepsis Event Note (ED) - Evaluation Sepsis Screening Result: Possible Sepsis Risk - Focused Exam Vital Signs: Vital Signs Temp Pulse Resp BP Pulse Ox Pulse Ox 05/08/21 15:31 114 H 169/82 H 91 L 05/08/21 15:27 114 H 28 H 169/82 H 88 L 05/08/21 15:13 90 L 05/08/21 14:51 90 L 05/08/21 14:33 101.5 F H 114 H 30 H 125/65 87 L - My Orders Last 24 Hours: My Active Orders 05/08/21 14:34 Sodium Chloride 0.9% [Saline Flush] 10 ml FLUSH ASDIRECTED PRN Sodium Chloride 0.9% [Saline Flush] 2.5 ml FLUSH ASDIRECTED PRN Saline Lock Insert [OM.PC] Stat 05/08/21 14:40 CULTURE BLOOD [BC] Stat 05/08/21 14:53 CULTURE BLOOD [BC] Stat 05/08/21 14:59 Blood Culture x2 Reflex Set [OM.PC] Stat 05/08/21 15:03 RT Aerosol Therapy [RC] ASDIRECTED RT Aerosol Therapy [RC] ASDIRECTED - Assessment/Plan Last 24 Hours: My Active Orders 05/08/21 14:34 Sodium Chloride 0.9% [Saline Flush] 10 ml FLUSH ASDIRECTED PRN Sodium Chloride 0.9% [Saline Flush] 2.5 ml FLUSH ASDIRECTED PRN Saline Lock Insert [OM.PC] Stat 05/08/21 14:40 CULTURE BLOOD [BC] Stat 05/08/21 14:53 CULTURE BLOOD [BC] Stat 05/08/21 14:59 Blood Culture x2 Reflex Set [OM.PC] Stat 05/08/21 15:03 RT Aerosol Therapy [RC] ASDIRECTED RT Aerosol Therapy [RC] ASDIRECTED
--- NOTE | 2021-05-08 18:28 | PCM.EKG ---
#1 Interpretation EKG Date: 05/08/21 Time: 17:52 Rhythm: NSR Rate (Beats/Min): 99 [place]: Normal P-Wave: Present QRS: Normal ST-T: Normal QT: Normal Comparison: No Change (12/14/20) EKG Interpretation Comments: Sinus Rhythm
--- NOTE | 2021-05-08 18:29 | PCM.EKG ---
#1 Interpretation EKG Date: 05/08/21 Time: 14:41 Rhythm: NSR Rate (Beats/Min): 108 [place]: Normal P-Wave: Present QRS: Normal ST-T: Normal QT: Normal Comparison: No Change (12/14/20) EKG Interpretation Comments: SInus Tachycardia
[2021-05-08] MEDS ORDERED: Methadone 10 MG Tab PO PRN (22:23)
[2021-05-08] MEDS ORDERED: Albuterol 8 GM Inhaler INH PRN (22:23)
--- NOTE | 2021-05-08 22:32 | PCM.HP.2 ---
H&P History of Present Illness - General Date of Service: 05/08/21 Admit Problem/Dx: Admission Diagnosis/Problem Admission Diagnosis/Problem Pneumonia - History of Present Illness Initial Comments - Free Text/Narative: 71 yo male with pmh of COPD who presents productive cough, fevers, chills and shortness of breath. Found to be hypoxic requring [address] scan of the chest reported bibasilar infiltrates. Left Middle Back Pain Score (Numeric/FACES): 2 - Related Data Allergies/Adverse Reactions: Allergies Allergy/AdvReac Type Severity Reaction Status Date / Time influenza virus vaccine, Allergy Muscle Verified 05/08/21 22:04 specific Weakness [Influenza Virus Vacc,Specific] ketamine Allergy Hallucinati Verified 05/08/21 22:04 ons Home Medications: Home Meds Aspirin [Sussy Chewable Aspirin] 81 mg PO DAILY 12/02/13 [History] traZODone 150 mg PO BEDTIME 12/02/13 [History] Metoprolol Succinate 50 mg PO DAILY 10/28/16 [History] atorvaSTATin [Lipitor] 40 mg PO BEDTIME 10/28/16 [History] Albuterol Sulfate [Albuterol Sulfate Hfa] 2 puff IH Q4H PRN 12/21/18 [History] Methadone 10 - 40 mg PO QID PRN 12/28/18 [History] Cholecalciferol (Vitamin D3) [Vitamin D3] 2,000 units PO DAILY 12/14/20 [History] Clopidogrel Bisulfate [Plavix] 75 mg PO DAILY 12/14/20 [History] polyethylene glycoL 3350 [MiraLAX] 17 gm PO DAILY 12/14/20 [History] Past Medical History HEENT History: Reports: None Cardiovascular History: Reports: Hypertension, Other (See Below) Other Cardiovascular History: carotid stenosis 40% 2020 Respiratory History: Reports: COPD Other Respiratory History: Uses CPAP at night, sleep study done 3 weeks ago but has not gotten results; patient reports "both lungs collapsing" - one from an accident, the other from [place] Gastrointestinal History: Reports: Bowel Obstruction, GERD Other Gastrointestinal History: constipation Genitourinary History: Reports: None Musculoskeletal History: Reports: Arthritis, Fracture Other Musculoskeletal History: Multiple vascular bypass procedures on the RLE Neurological History: Reports: Other (See Below) Other Neuro History: [place] in 2009-has Chronic Inflammatory Demyelinating Polyneuropathy from that Psychiatric History: Reports: None Endocrine/Metabolic History: Reports: None Hematologic History: Reports: Anticoagulation Therapy Immunologic History: Reports: None Other Oncologic History: As per the pt he had hx of skin cancer on his face, removed some skin quarter size of skin on the upper lip - Infectious Disease History Infectious Disease History: Reports: Chicken Pox, Measles, Mumps, Shingles Other Infectious Disease History: Shingles Right Eye - Past Surgical History HEENT Surgical History: Reports: Cataract Surgery Other HEENT Surgeries/Procedures: left eye retinal detachment Cardiovascular Surgical History: Reports: AAA Repair, Valve Replacement, Vascular Surgery Other Cardiovascular Surgeries/Procedures: Aortic valve replacement Neurological Surgical History: Reports: Other (See Below) Other Neurological Surgeries/Procedures: [place] Syndrome Musculoskeletal Surgical History: Reports: Other (See Below) Other Musculoskeletal Surgeries/Procedures:: plate in neck, fx jaw Dermatological Surgical History: Reports: Other (See Below) Social & Family History - Family History Family Medical History: No Pertinent Family History - Tobacco Use Tobacco Use Status *Q: Former Tobacco User Used Tobacco, but Quit: Yes Month/Year Tobacco Last Used: 06/2008 - Caffeine Use Caffeine Use: Reports: Coffee Caffeine Use Comment: 1cup/day - Recreational Drug Use Recreational Drug Use: No - Living Situation & Occupation Living situation: Reports: , with Spouse Occupation: Retired H&P Review of Systems - Review of Systems: Review Of Systems: Comprehensive ROS is negative, except as noted in HPI. Exam - Exam Exam: See Below - Vital Signs Vital Signs: Last Vital Signs Temp 36.2 C 05/08/21 22:11 Pulse 83 05/08/21 22:11 Resp 20 05/08/21 22:11 BP 115/56 L 05/08/21 22:11 Pulse Ox 94 L 05/08/21 22:11 Weight: 73.028 kg - Exam General: Alert, Oriented HEENT: Mucosa Moist & [place] Lungs: Normal Respiratory Effort, Wheezing Cardiovascular: Regular Rate, Regular Rhythm GI/Abdominal Exam: Soft, Non-Tender, No Distention Extremities: Non-Tender, No Pedal Edema Skin: Warm, Dry, Intact Neurological: No: Focal Deficit - Patient Data Lab Results Last 24 hrs: Laboratory Results - last 24 hr 05/08/21 05/08/21 05/08/21 Range/Units 14:35 14:35 14:35 WBC 13.13 H (4.0-11.0) K/uL RBC 4.38 L (4.50-5.90) M/uL Hgb 13.5 (13.0-17.0) g/dL Hct 39.4 (38.0-50.0) % MCV 90.0 (80.0-98.0) fL MCH 30.8 (27.0-32.0) pg MCHC 34.3 (31.0-37.0) g/dL RDW Std Deviation 40.3 (28.0-62.0) fl RDW Coeff of [place] 12 (11.0-15.0) % Plt Count 130 L (150-400) K/uL MPV 9.10 (7.40-12.00) fL Neut % (Auto) 86.4 H (48.0-80.0) % Lymph % (Auto) 7.2 L (16.0-40.0) % [place] % (Auto) 6.2 (0.0-15.0) % Eos % (Auto) 0.1 (0.0-7.0) % Baso % (Auto) 0.1 (0.0-1.5) % Neut # (Auto) 11.3 H (1.4-5.7) K/uL Lymph # (Auto) 1.0 (0.6-2.4) K/uL [place] # (Auto) 0.8 (0.0-0.8) K/uL Eos # (Auto) 0.0 (0.0-0.7) K/uL Baso # (Auto) 0.0 (0.0-0.1) K/uL Nucleated RBC % 0.0 /100WBC Nucleated RBCs # 0 K/uL INR 1.02 Sodium 140 (136-148) mmol/L Potassium 4.1 (3.5-5.1) mmol/L Chloride 102 (98-107) mmol/L Carbon Dioxide 30.0 (21.0-32.0) mmol/L BUN 19 H (7.0-18.0) mg/dL Creatinine 1.0 (0.8-1.3) mg/dL Est Cr Clr Drug Dosing TNP Estimated GFR (MDRD) > 60.0 ml/min Glucose 115 H (74-106) mg/dL Lactic Acid (0.4-2.0) mmol/L Calcium 8.7 (8.5-10.1) mg/dL Total Bilirubin 0.8 (0.2-1.0) mg/dL AST 21 (15-37) IU/L ALT 36 (14-63) IU/L Alkaline Phosphatase 80 (46-116) U/L Troponin I < 0.050 (0.000-0.056) ng/mL Total Protein 7.3 (6.4-8.2) g/dL Albumin 3.7 (3.4-5.0) g/dL Globulin 3.6 (2.6-4.0) g/dL Albumin/Globulin Ratio 1.0 (0.9-1.6) Influenza Type A RNA (NEGATIVE) Influenza Type B RNA (NEGATIVE) SARS-CoV-2 RNA ([place]) (NEGATIVE) 05/08/21 05/08/21 Range/Units 14:40 15:36 WBC (4.0-11.0) K/uL RBC (4.50-5.90) M/uL Hgb (13.0-17.0) g/dL Hct (38.0-50.0) % MCV (80.0-98.0) fL MCH (27.0-32.0) pg MCHC (31.0-37.0) g/dL RDW Std Deviation (28.0-62.0) fl RDW Coeff of [place] (11.0-15.0) % Plt Count (150-400) K/uL MPV (7.40-12.00) fL Neut % (Auto) (48.0-80.0) % Lymph % (Auto) (16.0-40.0) % [place] % (Auto) (0.0-15.0) % Eos % (Auto) (0.0-7.0) % Baso % (Auto) (0.0-1.5) % Neut # (Auto) (1.4-5.7) K/uL Lymph # (Auto) (0.6-2.4) K/uL [place] # (Auto) (0.0-0.8) K/uL Eos # (Auto) (0.0-0.7) K/uL Baso # (Auto) (0.0-0.1) K/uL Nucleated RBC % /100WBC Nucleated RBCs # K/uL INR Sodium (136-148) mmol/L Potassium (3.5-5.1) mmol/L Chloride (98-107) mmol/L Carbon Dioxide (21.0-32.0) mmol/L BUN (7.0-18.0) mg/dL Creatinine (0.8-1.3) mg/dL Est Cr Clr Drug Dosing Estimated GFR (MDRD) ml/min Glucose (74-106) mg/dL Lactic Acid 1.4 (0.4-2.0) mmol/L Calcium (8.5-10.1) mg/dL Total Bilirubin (0.2-1.0) mg/dL AST (15-37) IU/L ALT (14-63) IU/L Alkaline Phosphatase (46-116) U/L Troponin I (0.000-0.056) ng/mL Total Protein (6.4-8.2) g/dL Albumin (3.4-5.0) g/dL Globulin (2.6-4.0) g/dL Albumin/Globulin Ratio (0.9-1.6) Influenza Type A RNA NEGATIVE (NEGATIVE) Influenza Type B RNA NEGATIVE (NEGATIVE) SARS-CoV-2 RNA ([place]) NEGATIVE (NEGATIVE) Result Diagrams: 05/08/21 14:35 05/08/21 14:35 Sepsis Event Note - Evaluation Sepsis Screening Result: Possible Sepsis Risk - Focused Exam Vital Signs: Vital Signs Temp Temp Pulse Resp BP Pulse Ox Pulse Ox 05/08/21 22:11 36.2 C 83 20 115/56 L 94 L 05/08/21 20:45 97 19 167/82 H 94 L 05/08/21 19:40 103 H 20 162/84 H 95 05/08/21 15:31 114 H 169/82 H 91 L 05/08/21 15:27 114 H 28 H 169/82 H 88 L 05/08/21 15:13 90 L 05/08/21 14:51 90 L 05/08/21 14:33 38.6 C H 114 H 30 H 125/65 87 L - Problem List (1) COPD exacerbation SNOMED Code(s): 448658648 ICD Code: J44.1 - CHRONIC OBSTRUCTIVE PULMONARY DISEASE W (ACUTE) EXACERBATION Status: Acute Current Visit: Yes (2) Hypoxia SNOMED Code(s): 263486166 ICD Code: R09.02 - HYPOXEMIA Status: Acute Current Visit: Yes (3) Pneumonia SNOMED Code(s): 346364404 ICD Code: J18.9 - PNEUMONIA, UNSPECIFIED ORGANISM Status: Acute Current Visit: Yes Qualifiers: Pneumonia type: due to unspecified organism Laterality: unspecified laterality Lung location: unspecified part of lung Qualified Code(s): J18.9 - Pneumonia, unspecified organism Problem List Initiated/Reviewed/Updated: Yes Orders Last 24hrs: Active Orders 24 hr Category Date Time Status Admission Status [Patient Status] [ADT] Stat ADT 05/08/21 17:08 Active RT Aerosol Therapy [RC] ASDIRECTED Care 05/08/21 15:03 Active RT Aerosol Therapy [RC] ASDIRECTED Care 05/08/21 15:03 Active CULTURE BLOOD [BC] Stat Lab 05/08/21 14:40 Received CULTURE BLOOD [BC] Stat Lab 05/08/21 14:53 Received Albuterol Med 05/08/21 22:23 Ordered 2 puff IH Q4H PRN Ampicillin/Sulbactam Na [Unasyn] 3 gm Med 05/08/21 22:30 Ordered Sodium Chloride 0.9% [Normal Saline AdvBag] 100 ml IV Q6H Aspirin Med 05/09/21 09:00 Ordered 81 mg PO DAILY Doxycycline [Vibramycin] 100 mg Med 05/09/21 05:00 Ordered Sodium Chloride 0.9% [Normal Saline AdvBag] 100 ml IV Q12H Methadone Med 05/08/21 22:23 Ordered 10 - 40 mg PO QID PRN Metoprolol Succinate [Toprol XL] Med 05/09/21 09:00 Ordered 50 mg PO DAILY Sodium Chloride 0.9% [Saline Flush] Med 05/08/21 14:34 Active 10 ml FLUSH ASDIRECTED PRN Sodium Chloride 0.9% [Saline Flush] Med 05/08/21 14:34 Active 2.5 ml FLUSH ASDIRECTED PRN atorvaSTATin [Lipitor] Med 05/09/21 21:00 Ordered 40 mg PO BEDTIME methylPREDNISolone Sod Succ [Solu-MEDROL] Med 05/09/21 05:00 Ordered 60 mg IVPUSH Q8H traZODone HCl Med 05/09/21 21:00 Ordered 150 mg PO BEDTIME Blood Culture x2 Reflex Set [OM.PC] Stat Oth 05/08/21 14:59 Ordered Saline Lock Insert [OM.PC] Stat Oth 05/08/21 14:34 Ordered Medication Orders Aspirin (Aspirin 81 Mg Tab.Chew) 81 mg PO DAILY KEVIN Atorvastatin Calcium (Atorvastatin 40 Mg Tab) 40 mg PO BEDTIME KEVIN Ampicillin Sodium/Sulbactam (Sodium 3 gm/ Sodium Chloride) 100 mls @ 200 mls/hr IV Q6H KEVIN Doxycycline Hyclate 100 mg/ (Sodium Chloride) 100 mls @ 100 mls/hr IV Q12H KEVIN Methadone HCl (Methadone 10 Mg Tab) 10 - 40 mg PO QID PRN PRN Reason: Pain Methylprednisolone Sodium Succinate (Methylprednisolone Sodium Succinate 40 Mg/1 Ml Sdv) 60 mg IVPUSH Q8H KEVIN Metoprolol Succinate (Metoprolol Succinate 25 Mg Tab.Er) 50 mg PO DAILY KEVIN Non-Formulary Medication (Albuterol) 2 puff IH Q4H PRN PRN Reason: wheezing/SOB Sodium Chloride (Sodium Chloride 0.9% 10 Ml Syringe) 10 ml FLUSH ASDIRECTED PRN PRN Reason: Keep Vein Open Last Admin: 05/08/21 15:13 Dose: 10 ml Documented by: THAI Sodium Chloride (Sodium Chloride 0.9% 2.5 Ml Syringe) 2.5 ml FLUSH ASDIRECTED PRN PRN Reason: Keep Vein Open Last Admin: 05/08/21 15:13 Dose: 2.5 ml Documented by: THAI Trazodone HCl (Trazodone Hcl 100 Mg Tab) 150 mg PO BEDTIME [facility] Assessment/Plan Comment:: 71 yo male admitted for COPD exacerbation and pneumonia Pneumonia: treating with Unasyn and doxycycline COPD: solumedrol and duonebs.
[2021-05-08] MEDS: Methadone 10 MG Tab PO PRN (23:48)
[2021-05-08] MEDS: Ampicillin/Sulbactam Na 3 GM in Sodium Chloride 0.9% 100 ML IV SCH (23:50)
[2021-05-08] MEDS: Albuterol/Ipratropium 3.0-0.5 MG/3 ML Neb Soln NEB SCH (23:53)
[2021-05-09] MEDS ORDERED: methylPREDNISolone Sodium Succinate 40 MG/1 ML SDV IVPUSH SCH (05:00)
[2021-05-09] MEDS: Ampicillin/Sulbactam Na 3 GM in Sodium Chloride 0.9% 100 ML IV SCH ×4 (05:13→22:19)
[2021-05-09] MEDS: Albuterol/Ipratropium 3.0-0.5 MG/3 ML Neb Soln NEB SCH ×3 (06:10→18:13)
[2021-05-09] MEDS: Doxycycline 100 MG in Sodium Chloride 0.9% 100 ML IV SCH ×2 (06:23→17:26)
[2021-05-09 07:31] LABS: BLOOD UREA NITROGEN,BUN 24 mg/dL (7.0-18.0); CARBON DIOXIDE,CO2 26.3 mmol/L (21.0-32.0); CHLORIDE,CL 102 mmol/L (98-107); GLUCOSE RANDOM 137 mg/dL (74-106); POTASSIUM,K 3.7 mmol/L (3.5-5.1); SODIUM,NA 138 mmol/L (136-148)
[2021-05-09] MEDS: Metoprolol Succinate 25 MG Tab.ER PO SCH (09:49)
[2021-05-09] MEDS: Aspirin 81 MG Tab.Chew PO SCH (09:49)
[2021-05-09] MEDS: Calcium Carbonate 500 MG Tab.Chew PO PRN ×2 (09:50→19:49)
[2021-05-09] MEDS: Enoxaparin 40 MG/0.4 ML Syringe SUBCUT SCH (09:51)
[2021-05-09] MEDS: Isosorbide Mononitrate 30 MG Tab.ER PO SCH (09:51)
[2021-05-09] MEDS: Methadone 10 MG Tab PO PRN ×2 (11:00→19:50)
--- NOTE | 2021-05-09 11:29 | PCM.PN ---
- General Info Date of Service: 05/09/21 - Review of Systems Systems Review Comment:: feeling better, reports cough and shortness of breath - Patient Data Vitals - Most Recent: Last Vital Signs Temp 36.1 C 05/09/21 07:00 Pulse 100 05/09/21 09:49 Resp 13 05/09/21 07:00 BP 142/69 H 05/09/21 09:51 Pulse Ox 93 L 05/09/21 07:00 Weight - Most Recent: 73.028 kg I&O - Last 24 Hours: Intake & Output 05/08/21 05/09/21 05/09/21 22:59 06:59 14:59 Intake Total 360 Balance 360 Lab Results Last 24 Hours: Laboratory Results - last 24 hr 05/08/21 05/08/21 05/08/21 Range/Units 14:35 14:35 14:35 WBC 13.13 H (4.0-11.0) K/uL RBC 4.38 L (4.50-5.90) M/uL Hgb 13.5 (13.0-17.0) g/dL Hct 39.4 (38.0-50.0) % MCV 90.0 (80.0-98.0) fL MCH 30.8 (27.0-32.0) pg MCHC 34.3 (31.0-37.0) g/dL RDW Std Deviation 40.3 (28.0-62.0) fl RDW Coeff of Yury 12 (11.0-15.0) % Plt Count 130 L (150-400) K/uL MPV 9.10 (7.40-12.00) fL Neut % (Auto) 86.4 H (48.0-80.0) % Lymph % (Auto) 7.2 L (16.0-40.0) % Rolette % (Auto) 6.2 (0.0-15.0) % Eos % (Auto) 0.1 (0.0-7.0) % Baso % (Auto) 0.1 (0.0-1.5) % Neut # (Auto) 11.3 H (1.4-5.7) K/uL Lymph # (Auto) 1.0 (0.6-2.4) K/uL Rolette # (Auto) 0.8 (0.0-0.8) K/uL Eos # (Auto) 0.0 (0.0-0.7) K/uL Baso # (Auto) 0.0 (0.0-0.1) K/uL Nucleated RBC % 0.0 /100WBC Nucleated RBCs # 0 K/uL INR 1.02 Sodium 140 (136-148) mmol/L Potassium 4.1 (3.5-5.1) mmol/L Chloride 102 (98-107) mmol/L Carbon Dioxide 30.0 (21.0-32.0) mmol/L BUN 19 H (7.0-18.0) mg/dL Creatinine 1.0 (0.8-1.3) mg/dL Est Cr Clr Drug Dosing TNP Estimated GFR (MDRD) > 60.0 ml/min Glucose 115 H (74-106) mg/dL Lactic Acid (0.4-2.0) mmol/L Calcium 8.7 (8.5-10.1) mg/dL Total Bilirubin 0.8 (0.2-1.0) mg/dL AST 21 (15-37) IU/L ALT 36 (14-63) IU/L Alkaline Phosphatase 80 (46-116) U/L Troponin I < 0.050 (0.000-0.056) ng/mL Total Protein 7.3 (6.4-8.2) g/dL Albumin 3.7 (3.4-5.0) g/dL Globulin 3.6 (2.6-4.0) g/dL Albumin/Globulin Ratio 1.0 (0.9-1.6) Influenza Type A RNA (NEGATIVE) Influenza Type B RNA (NEGATIVE) SARS-CoV-2 RNA (CA[place]N) (NEGATIVE) 05/08/21 05/08/21 05/09/21 Range/Units 14:40 15:36 06:53 WBC 14.24 H (4.0-11.0) K/uL RBC 4.05 L (4.50-5.90) M/uL Hgb 12.4 L (13.0-17.0) g/dL Hct 36.2 L (38.0-50.0) % MCV 89.4 (80.0-98.0) fL MCH 30.6 (27.0-32.0) pg MCHC 34.3 (31.0-37.0) g/dL RDW Std Deviation 40.1 (28.0-62.0) fl RDW Coeff of Yury 13 (11.0-15.0) % Plt Count 127 L (150-400) K/uL MPV 9.10 (7.40-12.00) fL Neut % (Auto) 88.8 H (48.0-80.0) % Lymph % (Auto) 6.2 L (16.0-40.0) % Rolette % (Auto) 5.0 (0.0-15.0) % Eos % (Auto) 0.0 (0.0-7.0) % Baso % (Auto) 0.0 (0.0-1.5) % Neut # (Auto) 12.7 H (1.4-5.7) K/uL Lymph # (Auto) 0.9 (0.6-2.4) K/uL Rolette # (Auto) 0.7 (0.0-0.8) K/uL Eos # (Auto) 0.0 (0.0-0.7) K/uL Baso # (Auto) 0.0 (0.0-0.1) K/uL Nucleated RBC % 0.0 /100WBC Nucleated RBCs # 0 K/uL INR Sodium (136-148) mmol/L Potassium (3.5-5.1) mmol/L Chloride (98-107) mmol/L Carbon Dioxide (21.0-32.0) mmol/L BUN (7.0-18.0) mg/dL Creatinine (0.8-1.3) mg/dL Est Cr Clr Drug Dosing Estimated GFR (MDRD) ml/min Glucose (74-106) mg/dL Lactic Acid 1.4 (0.4-2.0) mmol/L Calcium (8.5-10.1) mg/dL Total Bilirubin (0.2-1.0) mg/dL AST (15-37) IU/L ALT (14-63) IU/L Alkaline Phosphatase (46-116) U/L Troponin I (0.000-0.056) ng/mL Total Protein (6.4-8.2) g/dL Albumin (3.4-5.0) g/dL Globulin (2.6-4.0) g/dL Albumin/Globulin Ratio (0.9-1.6) Influenza Type A RNA NEGATIVE (NEGATIVE) Influenza Type B RNA NEGATIVE (NEGATIVE) SARS-CoV-2 RNA (CA[place]N) NEGATIVE (NEGATIVE) 05/09/21 Range/Units 06:53 WBC (4.0-11.0) K/uL RBC (4.50-5.90) M/uL Hgb (13.0-17.0) g/dL Hct (38.0-50.0) % MCV (80.0-98.0) fL MCH (27.0-32.0) pg MCHC (31.0-37.0) g/dL RDW Std Deviation (28.0-62.0) fl RDW Coeff of Yury (11.0-15.0) % Plt Count (150-400) K/uL MPV (7.40-12.00) fL Neut % (Auto) (48.0-80.0) % Lymph % (Auto) (16.0-40.0) % Rolette % (Auto) (0.0-15.0) % Eos % (Auto) (0.0-7.0) % Baso % (Auto) (0.0-1.5) % Neut # (Auto) (1.4-5.7) K/uL Lymph # (Auto) (0.6-2.4) K/uL Rolette # (Auto) (0.0-0.8) K/uL Eos # (Auto) (0.0-0.7) K/uL Baso # (Auto) (0.0-0.1) K/uL Nucleated RBC % /100WBC Nucleated RBCs # K/uL INR Sodium 138 (136-148) mmol/L Potassium 3.7 (3.5-5.1) mmol/L Chloride 102 (98-107) mmol/L Carbon Dioxide 26.3 (21.0-32.0) mmol/L BUN 24 H (7.0-18.0) mg/dL Creatinine 1.0 (0.8-1.3) mg/dL Est Cr Clr Drug Dosing 69.99 Estimated GFR (MDRD) > 60.0 ml/min Glucose 137 H (74-106) mg/dL Lactic Acid (0.4-2.0) mmol/L Calcium 8.8 (8.5-10.1) mg/dL Total Bilirubin (0.2-1.0) mg/dL AST (15-37) IU/L ALT (14-63) IU/L Alkaline Phosphatase (46-116) U/L Troponin I (0.000-0.056) ng/mL Total Protein (6.4-8.2) g/dL Albumin (3.4-5.0) g/dL Globulin (2.6-4.0) g/dL Albumin/Globulin Ratio (0.9-1.6) Influenza Type A RNA (NEGATIVE) Influenza Type B RNA (NEGATIVE) SARS-CoV-2 RNA (CA[place]N) (NEGATIVE) Med Orders - Current: Current Medications Albuterol (Albuterol 8 Gm Inhaler) 0 gm INH Q4H PRN PRN Reason: wheezing/SOB Albuterol/Ipratropium (Albuterol/Ipratropium 3.0-0.5 Mg/3 Ml Neb Soln) 3 ml NEB Q6HRRT [facility] Last Admin: 05/09/21 11:14 Dose: 3 ml Documented by: Aspirin (Aspirin 81 Mg Tab.Chew) 81 mg PO DAILY [facility] Last Admin: 05/09/21 09:49 Dose: 81 mg Documented by: Atorvastatin Calcium (Atorvastatin 40 Mg Tab) 40 mg PO BEDTIME [facility] Calcium Carbonate/Glycine (Calcium Carbonate 500 Mg Tab.Chew) 1,000 mg PO Q6HR PRN PRN Reason: Indigestion Last Admin: 05/09/21 09:50 Dose: 1,000 mg Documented by: Enoxaparin Sodium (Enoxaparin 40 Mg/0.4 Ml Syringe) 40 mg SUBCUT DAILY [facility] Last Admin: 05/09/21 09:51 Dose: 40 mg Documented by: Ampicillin Sodium/Sulbactam (Sodium 3 gm/ Sodium Chloride) 100 mls @ 200 mls/hr IV Q6H [facility] Last Admin: 05/09/21 09:52 Dose: 200 mls/hr Documented by: Doxycycline Hyclate 100 mg/ (Sodium Chloride) 100 mls @ 100 mls/hr IV Q12H [facility] Last Admin: 05/09/21 06:23 Dose: 100 mls/hr Documented by: Isosorbide Mononitrate (Isosorbide Mononitrate 30 Mg Tab.Er) 30 mg PO DAILY [facility] Last Admin: 05/09/21 09:51 Dose: 30 mg Documented by: Methadone HCl (Methadone 10 Mg Tab) 10 mg PO QID PRN PRN Reason: Pain Last Admin: 05/09/21 11:00 Dose: 10 mg Documented by: Methylprednisolone Sodium Succinate (Methylprednisolone Sodium Succinate 125 Mg/2 Ml Sdv) 60 mg IVPUSH Q8H KEVIN Metoprolol Succinate (Metoprolol Succinate 25 Mg Tab.Er) 50 mg PO DAILY [facility] Last Admin: 05/09/21 09:49 Dose: 50 mg Documented by: Sodium Chloride (Sodium Chloride 0.9% 10 Ml Syringe) 10 ml FLUSH ASDIRECTED PRN PRN Reason: Keep Vein Open Last Admin: 05/08/21 15:13 Dose: 10 ml Documented by: Sodium Chloride (Sodium Chloride 0.9% 2.5 Ml Syringe) 2.5 ml FLUSH ASDIRECTED PRN PRN Reason: Keep Vein Open Last Admin: 05/08/21 15:13 Dose: 2.5 ml Documented by: Trazodone HCl (Trazodone Hcl 100 Mg Tab) 150 mg PO BEDTIME KEVIN Discontinued Medications Acetaminophen (Acetaminophen 500 Mg Tab) 1,000 mg PO ONETIME ONE Stop: 05/08/21 17:23 Last Admin: 05/08/21 18:01 Dose: 1,000 mg Documented by: Albuterol/Ipratropium (Albuterol/Ipratropium 3.0-0.5 Mg/3 Ml Neb Soln) 3 ml NEB ONETIME ONE Stop: 05/08/21 15:03 Last Admin: 05/08/21 15:13 Dose: 3 ml Documented by: Albuterol/Ipratropium (Albuterol/Ipratropium 3.0-0.5 Mg/3 Ml Neb Soln) 6 ml NEB ONETIME ONE Stop: 05/08/21 15:04 Last Admin: 05/08/21 15:16 Dose: 6 ml Documented by: Albuterol/Ipratropium (Albuterol/Ipratropium 3.0-0.5 Mg/3 Ml Neb Soln) Confirm Administered Dose 3 ml .ROUTE .STK-MED ONE Stop: 05/08/21 15:08 Last Admin: 05/08/21 15:16 Dose: Not Given Documented by: Sodium Chloride (Normal Saline) 1,000 mls @ 999 mls/hr IV STAT ONE Stop: 05/08/21 17:19 Last Admin: 05/08/21 16:51 Dose: 999 mls/hr Documented by: Doxycycline Hyclate 100 mg/ (Sodium Chloride) 100 mls @ 100 mls/hr IV NOW STA Stop: 05/08/21 17:59 Last Admin: 05/08/21 18:03 Dose: 100 mls/hr Documented by: Ampicillin Sodium/Sulbactam (Sodium 3 gm/ Sodium Chloride) 100 mls @ 200 mls/hr IV ONETIME ONE Stop: 05/08/21 17:28 Last Admin: 05/08/21 17:56 Dose: 200 mls/hr Documented by: Iopamidol (Iopamidol 755 Mg/Ml 500 Ml Multipack Bottle) 100 ml IVPUSH ONETIME STA Stop: 05/08/21 16:27 Last Admin: 05/08/21 16:26 Dose: 100 ml Documented by: Ketorolac Tromethamine (Ketorolac 30 Mg/Ml Sdv) 30 mg IVPUSH ONETIME ONE Stop: 05/08/21 17:23 Last Admin: 05/08/21 18:00 Dose: 30 mg Documented by: Methadone HCl (Methadone 10 Mg Tab) 10 - 40 mg PO QID PRN PRN Reason: Pain Methylprednisolone Sodium Succinate (Methylprednisolone Sodium Succinate 125 Mg/2 Ml Sdv) 125 mg IVPUSH ONETIME ONE Stop: 05/08/21 15:04 Last Admin: 05/08/21 15:17 Dose: 125 mg Documented by: Methylprednisolone Sodium Succinate (Methylprednisolone Sodium Succinate 40 Mg/1 Ml Sdv) 60 mg IVPUSH Q8H [facility] Last Admin: 05/09/21 05:10 Dose: 60 mg Documented by: - Exam General: Alert, Oriented Neck: Supple Lungs: Normal Respiratory Effort, Rhonchi Cardiovascular: Regular Rate, Regular Rhythm GI/Abdominal Exam: Normal Bowel Sounds, Soft, Non-Tender Extremities: Non-Tender, No Pedal Edema Skin: Warm, Dry, Intact Neurological: No New Focal Deficit - Patient Data Lab Results Last 24 hrs: Laboratory Results - last 24 hr 05/08/21 05/08/21 05/08/21 Range/Units 14:35 14:35 14:35 WBC 13.13 H (4.0-11.0) K/uL RBC 4.38 L (4.50-5.90) M/uL Hgb 13.5 (13.0-17.0) g/dL Hct 39.4 (38.0-50.0) % MCV 90.0 (80.0-98.0) fL MCH 30.8 (27.0-32.0) pg MCHC 34.3 (31.0-37.0) g/dL RDW Std Deviation 40.3 (28.0-62.0) fl RDW Coeff of Yury 12 (11.0-15.0) % Plt Count 130 L (150-400) K/uL MPV 9.10 (7.40-12.00) fL Neut % (Auto) 86.4 H (48.0-80.0) % Lymph % (Auto) 7.2 L (16.0-40.0) % Rolette % (Auto) 6.2 (0.0-15.0) % Eos % (Auto) 0.1 (0.0-7.0) % Baso % (Auto) 0.1 (0.0-1.5) % Neut # (Auto) 11.3 H (1.4-5.7) K/uL Lymph # (Auto) 1.0 (0.6-2.4) K/uL Rolette # (Auto) 0.8 (0.0-0.8) K/uL Eos # (Auto) 0.0 (0.0-0.7) K/uL Baso # (Auto) 0.0 (0.0-0.1) K/uL Nucleated RBC % 0.0 /100WBC Nucleated RBCs # 0 K/uL INR 1.02 Sodium 140 (136-148) mmol/L Potassium 4.1 (3.5-5.1) mmol/L Chloride 102 (98-107) mmol/L Carbon Dioxide 30.0 (21.0-32.0) mmol/L BUN 19 H (7.0-18.0) mg/dL Creatinine 1.0 (0.8-1.3) mg/dL Est Cr Clr Drug Dosing TNP Estimated GFR (MDRD) > 60.0 ml/min Glucose 115 H (74-106) mg/dL Lactic Acid (0.4-2.0) mmol/L Calcium 8.7 (8.5-10.1) mg/dL Total Bilirubin 0.8 (0.2-1.0) mg/dL AST 21 (15-37) IU/L ALT 36 (14-63) IU/L Alkaline Phosphatase 80 (46-116) U/L Troponin I < 0.050 (0.000-0.056) ng/mL Total Protein 7.3 (6.4-8.2) g/dL Albumin 3.7 (3.4-5.0) g/dL Globulin 3.6 (2.6-4.0) g/dL Albumin/Globulin Ratio 1.0 (0.9-1.6) Influenza Type A RNA (NEGATIVE) Influenza Type B RNA (NEGATIVE) SARS-CoV-2 RNA ([place]) (NEGATIVE) 05/08/21 05/08/21 05/09/21 Range/Units 14:40 15:36 06:53 WBC 14.24 H (4.0-11.0) K/uL RBC 4.05 L (4.50-5.90) M/uL Hgb 12.4 L (13.0-17.0) g/dL Hct 36.2 L (38.0-50.0) % MCV 89.4 (80.0-98.0) fL MCH 30.6 (27.0-32.0) pg MCHC 34.3 (31.0-37.0) g/dL RDW Std Deviation 40.1 (28.0-62.0) fl RDW Coeff of Yury 13 (11.0-15.0) % Plt Count 127 L (150-400) K/uL MPV 9.10 (7.40-12.00) fL Neut % (Auto) 88.8 H (48.0-80.0) % Lymph % (Auto) 6.2 L (16.0-40.0) % Rolette % (Auto) 5.0 (0.0-15.0) % Eos % (Auto) 0.0 (0.0-7.0) % Baso % (Auto) 0.0 (0.0-1.5) % Neut # (Auto) 12.7 H (1.4-5.7) K/uL Lymph # (Auto) 0.9 (0.6-2.4) K/uL Rolette # (Auto) 0.7 (0.0-0.8) K/uL Eos # (Auto) 0.0 (0.0-0.7) K/uL Baso # (Auto) 0.0 (0.0-0.1) K/uL Nucleated RBC % 0.0 /100WBC Nucleated RBCs # 0 K/uL INR Sodium (136-148) mmol/L Potassium (3.5-5.1) mmol/L Chloride (98-107) mmol/L Carbon Dioxide (21.0-32.0) mmol/L BUN (7.0-18.0) mg/dL Creatinine (0.8-1.3) mg/dL Est Cr Clr Drug Dosing Estimated GFR (MDRD) ml/min Glucose (74-106) mg/dL Lactic Acid 1.4 (0.4-2.0) mmol/L Calcium (8.5-10.1) mg/dL Total Bilirubin (0.2-1.0) mg/dL AST (15-37) IU/L ALT (14-63) IU/L Alkaline Phosphatase (46-116) U/L Troponin I (0.000-0.056) ng/mL Total Protein (6.4-8.2) g/dL Albumin (3.4-5.0) g/dL Globulin (2.6-4.0) g/dL Albumin/Globulin Ratio (0.9-1.6) Influenza Type A RNA NEGATIVE (NEGATIVE) Influenza Type B RNA NEGATIVE (NEGATIVE) SARS-CoV-2 RNA ([place]) NEGATIVE (NEGATIVE) 05/09/21 Range/Units 06:53 WBC (4.0-11.0) K/uL RBC (4.50-5.90) M/uL Hgb (13.0-17.0) g/dL Hct (38.0-50.0) % MCV (80.0-98.0) fL MCH (27.0-32.0) pg MCHC (31.0-37.0) g/dL RDW Std Deviation (28.0-62.0) fl RDW Coeff of Yury (11.0-15.0) % Plt Count (150-400) K/uL MPV (7.40-12.00) fL Neut % (Auto) (48.0-80.0) % Lymph % (Auto) (16.0-40.0) % Rolette % (Auto) (0.0-15.0) % Eos % (Auto) (0.0-7.0) % Baso % (Auto) (0.0-1.5) % Neut # (Auto) (1.4-5.7) K/uL Lymph # (Auto) (0.6-2.4) K/uL Rolette # (Auto) (0.0-0.8) K/uL Eos # (Auto) (0.0-0.7) K/uL Baso # (Auto) (0.0-0.1) K/uL Nucleated RBC % /100WBC Nucleated RBCs # K/uL INR Sodium 138 (136-148) mmol/L Potassium 3.7 (3.5-5.1) mmol/L Chloride 102 (98-107) mmol/L Carbon Dioxide 26.3 (21.0-32.0) mmol/L BUN 24 H (7.0-18.0) mg/dL Creatinine 1.0 (0.8-1.3) mg/dL Est Cr Clr Drug Dosing 69.99 Estimated GFR (MDRD) > 60.0 ml/min Glucose 137 H (74-106) mg/dL Lactic Acid (0.4-2.0) mmol/L Calcium 8.8 (8.5-10.1) mg/dL Total Bilirubin (0.2-1.0) mg/dL AST (15-37) IU/L ALT (14-63) IU/L Alkaline Phosphatase (46-116) U/L Troponin I (0.000-0.056) ng/mL Total Protein (6.4-8.2) g/dL Albumin (3.4-5.0) g/dL Globulin (2.6-4.0) g/dL Albumin/Globulin Ratio (0.9-1.6) Influenza Type A RNA (NEGATIVE) Influenza Type B RNA (NEGATIVE) SARS-CoV-2 RNA ([place]) (NEGATIVE) Result Diagrams: 05/09/21 06:53 05/09/21 06:53 Sepsis Event Note - Evaluation Sepsis Screening Result: No Definite Risk - Focused Exam Vital Signs: Vital Signs Temp Pulse Pulse Resp BP BP Pulse Ox 05/09/21 09:51 142/69 H 05/09/21 09:49 100 142/69 H 05/09/21 07:00 36.1 C 91 13 142/69 H 93 L 05/09/21 03:51 36.1 C 83 16 126/60 91 L 05/09/21 00:18 36.4 C 86 18 117/55 L 91 L - Problem List & Annotations (1) COPD exacerbation SNOMED Code(s): 986154975 Code(s): J44.1 - CHRONIC OBSTRUCTIVE PULMONARY DISEASE W (ACUTE) EXACERBATION Status: Acute Current Visit: Yes (2) Hypoxia SNOMED Code(s): 413041100 Code(s): R09.02 - HYPOXEMIA Status: Acute Current Visit: Yes (3) Pneumonia SNOMED Code(s): 294491714 Code(s): J18.9 - PNEUMONIA, UNSPECIFIED ORGANISM Status: Acute Current Visit: Yes Qualifiers: Pneumonia type: due to unspecified organism Laterality: unspecified laterality Lung location: unspecified part of lung Qualified Code(s): J18.9 - Pneumonia, unspecified organism - Problem List Review Problem List Initiated/Reviewed/Updated: Yes - My Orders Last 24 Hours: My Active Orders 05/08/21 21:52 Telemetry Monitoring [Cardiac Monitoring] [RC] Q8H 05/08/21 22:23 Albuterol [Ventolin HFA] 0 gm INH Q4H PRN 05/08/21 22:30 Ampicillin/Sulbactam Na [Unasyn] 3 gm Sodium Chloride 0.9% [Normal Saline AdvBag] 100 ml IV Q6H 05/08/21 22:33 RT Aerosol Therapy [RC] ASDIRECTED 05/08/21 22:34 Methadone 10 mg PO QID PRN 05/08/21 22:43 Oxygen Therapy [RC] PRN Up ad Dariela [RC] ASDIRECTED VTE/DVT Education [RC] PER UNIT ROUTINE Vital Signs [RC] Q4H Resuscitation Status Routine 05/08/21 22:44 Antiembolic Devices [RC] PER UNIT ROUTINE Sequential Compression Device [OM.PC] Per Unit Routine 05/09/21 00:00 Albuterol/Ipratropium [DuoNeb 3.0-0.5 MG/3 ML] 3 ml NEB Q6HRRT 05/09/21 05:00 Doxycycline [Vibramycin] 100 mg Sodium Chloride 0.9% [Normal Saline AdvBag] 100 ml IV Q12H 05/09/21 09:00 Aspirin 81 mg PO DAILY Enoxaparin [Lovenox] 40 mg SUBCUT DAILY Metoprolol Succinate [Toprol XL] 50 mg PO DAILY 05/09/21 09:25 Calcium Carbonate [Tums] 1,000 mg PO Q6HR PRN 05/09/21 09:30 Isosorbide Mononitrate [Imdur] 30 mg PO DAILY 05/09/21 13:00 methylPREDNISolone Sod Succ [Solu-MEDROL] 60 mg IVPUSH Q8H 05/09/21 21:00 atorvaSTATin [Lipitor] 40 mg PO BEDTIME traZODone HCl 150 mg PO BEDTIME 05/10/21 05:11 BASIC METABOLIC PANEL,BMP [CHEM] AM CBC WITH AUTO DIFF [HEME] AM - Plan Plan:: 71 yo male admitted for COPD exacerbation and pneumonia Pneumonia: continue Unasyn and doxycycline COPD: solumedrol and duonebs.
[2021-05-09] MEDS: Clopidogrel 75 MG Tab PO SCH (12:24)
[2021-05-09] MEDS: methylPREDNISolone Sodium Succinate 125 MG/2 ML SDV IVPUSH SCH ×2 (12:25→21:30)
[2021-05-09] MEDS ORDERED: atorvaSTATin 40 MG Tab PO SCH (21:00)
[2021-05-09] MEDS ORDERED: traZODone 50 MG Tab ONE (22:11)
[2021-05-10] MEDS: Albuterol/Ipratropium 3.0-0.5 MG/3 ML Neb Soln NEB SCH ×3 (00:26→14:26)
[2021-05-10] MEDS: Ampicillin/Sulbactam Na 3 GM in Sodium Chloride 0.9% 100 ML IV SCH ×2 (04:08→10:00)
[2021-05-10] MEDS: methylPREDNISolone Sodium Succinate 125 MG/2 ML SDV IVPUSH SCH ×2 (04:47→12:30)
[2021-05-10] MEDS: Doxycycline 100 MG in Sodium Chloride 0.9% 100 ML IV SCH (04:49)
[2021-05-10] MEDS: Methadone 10 MG Tab PO PRN ×2 (05:58→12:31)
[2021-05-10 07:39] LABS: BLOOD UREA NITROGEN,BUN 24 mg/dL (7.0-18.0); CARBON DIOXIDE,CO2 29.8 mmol/L (21.0-32.0); CHLORIDE,CL 107 mmol/L (98-107); GLUCOSE RANDOM 153 mg/dL (74-106); POTASSIUM,K 4.2 mmol/L (3.5-5.1); SODIUM,NA 142 mmol/L (136-148)
[2021-05-10] MEDS ORDERED: traZODone 50 MG Tab PO SCH (08:10)
[2021-05-10] MEDS: Aspirin 81 MG Tab.Chew PO SCH (09:15)
[2021-05-10] MEDS: Calcium Carbonate 500 MG Tab.Chew PO PRN (09:15)
[2021-05-10] MEDS: Isosorbide Mononitrate 30 MG Tab.ER PO SCH (09:16)
[2021-05-10] MEDS: Clopidogrel 75 MG Tab PO SCH (09:16)
[2021-05-10] MEDS: Metoprolol Succinate 25 MG Tab.ER PO SCH (09:16)
[2021-05-10] MEDS: Enoxaparin 40 MG/0.4 ML Syringe SUBCUT SCH (09:18)
--- NOTE | 2021-05-10 12:17 | PCM.DCSUM1 ---
Discharge Summary - Hospital Course Free Text/Narrative:: The patient is a 71-year-old male who was admitted to the medical floor due to a COPD exacerbation/Community Acquired Pneumonia who presented with a productive cough and shortness of breath. While in the hospital the patient was treated with two different antibiotics including Unasyn and doxycycline which has significantly reduced his cough and his shortness of breath. He also had albuterol on board. Nonetheless, the patient has been complaining of chest pain throughout his hospital stay and despite negative troponin levels and normal EKGs, the patient will be transferred over to [facility] to see aco coordinator Dr. Mccollum in order to have an angiogram done. This aco coordinator has seen this patient in the past and admits that in 2017 he had right coronary artery calcifications which may have worsened and as a result investigations will need to be done. From a COPD/CAP standpoint, the patient will be discharged on Omnicef 300 mg twice daily for 5-day course and will also have Advair sent to his pharmacy. The patient has been advised to follow a heart healthy diet and to take his medication at scheduled times. The patient will be transferred via ambulance from [facility] to [facility], and once over there he will be under the care of Dr. Mccollum. - Discharge Data Discharge Date: 05/10/21 Discharge Disposition: DC/Tfer to Acute Hospital 02 Condition: Stable - Referral to Home Health Primary Care Physician: Blake Allen MD - Patient Instructions Other/Special Instructions: -You are being transferred to [facility] to see aco coordinator Dr. Mccollum. -Take your medication at scheduled times. -Follow-up with your PCP - Discharge Plan Prescriptions/Med Rec: Fluticasone Propion/Salmeterol [Advair 250-50 Diskus] 1 each IH Q4H #1 blst.w.dev Cefdinir [Omnicef] 300 mg PO BID 5 Days #10 cap Home Medications: Home Meds Aspirin [Sussy Chewable Aspirin] 81 mg PO DAILY 12/02/13 [History] traZODone 150 mg PO BEDTIME 12/02/13 [History] Metoprolol Succinate 50 mg PO DAILY 10/28/16 [History] atorvaSTATin [Lipitor] 40 mg PO BEDTIME 10/28/16 [History] Albuterol Sulfate [Albuterol Sulfate Hfa] 2 puff IH Q4H PRN 12/21/18 [History] Methadone 10 mg PO QID PRN 12/28/18 [History] Cholecalciferol (Vitamin D3) [Vitamin D3] 2,000 units PO DAILY 12/14/20 [History] Clopidogrel Bisulfate [Plavix] 75 mg PO DAILY 12/14/20 [History] polyethylene glycoL 3350 [MiraLAX] 17 gm PO DAILY 12/14/20 [History] Isosorbide Mononitrate [Isosorbide Mononitrate ER] 30 mg PO DAILY 05/09/21 [History] Nitroglycerin 0.4 mg SL .EVERY 5 MINUTES PRN 05/09/21 [History] Cefdinir [Omnicef] 300 mg PO BID 5 Days #10 cap 05/10/21 [Rx] Fluticasone Propion/Salmeterol [Advair 250-50 Diskus] 1 each IH Q4H #1 blst.w.dev 05/10/21 [Rx] Patient Handouts: Chronic Obstructive Pulmonary Disease Exacerbation, [id number], Hypoxia, COPD and Physical Activity, Community-Acquired Pneumonia, Adult, [id number] Referrals: Blake Allen MD [Primary Care Provider] - - Discharge Summary/Plan Comment DC Time >30 min.: Yes Total # of Minutes for Discharge Time: 35 minutes - Review of Systems General: Denies: Fever, Weakness, Fatigue HEENT: Denies: Headaches, Sore Throat Pulmonary: Reports: Shortness of Breath, Cough Cardiovascular: Reports: Chest Pain. Denies: Palpitations Gastrointestinal: Denies: Abdominal Pain Genitourinary: Denies: Dysuria - Patient Data Vitals - Most Recent: Last Vital Signs Temp 96.9 F 05/10/21 07:50 Pulse 115 H 05/10/21 09:16 Resp 20 05/10/21 07:50 BP 153/73 H 05/10/21 09:16 Pulse Ox 93 L 05/10/21 07:50 Weight - Most Recent: 161 lb I&O - Last 24 hours: Intake & Output 05/09/21 05/10/21 05/10/21 22:59 06:59 14:59 Intake Total 1100 1050 Output Total 1100 600 Balance 0 450 Lab Results - Last 24 hrs: Laboratory Results - last 24 hr 05/10/21 05/10/21 05/10/21 Range/Units 05:36 05:36 09:24 WBC 11.38 H (4.0-11.0) K/uL RBC 3.81 L (4.50-5.90) M/uL Hgb 11.7 L (13.0-17.0) g/dL Hct 34.7 L (38.0-50.0) % MCV 91.1 (80.0-98.0) fL MCH 30.7 (27.0-32.0) pg MCHC 33.7 (31.0-37.0) g/dL RDW Std Deviation 42.2 (28.0-62.0) fl RDW Coeff of Yury 13 (11.0-15.0) % Plt Count 141 L (150-400) K/uL MPV 9.60 (7.40-12.00) fL Neut % (Auto) 86.9 H (48.0-80.0) % Lymph % (Auto) 8.4 L (16.0-40.0) % Luce % (Auto) 4.7 (0.0-15.0) % Eos % (Auto) 0.0 (0.0-7.0) % Baso % (Auto) 0.0 (0.0-1.5) % Neut # (Auto) 9.9 H (1.4-5.7) K/uL Lymph # (Auto) 1.0 (0.6-2.4) K/uL Luce # (Auto) 0.5 (0.0-0.8) K/uL Eos # (Auto) 0.0 (0.0-0.7) K/uL Baso # (Auto) 0.0 (0.0-0.1) K/uL Nucleated RBC % 0.0 /100WBC Nucleated RBCs # 0 K/uL Sodium 142 (136-148) mmol/L Potassium 4.2 (3.5-5.1) mmol/L Chloride 107 (98-107) mmol/L Carbon Dioxide 29.8 (21.0-32.0) mmol/L BUN 24 H (7.0-18.0) mg/dL Creatinine 0.9 (0.8-1.3) mg/dL Est Cr Clr Drug Dosing 77.76 mL/min Estimated GFR (MDRD) > 60.0 ml/min Glucose 153 H (74-106) mg/dL Calcium 9.1 (8.5-10.1) mg/dL Troponin I < 0.050 (0.000-0.056) ng/mL PATIENCE Results - Last 24 hrs: Microbiology 05/08/21 14:53 Aerobic Blood Culture - Preliminary Blood - Venous NO GROWTH AFTER 1 DAY Anaerobic Blood Culture - Preliminary NO GROWTH AFTER 1 DAY 05/08/21 14:40 Aerobic Blood Culture - Preliminary Blood NO GROWTH AFTER 1 DAY Anaerobic Blood Culture - Preliminary NO GROWTH AFTER 1 DAY Med Orders - Current: Current Medications Albuterol (Albuterol 8 Gm Inhaler) 0 gm INH Q4H PRN PRN Reason: wheezing/SOB Albuterol/Ipratropium (Albuterol/Ipratropium 3.0-0.5 Mg/3 Ml Neb Soln) 3 ml NEB Q6HRRT [facility] Last Admin: 05/10/21 07:57 Dose: 3 ml Documented by: Aspirin (Aspirin 81 Mg Tab.Chew) 81 mg PO DAILY [facility] Last Admin: 05/10/21 09:15 Dose: 81 mg Documented by: Atorvastatin Calcium (Atorvastatin 40 Mg Tab) 40 mg PO BEDTIME [facility] Last Admin: 05/09/21 21:30 Dose: 40 mg Documented by: Calcium Carbonate/Glycine (Calcium Carbonate 500 Mg Tab.Chew) 1,000 mg PO Q6HR PRN PRN Reason: Indigestion Last Admin: 05/10/21 09:15 Dose: 1,000 mg Documented by: Clopidogrel Bisulfate (Clopidogrel 75 Mg Tab) 75 mg PO DAILY [facility] Last Admin: 05/10/21 09:16 Dose: 75 mg Documented by: Enoxaparin Sodium (Enoxaparin 40 Mg/0.4 Ml Syringe) 40 mg SUBCUT DAILY [facility] Last Admin: 05/10/21 09:18 Dose: 40 mg Documented by: Ampicillin Sodium/Sulbactam (Sodium 3 gm/ Sodium Chloride) 100 mls @ 200 mls/hr IV Q6H [facility] Last Admin: 05/10/21 10:00 Dose: 200 mls/hr Documented by: Doxycycline Hyclate 100 mg/ (Sodium Chloride) 100 mls @ 100 mls/hr IV Q12H [facility] Last Admin: 05/10/21 04:49 Dose: 100 mls/hr Documented by: Isosorbide Mononitrate (Isosorbide Mononitrate 30 Mg Tab.Er) 30 mg PO DAILY [facility] Last Admin: 05/10/21 09:16 Dose: 30 mg Documented by: Methadone HCl (Methadone 10 Mg Tab) 10 mg PO QID PRN PRN Reason: Pain Last Admin: 05/10/21 05:58 Dose: 10 mg Documented by: Methylprednisolone Sodium Succinate (Methylprednisolone Sodium Succinate 125 Mg/2 Ml Sdv) 60 mg IVPUSH Q8H [facility] Last Admin: 05/10/21 04:47 Dose: 60 mg Documented by: Metoprolol Succinate (Metoprolol Succinate 25 Mg Tab.Er) 50 mg PO DAILY [facility] Last Admin: 05/10/21 09:16 Dose: 50 mg Documented by: Sodium Chloride (Sodium Chloride 0.9% 10 Ml Syringe) 10 ml FLUSH ASDIRECTED PRN PRN Reason: Keep Vein Open Last Admin: 05/08/21 15:13 Dose: 10 ml Documented by: Sodium Chloride (Sodium Chloride 0.9% 2.5 Ml Syringe) 2.5 ml FLUSH ASDIRECTED PRN PRN Reason: Keep Vein Open Last Admin: 05/08/21 15:13 Dose: 2.5 ml Documented by: Trazodone HCl (Trazodone 50 Mg Tab) 150 mg PO BEDTIME KEVIN Discontinued Medications Acetaminophen (Acetaminophen 500 Mg Tab) 1,000 mg PO ONETIME ONE Stop: 05/08/21 17:23 Last Admin: 05/08/21 18:01 Dose: 1,000 mg Documented by: Albuterol/Ipratropium (Albuterol/Ipratropium 3.0-0.5 Mg/3 Ml Neb Soln) 3 ml NEB ONETIME ONE Stop: 05/08/21 15:03 Last Admin: 05/08/21 15:13 Dose: 3 ml Documented by: Albuterol/Ipratropium (Albuterol/Ipratropium 3.0-0.5 Mg/3 Ml Neb Soln) 6 ml NEB ONETIME ONE Stop: 05/08/21 15:04 Last Admin: 05/08/21 15:16 Dose: 6 ml Documented by: Albuterol/Ipratropium (Albuterol/Ipratropium 3.0-0.5 Mg/3 Ml Neb Soln) Confirm Administered Dose 3 ml .ROUTE .STK-MED ONE Stop: 05/08/21 15:08 Last Admin: 05/08/21 15:16 Dose: Not Given Documented by: Sodium Chloride (Normal Saline) 1,000 mls @ 999 mls/hr IV STAT ONE Stop: 05/08/21 17:19 Last Admin: 05/08/21 16:51 Dose: 999 mls/hr Documented by: Doxycycline Hyclate 100 mg/ (Sodium Chloride) 100 mls @ 100 mls/hr IV NOW STA Stop: 05/08/21 17:59 Last Admin: 05/08/21 18:03 Dose: 100 mls/hr Documented by: Ampicillin Sodium/Sulbactam (Sodium 3 gm/ Sodium Chloride) 100 mls @ 200 mls/hr IV ONETIME ONE Stop: 05/08/21 17:28 Last Admin: 05/08/21 17:56 Dose: 200 mls/hr Documented by: Iopamidol (Iopamidol 755 Mg/Ml 500 Ml Multipack Bottle) 100 ml IVPUSH ONETIME STA Stop: 05/08/21 16:27 Last Admin: 05/08/21 16:26 Dose: 100 ml Documented by: Ketorolac Tromethamine (Ketorolac 30 Mg/Ml Sdv) 30 mg IVPUSH ONETIME ONE Stop: 05/08/21 17:23 Last Admin: 05/08/21 18:00 Dose: 30 mg Documented by: Methadone HCl (Methadone 10 Mg Tab) 10 - 40 mg PO QID PRN PRN Reason: Pain Methylprednisolone Sodium Succinate (Methylprednisolone Sodium Succinate 125 Mg/2 Ml Sdv) 125 mg IVPUSH ONETIME ONE Stop: 05/08/21 15:04 Last Admin: 05/08/21 15:17 Dose: 125 mg Documented by: Methylprednisolone Sodium Succinate (Methylprednisolone Sodium Succinate 40 Mg/1 Ml Sdv) 60 mg IVPUSH Q8H [facility] Last Admin: 05/09/21 05:10 Dose: 60 mg Documented by: Trazodone HCl (Trazodone Hcl 100 Mg Tab) 150 mg PO BEDTIME KEVIN Last Admin: 05/09/21 22:22 Dose: Not Given Documented by: Trazodone HCl (Trazodone 50 Mg Tab) Confirm Administered Dose 150 mg .ROUTE .STK-MED ONE Stop: 05/09/21 22:12 Last Admin: 05/09/21 22:22 Dose: 150 mg Documented by: - Exam General: Reports: Alert, Oriented, Cooperative HEENT: Reports: Mucous Membr. Moist/[place] Neck: Reports: Trachea Midline Lungs: Reports: Wheezing Cardiovascular: Reports: Regular Rate, Regular Rhythm GI/Abdominal Exam: Normal Bowel Sounds, Soft, Non-Tender
[2021-05-10 12:21] VITALS: BP 138/62; PULSE 85
== END 2021-05-10 13:00 | DRG 190 ==
LOC: MW.ED 14:27 → MW.MS 17:08
PROVIDERS: ADMIT Internal Medicine; ATTEND Internal Medicine
DX: J44.0 Chronic obstructive pulmonary disease with (acute) lower respiratory infection (principal); J18.9 Pneumonia, unspecified organism; J44.1 Chronic obstructive pulmonary disease with (acute) exacerbation; I25.10 Atherosclerotic heart disease of native coronary artery without angina pectoris; I10 Essential (primary) hypertension; Z99.81 Dependence on supplemental oxygen; K21.9 Gastro-esophageal reflux disease without esophagitis; K59.00 Constipation, unspecified; M19.90 Unspecified osteoarthritis, unspecified site; Z79.01 Long term (current) use of anticoagulants; Z79.82 Long term (current) use of aspirin; Z79.02 Long term (current) use of antithrombotics/antiplatelets; Z79.899 Other long term (current) drug therapy; Z88.7 Allergy status to serum and vaccine; Z88.8 Allergy status to other drugs, medicaments and biological substances; Z85.828 Personal history of other malignant neoplasm of skin; Z98.49 Cataract extraction status, unspecified eye; Z95.2 Presence of prosthetic heart valve; Z87.891 Personal history of nicotine dependence; Z20.822 Contact with and (suspected) exposure to COVID-19
CPT/HCPCS: 0240U; 36415; 71045; 71045-26; 71275; 71275-26; 80048; 80053; 83605; 84484; 85025; 85610; 87040; 93005; 94640; 99285-25; A9270-GY; J0295; J1650; J1885; J2920; J2930; J3490; J7030; J7620-GY; Q9967

== ENCOUNTER 2021-08-21 07:11 | Observation (INO) | payer MEDICARE ==
[2021-08-21] MEDS ORDERED: Sodium Chloride 0.9% 1,000 ML IV ONE ×3 (07:28→10:58)
[2021-08-21] MEDS ORDERED: Albuterol/Ipratropium 3.0-0.5 MG/3 ML Neb Soln NEB ONE ×2 (07:28→08:46)
[2021-08-21] MEDS ORDERED: Acetaminophen 500 MG Tab PO ONE (07:28)
[2021-08-21] MEDS ORDERED: Sodium Chloride 0.9% 10 ML Syringe FLUSH PRN ×2 (07:28→09:54)
[2021-08-21] MEDS ORDERED: methylPREDNISolone Sodium Succinate 125 MG/2 ML SDV IVPUSH ONE (07:28)
[2021-08-21] MEDS ORDERED: Sodium Chloride 0.9% 2.5 ML Syringe FLUSH PRN ×2 (07:28→09:54)
[2021-08-21] MEDS ORDERED: Ibuprofen 600 MG Tab PO ONE (07:28)
[2021-08-21] MEDS ORDERED: cefTRIAXone 2 GM in Premix Bag 1 BAG IV ONE (07:40)
[2021-08-21] MEDS ORDERED: Azithromycin 500 MG in Sodium Chloride 0.9% 250 ML IV SCH (07:45)
[2021-08-21 08:01] LABS: BLOOD UREA NITROGEN,BUN 17 mg/dL (7.0-18.0); CARBON DIOXIDE,CO2 29.6 mmol/L (21.0-32.0); CHLORIDE,CL 101 mmol/L (98-107); GLUCOSE RANDOM 111 mg/dL (74-106); POTASSIUM,K 3.9 mmol/L (3.5-5.1); SODIUM,NA 134 mmol/L (136-148)
[2021-08-21 08:24] LABS: CORONAVIRUS COVID-19 NAA NEGATIVE (NEGATIVE); INFLUENZA A NAA NEGATIVE (NEGATIVE); INFLUENZA B NAA NEGATIVE (NEGATIVE); RESPIRATORY SYNCYTIAL VIR NAA NEGATIVE (NEGATIVE)
[2021-08-21] MEDS ORDERED: Ondansetron 4 MG/2 ML SDV IVPUSH PRN (09:54)
[2021-08-21] MEDS ORDERED: Docusate Sodium 100 MG Cap PO PRN (09:54)
[2021-08-21] MEDS ORDERED: Acetaminophen 325 MG Tab PO PRN (09:54)
[2021-08-21] MEDS ORDERED: Levofloxacin/Dextrose 5%-Water 750 MG in Premix Bag 1 BAG IV SCH (11:00)
[2021-08-21] MEDS: Albuterol/Ipratropium 3.0-0.5 MG/3 ML Neb Soln NEB SCH ×4 (11:19→22:37)
[2021-08-21] MEDS ORDERED: Albuterol 8 GM Inhaler INH PRN (11:34)
[2021-08-21] MEDS: Methadone 10 MG Tab PO PRN ×2 (14:15→22:37)
[2021-08-21] MEDS: methylPREDNISolone Sodium Succinate 40 MG/1 ML SDV IVPUSH SCH ×2 (14:18→22:37)
[2021-08-21] MEDS: Heparin Sodium 5,000 Units/ML Vial SUBCUT SCH (14:23)
[2021-08-21] MEDS: SALMETEROL INH SCH (20:42)
[2021-08-21] MEDS: FLUTICASONE INH SCH (20:42)
[2021-08-21] MEDS: atorvaSTATin 40 MG Tab PO SCH (20:43)
[2021-08-21] MEDS: TRAZODONE 150 MG TAB PO SCH (20:43)
[2021-08-21] MEDS ORDERED: traZODone 50 MG Tab PO SCH (21:00)
[2021-08-21] MEDS ORDERED: atorvaSTATin 40 MG Tab PO SCH (21:00)
[2021-08-21] MEDS ORDERED: Fluticasone/Salmeterol 250-50 MCG Inhalation Powder 14/Diskus INH SCH (21:00)
[2021-08-22] MEDS: Albuterol/Ipratropium 3.0-0.5 MG/3 ML Neb Soln NEB SCH ×6 (02:32→21:34)
[2021-08-22] MEDS: Heparin Sodium 5,000 Units/ML Vial SUBCUT SCH ×2 (02:32→15:09)
[2021-08-22] MEDS: methylPREDNISolone Sodium Succinate 40 MG/1 ML SDV IVPUSH SCH ×2 (05:33→17:19)
[2021-08-22] MEDS: Calcium Carbonate 500 MG Tab.Chew PO PRN (06:21)
[2021-08-22 06:34] LABS: BLOOD UREA NITROGEN,BUN 19 mg/dL (7.0-18.0); CARBON DIOXIDE,CO2 23.1 mmol/L (21.0-32.0); CHLORIDE,CL 107 mmol/L (98-107); GLUCOSE RANDOM 211 mg/dL (74-106); POTASSIUM,K 3.1 mmol/L (3.5-5.1); SODIUM,NA 142 mmol/L (136-148)
[2021-08-22] MEDS ORDERED: Potassium Chloride 20 MEQ Tab.ER PO ONE (07:49)
[2021-08-22] MEDS ORDERED: cefTRIAXone 1 GM in Sodium Chloride 0.9% 50 ML IV SCH (08:00)
[2021-08-22] MEDS: Cholecalciferol (Vitamin D3) 25 MCG Tab PO SCH (08:10)
[2021-08-22] MEDS: Methadone 10 MG Tab PO PRN ×2 (08:11→16:26)
[2021-08-22] MEDS: Polyethylene Glycol 3350 Powder 17 GM Packet PO SCH (08:13)
[2021-08-22] MEDS: CLOPIDOGREL 75 MG TAB PO SCH (08:14)
[2021-08-22] MEDS: Metoprolol Succinate 50 MG Tab.ER PO SCH (08:14)
[2021-08-22] MEDS: Isosorbide Mononitrate 30 MG Tab.ER PO SCH (08:14)
[2021-08-22] MEDS: Levofloxacin/Dextrose 5%-Water 750 MG in Premix Bag 1 BAG IV SCH (08:15)
[2021-08-22] MEDS: SALMETEROL INH SCH ×2 (09:00→21:34)
[2021-08-22] MEDS ORDERED: Metoprolol Succinate 25 MG Tab.ER PO SCH (09:00)
[2021-08-22] MEDS ORDERED: Azithromycin 500 MG in Sodium Chloride 0.9% 250 ML IV SCH (09:00)
[2021-08-22] MEDS ORDERED: Isosorbide Mononitrate 30 MG Tab.ER PO SCH (09:00)
[2021-08-22] MEDS ORDERED: Clopidogrel 75 MG Tab PO SCH (09:00)
[2021-08-22] MEDS ORDERED: Aspirin 81 MG Tab.Chew PO SCH (09:00)
[2021-08-22] MEDS: FLUTICASONE INH SCH ×2 (09:00→21:34)
[2021-08-22] MEDS: TRAZODONE 150 MG TAB PO SCH (21:34)
[2021-08-22] MEDS: atorvaSTATin 40 MG Tab PO SCH (21:34)
[2021-08-23] MEDS: Heparin Sodium 5,000 Units/ML Vial SUBCUT SCH (02:44)
[2021-08-23] MEDS: Albuterol/Ipratropium 3.0-0.5 MG/3 ML Neb Soln NEB SCH ×3 (02:44→09:31)
[2021-08-23] MEDS: Calcium Carbonate 500 MG Tab.Chew PO PRN (04:08)
[2021-08-23] MEDS: Methadone 10 MG Tab PO PRN (05:42)
[2021-08-23] MEDS: methylPREDNISolone Sodium Succinate 40 MG/1 ML SDV IVPUSH SCH (05:47)
[2021-08-23 06:12] LABS: BLOOD UREA NITROGEN,BUN 21 mg/dL (7.0-18.0); CARBON DIOXIDE,CO2 25.9 mmol/L (21.0-32.0); CHLORIDE,CL 105 mmol/L (98-107); GLUCOSE RANDOM 194 mg/dL (74-106); POTASSIUM,K 4.2 mmol/L (3.5-5.1); SODIUM,NA 140 mmol/L (136-148)
[2021-08-23] MEDS: Cholecalciferol (Vitamin D3) 25 MCG Tab PO SCH (09:26)
[2021-08-23] MEDS: Polyethylene Glycol 3350 Powder 17 GM Packet PO SCH (09:29)
[2021-08-23] MEDS: CLOPIDOGREL 75 MG TAB PO SCH (09:30)
[2021-08-23] MEDS: Isosorbide Mononitrate 30 MG Tab.ER PO SCH (09:30)
[2021-08-23] MEDS: Metoprolol Succinate 50 MG Tab.ER PO SCH (09:30)
[2021-08-23] MEDS: SALMETEROL INH SCH (09:31)
[2021-08-23] MEDS: Levofloxacin/Dextrose 5%-Water 750 MG in Premix Bag 1 BAG IV SCH (09:31)
[2021-08-23] MEDS: FLUTICASONE INH SCH (09:31)
[2021-08-23 14:54] VITALS: BP 150/72; PULSE 95
== END 2021-08-23 12:10 | disposition home or self-care (01) ==
LOC: MW.ED 07:11 → MW.MS 08:32
PROVIDERS: ADMIT Internal Medicine; ATTEND Internal Medicine
DX: J96.21 Acute and chronic respiratory failure with hypoxia (principal); J44.1 Chronic obstructive pulmonary disease with (acute) exacerbation; J44.0 Chronic obstructive pulmonary disease with (acute) lower respiratory infection; J18.9 Pneumonia, unspecified organism; G61.0 Guillain-Barre syndrome; I10 Essential (primary) hypertension; G89.4 Chronic pain syndrome; F11.90 Opioid use, unspecified, uncomplicated; K21.9 Gastro-esophageal reflux disease without esophagitis; Z95.828 Presence of other vascular implants and grafts; Z20.822 Contact with and (suspected) exposure to COVID-19; Z88.7 Allergy status to serum and vaccine; Z88.4 Allergy status to anesthetic agent; Z79.82 Long term (current) use of aspirin; Z79.51 Long term (current) use of inhaled steroids; Z79.899 Other long term (current) drug therapy; Z86.718 Personal history of other venous thrombosis and embolism; Z87.891 Personal history of nicotine dependence
CPT/HCPCS: 0241U; 36415; 71045; 80048; 80053; 81003; 83605; 83735; 84484; 85025; 85610; 85730; 87040; 93005; 94640; 96365; 96366; 96367; 96372; 96375; 96376; 99285; A9270; G0378; J0456; J0696; J1644; J1956; J2920; J2930; J7030; J7050; J7620-GY

== ENCOUNTER 2022-06-03 20:16 | Observation (INO) | payer MEDICARE ==
[2022-06-03] MEDS ORDERED: Sodium Chloride 0.9% 2.5 ML Syringe FLUSH PRN (20:35)
[2022-06-03] MEDS ORDERED: methylPREDNISolone Sodium Succinate 125 MG/2 ML SDV IVPUSH ONE (20:35)
[2022-06-03] MEDS ORDERED: Sodium Chloride 0.9% 10 ML Syringe FLUSH PRN (20:35)
[2022-06-03] MEDS ORDERED: cefTRIAXone 1 GM in Sodium Chloride 0.9% 50 ML IV ONE (20:35)
[2022-06-03] MEDS ORDERED: Albuterol/Ipratropium 3.0-0.5 MG/3 ML Neb Soln NEB ONE (20:37)
[2022-06-03 21:10] LABS: CARBON DIOXIDE,CO2 26.6 mmol/L (21.0-32.0); POTASSIUM,K 4.1 mmol/L (3.5-5.1)
[2022-06-03 21:28] LABS: CORONAVIRUS COVID-19 NAA NEGATIVE (NEGATIVE); INFLUENZA A NAA NEGATIVE (NEGATIVE); INFLUENZA B NAA NEGATIVE (NEGATIVE); RESPIRATORY SYNCYTIAL VIR NAA NEGATIVE (NEGATIVE)
[2022-06-03] MEDS ORDERED: Sodium Chloride 0.9% 500 ML IV SCH (21:45)
[2022-06-04] MEDS ORDERED: methylPREDNISolone Sodium Succinate 40 MG/1 ML SDV IVPUSH SCH ×2 (00:30→08:00)
[2022-06-04] MEDS ORDERED: Albuterol/Ipratropium 3.0-0.5 MG/3 ML Neb Soln NEB SCH (06:00)
[2022-06-04] MEDS ORDERED: Ondansetron 4 MG/2 ML SDV IVPUSH PRN (07:01)
[2022-06-04] MEDS ORDERED: Albuterol/Ipratropium 3.0-0.5 MG/3 ML Neb Soln NEB PRN (07:01)
[2022-06-04] MEDS ORDERED: Acetaminophen 325 MG Tab PO PRN (07:01)
[2022-06-04] MEDS ORDERED: Polyethylene Glycol 3350 Powder 17 GM Packet PO PRN (07:01)
[2022-06-04 07:09] LABS: CARBON DIOXIDE,CO2 26.5 mmol/L (21.0-32.0); POTASSIUM,K 3.9 mmol/L (3.5-5.1)
[2022-06-04] MEDS ORDERED: Omeprazole 20 MG Cap.CR PO SCH (07:30)
[2022-06-04] MEDS ORDERED: Levofloxacin 500 MG Tab PO SCH (07:45)
[2022-06-04] MEDS ORDERED: Heparin Sodium 5,000 Units/ML Vial SUBCUT SCH (09:00)
[2022-06-04] MEDS ORDERED: Aspirin 81 MG Tab.Chew PO SCH (09:00)
[2022-06-04] MEDS ORDERED: Tiotropium Inhaler 18 MCG Inhalation Powder Cap Kit of 5 INH SCH (09:00)
[2022-06-04] MEDS ORDERED: Clopidogrel 75 MG Tab PO SCH (09:00)
[2022-06-04] MEDS ORDERED: Methadone 10 MG Tab PO SCH ×2 (09:00→14:00)
[2022-06-04] MEDS ORDERED: Cholecalciferol (Vitamin D3) 25 MCG Tab PO SCH (09:00)
[2022-06-04] MEDS ORDERED: Fluticasone/Salmeterol 100-50 MCG Inhalation Powder 14/Diskus INH SCH (09:00)
[2022-06-04 09:23] VITALS: BP 152/74; PULSE 89
[2022-06-04] MEDS ORDERED: traZODone 50 MG Tab PO SCH (21:00)
[2022-06-04] MEDS ORDERED: Tamsulosin 0.4 MG Cap.ER PO SCH (21:00)
[2022-06-04] MEDS ORDERED: atorvaSTATin 40 MG Tab PO SCH (21:00)
== END 2022-06-04 11:20 | disposition home or self-care (01) ==
LOC: MW.ED 20:16 → MW.MS 21:38
PROVIDERS: ADMIT Internal Medicine; ATTEND Internal Medicine
DX: J96.21 Acute and chronic respiratory failure with hypoxia (principal); J44.1 Chronic obstructive pulmonary disease with (acute) exacerbation; N17.9 Acute kidney failure, unspecified; F11.90 Opioid use, unspecified, uncomplicated; I10 Essential (primary) hypertension; K21.9 Gastro-esophageal reflux disease without esophagitis; J98.11 Atelectasis; Z79.899 Other long term (current) drug therapy; Z20.822 Contact with and (suspected) exposure to COVID-19; Z88.7 Allergy status to serum and vaccine; Z88.4 Allergy status to anesthetic agent; Z98.890 Other specified postprocedural states; Z79.01 Long term (current) use of anticoagulants
CPT/HCPCS: 0241U; 36415; 71045; 80048; 80053; 83605; 83690; 84484; 85007; 85025; 85027; 85610; 87040; 93005; 94640; 96361; 96365; 96372; 96375; 96376; 99285; A9270; G0378; J0696; J1644; J2920; J2930; J3490; J7040; J7620-GY

== ENCOUNTER 2022-11-14 09:35 | Emergency (ER) | payer MEDICARE ==
[2022-11-14 09:55] LABS: BASOPHILS PERCENT AUTO 0.3 % (0.0-1.5); EOSINOPHILS ABSOLUTE AUTO 0.2 K/uL (0.0-0.7); EOSINOPHILS PERCENT AUTO 3.1 % (0.0-7.0); HEMATOCRIT 42.4 % (38.0-50.0); HEMOGLOBIN 14.1 g/dL (13.0-17.0); LYMPHOCYTES ABSOLUTE AUTO 1.8 K/uL (0.6-2.4); LYMPHOCYTES PERCENT AUTO 27.8 % (16.0-40.0); MEAN CORPUSCULAR HEMOGLOBIN 29.9 pg (27.0-32.0); MEAN CORPUSCULAR HGB CONC 33.3 g/dL (31.0-37.0); MONOCYTES ABSOLUTE AUTO 0.8 K/uL (0.0-0.8); MONOCYTES PERCENT AUTO 12.7 % (0.0-15.0); NEUTROPHILS ABSOLUTE AUTO 3.6 K/uL (1.4-5.7); NEUTROPHILS PERCENT AUTO 56.1 % (48.0-80.0); PLATELET COUNT,PLT 152 K/uL (150-400); RED BLOOD CELL COUNT 4.71 M/uL (4.50-5.90); WHITE BLOOD CELL COUNT,WBC 6.37 K/uL (4.0-11.0)
[2022-11-14 10:10] LABS: INR 0.97 (0.86-1.11); PTT,PARTIAL THROMBOPLSTIN TIME 23.7 SEC (23.9-30.7)
[2022-11-14] MEDS ORDERED: Iopamidol 755 MG/ML 500 ML Multipack Bottle IVPUSH STA (10:21)
[2022-11-14 10:30] VITALS: BP 151/67; PULSE 90
[2022-11-14 10:36] LABS: A/G RATIO 1.1 (0.9-1.6); ALBUMIN 3.5 g/dL (3.4-5.0); BILIRUBIN TOTAL 0.6 mg/dL (0.2-1.0); CALCIUM 8.4 mg/dL (8.5-10.1); CARBON DIOXIDE,CO2 29.8 mmol/L (21.0-32.0); CREATININE 1.6 mg/dL (0.8-1.3); EST CRCL DRUG DOSING (CG) 42.68 mL/min; MAGNESIUM 2.1 mg/dL (1.8-2.4); POTASSIUM,K 4.3 mmol/L (3.5-5.1); PROTEIN TOTAL,TP 6.8 g/dL (6.4-8.2)
== END 2022-11-14 10:48 | disposition home or self-care (01) ==
LOC: MW.ED 09:35
DX: B02.9 Zoster without complications (principal); I10 Essential (primary) hypertension; G61.0 Guillain-Barre syndrome; K21.9 Gastro-esophageal reflux disease without esophagitis; J44.9 Chronic obstructive pulmonary disease, unspecified; M19.90 Unspecified osteoarthritis, unspecified site; Z79.01 Long term (current) use of anticoagulants; Z88.7 Allergy status to serum and vaccine; Z88.4 Allergy status to anesthetic agent; Z79.82 Long term (current) use of aspirin; Z79.899 Other long term (current) drug therapy; Z79.02 Long term (current) use of antithrombotics/antiplatelets
CPT/HCPCS: 36415; 70450; 70496; 70498; 80053; 82947; 83735; 84484; 85025; 85610; 85730; 99284; Q9967; 93010

== ENCOUNTER 2022-12-04 23:15 | Emergency (ER) | payer MEDICARE ==
[2022-12-05 01:19] VITALS: BP 145/74; PULSE 80
== END 2022-12-05 02:20 | disposition home or self-care (01) ==
LOC: MW.ED 23:15
DX: F19.239 Other psychoactive substance dependence with withdrawal, unspecified (principal); I10 Essential (primary) hypertension; J44.9 Chronic obstructive pulmonary disease, unspecified; K21.9 Gastro-esophageal reflux disease without esophagitis; Z88.7 Allergy status to serum and vaccine; Z88.4 Allergy status to anesthetic agent; Z79.899 Other long term (current) drug therapy
CPT/HCPCS: 99283

== ENCOUNTER 2023-06-22 18:17 | Emergency (ER) | payer MEDICARE ==
[2023-06-22] MEDS ORDERED: Sodium Chloride 0.9% 10 ML Syringe FLUSH PRN (18:30)
[2023-06-22] MEDS ORDERED: Sodium Chloride 0.9% 2.5 ML Syringe FLUSH PRN (18:30)
[2023-06-22] MEDS ORDERED: cefTRIAXone 1 GM in Sodium Chloride 0.9% 50 ML IV ONE (18:32)
[2023-06-22] MEDS ORDERED: Albuterol/Ipratropium 3.0-0.5 MG/3 ML Neb Soln NEB ONE (18:32)
[2023-06-22] MEDS ORDERED: methylPREDNISolone Sodium Succinate 125 MG/2 ML SDV IVPUSH ONE (18:33)
[2023-06-22 18:48] LABS: BASOPHILS ABSOLUTE AUTO 0.02 K/uL (0.00-0.20); BASOPHILS PERCENT AUTO 0.2 % (0.0-1.0); EOSINOPHILS ABSOLUTE AUTO 0.09 K/uL (0.00-0.45); EOSINOPHILS PERCENT AUTO 0.8 % (0.0-6.0); HEMATOCRIT 44.6 % (42.0-52.0); HEMOGLOBIN 15.1 g/dL (14.0-18.0); IMMATURE GRAN ABSOLUTE AUTO 0.04 K/uL (0.00-0.05); IMMATURE GRAN PERCENT AUTO 0.4 % (0.0-0.4); LYMPHOCYTES ABSOLUTE AUTO 1.36 K/uL (1.00-4.80); LYMPHOCYTES PERCENT AUTO 12.3 % (24.0-44.0); MEAN CORPUSCULAR HEMOGLOBIN 29.9 pg (28.0-32.0); MEAN CORPUSCULAR HGB CONC 33.9 g/dL (32.0-36.0); MEAN CORPUSCULAR VOLUME 88.3 fL (83.0-99.0); MEAN PLATELET VOLUME 8.8 fL (9.4-12.4); MONOCYTES ABSOLUTE AUTO 0.43 K/uL (0.00-0.80); MONOCYTES PERCENT AUTO 3.9 % (0.0-8.0); NEUTROPHILS ABSOLUTE AUTO 9.09 K/uL (1.80-7.70); NEUTROPHILS PERCENT AUTO 82.4 % (41.0-71.0); PLATELET COUNT,PLT 238 K/uL (150-400); RED BLOOD CELL COUNT 5.05 M/uL (4.52-5.90); WHITE BLOOD CELL COUNT,WBC 11.03 K/uL (3.9-11.3)
[2023-06-22 19:21] LABS: A/G RATIO 0.9 (0.9-1.6); ALANINE AMINOTRANSFERASE,ALT 27 IU/L (14-63); ALBUMIN 3.5 g/dL (3.4-5.0); ALKALINE PHOSPHATASE 106 U/L (46-116); ASPARTATE AMNIOTRANSFERASE,AST 23 IU/L (15-37); BILIRUBIN TOTAL 0.8 mg/dL (0.2-1.0); BLOOD UREA NITROGEN,BUN 22 mg/dL (7.0-18.0); CALCIUM 9.4 mg/dL (8.5-10.1); CARBON DIOXIDE,CO2 26.5 mmol/L (21.0-32.0); CHLORIDE,CL 100 mmol/L (98-107); CREATININE 1.5 mg/dL (0.8-1.3); EST CRCL DRUG DOSING (CG) 46.43 mL/min; GLUCOSE RANDOM 146 mg/dL (74-106); LIPASE 33 U/L (16-77); POTASSIUM,K 4.9 mmol/L (3.5-5.1); PROTEIN TOTAL,TP 7.6 g/dL (6.4-8.2); SODIUM,NA 137 mmol/L (136-148)
[2023-06-22] MEDS ORDERED: Ondansetron 4 MG/2 ML SDV IVPUSH ONE (19:31)
[2023-06-22] MEDS ORDERED: Morphine 4 MG/ML Syringe IVPUSH ONE (19:31)
[2023-06-22] MEDS ORDERED: Sodium Chloride 0.9% 1,000 ML IV ONE (19:31)
[2023-06-22 19:43] LABS: ESTIMATED GFR 49 mL/min (>60); ETHANOL BLOOD MEDICAL < 3.0 mg/dL
[2023-06-22 19:44] LABS: BASE EXCESS VENOUS -0.8 (-2.0-3.0); BICARBONATE,VENOUS 26 mEq/L (23-28); PCO2 VENOUS 51 mmHG (41-51); PH,VENOUS 7.32 (7.31-7.41)
[2023-06-22 19:46] LABS: PO2 VENOUS < 30 mmHG
[2023-06-22] MEDS ORDERED: Iopamidol 755 MG/ML 500 ML Multipack Bottle IVPUSH ONE (20:16)
[2023-06-22 20:17] LABS: CORONAVIRUS COVID-19 NAA POSITIVE (NEGATIVE); INFLUENZA A NAA NEGATIVE (NEGATIVE); INFLUENZA B NAA NEGATIVE (NEGATIVE)
[2023-06-22] MEDS ORDERED: HYDROmorphone 1 MG/ML Syringe IVPUSH ONE (21:17)
[2023-06-22] MEDS ORDERED: HYDROmorphone 2 MG/ML Syringe IVPUSH ONE (22:45)
[2023-06-22 23:09] LABS: APPEARANCE,URINE CLEAR; BILIRUBIN,URINE NEGATIVE (NEGATIVE); COLOR,URINE YELLOW; GLUCOSE,URINE NEGATIVE (NEGATIVE); KETONES,URINE TRACE mg/dL (NEGATIVE); LEUKOCYTE ESTERASE,URINE NEGATIVE (NEGATIVE); NITRITE,URINE NEGATIVE (NEGATIVE); OCCULT BLOOD,URINE NEGATIVE (NEGATIVE); PROTEIN,URINE NEGATIVE (NEGATIVE); UROBILINOGEN,URINE 0.2 EU/dL (<2.0)
[2023-06-22 23:18] LABS: AMPHETAMINES SCREEN, URINE NEGATIVE (CUTOFF=500); BARBITURATE SCREEN,URINE NEGATIVE (CUTOFF=200); BENZODIAZEPINES SCREEN,URINE NEGATIVE (CUTOFF=150); BUPRENORPHINE SCREEN,URINE PRESUMPTIVE POSITIVE (CUTOFF=10); METHADONE SCREEN, URINE NEGATIVE (CUTOFF=200); METHAMPHETAMINES SCREEN, URINE NEGATIVE (CUTOFF=500); OXYCODONE SCREEN,URINE NEGATIVE (CUT0FF=100); PCP SCREEN,URINE NEGATIVE (CUTOFF=25); THC SCREEN,URINE 20 NG/ML NEGATIVE (CUTOFF=50)
[2023-06-22 23:49] VITALS: BP 123/68; PULSE 109
[2023-06-23] MEDS ORDERED: HYDROmorphone 1 MG/ML Syringe IVPUSH ONE (01:27)
== END 2023-06-23 02:46 ==
LOC: MW.ED 18:17
DX: U07.1 COVID-19 (principal); K92.2 Gastrointestinal hemorrhage, unspecified; I10 Essential (primary) hypertension; M19.90 Unspecified osteoarthritis, unspecified site; K21.9 Gastro-esophageal reflux disease without esophagitis; J44.9 Chronic obstructive pulmonary disease, unspecified; Z88.7 Allergy status to serum and vaccine; Z88.4 Allergy status to anesthetic agent; Z79.82 Long term (current) use of aspirin; Z79.899 Other long term (current) drug therapy; Z72.0 Tobacco use
CPT/HCPCS: 0240U; 36415; 71045; 71275; 74177; 80053; 80305; 80307; 81003; 82803; 83605; 83690; 83735; 84484; 85025; 85610; 86850; 86900; 86901; 87040; 93005; 96365; 96375; 96376; 99285; J0696; J1170; J2270; J2405; J2930; J3490; J7030; Q9967; 93010; 99284; J7620-GY

== ENCOUNTER 2023-07-15 15:05 | Inpatient (IN) | payer MEDICARE ==
[2023-07-15] MEDS ORDERED: methylPREDNISolone Sodium Succinate 125 MG/2 ML SDV IVPUSH ONE (15:08)
[2023-07-15] MEDS ORDERED: Piperacillin/Tazobactam 4.5 GM in Sodium Chloride 0.9% 100 ML IV ONE (15:08)
[2023-07-15] MEDS ORDERED: Sodium Chloride 0.9% 10 ML Syringe FLUSH PRN (15:08)
[2023-07-15] MEDS ORDERED: Sodium Chloride 0.9% 2.5 ML Syringe FLUSH PRN (15:08)
[2023-07-15] MEDS ORDERED: Sodium Chloride 0.9% 1,000 ML IV ONE (15:08)
[2023-07-15] MEDS ORDERED: Albuterol/Ipratropium 3.0-0.5 MG/3 ML Neb Soln NEB ONE (15:08)
[2023-07-15 15:28] LABS: BASOPHILS ABSOLUTE AUTO 0.01 K/uL (0.00-0.20); BASOPHILS PERCENT AUTO 0.1 % (0.0-1.0); EOSINOPHILS ABSOLUTE AUTO 0.01 K/uL (0.00-0.45); EOSINOPHILS PERCENT AUTO 0.1 % (0.0-6.0); HEMATOCRIT 33.7 % (42.0-52.0); HEMOGLOBIN 11.5 g/dL (14.0-18.0); IMMATURE GRAN ABSOLUTE AUTO 0.03 K/uL (0.00-0.05); IMMATURE GRAN PERCENT AUTO 0.3 % (0.0-0.4); LYMPHOCYTES ABSOLUTE AUTO 1.03 K/uL (1.00-4.80); LYMPHOCYTES PERCENT AUTO 11.8 % (24.0-44.0); MEAN CORPUSCULAR HEMOGLOBIN 30.5 pg (28.0-32.0); MEAN CORPUSCULAR HGB CONC 34.1 g/dL (32.0-36.0); MEAN CORPUSCULAR VOLUME 89.4 fL (83.0-99.0); MEAN PLATELET VOLUME 8.9 fL (9.4-12.4); MONOCYTES ABSOLUTE AUTO 0.29 K/uL (0.00-0.80); MONOCYTES PERCENT AUTO 3.3 % (0.0-8.0); NEUTROPHILS ABSOLUTE AUTO 7.38 K/uL (1.80-7.70); NEUTROPHILS PERCENT AUTO 84.4 % (41.0-71.0); PLATELET COUNT,PLT 198 K/uL (150-400); RED BLOOD CELL COUNT 3.77 M/uL (4.52-5.90); WHITE BLOOD CELL COUNT,WBC 8.75 K/uL (3.9-11.3)
[2023-07-15 15:42] LABS: A/G RATIO 0.9 (0.9-1.6); ALANINE AMINOTRANSFERASE,ALT 27 IU/L (14-63); ALKALINE PHOSPHATASE 81 U/L (46-116); ASPARTATE AMNIOTRANSFERASE,AST 14 IU/L (15-37); BILIRUBIN TOTAL 0.4 mg/dL (0.2-1.0); BLOOD UREA NITROGEN,BUN 17 mg/dL (7.0-18.0); CALCIUM 8.9 mg/dL (8.5-10.1); CARBON DIOXIDE,CO2 22.8 mmol/L (21.0-32.0); CHLORIDE,CL 103 mmol/L (98-107); CREATININE 1.6 mg/dL (0.8-1.3); EST CRCL DRUG DOSING (CG) 42.46 mL/min; GLUCOSE RANDOM 147 mg/dL (74-106); MAGNESIUM 1.8 mg/dL (1.8-2.4); POTASSIUM,K 4.7 mmol/L (3.5-5.1); PROTEIN TOTAL,TP 6.4 g/dL (6.4-8.2); SODIUM,NA 138 mmol/L (136-148)
[2023-07-15 15:50] LABS: ESTIMATED GFR 45 mL/min (>60); ETHANOL BLOOD MEDICAL < 3.0 mg/dL
[2023-07-15 15:56] LABS: INR 0.98 (0.86-1.11); PTT,PARTIAL THROMBOPLSTIN TIME 25.4 SEC (23.9-30.7)
[2023-07-15 16:13] LABS: LACTIC ACID 1.8 mmol/L (0.4-2.0)
[2023-07-15 16:48] LABS: APPEARANCE,URINE CLEAR; BILIRUBIN,URINE NEGATIVE (NEGATIVE); COLOR,URINE YELLOW; GLUCOSE,URINE NEGATIVE (NEGATIVE); KETONES,URINE NEGATIVE (NEGATIVE); LEUKOCYTE ESTERASE,URINE NEGATIVE (NEGATIVE); NITRITE,URINE NEGATIVE (NEGATIVE); OCCULT BLOOD,URINE NEGATIVE (NEGATIVE); PH,URINE 5.5 (5.0-8.0); PROTEIN,URINE NEGATIVE (NEGATIVE); UROBILINOGEN,URINE 0.2 EU/dL (<2.0)
[2023-07-15 16:58] LABS: AMPHETAMINES SCREEN, URINE NEGATIVE (CUTOFF=500); BARBITURATE SCREEN,URINE NEGATIVE (CUTOFF=200); BENZODIAZEPINES SCREEN,URINE NEGATIVE (CUTOFF=150); BUPRENORPHINE SCREEN,URINE PRESUMPTIVE POSITIVE (CUTOFF=10); METHADONE SCREEN, URINE NEGATIVE (CUTOFF=200); METHAMPHETAMINES SCREEN, URINE NEGATIVE (CUTOFF=500); OXYCODONE SCREEN,URINE NEGATIVE (CUT0FF=100); PCP SCREEN,URINE NEGATIVE (CUTOFF=25); THC SCREEN,URINE 20 NG/ML NEGATIVE (CUTOFF=50)
[2023-07-15 17:30] LABS: CORONAVIRUS COVID-19 NAA NEGATIVE (NEGATIVE); INFLUENZA A NAA NEGATIVE (NEGATIVE); INFLUENZA B NAA NEGATIVE (NEGATIVE); RESPIRATORY SYNCYTIAL VIR NAA NEGATIVE (NEGATIVE)
[2023-07-15] MEDS ORDERED: Buprenorphine/Naloxone 8-2 MG Tab.SL SL ONE (17:49)
[2023-07-15] MEDS ORDERED: Ondansetron 4 MG/2 ML SDV IVPUSH PRN (18:34)
[2023-07-15] MEDS ORDERED: Acetaminophen 325 MG Tab PO PRN (18:34)
[2023-07-15] MEDS ORDERED: Enoxaparin 30 MG/0.3 ML Syringe SUBCUT SCH (18:45)
[2023-07-15 19:40] LABS: TSH ULTRASENSITIVE 0.36 uIU/mL (0.36-3.74)
[2023-07-15] MEDS: Pantoprazole 40 MG in Sodium Chloride 0.9% 10 ML IVPUSH SCH (20:35)
[2023-07-15] MEDS: atorvaSTATin 40 MG Tab PO SCH (20:37)
[2023-07-15] MEDS: Enoxaparin 40 MG/0.4 ML Syringe SUBCUT SCH (20:37)
[2023-07-15] MEDS ORDERED: NALOXONE HCL SL SCH (22:00)
[2023-07-15] MEDS ORDERED: NALOXONE SL SCH (22:00)
[2023-07-15] MEDS ORDERED: BUPRENORPHINE SL SCH (22:00)
[2023-07-15] MEDS ORDERED: [UNRECOGNIZED DRUG - OTHER] SL SCH (22:00)
[2023-07-15] MEDS ORDERED: BUPRENORPHINE HCL SL SCH (22:00)
[2023-07-15] MEDS: Albuterol/Ipratropium 3.0-0.5 MG/3 ML Neb Soln NEB SCH (22:03)
[2023-07-16] MEDS: traZODone 50 MG Tab PO SCH ×3 (00:27→21:52)
[2023-07-16] MEDS: Albuterol/Ipratropium 3.0-0.5 MG/3 ML Neb Soln NEB SCH ×6 (01:12→21:51)
[2023-07-16] MEDS: Buprenorphine/Naloxone 8-2 MG Tab.SL SL SCH ×3 (01:41→20:03)
[2023-07-16 05:38] LABS: HEMATOCRIT 29.6 % (42.0-52.0); HEMOGLOBIN 10.1 g/dL (14.0-18.0); IMMATURE GRAN ABSOLUTE AUTO 0.04 K/uL (0.00-0.05); IMMATURE GRAN PERCENT AUTO 0.6 % (0.0-0.4); MEAN CORPUSCULAR HEMOGLOBIN 30.5 pg (28.0-32.0); MEAN CORPUSCULAR HGB CONC 34.1 g/dL (32.0-36.0); MEAN CORPUSCULAR VOLUME 89.4 fL (83.0-99.0); MEAN PLATELET VOLUME 8.7 fL (9.4-12.4); MONOCYTES ABSOLUTE AUTO 0.11 K/uL (0.00-0.80); MONOCYTES PERCENT AUTO 1.6 % (0.0-8.0); NEUTROPHILS ABSOLUTE AUTO 5.72 K/uL (1.80-7.70); NEUTROPHILS PERCENT AUTO 85.8 % (41.0-71.0); PLATELET COUNT,PLT 168 K/uL (150-400); RED BLOOD CELL COUNT 3.31 M/uL (4.52-5.90); WHITE BLOOD CELL COUNT,WBC 6.67 K/uL (3.9-11.3)
[2023-07-16 05:46] LABS: HEMOGLOBIN A1C 5.8 %
[2023-07-16 06:01] LABS: CALCIUM 8.7 mg/dL (8.5-10.1); CARBON DIOXIDE,CO2 22.6 mmol/L (21.0-32.0); CREATININE 1.2 mg/dL (0.8-1.3); EST CRCL DRUG DOSING (CG) 56.61 mL/min; POTASSIUM,K 4.5 mmol/L (3.5-5.1)
[2023-07-16] MEDS: Pregabalin 25 MG Cap PO SCH ×2 (08:39→20:03)
[2023-07-16] MEDS: cefTRIAXone 1 GM in Sodium Chloride 0.9% 50 ML IV SCH (08:47)
[2023-07-16] MEDS: methylPREDNISolone Sodium Succinate 40 MG/1 ML SDV IVPUSH SCH ×2 (08:51→20:05)
[2023-07-16] MEDS: Azithromycin 500 MG in Sodium Chloride 0.9% 250 ML IV SCH (09:06)
[2023-07-16] MEDS: Aspirin 325 MG Tab PO SCH (09:20)
[2023-07-16] MEDS: Clopidogrel 75 MG Tab PO SCH (09:20)
[2023-07-16] MEDS ORDERED: TIOTROPIUM 18 MCG INH SCH (10:30)
[2023-07-16] MEDS: FLUTICASONE PROPION INH SCH ×2 (12:24→20:04)
[2023-07-16] MEDS: SALMETEROL INH SCH ×2 (12:24→20:04)
[2023-07-16] MEDS: [UNRECOGNIZED DRUG - OTHER] INH SCH (12:26)
[2023-07-16] MEDS: SPIRIVA RESPIMAT INH SCH (12:26)
[2023-07-16] MEDS: Pantoprazole 40 MG in Sodium Chloride 0.9% 10 ML IVPUSH SCH (17:52)
[2023-07-16] MEDS: atorvaSTATin 40 MG Tab PO SCH (20:02)
[2023-07-16] MEDS: Enoxaparin 40 MG/0.4 ML Syringe SUBCUT SCH (20:05)
[2023-07-17] MEDS: Albuterol/Ipratropium 3.0-0.5 MG/3 ML Neb Soln NEB SCH ×2 (01:12→05:49)
[2023-07-17 06:15] LABS: BASOPHILS ABSOLUTE AUTO 0.01 K/uL (0.00-0.20); BASOPHILS PERCENT AUTO 0.1 % (0.0-1.0); EOSINOPHILS ABSOLUTE AUTO 0.01 K/uL (0.00-0.45); EOSINOPHILS PERCENT AUTO 0.1 % (0.0-6.0); HEMATOCRIT 31.8 % (42.0-52.0); HEMOGLOBIN 10.8 g/dL (14.0-18.0); IMMATURE GRAN ABSOLUTE AUTO 0.04 K/uL (0.00-0.05); IMMATURE GRAN PERCENT AUTO 0.5 % (0.0-0.4); LYMPHOCYTES ABSOLUTE AUTO 1.09 K/uL (1.00-4.80); LYMPHOCYTES PERCENT AUTO 13.9 % (24.0-44.0); MEAN CORPUSCULAR HEMOGLOBIN 30.7 pg (28.0-32.0); MEAN CORPUSCULAR VOLUME 90.3 fL (83.0-99.0); MEAN PLATELET VOLUME 9.2 fL (9.4-12.4); MONOCYTES ABSOLUTE AUTO 0.28 K/uL (0.00-0.80); MONOCYTES PERCENT AUTO 3.6 % (0.0-8.0); NEUTROPHILS ABSOLUTE AUTO 6.41 K/uL (1.80-7.70); NEUTROPHILS PERCENT AUTO 81.8 % (41.0-71.0); PLATELET COUNT,PLT 217 K/uL (150-400); RED BLOOD CELL COUNT 3.52 M/uL (4.52-5.90); WHITE BLOOD CELL COUNT,WBC 7.84 K/uL (3.9-11.3)
[2023-07-17 06:38] LABS: CARBON DIOXIDE,CO2 25.5 mmol/L (21.0-32.0); EST CRCL DRUG DOSING (CG) 67.93 mL/min; POTASSIUM,K 4.5 mmol/L (3.5-5.1)
[2023-07-17] MEDS ORDERED: Albuterol/Ipratropium 3.0-0.5 MG/3 ML Neb Soln NEB PRN (07:17)
[2023-07-17] MEDS ORDERED: Nitroglycerin 0.4 MG Tab.SL SL PRN (08:38)
[2023-07-17] MEDS ORDERED: Losartan 50 MG Tab PO SCH (09:00)
[2023-07-17] MEDS: Buprenorphine/Naloxone 8-2 MG Tab.SL SL SCH (09:20)
[2023-07-17] MEDS: Aspirin 325 MG Tab PO SCH (09:21)
[2023-07-17] MEDS: Pregabalin 25 MG Cap PO SCH (09:21)
[2023-07-17] MEDS: Clopidogrel 75 MG Tab PO SCH (09:22)
[2023-07-17] MEDS: methylPREDNISolone Sodium Succinate 40 MG/1 ML SDV IVPUSH SCH (09:23)
[2023-07-17] MEDS: cefTRIAXone 1 GM in Sodium Chloride 0.9% 50 ML IV SCH (09:28)
[2023-07-17] MEDS: Azithromycin 500 MG in Sodium Chloride 0.9% 250 ML IV SCH (09:36)
[2023-07-17] MEDS: SALMETEROL INH SCH (10:09)
[2023-07-17] MEDS: FLUTICASONE PROPION INH SCH (10:09)
[2023-07-17] MEDS: [UNRECOGNIZED DRUG - OTHER] INH SCH (10:13)
[2023-07-17] MEDS: SPIRIVA RESPIMAT INH SCH (10:13)
[2023-07-17 15:29] VITALS: BP 99/79; PULSE 80
== END 2023-07-17 14:45 | disposition home or self-care (01) | DRG 69 ==
LOC: MW.ED 15:05 → MW.MS 18:02 → OBSVTOIN 07-16 12:46
PROVIDERS: ADMIT Internal Medicine; ATTEND Internal Medicine
DX: G45.9 Transient cerebral ischemic attack, unspecified (principal); J96.21 Acute and chronic respiratory failure with hypoxia; I10 Essential (primary) hypertension; J44.1 Chronic obstructive pulmonary disease with (acute) exacerbation; G61.0 Guillain-Barre syndrome; K21.9 Gastro-esophageal reflux disease without esophagitis; M19.90 Unspecified osteoarthritis, unspecified site; G70.9 Myoneural disorder, unspecified; N18.9 Chronic kidney disease, unspecified; D63.1 Anemia in chronic kidney disease; I12.9 Hypertensive chronic kidney disease with stage 1 through stage 4 chronic kidney disease, or unspecified chronic kidney disease; Z66 Do not resuscitate; E78.00 Pure hypercholesterolemia, unspecified; G47.33 Obstructive sleep apnea (adult) (pediatric); I73.9 Peripheral vascular disease, unspecified; F11.90 Opioid use, unspecified, uncomplicated; G89.4 Chronic pain syndrome; I20.9 Angina pectoris, unspecified; Z79.82 Long term (current) use of aspirin; Z79.02 Long term (current) use of antithrombotics/antiplatelets; Z79.899 Other long term (current) drug therapy; Z88.7 Allergy status to serum and vaccine; Z88.8 Allergy status to other drugs, medicaments and biological substances; Z79.51 Long term (current) use of inhaled steroids; Z87.81 Personal history of (healed) traumatic fracture; Z98.49 Cataract extraction status, unspecified eye; Z95.2 Presence of prosthetic heart valve; Z98.890 Other specified postprocedural states; Z11.52 Encounter for screening for COVID-19
CPT/HCPCS: 0241U; 36415; 70450; 70544; 70551; 71045; 80048; 80053; 80061; 80305; 80307; 81003; 82607; 83036; 83605; 83735; 83880; 84443; 84484; 85025; 85610; 85730; 87040; 93005; 94640; 96365; 96367; 96368; 96372; 96375; 96376; 99285; 93010; A9270-GY; C9113; G0378; J0456; J0574-GY; J0696; J1650; J2543; J2920; J2930; J3490; J7030; J7050; J7620-GY

== ENCOUNTER 2023-09-17 11:38 | Emergency (ER) | payer MEDICARE ==
[2023-09-17] MEDS: Sodium Chloride 0.9% 2.5 ML Syringe FLUSH PRN (12:05)
[2023-09-17] MEDS: Meclizine 25 MG Tab PO ONE (12:05)
[2023-09-17] MEDS: Sodium Chloride 0.9% 10 ML Syringe FLUSH PRN (12:06)
[2023-09-17 12:54] LABS: BASOPHILS ABSOLUTE AUTO 0.02 K/uL (0.00-0.20); BASOPHILS PERCENT AUTO 0.3 % (0.0-1.0); EOSINOPHILS ABSOLUTE AUTO 0.08 K/uL (0.00-0.45); EOSINOPHILS PERCENT AUTO 1.1 % (0.0-6.0); HEMATOCRIT 35.8 % (42.0-52.0); HEMOGLOBIN 12.3 g/dL (14.0-18.0); IMMATURE GRAN ABSOLUTE AUTO 0.02 K/uL (0.00-0.05); IMMATURE GRAN PERCENT AUTO 0.3 % (0.0-0.4); LYMPHOCYTES ABSOLUTE AUTO 1.59 K/uL (1.00-4.80); LYMPHOCYTES PERCENT AUTO 22.2 % (24.0-44.0); MEAN CORPUSCULAR HEMOGLOBIN 29.6 pg (28.0-32.0); MEAN CORPUSCULAR HGB CONC 34.4 g/dL (32.0-36.0); MEAN CORPUSCULAR VOLUME 86.1 fL (83.0-99.0); MEAN PLATELET VOLUME 9.4 fL (9.4-12.4); MONOCYTES ABSOLUTE AUTO 0.45 K/uL (0.00-0.80); MONOCYTES PERCENT AUTO 6.3 % (0.0-8.0); NEUTROPHILS ABSOLUTE AUTO 4.99 K/uL (1.80-7.70); NEUTROPHILS PERCENT AUTO 69.8 % (41.0-71.0); PLATELET COUNT,PLT 183 K/uL (150-400); RED BLOOD CELL COUNT 4.16 M/uL (4.52-5.90); WHITE BLOOD CELL COUNT,WBC 7.15 K/uL (3.9-11.3)
[2023-09-17] MEDS: Sodium Chloride 0.9% 1,000 ML IV ONE (13:04)
[2023-09-17 13:16] LABS: ALBUMIN 3.3 g/dL (3.4-5.0); BILIRUBIN TOTAL 0.5 mg/dL (0.2-1.0); CALCIUM 8.9 mg/dL (8.5-10.1); CARBON DIOXIDE,CO2 26.3 mmol/L (21.0-32.0); CREATININE 1.1 mg/dL (0.8-1.3); EST CRCL DRUG DOSING (CG) 60.82 mL/min; POTASSIUM,K 3.7 mmol/L (3.5-5.1); PROTEIN TOTAL,TP 6.6 g/dL (6.4-8.2)
[2023-09-17 13:54] LABS: TSH ULTRASENSITIVE 0.74 uIU/mL (0.36-3.74)
[2023-09-17 14:12] LABS: APPEARANCE,URINE CLEAR; COLOR,URINE YELLOW; GLUCOSE,URINE NEGATIVE (NEGATIVE); KETONES,URINE TRACE mg/dL (NEGATIVE); LEUKOCYTE ESTERASE,URINE NEGATIVE (NEGATIVE); NITRITE,URINE NEGATIVE (NEGATIVE); OCCULT BLOOD,URINE NEGATIVE (NEGATIVE); PH,URINE 5.5 (5.0-8.0); PROTEIN,URINE NEGATIVE (NEGATIVE); UROBILINOGEN,URINE 0.2 EU/dL (<2.0)
[2023-09-17 14:14] LABS: BILIRUBIN,URINE SMALL (NEGATIVE)
[2023-09-17 14:38] VITALS: BP 123/50; PULSE 83
== END 2023-09-17 14:36 | disposition home or self-care (01) ==
LOC: MW.ED 11:38
DX: I95.1 Orthostatic hypotension (principal); E78.00 Pure hypercholesterolemia, unspecified; I10 Essential (primary) hypertension; J44.9 Chronic obstructive pulmonary disease, unspecified; K21.9 Gastro-esophageal reflux disease without esophagitis; Z75.8 Other problems related to medical facilities and other health care; Z88.7 Allergy status to serum and vaccine; Z88.8 Allergy status to other drugs, medicaments and biological substances; Z86.19 Personal history of other infectious and parasitic diseases; Z79.82 Long term (current) use of aspirin; Z79.899 Other long term (current) drug therapy
CPT/HCPCS: 36415; 70450; 80053; 81003; 82947; 84443; 84484; 85025; 96360; 99285; A9270; J3490; J7030; 93010; 99283

== ENCOUNTER 2024-02-02 11:15 | Emergency (ER) | payer MEDICARE ==
[2024-02-02] MEDS ORDERED: Sodium Chloride 0.9% 10 ML Syringe FLUSH PRN (11:23)
[2024-02-02] MEDS ORDERED: Sodium Chloride 0.9% 2.5 ML Syringe FLUSH PRN (11:23)
[2024-02-02] MEDS ORDERED: Sodium Chloride 0.9% 20 ML SDV IV PRN (11:23)
[2024-02-02 11:30] LABS: BASOPHILS ABSOLUTE AUTO 0.03 K/uL (0.00-0.20); BASOPHILS PERCENT AUTO 0.3 % (0.0-1.0); EOSINOPHILS ABSOLUTE AUTO 0.26 K/uL (0.00-0.45); EOSINOPHILS PERCENT AUTO 2.3 % (0.0-6.0); HEMATOCRIT 38.2 % (42.0-52.0); HEMOGLOBIN 12.8 g/dL (14.0-18.0); IMMATURE GRAN ABSOLUTE AUTO 0.04 K/uL (0.00-0.05); IMMATURE GRAN PERCENT AUTO 0.4 % (0.0-0.4); LYMPHOCYTES ABSOLUTE AUTO 4.08 K/uL (1.00-4.80); LYMPHOCYTES PERCENT AUTO 36.7 % (24.0-44.0); MEAN CORPUSCULAR HEMOGLOBIN 30.3 pg (28.0-32.0); MEAN CORPUSCULAR HGB CONC 33.5 g/dL (32.0-36.0); MEAN CORPUSCULAR VOLUME 90.3 fL (83.0-99.0); MEAN PLATELET VOLUME 8.9 fL (9.4-12.4); MONOCYTES ABSOLUTE AUTO 0.84 K/uL (0.00-0.80); MONOCYTES PERCENT AUTO 7.6 % (0.0-8.0); NEUTROPHILS ABSOLUTE AUTO 5.87 K/uL (1.80-7.70); NEUTROPHILS PERCENT AUTO 52.7 % (41.0-71.0); PLATELET COUNT,PLT 155 K/uL (150-400); RED BLOOD CELL COUNT 4.23 M/uL (4.52-5.90); WHITE BLOOD CELL COUNT,WBC 11.12 K/uL (3.9-11.3)
[2024-02-02 11:47] LABS: BASE EXCESS VENOUS 1.4 (-2.0-3.0); PH,VENOUS 7.42 (7.31-7.41)
[2024-02-02] MEDS: methylPREDNISolone Sodium Succinate 125 MG/2 ML SDV IVPUSH ONE (11:51)
[2024-02-02] MEDS: Albuterol/Ipratropium 3.0-0.5 MG/3 ML Neb Soln NEB ONE (11:52)
[2024-02-02] MEDS: Nitroglycerin 0.4 MG Tab.SL SL PRN (11:52)
[2024-02-02] MEDS: Aspirin 81 MG Tab.Chew PO ONE (11:53)
[2024-02-02 11:59] LABS: A/G RATIO 1.1 (0.9-1.6); ALBUMIN 3.5 g/dL (3.4-5.0); BILIRUBIN TOTAL 0.7 mg/dL (0.2-1.0); CALCIUM 8.4 mg/dL (8.5-10.1); CARBON DIOXIDE,CO2 27.9 mmol/L (21.0-32.0); CREATININE 1.1 mg/dL (0.8-1.3); EST CRCL DRUG DOSING (CG) 63.7 mL/min; POTASSIUM,K 4.1 mmol/L (3.5-5.1); PROTEIN TOTAL,TP 6.6 g/dL (6.4-8.2)
[2024-02-02 12:24] LABS: CORONAVIRUS COVID-19 NAA NEGATIVE (NEGATIVE); INFLUENZA A NAA NEGATIVE (NEGATIVE); INFLUENZA B NAA NEGATIVE (NEGATIVE); RESPIRATORY SYNCYTIAL VIR NAA NEGATIVE (NEGATIVE)
[2024-02-02 13:42] VITALS: BP 120/55; PULSE 79
== END 2024-02-02 13:47 | disposition home or self-care (01) ==
LOC: MW.ED 11:15
DX: R07.9 Chest pain, unspecified (principal); J44.1 Chronic obstructive pulmonary disease with (acute) exacerbation; R06.2 Wheezing; I10 Essential (primary) hypertension; K21.9 Gastro-esophageal reflux disease without esophagitis; E78.00 Pure hypercholesterolemia, unspecified; Z88.7 Allergy status to serum and vaccine; Z88.6 Allergy status to analgesic agent; Z79.82 Long term (current) use of aspirin; Z79.899 Other long term (current) drug therapy
CPT/HCPCS: 0241U; 36415; 71045; 80053; 82803; 83690; 83735; 83880; 84484; 85025; 93005; 96374; 99285; A9270; J2919; 93010; 99284; J7620-GY

== ENCOUNTER 2024-06-15 07:31 | Emergency (ER) | payer MEDICARE ==
[2024-06-15] MEDS ORDERED: Sodium Chloride 0.9% 10 ML Syringe FLUSH PRN (07:44)
[2024-06-15] MEDS ORDERED: Sodium Chloride 0.9% 2.5 ML Syringe FLUSH PRN (07:44)
[2024-06-15] MEDS: Sodium Chloride 0.9% 1,000 ML IV ONE (08:10)
[2024-06-15] MEDS: Acetaminophen 325 MG Tab PO ONE (08:10)
[2024-06-15] MEDS: cefTRIAXone 2 GM in Sodium Chloride 0.9% 50 ML IV ONE (08:11)
[2024-06-15 08:13] LABS: BASOPHILS ABSOLUTE AUTO 0.02 K/uL (0.00-0.20); BASOPHILS PERCENT AUTO 0.1 % (0.0-1.0); EOSINOPHILS ABSOLUTE AUTO 0.09 K/uL (0.00-0.45); EOSINOPHILS PERCENT AUTO 0.6 % (0.0-6.0); HEMATOCRIT 38.1 % (42.0-52.0); HEMOGLOBIN 13.2 g/dL (14.0-18.0); IMMATURE GRAN ABSOLUTE AUTO 0.07 K/uL (0.00-0.05); IMMATURE GRAN PERCENT AUTO 0.5 % (0.0-0.4); LYMPHOCYTES ABSOLUTE AUTO 0.51 K/uL (1.00-4.80); LYMPHOCYTES PERCENT AUTO 3.4 % (24.0-44.0); MEAN CORPUSCULAR HEMOGLOBIN 30.7 pg (28.0-32.0); MEAN CORPUSCULAR HGB CONC 34.6 g/dL (32.0-36.0); MEAN CORPUSCULAR VOLUME 88.6 fL (83.0-99.0); MEAN PLATELET VOLUME 9.1 fL (9.4-12.4); MONOCYTES ABSOLUTE AUTO 0.72 K/uL (0.00-0.80); MONOCYTES PERCENT AUTO 4.8 % (0.0-8.0); NEUTROPHILS ABSOLUTE AUTO 13.51 K/uL (1.80-7.70); NEUTROPHILS PERCENT AUTO 90.6 % (41.0-71.0); PLATELET COUNT,PLT 138 K/uL (150-400); WHITE BLOOD CELL COUNT,WBC 14.92 K/uL (3.9-11.3)
[2024-06-15] MEDS: Albuterol/Ipratropium 3.0-0.5 MG/3 ML Neb Soln NEB ONE (08:20)
[2024-06-15 08:29] LABS: A/G RATIO 1.2 (0.9-1.6); ALBUMIN 3.6 g/dL (3.4-5.0); BILIRUBIN TOTAL 1.4 mg/dL (0.2-1.0); CARBON DIOXIDE,CO2 28.3 mmol/L (21.0-32.0); CREATININE 1.1 mg/dL (0.8-1.3); EST CRCL DRUG DOSING (CG) 62.75 mL/min; PROTEIN TOTAL,TP 6.6 g/dL (6.4-8.2)
[2024-06-15 08:31] LABS: LACTIC ACID 0.8 mmol/L (0.4-2.0)
[2024-06-15 10:35] VITALS: BP 113/49; PULSE 86
== END 2024-06-15 10:46 | disposition home or self-care (01) ==
LOC: MW.ED 07:31
DX: J18.9 Pneumonia, unspecified organism (principal); I10 Essential (primary) hypertension; E78.00 Pure hypercholesterolemia, unspecified; J44.9 Chronic obstructive pulmonary disease, unspecified; K21.9 Gastro-esophageal reflux disease without esophagitis; Z79.899 Other long term (current) drug therapy; Z79.82 Long term (current) use of aspirin; Z79.51 Long term (current) use of inhaled steroids; Z88.4 Allergy status to anesthetic agent; Z88.7 Allergy status to serum and vaccine
CPT/HCPCS: 36415; 71046; 80053; 83605; 85025; 87040; 87428; 94640; 96361; 96365; 99285; A9270; J0696; J3490; J7030; J7620-GY

== ENCOUNTER 2025-01-11 09:22 | Observation (INO) | payer MEDICARE ==
[2025-01-11] MEDS ORDERED: Sodium Chloride 0.9% 2.5 ML Syringe FLUSH PRN ×2 (09:35→14:42)
[2025-01-11] MEDS ORDERED: Sodium Chloride 0.9% 10 ML Syringe FLUSH PRN ×2 (09:35→14:42)
[2025-01-11 09:49] LABS: BASOPHILS ABSOLUTE AUTO 0.01 K/uL (0.00-0.20); BASOPHILS PERCENT AUTO 0.1 % (0.0-1.0); EOSINOPHILS ABSOLUTE AUTO 0.03 K/uL (0.00-0.45); EOSINOPHILS PERCENT AUTO 0.2 % (0.0-6.0); IMMATURE GRAN ABSOLUTE AUTO 0.03 K/uL (0.00-0.05); IMMATURE GRAN PERCENT AUTO 0.2 % (0.0-0.4); LYMPHOCYTES ABSOLUTE AUTO 0.64 K/uL (1.00-4.80); LYMPHOCYTES PERCENT AUTO 5.1 % (24.0-44.0); MEAN PLATELET VOLUME 9.5 fL (9.4-12.4); MONOCYTES ABSOLUTE AUTO 0.73 K/uL (0.00-0.80); MONOCYTES PERCENT AUTO 5.8 % (0.0-8.0); NEUTROPHILS ABSOLUTE AUTO 11.18 K/uL (1.80-7.70); NEUTROPHILS PERCENT AUTO 88.6 % (41.0-71.0); NRBC ABSOLUTE 0.00 K/uL (0.00-0.02); NRBC PERCENT 0.0 /100WBC (0.0-0.2); PLATELET COUNT,PLT 150 K/uL (150-400); RED BLOOD CELL COUNT 4.45 M/uL (4.52-5.90); WHITE BLOOD CELL COUNT,WBC 12.62 K/uL (3.9-11.3)
[2025-01-11 10:02] LABS: INR 1.03 (0.86-1.11); PTT,PARTIAL THROMBOPLSTIN TIME 30.0 SEC (23.9-30.7)
[2025-01-11 10:09] LABS: LACTIC ACID 1.4 mmol/L (0.4-2.0)
[2025-01-11] MEDS: methylPREDNISolone Sodium Succinate 125 MG/2 ML SDV IVPUSH ONE (10:11)
[2025-01-11 10:13] LABS: A/G RATIO 0.9 (0.9-1.6); ALANINE AMINOTRANSFERASE,ALT 17.0 IU/L (14-63); BILIRUBIN TOTAL 1.5 mg/dL (0.2-1.0); BLOOD UREA NITROGEN,BUN 18.0 mg/dL (7.0-18.0); CARBON DIOXIDE,CO2 26.3 mmol/L (21.0-32.0); CHLORIDE,CL 101.0 mmol/L (98-107); CREATININE 1.3 mg/dL (0.8-1.3); EST CRCL DRUG DOSING (CG) 51.47 mL/min; GLUCOSE RANDOM 150.0 mg/dL (74-106); POTASSIUM,K 4.2 mmol/L (3.5-5.1); PRO B-TYPE NATRIUR PEPT,BNPPRO 291.0 pg/mL (0-125); PROTEIN TOTAL,TP 7.2 g/dL (6.4-8.2); SODIUM,NA 137.0 mmol/L (136-148)
[2025-01-11 10:26] LABS: ESTIMATED GFR 58.0 mL/min (>60)
[2025-01-11 10:35] LABS: APPEARANCE,URINE CLEAR; GLUCOSE,URINE NEGATIVE (NEGATIVE); OCCULT BLOOD,URINE SMALL (NEGATIVE)
[2025-01-11 10:37] LABS: ASPARTATE AMNIOTRANSFERASE,AST 18.0 IU/L (15-37)
[2025-01-11 10:56] LABS: EPITHELIAL CELLS,URINE OCCASIONAL (NONE-FEW)
[2025-01-11] MEDS: Iopamidol 755 MG/ML 500 ML Multipack Bottle IVPUSH STA (13:00)
[2025-01-11] MEDS: cefTRIAXone 1 GM in Water For Injection, Sterile 10 ML IVPUSH SCH (18:08)
[2025-01-11] MEDS: NALOXONE HCL PO SCH (21:04)
[2025-01-11] MEDS: BUPRENORPHINE HCL PO SCH (21:04)
[2025-01-12 05:25] LABS: BASOPHILS ABSOLUTE AUTO 0.01 K/uL (0.00-0.20); BASOPHILS PERCENT AUTO 0.1 % (0.0-1.0); EOSINOPHILS ABSOLUTE AUTO 0.00 K/uL (0.00-0.45); EOSINOPHILS PERCENT AUTO 0.0 % (0.0-6.0); IMMATURE GRAN ABSOLUTE AUTO 0.07 K/uL (0.00-0.05); IMMATURE GRAN PERCENT AUTO 0.7 % (0.0-0.4); LYMPHOCYTES ABSOLUTE AUTO 0.62 K/uL (1.00-4.80); LYMPHOCYTES PERCENT AUTO 6.2 % (24.0-44.0); MEAN PLATELET VOLUME 9.3 fL (9.4-12.4); MONOCYTES ABSOLUTE AUTO 0.38 K/uL (0.00-0.80); MONOCYTES PERCENT AUTO 3.8 % (0.0-8.0); NEUTROPHILS ABSOLUTE AUTO 8.95 K/uL (1.80-7.70); NEUTROPHILS PERCENT AUTO 89.2 % (41.0-71.0); NRBC ABSOLUTE 0.00 K/uL (0.00-0.02); NRBC PERCENT 0.0 /100WBC (0.0-0.2); PLATELET COUNT,PLT 141 K/uL (150-400); RED BLOOD CELL COUNT 3.79 M/uL (4.52-5.90); WHITE BLOOD CELL COUNT,WBC 10.03 K/uL (3.9-11.3)
[2025-01-12 06:00] LABS: A/G RATIO 0.8 (0.9-1.6); ALANINE AMINOTRANSFERASE,ALT 21.0 IU/L (14-63); ASPARTATE AMNIOTRANSFERASE,AST 14.0 IU/L (15-37); BILIRUBIN TOTAL 0.4 mg/dL (0.2-1.0); BLOOD UREA NITROGEN,BUN 23.0 mg/dL (7.0-18.0); CARBON DIOXIDE,CO2 28.1 mmol/L (21.0-32.0); CHLORIDE,CL 104.0 mmol/L (98-107); CREATININE 1.1 mg/dL (0.8-1.3); EST CRCL DRUG DOSING (CG) 60.83 mL/min; GLUCOSE RANDOM 176.0 mg/dL (74-106); POTASSIUM,K 4.2 mmol/L (3.5-5.1); PROTEIN TOTAL,TP 6.5 g/dL (6.4-8.2); SODIUM,NA 140.0 mmol/L (136-148)
[2025-01-12 06:03] LABS: ESTIMATED GFR 70.0 mL/min (>60)
[2025-01-12] MEDS: Cholecalciferol (Vitamin D3) 25 MCG Tab PO SCH (09:39)
[2025-01-12 13:32] VITALS: BP 181/73; PULSE 83
== END 2025-01-12 14:45 | disposition home or self-care (01) ==
LOC: MW.ED 09:22 → MW.MS 14:38
PROVIDERS: ADMIT Internal Medicine; ATTEND Internal Medicine
DX: A41.9 Sepsis, unspecified organism (principal); J18.9 Pneumonia, unspecified organism; J44.1 Chronic obstructive pulmonary disease with (acute) exacerbation; Z88.7 Allergy status to serum and vaccine; Z79.82 Long term (current) use of aspirin; Z79.899 Other long term (current) drug therapy
CPT/HCPCS: 36415; 71045; 71045-26; 71275; 71275-26; 74177; 74177-26; 80053; 81001; 83605; 83735; 83880; 84484; 85025; 85610; 85730; 87040; 87899; 93005; 94640; 96365; 96375; 99285-25; A9270-GY; J0696; J1650; J2919; J3490; J7040; Q9967

== ENCOUNTER 2025-04-14 02:12 | Inpatient (IN) | payer MEDICARE ==
[2025-04-14] MEDS ORDERED: Sodium Chloride 0.9% 10 ML Syringe FLUSH PRN (02:14)
[2025-04-14] MEDS ORDERED: Sodium Chloride 0.9% 2.5 ML Syringe FLUSH PRN (02:14)
[2025-04-14] MEDS: Magnesium Sulfate 2 GM/50 mL 2 GM in Premix Bag 1 BAG IV ONE (02:20)
[2025-04-14 02:22] LABS: BASOPHILS ABSOLUTE AUTO 0.02 K/uL (0.00-0.20); BASOPHILS PERCENT AUTO 0.1 % (0.0-1.0); EOSINOPHILS ABSOLUTE AUTO 0.02 K/uL (0.00-0.45); EOSINOPHILS PERCENT AUTO 0.1 % (0.0-6.0); IMMATURE GRAN ABSOLUTE AUTO 0.06 K/uL (0.00-0.05); IMMATURE GRAN PERCENT AUTO 0.3 % (0.0-0.4); LYMPHOCYTES ABSOLUTE AUTO 2.68 K/uL (1.00-4.80); LYMPHOCYTES PERCENT AUTO 15.6 % (24.0-44.0); MEAN PLATELET VOLUME 8.5 fL (9.4-12.4); MONOCYTES ABSOLUTE AUTO 1.23 K/uL (0.00-0.80); MONOCYTES PERCENT AUTO 7.1 % (0.0-8.0); NEUTROPHILS ABSOLUTE AUTO 13.22 K/uL (1.80-7.70); NEUTROPHILS PERCENT AUTO 76.8 % (41.0-71.0); NRBC ABSOLUTE 0.00 K/uL (0.00-0.02); NRBC PERCENT 0.0 /100WBC (0.0-0.2); PLATELET COUNT,PLT 174 K/uL (150-400); RED BLOOD CELL COUNT 4.26 M/uL (4.52-5.90); WHITE BLOOD CELL COUNT,WBC 17.23 K/uL (3.9-11.3)
[2025-04-14] MEDS: cefTRIAXone 2 GM in Water For Injection, Sterile 20 ML IVPUSH ONE (02:25)
[2025-04-14 02:31] LABS: BASE EXCESS VENOUS 1.1 (-2.0-3.0); BICARBONATE,VENOUS 25.0 mEq/L (22-29); PCO2 VENOUS 37.0 mmHG (41-51); PH,VENOUS 7.44 (7.32-7.43); PO2 VENOUS 61.0 mmHG (35-45)
[2025-04-14] MEDS: methylPREDNISolone Sodium Succinate 125 MG/2 ML SDV IVPUSH ONE (02:31)
[2025-04-14 02:36] LABS: INR 1.14 (0.86-1.11); PTT,PARTIAL THROMBOPLSTIN TIME 31.3 SEC (23.9-30.7)
[2025-04-14 02:55] LABS: A/G RATIO 1.0 (0.9-1.6); ALANINE AMINOTRANSFERASE,ALT 22.0 IU/L (14-63); ASPARTATE AMNIOTRANSFERASE,AST 17.0 IU/L (15-37); BILIRUBIN TOTAL 1.2 mg/dL (0.2-1.0); BLOOD UREA NITROGEN,BUN 18.0 mg/dL (7.0-18.0); CARBON DIOXIDE,CO2 28.0 mmol/L (21.0-32.0); CHLORIDE,CL 101.0 mmol/L (98-107); CREATININE 1.0 mg/dL (0.8-1.3); EST CRCL DRUG DOSING (CG) 60.59 mL/min; ESTIMATED GFR 79.0 mL/min (>60); GLUCOSE RANDOM 122.0 mg/dL (74-106); POTASSIUM,K 3.9 mmol/L (3.5-5.1); PRO B-TYPE NATRIUR PEPT,BNPPRO 411.0 pg/mL (0-125); PROTEIN TOTAL,TP 6.7 g/dL (6.4-8.2); SODIUM,NA 135.0 mmol/L (136-148)
[2025-04-14 03:26] LABS: BASE EXCESS VENOUS 0.1 (-2.0-3.0); BICARBONATE,VENOUS 25.0 mEq/L (22-29); PCO2 VENOUS 39.0 mmHG (41-51); PH,VENOUS 7.41 (7.32-7.43); PO2 VENOUS 53.0 mmHG (35-45)
[2025-04-14] MEDS: Iopamidol 755 MG/ML 500 ML Multipack Bottle IVPUSH STA (03:43)
[2025-04-14 03:55] LABS: CHOLESTEROL HDL 90.0 mg/dL (40-60); CHOLESTEROL LDL CALCULATED 38.0 mg/dL (60-180); CHOLESTEROL TOTAL 141.0 mg/dL (50-200); VLDL CHOLESTEROL 12.0 mg/dL (5-55)
[2025-04-14 04:37] LABS: BASE EXCESS VENOUS 0.6 (-2.0-3.0); BICARBONATE,VENOUS 26.0 mEq/L (22-29); PCO2 VENOUS 44.0 mmHG (41-51); PH,VENOUS 7.38 (7.32-7.43); PO2 VENOUS 51.0 mmHG (35-45)
[2025-04-14 06:24] LABS: APPEARANCE,URINE CLEAR; GLUCOSE,URINE NEGATIVE (NEGATIVE); OCCULT BLOOD,URINE NEGATIVE (NEGATIVE)
[2025-04-14 09:45] LABS: BASOPHILS ABSOLUTE AUTO 0.01 K/uL (0.00-0.20); BASOPHILS PERCENT AUTO 0.1 % (0.0-1.0); EOSINOPHILS ABSOLUTE AUTO 0.00 K/uL (0.00-0.45); EOSINOPHILS PERCENT AUTO 0.0 % (0.0-6.0); IMMATURE GRAN ABSOLUTE AUTO 0.07 K/uL (0.00-0.05); IMMATURE GRAN PERCENT AUTO 0.5 % (0.0-0.4); LYMPHOCYTES ABSOLUTE AUTO 0.36 K/uL (1.00-4.80); LYMPHOCYTES PERCENT AUTO 2.4 % (24.0-44.0); MEAN PLATELET VOLUME 8.5 fL (9.4-12.4); MONOCYTES ABSOLUTE AUTO 0.25 K/uL (0.00-0.80); MONOCYTES PERCENT AUTO 1.6 % (0.0-8.0); NEUTROPHILS ABSOLUTE AUTO 14.58 K/uL (1.80-7.70); NEUTROPHILS PERCENT AUTO 95.4 % (41.0-71.0); NRBC ABSOLUTE 0.00 K/uL (0.00-0.02); NRBC PERCENT 0.0 /100WBC (0.0-0.2); PLATELET COUNT,PLT 174 K/uL (150-400); RED BLOOD CELL COUNT 3.85 M/uL (4.52-5.90); WHITE BLOOD CELL COUNT,WBC 15.27 K/uL (3.9-11.3)
[2025-04-14] MEDS ORDERED: Naloxone 0.4 MG/ML SDV IV PRN (10:39)
[2025-04-14] MEDS: Isosorbide Mononitrate 60 MG Tab.ER PO SCH (10:49)
[2025-04-14 11:05] LABS: BLOOD UREA NITROGEN,BUN 21.0 mg/dL (7.0-18.0); CARBON DIOXIDE,CO2 27.6 mmol/L (21.0-32.0); CHLORIDE,CL 101.0 mmol/L (98-107); CREATININE 1.2 mg/dL (0.8-1.3); EST CRCL DRUG DOSING (CG) 51.94 mL/min; GLUCOSE RANDOM 251.0 mg/dL (74-106); POTASSIUM,K 4.3 mmol/L (3.5-5.1); SODIUM,NA 136.0 mmol/L (136-148)
[2025-04-14 11:15] LABS: ESTIMATED GFR 63.0 mL/min (>60)
[2025-04-14] MEDS: methylPREDNISolone Sodium Succinate 40 MG/1 ML SDV IVPUSH SCH (13:33)
[2025-04-15] MEDS: cefTRIAXone 1 GM in Water For Injection, Sterile 10 ML IVPUSH SCH (02:09)
[2025-04-15 06:08] LABS: BASOPHILS ABSOLUTE AUTO 0.01 K/uL (0.00-0.20); BASOPHILS PERCENT AUTO 0.1 % (0.0-1.0); EOSINOPHILS ABSOLUTE AUTO 0.00 K/uL (0.00-0.45); EOSINOPHILS PERCENT AUTO 0.0 % (0.0-6.0); IMMATURE GRAN ABSOLUTE AUTO 0.16 K/uL (0.00-0.05); IMMATURE GRAN PERCENT AUTO 1.0 % (0.0-0.4); LYMPHOCYTES ABSOLUTE AUTO 0.76 K/uL (1.00-4.80); LYMPHOCYTES PERCENT AUTO 4.8 % (24.0-44.0); MEAN PLATELET VOLUME 8.9 fL (9.4-12.4); MONOCYTES ABSOLUTE AUTO 0.39 K/uL (0.00-0.80); MONOCYTES PERCENT AUTO 2.5 % (0.0-8.0); NEUTROPHILS ABSOLUTE AUTO 14.47 K/uL (1.80-7.70); NEUTROPHILS PERCENT AUTO 91.6 % (41.0-71.0); NRBC ABSOLUTE 0.00 K/uL (0.00-0.02); NRBC PERCENT 0.0 /100WBC (0.0-0.2); PLATELET COUNT,PLT 169 K/uL (150-400); RED BLOOD CELL COUNT 3.83 M/uL (4.52-5.90); WHITE BLOOD CELL COUNT,WBC 15.79 K/uL (3.9-11.3)
[2025-04-15 06:31] LABS: A/G RATIO 0.8 (0.9-1.6); ALANINE AMINOTRANSFERASE,ALT 18.0 IU/L (14-63); ASPARTATE AMNIOTRANSFERASE,AST 11.0 IU/L (15-37); BILIRUBIN TOTAL 0.3 mg/dL (0.2-1.0); BLOOD UREA NITROGEN,BUN 27.0 mg/dL (7.0-18.0); CHLORIDE,CL 105.0 mmol/L (98-107); CREATININE 1.0 mg/dL (0.8-1.3); EST CRCL DRUG DOSING (CG) 62.33 mL/min; GLUCOSE RANDOM 153.0 mg/dL (74-106); PHOSPHORUS 3.4 mg/dL (2.6-4.7); POTASSIUM,K 4.7 mmol/L (3.5-5.1); PROTEIN TOTAL,TP 6.5 g/dL (6.4-8.2); SODIUM,NA 140.0 mmol/L (136-148)
[2025-04-15 06:34] LABS: CARBON DIOXIDE,CO2 28.4 mmol/L (21.0-32.0)
[2025-04-15 06:35] LABS: ESTIMATED GFR 79.0 mL/min (>60)
[2025-04-15 08:03] LABS: BORDETELLA PARAPERT IS1001 Not Detected (Not Detected)
[2025-04-15] MEDS: Sennosides/Docusate Sodium 50-8.6 MG Tab PO SCH (20:42)
[2025-04-16 05:40] LABS: BASOPHILS ABSOLUTE AUTO 0.01 K/uL (0.00-0.20); BASOPHILS PERCENT AUTO 0.1 % (0.0-1.0); EOSINOPHILS ABSOLUTE AUTO 0.00 K/uL (0.00-0.45); EOSINOPHILS PERCENT AUTO 0.0 % (0.0-6.0); IMMATURE GRAN ABSOLUTE AUTO 0.15 K/uL (0.00-0.05); IMMATURE GRAN PERCENT AUTO 1.0 % (0.0-0.4); LYMPHOCYTES ABSOLUTE AUTO 0.74 K/uL (1.00-4.80); LYMPHOCYTES PERCENT AUTO 4.8 % (24.0-44.0); MEAN PLATELET VOLUME 9.1 fL (9.4-12.4); MONOCYTES ABSOLUTE AUTO 0.41 K/uL (0.00-0.80); MONOCYTES PERCENT AUTO 2.7 % (0.0-8.0); NEUTROPHILS ABSOLUTE AUTO 13.98 K/uL (1.80-7.70); NEUTROPHILS PERCENT AUTO 91.4 % (41.0-71.0); NRBC ABSOLUTE 0.00 K/uL (0.00-0.02); NRBC PERCENT 0.0 /100WBC (0.0-0.2); PLATELET COUNT,PLT 213 K/uL (150-400); RED BLOOD CELL COUNT 3.64 M/uL (4.52-5.90); WHITE BLOOD CELL COUNT,WBC 15.29 K/uL (3.9-11.3)
[2025-04-16 05:58] LABS: A/G RATIO 0.8 (0.9-1.6); ALANINE AMINOTRANSFERASE,ALT 24.0 IU/L (14-63); ASPARTATE AMNIOTRANSFERASE,AST 19.0 IU/L (15-37); BILIRUBIN TOTAL 0.3 mg/dL (0.2-1.0); BLOOD UREA NITROGEN,BUN 35.0 mg/dL (7.0-18.0); CARBON DIOXIDE,CO2 29.0 mmol/L (21.0-32.0); CHLORIDE,CL 103.0 mmol/L (98-107); CREATININE 1.0 mg/dL (0.8-1.3); EST CRCL DRUG DOSING (CG) 62.33 mL/min; GLUCOSE RANDOM 147.0 mg/dL (74-106); PHOSPHORUS 2.8 mg/dL (2.6-4.7); POTASSIUM,K 5.0 mmol/L (3.5-5.1); PROTEIN TOTAL,TP 6.3 g/dL (6.4-8.2); SODIUM,NA 138.0 mmol/L (136-148)
[2025-04-16 06:00] LABS: ESTIMATED GFR 79.0 mL/min (>60)
[2025-04-16] MEDS: Formoterol/Mometasone 200-5 MCG 8.8 GM Inhaler INH SCH (06:18)
[2025-04-16] MEDS: Cholecalciferol (Vitamin D3) 25 MCG Tab PO SCH (09:41)
[2025-04-16] MEDS: Mometasone Furoate Powder 220 MCG/Puff 14 Dose Inhaler INH SCH (10:20)
[2025-04-16 11:56] VITALS: BP 160/69; PULSE 87
== END 2025-04-16 12:45 | disposition home or self-care (01) | DRG 193 ==
LOC: MW.ED 02:12 → MW.MS 05:09
PROVIDERS: ADMIT Family Medicine; ATTEND Family Medicine
PROC: 5A09357 Assistance with Respiratory Ventilation, Less than 24 Consecutive Hours, Continuous Positive Airway Pressure (ICD-10-PCS; principal; 2025-04-14)
PROC: 3E03329 Introduction of Other Anti-infective into Peripheral Vein, Percutaneous Approach (ICD-10-PCS; 2025-04-14)
DX: J96.01 Acute respiratory failure with hypoxia (principal); J18.9 Pneumonia, unspecified organism; J44.0 Chronic obstructive pulmonary disease with (acute) lower respiratory infection; J44.1 Chronic obstructive pulmonary disease with (acute) exacerbation; F11.20 Opioid dependence, uncomplicated; I82.5Z2 Chronic embolism and thrombosis of unspecified deep veins of left distal lower extremity; I25.10 Atherosclerotic heart disease of native coronary artery without angina pectoris; G47.00 Insomnia, unspecified; D64.9 Anemia, unspecified; G47.33 Obstructive sleep apnea (adult) (pediatric); R91.1 Solitary pulmonary nodule; J90 Pleural effusion, not elsewhere classified; E86.0 Dehydration; R79.89 Other specified abnormal findings of blood chemistry; I10 Essential (primary) hypertension; M19.90 Unspecified osteoarthritis, unspecified site; Z86.73 Personal history of transient ischemic attack (TIA), and cerebral infarction without residual deficits; Z85.820 Personal history of malignant melanoma of skin; Z79.01 Long term (current) use of anticoagulants; Z88.8 Allergy status to other drugs, medicaments and biological substances; E78.00 Pure hypercholesterolemia, unspecified; K21.9 Gastro-esophageal reflux disease without esophagitis; Z79.52 Long term (current) use of systemic steroids; Z98.49 Cataract extraction status, unspecified eye; Z95.2 Presence of prosthetic heart valve; Z98.890 Other specified postprocedural states; Z99.81 Dependence on supplemental oxygen; Z87.891 Personal history of nicotine dependence; Z88.6 Allergy status to analgesic agent; Z88.7 Allergy status to serum and vaccine; Z79.899 Other long term (current) drug therapy
CPT/HCPCS: 36415; 71045; 71275; 80053; 80061; 81003; 82803 ×3; 83605; 83735; 83880; 84484 ×3; 85025; 85610; 85730; 87040 ×2; 87428; 93005; 94640; 96365; 96374; 96375; 99285; A4216; A9270 ×3; J0696; J1271; J3475; Q9967; 80048; 84100; 87486; 87581; 87633; 93010; 93306; 97161-GP; J2919